=== PATIENT | male | born 1980 | race Caucasian/White ===

== ENCOUNTER 2024-07-31 11:25 | Inpatient (IN) ==
--- OUTSIDE RECORDS SUMMARY | 2024-07-31 11:36 | External Medical Summary | Summary of Care ---
Author Name Unknown Organization [facility] Address [address] [place] [address] Phone [phone] Care Team Providers Care Machinist Helper Marine Name Role Phone Wolfgang Sellers MD Primary Care Provider + Reason for Visit * Reason Comments eRx-Medication Refill Encounter Details Date Type Department Care Team (Late st Contact Info) Description 06/03/2024 Refill General Internal Medicine [facility] [address] [facility] [place] [address] Wolfgang Sellers MD [address] [place] [address] Neck pain Allergies No known active allergiesdocumented as of this encounter (statuses as of 06/03/2024) Medications Medication Sig Dispensed Refills Start Date End Date Status sildenafil (REVATIO) 20 MG Tablet Take 2 Tabs by mouth daily as needed for Erectile Dysfunction. 90 Tab 3 07/02/2019 Active Acetaminophen 500 MG Oral Tablet (Tylenol) Take 2 Tablets by mouth every 6 hours as needed (took2 tablets this am). Active Doxycycline Hyclate 100 MG Oral CapsuleIndications:Ly me disease Take 1 Capsule by mouth in the morning and 1 Capsule before bedtime. For 28 days. 56 Capsule 03/03/2024 Active tiZANidine HCl 4 MG Oral Tablet (Zanaflex)Indications :Neck pain Take 1 Tablet by mouth at bedtime. 30 Tablet 1 05/07/2024 Active amLODIPine Besylate 10 MG Oral Tablet (Norvasc)Indications: Essential hypertension with goal blood pressure less than 130/80 TAKE 1 TABLET BY MOUTH EVERY MORNING 90 Tablet 3 05/20/2024 Active traMADol HCl 50 MG Oral TabletIndications:Chr onic neck pain,Chronic midline thoracic back pain Take 1 Tablet by mouth every 6 hours as needed for Pain, Severe. 56 Tablet 06/03/2024 Active documented as of this encounter (statuses as of 06/03/2024) Active Problems Problem Noted Date Diagnosed Date Chronic neck pain 07/17/2023 Essential hypertension with goal blood pressure less than 130/80 11/10/2021 Other male erectile dysfunction 07/28/2019 Irritable bowel syndrome with constipation 07/28 ADVANCE DIRECTIVE INFORMATION 05/24/2005 Overview: No, Advance Directive brochure offered , patient declined. 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 documented as of this encounter (statuses as of 06/03/2024) Immunizations Name Administration Dates Next Due COVID-19, LNP-s, No Preserve , Ion-sucrose, Ages 12+ (Pfizer) 01/26/2022 Covid-19 Ad26, Single Dose (Alta/J&J) 021 Hepatitis B, 20+ yrs 2024,01/16/2024 TDAP (age 10 and older)(Boostrix) 12/23/2020 documented as of this encounter Social History Tobacco Use Types Packs/Day Years Used Date Smoking Tobacco: Never Smokeless Tobacco: Never Alcohol Use Standard Drinks/Week Comments Never 0 (1 standard drink = 0.6 oz pur e alcohol) AUDIT-C Answer Date Recorded Frequency of Alcohol Consumption Never 05/08/2019 Average Number of Drinks Not on file 019 Frequency of Binge Drinking Not on file 01/2019 PHQ-2 Answer Date Recorded PHQ Adult Total Score 0 07/17/2023 Hunger Vital Sign Answer Date Recorded Within the past 12 months, y ou worried that your food would run out before you got the money to buy more. Never true 01/10/20 23 Within the past 12 months, t he food you bought just didn't last and you didn't have money to get more. Never true 01/09/2023 Utilities Answer Date Recorded Do you have trouble paying y our heating, water, or electric bill? (Adult - for ages 18 years and over) Not on file 02/18/2024 Is your family able to pay t he heat, water, or electric bill? (Household - for ages 0-17 years) Not on file 02/18/2024 Does your family have access to good internet? (Household - for ages 0-17 years) Not on file 02/18/2024 Social Connections Answer Date Recorded How often do you feel lonely or isolated from those around you? (Adult - for ages 18 years and over) Not on file 02/18/2024 Sex and Gender Information Value Date Recorded Sex Assigned at Male 05/08/2019 9:55 AM EDT Gender Identity Male 05/08/2019 9:55 AM EDT Sexual Orientation Straight 05/08/2019 9: 55 AM EDT Job Start Date Occupation Industry Not on file Not on file Not on file documented as of this encounter Miscellaneous Notes * Telephone Encounter - Shivam Delgado [facility] - 06/03/2024 11:32 AM EDTRefused Prescriptions: Disp Refills tiZANidine HCl 4 MG Oral Tablet (Zanaflex) 30 Tab*1 Sig: Take 1Tablet by mouth at bedtime.Refused By: SHIVAM DICKSON [facility] for Refusal: Too soon documented in this encounter Plan of Treatment Upcoming Encounters Date Type Department Care Team (Late st Contact Info) Description 06/29/2024 10:30 AM EDT Office Visit Pharmacy, [place] [facility] [address] [place] [address] Pharmacist2, [facility] [address] [place] [address] 07/20/2024 8:00 AM EST Nurse Only Ancillary [facility] [place] [address] [facility] [place] [address] Nurse, Int Med [address] [facility] [place] [address] 07/29/2024 3:20 PM EST Office Visit General Internal Medicine [facility] [place] [address] [facility] [place] [address] Wolfgang Sellers MD [address] [facility] [place] [address] Health Maintenance Due Date Last Done Comments Influenza Vaccine (FLU shot) (#1) 2024 Depression Screening 07/17/2024 07/17/2023 Hepatitis B Vaccine (3 of 3 - 19+ 3-dose series) 07/18/2024 2024, 01/16/2024 Albumin/Creatinine Ratio 11/24/2024 11/24/2021 GFR 03/02/2025 03/02/2024, 12/31, 01/09/2023, Additional history exists Diabetes Screening 03/02/2027 03/02/2024, 0 01/16/2024, 01/09/2023, Additional history exists Lipid Panel 01/15/2029 01/16/2024, 12/31, 11/24/2021, Additional history exists Colonoscopy 02/25/2029 02/26/2024, 02/26/2024 DTap/Tdap Vaccines (2 - Td or Tdap) 12/23/2030 12/23/2020 COVID-19 Vaccine Discontinued 01/26/2022, 07/07/2021 HIV Screening Discontinued HPV (Gardasil) Vaccine Aged Out No lo nger eligible based on patient's age to complete this topic Hepatitis C Screening Discontinued MENINGOCOCCAL (MENACTRA/MENVEO) Aged Out No longer eligible based on patient's age to complete this topic Pneumococcal Vaccine: Pediatrics (0 to 5 Years) and At-Risk Patients (6 to 64 Years) Aged Out No longer eligible based on patient's age to complete this topic documented as of this encounter Medical Devices Not on filedocumented as of this encounter Visit Diagnoses Diagnosis Neck pain Cervicalgia documented in this encounter Care Teams Machinist Helper Marine Relationship Specialty Start Date End Date Wolfgang Sellers MD 200 [place] [address] PCP - General Internal Medicine 11/10/21 documented as of this encounter
--- OUTSIDE RECORDS SUMMARY | 2024-07-31 11:36 | External Medical Summary | Summary of Care ---
Author Name Unknown Organization [facility] Address [address] [place] [address] Phone [phone] Care Team Providers Care Electric Needle Specialist Name Role Phone Wolfgang Messer MD Primary Care Provider + Reason for Visit * Reason Onset Date Comments Medication Refill 06/25/2024 Encounter Details Date Type Department Care Team (Late st Contact Info) Description 06/25/2024 Refill Pharmacy, [facility] 200 [place] [address] Wolfgang Messer MD 200 [place] [address] Chronic neck pain; Chronic midline thoracic back pain Allergies No known active allergiesdocumented as of this encounter (statuses as of 06/26/2024) Medications Medication Sig Dispensed Refills Start Date End Date Status sildenafil (REVATIO) 20 MG Tablet Take 2 Tabs by mouth daily as needed for Erectile Dysfunction. 90 Tab 3 07/02/2019 Active Acetaminophen 500 MG Oral Tablet (Tylenol) Take 2 Tablets by mouth every 6 hours as needed (took2 tablets this am). Active Doxycycline Hyclate 100 MG Oral CapsuleIndications :Lyme disease Take 1 Capsule by mouth in the morning and 1 Capsule before bedtime. For 28 days. 56 Capsule 03/03/2024 Active tiZANidine HCl 4 MG Oral Tablet (Zanaflex)Indicati ons:Neck pain Take 1 Tablet by mouth at bedtime. 30 Tablet 1 05/07/2024 Active amLODIPine Besylate 10 MG Oral Tablet (Norvasc)Indicatio ns:Essential hypertension with goal blood pressure less than 130/80 TAKE 1 TABLET BY MOUTH EVERY MORNING 90 Tablet 3 05/20/2024 Active traMADol HCl 50 MG Oral TabletIndications: Chronic neck pain,Chronic midline thoracic back pain Take 1 Tablet by mouth every 6 hours as needed for Pain, Severe. Do not start before June 27, 2024. 56 Tablet 06/27/2024 Active traMADol HCl 50 MG Oral TabletIndications: Chronic neck pain,Chronic midline thoracic back pain Take 1 Tablet by mouth every 6 hours as needed for Pain, Severe. Do not start before June 17, 2024. 56 Tablet 06/17/2024 06/25/2024 Discontinue d(Refill) documented as of this encounter (statuses as of 06/26/2024) Active Problems Problem Noted Date Diagnosed Date [...] as of this encounter (statuses as of 06/26/2024) Immunizations Name Administration Dates Next Due COVID-19, [...] encounter Miscellaneous Notes * Telephone Encounter - Wolfgang Messer MD - 06/26/2024 8:26 AM EDTSigned Prescriptions: Disp Refills traMADol HCl 50 MG Oral Tablet 56 Tab*0 Sig: Take 1 Tablet by mouth every 6 hours as needed for Pain, Severe. Do not start before June 27, 2024. Authorizing Provider: WOLFGANG MESSER * Telephone Encounter - Eliseo Martin [facility] - 06/25/2024 11:32 AM EDT Pending Prescriptions: Disp Refills traMADol HCl 50 MG Oral Tablet 56 Tab*0 Sig: Take 1 Tablet by mouth every 6 hours as needed for Pain, Severe. Do not start before June 27, 2024. documented in this encounter Plan of Treatment Upcoming Encounters Date Type Department Care Team (Late st Contact Info) Description 06/29/2024 10:30 AM EDT Office Visit Pharmacy, [place] [employer] [address] [place] [address] Pharmacist2, [facility] [address] [place] [address] 07/20/2024 8:00 AM EST Nurse Only [facility] [place] [address] [place] [address] [address] [address] Nurse, Int Med [address] [place] [address] 07/29/2024 3:20 PM EST Office Visit General Internal Medicine [facility] [place] [address] [place] [address] Wolfgang Messer MD [address] [place] [address] Scheduled Procedures Name Priority Associated Diagnoses Date/Ti me COLONOSCOPY FLEXIBLE PROXIMA L DIAGNOSTIC Recall History of colonic polyps Health Maintenance Due Date Last Done Comments [...] as of this encounter Visit Diagnoses Diagnosis Chronic neck pain Cervicalgia Chronic midline thoracic back pain documented in this encounter Care Teams Electric Needle Specialist Relationship Specialty Start Date End Date Wolfgang Messer MD [address] [place] [address] PCP - General Internal Medicine 11/10/21 documented as of this encounter
--- OUTSIDE RECORDS SUMMARY | 2024-07-31 11:36 | External Medical Summary | Summary of Care ---
Author Name Unknown Organization [facility] Address [address] [place] [address] Phone [phone] Care Team Providers Care Neurology Hospitalist Name Role Phone Wolfgang Messer MD Primary Care Provider + Reason for Visit * Reason Onset Date Comments Medication Refill 06/15/2024 Encounter Details Date Type Department Care Team (Late st Contact Info) Description 06/15/2024 Refill Pharmacy, [facility] 200 [facility] [place] [address] Wolfgang Messer MD 200 [place] [address] Chronic neck pain; Chronic midline thoracic back pain Allergies No known active allergiesdocumented as of this encounter (statuses as of 06/15/2024) Medications Medication Sig Dispensed Refills Start Date [...] before June 17, 2024. 56 Tablet 06/17/2024 Active traMADol HCl 50 MG Oral TabletIndications: Chronic neck pain,Chronic midline thoracic back pain Take 1 Tablet by mouth every 6 hours as needed for Pain, Severe. 56 Tablet 06/03/2024 06/15/2024 Discontinue d(Refill) documented as of this encounter (statuses as of 06/15/2024) Active Problems Problem Noted Date Diagnosed Date [...] as of this encounter (statuses as of 06/15/2024) Immunizations Name Administration Dates Next Due COVID-19, [...] Telephone Encounter - Wolfgang Messer MD - 06/15/2024 8:39 AM EDTSigned Prescriptions: Disp Refills traMADol HCl 50 MG Oral Tablet 56 Tab*0 Sig: Take 1 Tablet by mouth every 6 hours as needed for Pain, Severe. Do not start before June 17, 2024. Authorizing Provider: WOLFGANG MESSER * Telephone Encounter - Eliseo Martin [facility] - 06/15/2024 7:50 AM EDT Pending Prescriptions: Disp Refills traMADol HCl 50 MG Oral Tablet 56 Tab*0 Sig: Take 1 Tablet by mouth every 6 hours as needed for Pain, Severe. Do not start before June 17, 2024. documented in this encounter Plan of Treatment Upcoming Encounters Date Type Department Care Team (Late st Contact Info) Description 06/29/2024 10:30 AM EDT [facility] [place] [address] [facility] [place] [place] [address] Pharmacist2, [facility] [address] [place] [address] [address] 07/20/2024 8:00 AM EST Nurse Only Ancillary [facility] [place] [address] [facility] [place] [address] Nurse, Int Med 200 [facility] [place] [address] 07/29/2024 3:20 PM EST Office Visit General Internal Medicine [facility] [place] [address] [facility] [place] [address] Wolfgang Messer MD 200 [facility] [place] [address] Scheduled Procedures Name Priority Associated Diagnoses Date/Ti [...] pain documented in this encounter Care Teams Neurology Hospitalist Relationship Specialty Start Date End Date Wolfgang Messer MD [address] [place] [address] PCP - General Internal Medicine 11/10/21 documented as of this encounter
--- OUTSIDE RECORDS SUMMARY | 2024-07-31 11:36 | External Medical Summary | Summary of Care ---
Author Name Unknown Organization [facility] Address [address] [facility] [place] [address] Phone [phone] Care Team Providers Care Ham Sawyer Name Role Phone Wolfgang Sellers MD Primary Care Provider + Reason for Visit * Reason Onset Date Comments Pre Cert/Prior Auth 03/06/2024 MRI C Spine denied Encounter Details Date Type Department Care Team (Late st Contact Info) Description 03/06/2024 Telephone Neurology [facility] [address] [place], [place] [id number] Outpatient, Precert DO NOT CHANGE - JS Pre Cert/Prior Auth (MRI C Spine denied) Allergies No known active allergiesdocumented as of this encounter (statuses as of 06/05/2024) Medications Medication Sig Dispensed Refills Start Date End Date Status sildenafil (REVATIO) 20 MG Tablet Take 2 Tabs by mouth daily as needed for Erectile Dysfunction. 90 Tab 3 07/02/2019 Active Acetaminophen 500 MG Oral Tablet (Tylenol) Take 2 Tablets by mouth every 6 hours as needed (took2 tablets this am). Active Doxycycline Hyclate 100 MG Oral CapsuleIndication s:Lyme disease Take 1 Capsule by mouth in the morning and 1 Capsule before bedtime. For 28 days. 56 Capsule 03/03/2024 Active amLODIPine Besylate 10 MG Oral Tablet (Norvasc)Indicati ons:Essential hypertension with goal blood pressure less than 130/80 Take 1 Tablet by mouth in the morning. 90 Tablet 3 07/17/2023 05/20/20 24 Discontinued Gabapentin 600 MG Oral Tablet (Neurontin)Indica tions:Chronic midline thoracic back pain Take 1 Tablet by mouth in the morning and 1 Tablet at noon and 1 Tablet before bedtime. 270 Tablet 1 12/13/2023 05/29/20 24 Discontinued tiZANidine HCl 4 MG Oral Tablet (Zanaflex)Indicat ions:Neck pain Take 1 Tablet by mouth every 8 hours as needed for Muscle spasms. 30 Tablet 3 02/10/2024 04/17/20 24 Discontinued Topiramate 50 MG Oral Tablet (Topamax)Indicati ons:Neck pain,Chronic midline thoracic back pain Take 1 Tablet by mouth in the morning and 1 Tablet before bedtime. 180 Tablet 3 02/07/2024 05/29/20 24 Discontinued traMADol HCl 50 MG Oral TabletIndications :Chronic neck pain Take 1 Tablet by mouth every 6 hours as needed for Pain, Severe. 56 Tablet 03/06/2024 03/18/20 24 Discontinued(Ref ill) documented as of this encounter (statuses as of 06/05/2024) Active Problems Problem Noted Date Diagnosed Date [...] as of this encounter (statuses as of 06/05/2024) Immunizations Name Administration Dates Next Due COVID-19, [...] encounter Miscellaneous Notes * Telephone Encounter - Stephanie Zapien OSA - 03/06/2024 8:53 AM EDT The MRI C Spine 62026 requested for Héctor Carrera is currently in Peer to Peer Review with Lorin. Please have a Nurse, HANS, MANAGER LEADERSHIP DEVELOPMENT or Physician call , Option 2, reference tracking # [id number] and speak with a Physician Reviewer to procure the required authorization. For 10398 MRI C SPINE W/ & W/O CONTRAST Your doctor told us that you had a repair (surgery) to join two or more bones of your spine into one single structure. We cannot approve this request because: An MRI (magnetic resonance imaging) scan has already been approved for you. A separate approval letter has been sent to you. We need results of the prior approved scan that show the need for repeat imaging or your doctor must confirm that the prior approved MRI scan was not performed and will not be performed. The notes sent from your doctor did not provide these details. Imaging requires six weeks of provider directed treatment to be completed. This must have been completed in the past three months without improved symptoms. Contact (via office visit, phone, email, or messaging) must occur after the treatment is completed. This has not been met because: You have not completed six weeks of provider directed treatment. Symptoms must be the same or worse after treatment to support imaging. There was no contact with your provider after completing treatment. This finding was based on review of [employer] Sp[employer] Imaging Guidelines Section(s): Greater than Six Months Post-Operative (SP 15.1) and 1.0 General Guidelines and Preface to the Imaging Guidelines, section Preface-3.1 Clinical Information. After reviewing your clinical notes, a Peer to Peer Review is required prior to approval of the requested study. Please call to obtain authorization. Alternatively, if the Peer to Peer will not be completed, please have a Clinician contact this patient to provide an alternative treatment plan. GIANFRANCO Lora 03/06/2024, 8:53 AM documented in this encounter Plan of Treatment Upcoming Encounters Date Type Department Care Team (Late st Contact Info) Description 06/29/2024 10:30 AM EDT Office Visit Pharmacy, [place] [facility] [address] [place] [address] Pharmacist2, [facility] [address] [place] [address] 07/20/2024 8:00 AM EST Nurse Only Ancillary [place] [facility] [address] [address] Nurse, Int Med [address] [place] [address] 07/29/2024 3:20 PM EST Office Visit General Internal Medicine [place] [facility] [address] [place] [address] Wolfgang Sellers MD 200 [facility] [place] [address] Health Maintenance Due Date Last Done Comments [...] Not on filedocumented as of this encounter Care Teams Ham Sawyer Relationship Specialty Start Date End Date Wolfgang Sellers MD [address] [place] [address] PCP - General Internal Medicine 11/10/21 documented as of this encounter
--- OUTSIDE RECORDS SUMMARY | 2024-07-31 11:36 | External Medical Summary | Summary of Care ---
Author Name Unknown Organization [facility] Address [address] [facility] [address] Phone [phone] Care Team Providers Care Maintenance Painter Apprentice Name Role Phone Wolfgang Sellers MD Primary Care Provider + Reason for Visit * Reason Onset Date Comments Pre Cert/Prior Auth 03/11/2024 MRI C Spine Encounter Details Date Type Department Care Team (Late st Contact Info) Description 03/11/2024 Telephone Neurology [facility] [address] [place] [address] Outpatient, Precert DO NOT CHANGE - JS Pre Cert/Prior Auth (MRI C Spine) Allergies No known active allergiesdocumented as of this encounter (statuses as of 06/10/2024) Medications Medication Sig Dispensed Refills Start Date [...] as of this encounter (statuses as of 06/10/2024) Active Problems Problem Noted Date Diagnosed Date [...] as of this encounter (statuses as of 06/10/2024) Immunizations Name Administration Dates Next Due COVID-19, [...] Telephone Encounter - Stephanie Zapien OSA - 03/11/2024 9:44 AM EDT Please follow up on P2P that was sent on 03/06/2024. The MRI C Spine [id number] requested for Héctor Carrera is currently in Peer to Peer Review with Lorin. Please have a Nurse, HANS, IRON WORKER or Physician call , Option 2, reference tracking # [id number] and speak with a Physician Reviewer to procure the required authorization. For 13773 MRI C SPINE W/ & W/O CONTRAST [...] provide an alternative treatment plan. GIANFRANCO Lora 03/11/2024, 9:46 AM documented in this encounter Plan of Treatment Upcoming Encounters Date Type Department Care Team (Late st Contact Info) Description 06/29/2024 10:30 AM EDT Office Visit Pharmacy, [facility] [place] [address] [place] [address] [address] Pharmacist2, [facility] [address] [place] [address] 07/20/2024 8:00 AM EST Nurse Only Ancillary [facility] [place] [address] [place] [address] Nurse, Int Med [address] [facility] [place] [address] 07/29/2024 3:20 PM EST Office Visit General Internal Medicine [place] [facility] 200 [facility] [place] [address] Wolfgang Sellers MD 200 [facility] [place] [address] Scheduled Procedures Name Priority Associated Diagnoses Date/Ti [...] filedocumented as of this encounter Care Teams Maintenance Painter Apprentice Relationship Specialty Start Date End Date Wolfgang Sellers MD [address] [place] [address] PCP - General Internal Medicine 11/10/21 documented as of this encounter
--- OUTSIDE RECORDS SUMMARY | 2024-07-31 11:36 | External Medical Summary | Summary of Care ---
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 Difficulty walking due to that- using cane. Has some numbness in his R arm developing now. Encounter Details Date Type Department Care Team (Late st Contact Info) Description 07/29/2024 3:20 PM EST Office Visit General Internal Medicine [facility] [address] [facility] [place] [address] Wolfgang Sellers MD [address] [place] [address] Chronic bilateral low back pain with bilateral sciatica*; Numbness and tingling; History of Lyme disease; Essential hypertension with goal blood pressure less than 130/80; Chronic neck pain; Vaccine for viral hepatitis Allergies No known active allergiesdocumented as of this encounter (statuses as of 07/29/2024) Medications sildenafil (REVATIO) 20 MG Tablet Take 2 Tabs by mouth daily as needed for Erectile Dysfunction. 90 Tab 3 9 Active Acetaminophen 500 MG Oral Tablet (Tylenol) Take 2 Tablets by mouth every 6 hours as needed (took2 tablets this am). Active amLODIPine Besylate 10 MG Oral Tablet (Norvasc)Indicat ions:Essential hypertension with goal blood pressure less than 130/80 TAKE 1 TABLET BY MOUTH EVERY MORNING 90 Tablet 3 4 Active tiZANidine HCl 4 MG Oral Tablet (Zanaflex)Indica tions:Neck pain Take 1 Tablet by mouth at bedtime. 30 Tablet 1 4 Active Gabapentin 800 MG Oral Tablet (Neurontin) Take 1 Tablet by mouth in the morning and 1 Tablet at noon and 1 Tablet before bedtime. 90 Tablet 1 4 Active Amoxicillin 500 MG Oral Capsule (Amoxil)Indicati ons:Chronic bilateral low back pain with bilateral sciatica,History of Lyme disease Take 1 Capsule by mouth in the morning and 1 Capsule at noon and 1 Capsule before bedtime. Do all this for 21 days. 63 Capsule 4 08/19/20 24 Active traMADol HCl 50 MG Oral TabletIndication s:Chronic bilateral low back pain with bilateral sciatica,Chronic neck pain Take 1 Tablet by mouth every 4 hours as needed for Pain, Severe. 56 Tablet 4 Active Doxycycline Hyclate 100 MG Oral CapsuleIndicatio ns:Lyme disease Take 1 Capsule by mouth in the morning and 1 Capsule before bedtime. For 28 days. 56 Capsule 4 07/29/20 24 Discontinu ed(Medicat ion List Clean Up) predniSONE 20 MG Oral Tablet (Deltasone) Take 3 tabs for 3 days, 2 tabs for 3 days, 1 tab for 3 days, 1/2 tab for 3 days 20 Tablet 4 07/29/20 24 Discontinu ed(Medicat ion List Clean Up) traMADol HCl 50 MG Oral TabletIndication s:Chronic neck pain,Chronic midline thoracic back pain Take 1 Tablet by mouth every 4 hours as needed for Pain, Severe. 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 documented as of this encounter (statuses as of 07/29/2024) Immunizations Name Administration Dates Next Due COVID-19, LNP-s, No Preserve , Ion-sucrose, Ages 12+ (Pfizer) 01/26/2022 Covid-19 Ad26, Single Dose ([employer]) 021 Hepatitis B, 20+ yrs 07/29/2024,2024,01/15 TDAP (age 10 and older)(Boostrix) 12/23/2020 documented [...] money to get more. Never true 01/09/2023 Sex and Gender Information Value Date Recorded Sex Assigned at Male 05/08/2019 9:55 AM EDT Legal Sex Male 5:56 AM EST Gender Identity Male 05/08/2019 9:55 AM EDT Sexual Orientation Straight 05/08/2019 9: 55 AM EDT documented as of this encounter Last Filed Vital Signs Vital Sign Reading Time Taken Comments Blood Pressure 116/82 07/29/2024 3:04 PM EST Pulse 123 07/29/2024 3:04 PM EST Temperature 36.1 C (96.9 F) 07/29/2024 3:04 PM ES T Respiratory Rate - - Oxygen Saturation 99% 07/29/2024 3:04 PM EST Inhaled Oxygen Concentration - - Weight 81.4 kg (179 lb 8 oz) 07/29/2024 3:04 PM EST Height - - Body Mass Index 25.76 03/11/2024 10:04 AM EDT documented in this encounter Patient Instructions * Patient Instructions* Jimbo Castro CMA - 07/29/2024 4:05 PM EST Vaccination is the best way to protect against hepatitis B. Depending on age and vaccine used most patients get 2 or 3 doses of hepatitis B vaccine. If you miss a dose or get behind schedule, get the next dose as soon as you can. There is no need to start over. Age for Hepatitis B Vaccine: INFANTS: *Infants whose mother HAS hepatitis B virus: #1 dose- at 2 month visit #2 dose- 1 month after dose #1 #3 dose- 7 months of age (at least 5 months after dose #1) *Infants whose mother does NOT have hepatitis B virus: #1 dose- - 2 months of age #2 dose- 1-4 months of age (at least 1 month after dose #1) #3 dose- 6-18 months of age ( at least 2 months after dose #2) *Adults at recommended age to receive Hepatitis B vaccine may receive 2 or 3 doses depending on thetype of vaccine administered: #1 dose- Now #2 dose- 1-2 months after dose #1 #3 dose- (if needed)- 4-6 months after dose #1 WHAT ARE THE RISKS FROM HEPATITIS B VACCINE? Hepatitis B vaccine is one of the safest vaccines. Getting the disease is much more likely to causeserious illness than getting the vaccine. MILD PROBLEMS: - soreness where the shot was given. - mild to moderate fever Acetaminophen or Ibuprofen (not aspirin) may be used to reduce fever and pain. SEVERE PROBLEMS: - serious allergic reaction is very rare. WHAT TO DO IF THERE IS A SERIOUS REACTION: - Call a doctor or get the person to a doctor right away. - Ask your doctor, nurse, or health department to file a Vaccine Adverse Event Report form. To filea report yourself you can call: (toll-free) LET YOUR DOCTOR KNOW IMMEDIATELY IF YOU HAVE DIFFICULTY BREATHING OR SWALLOWING, EXPERIENCE ITCHING OF FEET OR HANDS, HAVE SWELLING OF EYES, FACE OR INSIDE OF NOSE. documented in this encounter Progress Notes * Jimbo Castro CMA - 07/29/2024 4:05 PM EST The patient has been properly identified by confirmation of name and date of . Hepatitis B VIS given to patient. Hepatitis B ordered and Provider aware. Jimbo Castro CMA Time Out Procedure Performed: Yes Patient Identified (Ask Name/Date of ): Yes Immunization(s) verified: Yes, VIS Sheet(s) given: Yes Verified Side and Site: Yes Verified Shot(s) with Patient: Yes Jimbo Castro CMA * Wolfgang Sellers MD - 07/29/2024 3:40 PM EST Chief Complaint Patient presents with Return Visit Pt reported that he has numbness that starts at his buttock and down both legs. Difficulty walking due to that- using cane. Has some numbness in his R arm developing now. SUBJECTIVE: Héctor Carrera is a 44 year old male with PMH as below who presents for acute. Earlier in the year had back pain, numbness down legs, and trouble walking. Had mri and saw neurology. Dx with lyme based on labs. Started on doxycyline but couldn't tolerate due to suicidal ideationand hallucinations which stopped when he stopped med. Went to ER, given amoxicillin and symptoms dramatically improved, stopped needed cane and numbness was markedly improved! He notes neck pain improved as well after amoxicillin to baseline. He then took a trip to [place] in June and then pain worsened again. He is having increasing lower back pain from lower back to legs. Legs have sensation,but diminished no falls, no trauma. Patient denies fecal or urine incontinence or other bowel/bladder issues. He notes also with neck pain as well. He was seen by mtm recently for this, given increase in neurontin. Recent prednisone didn't help at all, just finished. 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 Patient Active Problem List Diagnosis 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 PATHOLOGICAL FRACTURE OF TIBIA OR FIBULA Other male erectile dysfunction Irritable bowel syndrome with constipation Essential hypertension with goal blood pressure less than 130/80 Chronic neck pain Current Outpatient Medications Medication Sig Dispense Refill sildenafil (REVATIO) 20 MG Tablet Take 2 Tabs by mouth daily as needed for Erectile Dysfunction. 90Tab 3 Acetaminophen 500 MG Oral Tablet (Tylenol) Take 2 Tablets by mouth every 6 hours as needed (took2 tablets this am). amLODIPine Besylate 10 MG Oral Tablet (Norvasc) TAKE 1 TABLET BY MOUTH EVERY MORNING 90 Tablet 3 tiZANidine HCl 4 MG Oral Tablet (Zanaflex) Take 1 Tablet by mouth at bedtime. 30 Tablet 1 traMADol HCl 50 MG Oral Tablet Take 1 Tablet by mouth every 4 hours as needed for Pain, Severe. 56 Tablet 0 Gabapentin 800 MG Oral Tablet (Neurontin) Take 1 Tablet by mouth in the morning and 1 Tablet at noon and 1 Tablet before bedtime. 90 Tablet 1 Amoxicillin 500 MG Oral Capsule (Amoxil) Take 1 Capsule by mouth in the morning and 1 Capsule at noon and 1 Capsule before bedtime. Do all this for 21 days. 63 Capsule 0 No current facility-administered medications for this visit. Review of patient's allergies indicates: No Known Allergies Health Maintenance Due Topic Date Due Influenza Vaccine (FLU shot) (1) Never done Depression Screening 07/17/2024 Hepatitis B Vaccine (3 of 3 - 19+ 3-dose series) 07/18/2024 ROS: PULMONARY: No cough, sputum, or hemoptysis, No wheezing, No rales, No shortness of breath, and No recent change in breathing CARDIOVASCULAR: No chest pain, No shortness of breath, No dyspnea on exertion, No orthopnea, No paroxysmal nocturnal dyspnea, No edema, No palpitations, and No syncope GASTROINTESTINAL: No abdominal pain, No change in bowel habits, No significant heartburn, No significant change in appetite, No nausea, vomiting, diarrhea, or constipation, No hematemesis, No blood in stools or black tarry stools, No abdominal bloating or early satiety, and No dysphagia ALL OTHER SYSTEMS NEGATIVE I reviewed social, PMH, PSH, and family history and updated where needed. Social History Socioeconomic History Marital status: Spouse name: Not on file Number of children: Not on file Years of education: Not on file Highest education level: Not on file Occupational History Not on file Tobacco Use Smoking status: Never Smokeless tobacco: Never Vaping Use Vaping status: Never Used Substance and Sexual Activity Alcohol use: Never Drug use: Never Sexual activity: Not on file Other Topics Concern Not on file Social History Narrative Not on file Social Needs Financial Resource Strain: Not on file Food Insecurity: No Food Insecurity (01/09/2023) Hunger Vital Sign Worried About Running Out of Food in the Last Year: Never true Ran Out of Food in the Last Year: Never true Transportation Needs: Not on file Social Connections: Not on file Housing Stability: Not on file Past Medical History: Diagnosis Date INFORMATION Osteoid Osteoma Irritable bowel syndrome with constipation 07/28/2019 Osteoid osteoma right tibia Other male erectile dysfunction 07/28/2019 Seasonal allergies Past Surgical History: Procedure Laterality Date C-/T-SPINE PARAVERTEBRAL FACET INJ, 1 LEVEL 05/17/2022 C-/T-SPINE PARAVERTEBRAL FACET INJ, 1 LEVEL performed by Ramiro Woodward DO at [facility] C-/T-SPINE PARAVERTEBRAL FACET INJ, 1 LEVEL 06/14/2022 C-/T-SPINE PARAVERTEBRAL FACET INJ, 1 LEVEL performed by Ramiro Woodward DO at OR [facility] COLONOSCOPY COLONOSCOPY, DIAGNOSTIC (RECTUM) N/A 02/26/2024 diverticulosis/hemorrhoids/recall 5 years/COLONOSCOPY FLEXIBLE PROXIMAL DIAGNOSTIC performed by Sadiq Anglin MD at ENDOSCOPY [facility] DESTROY CERV/THORACIC NERVE IMAGING, SINGLE 07/19/2022 DESTROY CERV/THORACIC NERVE IMAGING, SINGLE performed by Ramiro Woodward DO at OR [facility] EGD, FLEXIBLE, DIAGNOSTIC 01/31/2024 biopsies normal/ESOPHAGOGASTRODUODENOSCOPY (EGD), FLEXIBLE, TRANSORAL, DIAGNOSTIC performed by Ev Perry MD at ENDOSCOPY [facility] INFORMATION 12/31,01/01 removal osteoid osteoma INJECT DX/THER SUBSTANCE INTERLAMINAR CERVICAL/THORACIC W IMAGE GUIDE 03/08/2022 INJECTION SPINE LUMBAR CERVICAL OR THORACIC performed by Ramiro Woodward DO at OR [facility] INJECT DX/THER SUBSTANCE INTERLAMINAR CERVICAL/THORACIC W IMAGE GUIDE 03/11/2023 INJECTION SPINE LUMBAR CERVICAL OR THORACIC performed by Ramiro Woodward DO at OR [facility] MISCELLANEOUS ORDER ([facility] ONLY) knee - left OTHER 2017 spinal fussion of c4 and c5 Family History Problem Relation Name Age of Onset Breast Cancer Mother No Known Problems Father No Known Problems Sister No Known Problems Brother No Known Problems Grandmother (Maternal) No Known Problems Grandfather (Maternal) No Known Problems Grandmother (Paternal) Other (pancreatic cancer) Grandfather (Paternal) OBJECTIVE: PHYSICAL EXAM: BP 116/82 | Pulse 123 | Temp 96.9 F (36.1 C) (Tympanic) | Wt 179 lb 8 oz (81.4 kg) | SpO2 99% |BMI 25.76 kg/m | BSA 2.01 m General: alert, healthy, and no distress Head: Normocephalic, No masses, lesions, or abnormalities Heart: tachycardia, no murmur, no gallops, PMI non-displaced, S-1 normal, and S- 2 normal Lungs: normal respiratory rate and rhythm, lungs clear to auscultation Extremities: no edema, no clubbing, no cyanosis Neuro Exam: alert with fluent speech, walks with cane, stands on own, pain to palpation lower back,has sensation in groin and can feel me touching, 5/5 strength legs, on/off table w/o aid Psych: normal affect, no flight of ideas or tangential thought, good eye contact, no pressured speech 03/18/24 brain: IMPRESSION IMPRESSION Normal study 03/04/24 mri c spine: 1. Stable postoperative changes status post ACDF at C5-C6. 2. New small central disc protrusion at C4-C5 causing mild spinal canal stenosis. 3. No spinal cord impingement or abnormal spinal cord signal. 02/07/24 mri l spine: Multilevel facet arthropathy and mild congenital canal narrowing. Mild effacement of each lateral recess at L4-5 07/27/24 mtm: Noted to have Lyme disease diagnosis this summer Noted to have left sided body symptoms numbness and was treated with antibiotics Was seeing Interventional Pain and next step was MBB test injections, but were delayed due to new onset Lyme Disease Unclear what part Lyme Disease may be playing today, but noted to have left sided lack pain that limits daily activity. 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 Noted to be ambulating with a cane today due to lumbar radiation and numbness. Had seen Dr Arroyo this summer, but lumbar issues could not fully be attributed to symptoms. Patient will be following with PCP this week to assess what part Lyme Disease may be playing chronically If pain not assisted with maximized dose of Gabapentin, will rotate to [facility] a next visit Education Provided - Patient educated on mechanism, time to efficacy and potential adverse effects of medication regimen Recommendations Increase Gabapentin 800 mg three times daily Tramadol 50mg Q4H Tizanidine 4mg Q8H: uses at bedtime due to fatigue Héctor verbalized understanding of the plan. Contact clinic with any issues. 05/29/24 mtm: Lower back pain has resolves since lymes disease has been treated. Neck pain is back to status quo from before the lymes disease flair up of pain. Pt self weaned off Gabapentin and topamax Pt would like to look to wean off tramadol after upcoming Darrell. Last visit: Pt discovered he had an active lymes infection, had temporary paralysis of his left side. Has recovered since then. Unclear how much of his pain previously was contributed by the Lymes Pt reports he feels a lot better now than he did in mid January. Given complicating factors over the past 2 months patient requests to not make any changes and see if remaining pain continues to improve as he continues to recover. 03/02/24 neurology: Héctor Carrera is a 44 y/o male with past medical history of hypertension, IBS, s/p anterior cervical fusion of C5-6, RLE osteoid osteoma surgery, and L meniscal surgery who presents with left sidedarm and leg numbness and lumbar back pain. 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 Patient's imaging results also do not show signs of disc herniation in the lumbar spine His prior C-spine imaging in 2022 was normal, but we will order imaging due to patient's upper extremity symptoms and history of C-spine surgery to rule out a spinal cord lesion or disc herniation. His symptoms do not appear to be due to a peripheral neuropathy as they are unilateral. However, if imaging and bloodwork is negative, we will order EMG testing. Labs today including chemistry sed rate Lyme titer cervical spine flexion and extension images to rule out instability Any sudden increase weakness should seek immediate medical attention return in 8 weeks Héctor was seen today for new patient. Diagnoses and all orders for this visit: Myeloradiculopathy - MRI C SPINE W WO CONTRAST - CBC WITH WBC DIFFERENTIAL - COMPREHENSIVE METABOLIC PANEL - ERYTHROCYTE SEDIMENTATION RATE (ESR) - LYME DISEASE ANTIBODY SCREEN WITH REFLEX TO CONFIRMATION - XR C SPINE 6 OR MORE VIEWS 03/13/24 er mdm: - Vitals signs stable - History obtained via patient. History as above. - Chronic conditions affecting care: HTN; IBS; chronic neck pain - Differential diagnoses include, but are not limited to: electrolyte abnormality; Lyme meningitis;medical side effect - Order placed for continuous cardiac monitoring. At this time, monitor showed rate of 80 bpm with normal sinus rhythm, per my interpretation. - External medical records reviewed. See your primary care visit note from today was reviewed. Patient was seen for follow-up for his recent Lyme disease diagnosis. He expressed numbness and tinglingand weakness in his left arm, leg and back that is progressing. Was seen by neurology on 03/02/2024 and was positive for Lyme and started on doxycycline on 03/03/2024. It is noted that his symptoms improved after initiation of doxycycline, despite his new side effects that he was having. - EKG interpreted by myself showed normal sinus rhythm. Rate 69 bpm. QT 396. No acute ischemic changes. No evidence of heart block. - Laboratory workup interpreted by myself showed normal WBC; normal PT/INR; normal platelet; stableelectrolytes; normal CRP; normal troponin; elevated total bilirubin (1.1) - Negative anaplasma smear and banesia smear - Lyme positive - CT head wo contrast negative for acute pathology - CTA head/neck negative for acute pathology. - I did discuss the results with the patient had a thorough discussion about treatment options. Hissymptoms seem atypical for doxycycline side effects. Did discuss that there are other oral options for treatment of Lyme's disease, including amoxicillin or cefuroxime. Did discuss that Lyme meningitis cannot be diagnosed without a lumbar puncture being performed. Patient symptoms do seem atypical for Lyme meningitis. However, I did discuss the risks of delayed lumbar puncture for diagnosis of Lyme meningitis, including but not limited to the progression of symptoms, permanent neurological symptoms, and encephalopathy. Patient declined doing a lumbar puncture at this time. He would like to trial course of another outpatient antibiotic, as he only had 4 days of doxycycline so he did not complete an outpatient treatment course for his Lyme infection. Instructed that if his neurological symptoms progressed over the next 3 to 4 days despite changing his antibiotic, he should present back tothe emergency department and can be reevaluated for a lumbar puncture to potentially be obtained. An MRI brain was ordered by the patient's PCP for further workup. - Patient given 2g IV rocephin for antibiotics in ER. Will discharge with prescription for amoxicillin 500 mg 3 times daily for 14 days. - Discussed results with patient. He was in agreement with the plan above. A prescription for amoxicillin 500 mg 3 times daily was sent to his pharmacy. - Patient remained stable throughout the visit. Results were discussed with the patient and patient's family. They were given the opportunity to ask questions. Had lengthy discussion with patient about supportive care return precautions. No changes to medications. Patient to follow up with primary care physician for further evaluation and management. All questions answered. Patient agreeable plan. ASSESSMENT: (M54.42, M54.41, G89.29) Chronic bilateral low back pain with bilateral sciatica (primary encounterdiagnosis) (R20.0, R20.2) Numbness and tingling (Z86.19) History of Lyme disease (I10) Essential hypertension with goal blood pressure less than 130/80 (M54.2, G89.29) Chronic neck pain PLAN: Chronic bilateral low back pain with bilateral sciatica (Primary) - Amoxicillin 500 MG Oral Capsule (Amoxil); Take 1 Capsule by mouth in the morning and 1 Capsule atnoon and 1 Capsule before bedtime. Do all this for 21 days. - traMADol HCl 50 MG Oral Tablet; Take 1 Tablet by mouth every 4 hours as needed for Pain, Severe. Seems to be progressing again. 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 He is aware, but would like to try oral abx first to see if helps. 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 Cont tramadol, neurontin, zanaflex I have reviewed the patients controlled substance dispensing history in the Prescription Drug Monitoring Program in compliance with the [facility] regulations before prescribing a controlled substance. Numbness and tingling As above History of Lyme disease - Amoxicillin 500 MG Oral Capsule (Amoxil); Take 1 Capsule by mouth in the morning and 1 Capsule atnoon and 1 Capsule before bedtime. Do all this for 21 days. As above Essential hypertension with goal blood pressure less than 130/80 Cont amlodipine Chronic neck pain - traMADol HCl 50 MG Oral Tablet; Take 1 Tablet by mouth every 4 hours as needed for Pain, Severe. Follow Up: Return if symptoms worsen or fail to improve. And as scheduled. Wolfgang Sellers MD documented in this encounter Nursing Notes * Jimbo Castro CMA - 07/29/2024 3:04 PM EST The patient has been properly identified by confirmation of name and date of . Chief Complaint Patient presents with Return Visit Pt reported that he has numbness that starts at his buttock and down both legs. Difficulty walking due to that- using cane. Has some numbness in his R arm developing now. documented in this encounter Plan of Treatment Upcoming Encounters Date Type Department Care Team (Late st Contact Info) Description 08/10/2024 10:10 AM EST Office Visit Pharmacy, [place] [facility] [place] [id number] [facility] [place] [address] Scheduled Procedures Name Priority Associated Diagnoses Date/Ti me L-/S-SPINE PARAVERTEBRAL FAC ET INJ, 1 LEVEL Spondylosis of lumbar region without myelopathy or radiculopathy L-/S-SPINE PARAVERTEBRAL FAC ET INJ, 2 LEVELS Spondylosis of lumbar region without myelopathy or radiculopathy L-/S-SPINE PARAVERTEBRAL FAC ET INJ, 1 LEVEL Spondylosis of lumbar region without myelopathy or radiculopathy L-/S-SPINE PARAVERTEBRAL FAC ET INJ, 2 LEVELS Spondylosis of lumbar region without myelopathy or radiculopathy DESTROY LUMBAR SACRAL NERVE IMAGING 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 DESTROY LUMBAR SACRAL NERVE IMAGING ADD'L Spondylosis of lumbar region without myelopathy or radiculopathy COLONOSCOPY FLEXIBLE PROXIMA L DIAGNOSTIC Recall History of colonic polyps Health Maintenance Due Date Last Done Comments Influenza Vaccine (FLU shot) (#1) 2024 Depression Screening 07/17/2024 07/17/2023 Albumin/Creatinine Ratio 11/24/2024 11/24/2021 GFR 03/02/2025 03/02/2024, 12/31, 01/09/2023, Additional history exists Diabetes Screening 03/02/2027 03/02/2024, 0 01/16/2024, 01/09/2023, Additional history exists Lipid Panel 01/15/2029 01/16/2024, 12/31, 11/24/2021, Additional history exists Colonoscopy 02/25/2029 02/26/2024, 02/26/2024 DTap/Tdap Vaccines (2 - Td or Tdap) 12/23/2030 12/23/2020 COVID-19 Vaccine Discontinued 01/26/2022, 07/07/2021 Hepatitis B Vaccine Completed 07/29/2024, 2024, 01/16/2024 HIV Screening Discontinued HPV (Gardasil) Vaccine Aged [...] of this encounter Visit Diagnoses Diagnosis Chronic bilateral low back pain with bilateral sciatica- Primary Numbness and tingling Disturbance of skin sensation History of Lyme disease Personal history of other infectious and parasitic disease Essential hypertension with goal blood pressure less than 130/80 Chronic neck pain Cervicalgia Vaccine for viral hepatitis Need for prophylactic vaccination and inoculation against viral hepatitis documented in this encounter Care Teams Electric Motor Repairman Relationship Specialty Start Date End Date Wolfgang Sellers MD [address] [place] [address] PCP - General Internal Medicine 11/10/21 documented as of this encounter"
--- OUTSIDE RECORDS SUMMARY | 2024-07-31 11:36 | External Medical Summary | Summary of Care ---
Author Name Unknown Organization [facility] Address [address] [place] [address] Phone [phone] Care Team Providers Care Surface Grinding Machine Hand Name Role Phone Wolfgang Messer MD Primary Care Provider + Reason for Visit * Reason Onset Date Comments Medication Refill 07/07/2024 Encounter Details Date Type Department Care Team (Late st Contact Info) Description 07/07/2024 Refill General Internal Medicine [facility] [address] [place] [address] Wolfgang Messer MD [address] [place] [address] Neck pain Allergies No known active allergiesdocumented as of this encounter (statuses as of 07/08/2024) Medications Medication Sig Dispensed Refills Start Date [...] June 27, 2024. 56 Tablet 06/27/2024 Active Gabapentin 600 MG Oral Tablet (Neurontin)Indicat ions:Chronic neck pain Take 1 Tablet by mouth in the morning and 1 Tablet at noon and 1 Tablet before bedtime. 90 Tablet 5 06/29/2024 Active tiZANidine HCl 4 MG Oral Tablet (Zanaflex)Indicati ons:Neck pain Take 1 Tablet by mouth at bedtime. 30 Tablet 1 07/08/2024 Active tiZANidine HCl 4 MG Oral Tablet (Zanaflex)Indicati ons:Neck pain Take 1 Tablet by mouth at bedtime. 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 documented as of this encounter (statuses as of 07/08/2024) Immunizations Name Administration Dates Next Due COVID-19, [...] Telephone Encounter - Wolfgang Messer MD - 07/08/2024 2:45 PM ESTSigned Prescriptions: Disp Refills tiZANidine HCl 4 MG Oral Tablet (Zanaflex) 30 Tab*1 Sig: Take 1 Tablet by mouth at bedtime. Authorizing Provider: WOLFGANG MESSER * Telephone Encounter - Jimbo Castro [facility] - 07/08/2024 2:41 PM ESTPending Prescriptions: Disp Refills tiZANidine HCl 4 MG Oral Tablet (Zanaflex) 30 Tab*1 Sig: Take 1 Tablet by mouth at bedtime. * Telephone Encounter - Jimbo Castro [facility] - 07/08/2024 2:41 PM EST Did you pend patient's preferred pharmacy and medication before forwarding?yes Pharmacy: [facility] Pending Prescriptions: Disp Refills tiZANidine HCl 4 MG Oral Tablet (Zanaflex)30 Tab*1 Sig: Take 1 Tablet by mouth at bedtime. Last Visit: 03/11/2024 (in office), Visit date not found (telemedicine) Next Visit: 07/29/2024 If no future appointments scheduled, and last appointment is greater than a year ago, please schedule patient for a follow-up appointment Last date the medication was ordered: 05.07.2024 Is this request for a controlled substance?No Urine Drug Screen: Results for orders placed or performed in visit on 02/07/24 PAIN MANAGEMENT DRUG PANEL, URINE W/ INTERPRETATION Result Value Compliance Interpretation Based on the medication information provided: The presence of tramadol and o-desmethyltramadol is CONSISTENT with tramadol use. Amphetamines Screen, U Negative Benzodiazepines Screen, U Negative Cannabinoids Screen, U Negative Cocaine Metabolite Screen, U Negative Fentanyl Screen, U Negative Hydrocodone Screen, U Negative Methadone Metabolite Screen, U Negative Morphine/Codeine Screen, U Negative Oxycodone Screen, U Negative Valid Interpretation Normal Creatinine, U 39 Narrative Cutoff Concentrations: Drug Level Amphetamines 500 ng/mL Benzodiazepines 100 ng/mL Cannabinoids 50 ng/mL Cocaine Metabolite 150 ng/mL Fentanyl 1 ng/mL Hydrocodone / Hydromorphone 300 ng/mL Methadone Metabolite 100 ng/mL Morphine / Codeine 300 ng/mL Oxycodone / Oxymorphone 100 ng/mL Screening results are presumptive and can only be used for medical purposes. Confirmatory testing is available upon request. Patient Phone Numbers Labs: Lab Results Component Value Date/Time CREAT 1.3 (H) 03/02/2024 03:25 PM CREAT 1.0 08/21/2000 11:04 AM POTASSIUM 4.1 03/02/2024 03:25 PM TSH 1.14 01/16/2024 09:14 AM LDL 169 (H) 01/16/2024 09:14 AM LDLCALC 137 11/14/2018 07:18 AM ALT 34 03/02/2024 03:25 PM * Telephone Encounter - Barb Holland - 07/07/2024 6:03 PM ESTPending Prescriptions: Disp Refills tiZANidine HCl 4 MG Oral Tablet (Zanaflex) 30 Tab*1 Sig: Take 1Tablet by mouth at bedtime. documented in this encounter Plan of Treatment Upcoming Encounters Date Type Department Care Team (Late st Contact Info) Description 07/20/2024 8:00 AM EST Nurse Only Ancillary [facility] [address] [place] [address] Nurse, Int Med [address] [place] [address] 07/29/2024 3:20 PM EST Office Visit General Internal Medicine [facility] [address] [place] [address] [address] Wolfgang Messer MD [address] [place] [address] 08/14/2024 8:30 AM EST Office Visit Pharmacy, [facility] [address] [place] [address] Pharmacist2, [facility] [address] [place] [address] Scheduled Procedures Name Priority Associated Diagnoses Date/Ti [...] Cervicalgia documented in this encounter Care Teams Surface Grinding Machine Hand Relationship Specialty Start Date End Date Wolfgang Messer MD [address] [facility] [address] PCP - General Internal Medicine 11/10/21 documented as of this encounter
--- OUTSIDE RECORDS SUMMARY | 2024-07-31 11:36 | External Medical Summary | Summary of Care ---
Author Name Unknown Organization [facility] Address [address] [place] [address] Phone [phone] Care Team Providers Care Wood Engraver Name Role Phone Wolfgang Messer MD Primary Care Provider + Reason for Visit * Reason Onset Date Comments Medication Refill 06/03/2024 Encounter Details Date Type Department Care Team (Late st Contact Info) Description 06/03/2024 Refill Pharmacy, [facility] [address] [place] [address] Wolfgang Messer MD [address] [place] [address] Chronic neck pain; Chronic midline thoracic back [...] for Pain, Severe. 56 Tablet 06/03/2024 Active traMADol HCl 50 MG Oral TabletIndications: Chronic neck pain,Chronic midline thoracic back pain Take 1 Tablet by mouth every 6 hours as needed for Pain, Severe. Do not start before May 22, 2024. 56 Tablet 05/22/2024 4 Discontinue d(Refill) documented as of this encounter [...] Telephone Encounter - Wolfgang Messer MD - 06/03/2024 9:03 AM EDTSigned Prescriptions: Disp Refills traMADol HCl 50 MG Oral Tablet 56 Tab*0 Sig: Take 1 Tablet by mouth every 6 hours as needed for Pain, Severe. Authorizing Provider: WOLFGANG MESSER * Telephone Encounter - Eliseo Martin [facility] - 06/03/2024 9:01 AM EDT Pending Prescriptions: Disp Refills traMADol HCl 50 MG Oral Tablet 56 Tab*0 Sig: Take 1 Tablet by mouth every 6 hours as needed for Pain, Severe. documented in this encounter Plan of Treatment Upcoming Encounters Date Type Department Care Team (Late st Contact Info) Description 06/29/2024 10:30 AM EDT Office Visit Pharmacy, [facility] [place] [address] [place] [address] Pharmacist2, [facility] [address] [place] [address] 07/20/2024 8:00 AM EST Nurse Only Ancillary [facility] [address] [place] [address] Nurse, Int Med [address] [facility] [place] [address] 07/29/2024 3:20 PM EST Office Visit General Internal Medicine [facility] [place] [address] [place] [address] Wolfgang Messer MD [address] [place] [address] Health Maintenance Due Date Last Done Comments [...] pain documented in this encounter Care Teams Wood Engraver Relationship Specialty Start Date End Date Wolfgang Messer MD [address] [place] [address] PCP - General Internal Medicine 11/10/21 documented as of this encounter
--- OUTSIDE RECORDS SUMMARY | 2024-07-31 11:36 | External Medical Summary | Summary of Care ---
Author Name Unknown Organization [facility] Address [address] [place] [address] Phone [phone] Care Team Providers Care Teletypist Name Role Phone Wolfgang Sellers MD Primary [...] PM EST Office Visit General Internal Medicine [facility] [address] [facility] [place] [address] Wolfgang Sellers MD [address] [place] [address] Chronic bilateral low back pain with bilateral [...] 12+ (Pfizer) 01/26/2022 Covid-19 Ad26, Single Dose ([employer]) 021 Hepatitis B, 20+ yrs 07/29/2024,2024,01/15 TDAP [...] baseline. He then took a trip to [place] in June and then pain worsened [...] LEVEL performed by Ramiro Woodward DO at [facility] C-/T-SPINE PARAVERTEBRAL FACET INJ, 1 LEVEL 06/14/2022 C-/T-SPINE PARAVERTEBRAL FACET INJ, 1 LEVEL performed by Ramiro Woodward DO at [facility] COLONOSCOPY COLONOSCOPY, DIAGNOSTIC (RECTUM) N/A 02/26/2024 diverticulosis/hemorrhoids/recall 5 years/COLONOSCOPY FLEXIBLE PROXIMAL DIAGNOSTIC performed by Sadiq Anglin MD at ENDOSCOPY [facility] DESTROY CERV/THORACIC NERVE IMAGING, SINGLE 07/19/2022 DESTROY CERV/THORACIC NERVE IMAGING, SINGLE performed by Ramiro Woodward DO at OR [facility] EGD, FLEXIBLE, DIAGNOSTIC 01/31/2024 biopsies normal/ESOPHAGOGASTRODUODENOSCOPY (EGD), FLEXIBLE, TRANSORAL, DIAGNOSTIC performed by Ev Perry MD at ENDOSCOPY [facility] INFORMATION 12/31,01/01 removal osteoid osteoma INJECT DX/THER SUBSTANCE INTERLAMINAR CERVICAL/THORACIC W IMAGE GUIDE 03/08/2022 INJECTION SPINE LUMBAR CERVICAL OR THORACIC performed by Ramiro Woodward DO at OR [facility] INJECT DX/THER SUBSTANCE INTERLAMINAR CERVICAL/THORACIC W IMAGE GUIDE 03/11/2023 INJECTION SPINE LUMBAR CERVICAL OR THORACIC performed by Ramiro Woodward DO at OR [facility] MISCELLANEOUS ORDER ([facility] ONLY) knee - left [...] maximized dose of Gabapentin, will rotate to [facility] a next visit Education Provided - [...] lyme, but can't say for sure if prototype carpenter lyme w/o lp and further work up/er/admission. He is aware, but would like to try oral abx first to see if helps. If no better 24-48 hour or worsen, would suggest er a m ay need stat mri l spine, possible lp to exclude prototype carpenter lyme needing iv abx, and excluding other neurology condition, and he is agreeable Could also be structure/mskt, but given past issues, concern lyme and will do as above. Cont tramadol, neurontin, zanaflex I have reviewed the patients controlled substance dispensing history in the Prescription Drug Monitoring Program in compliance with the [facility] regulations before prescribing a controlled substance. Did not tolerate doxy Numbness and tingling As above History of [...] 08/10/2024 10:10 AM EST [facility] [address] [facility] [place] [address] Scheduled Procedures Name Priority Associated Diagnoses Date/Ti [...] hepatitis documented in this encounter Care Teams Teletypist Relationship Specialty Start Date End Date Wolfgang Sellers MD [address] [place] [address] PCP - General Internal Medicine 11/10/21 documented as of this encounter"
--- OUTSIDE RECORDS SUMMARY | 2024-07-31 11:36 | External Medical Summary | Summary of Care ---
Author Name Unknown Organization [facility] Address [address] [place] [address] Phone [phone] Care Team Providers Care Gate Clerk Name Role Phone Wolfgang Sellers MD Primary Care Provider + Reason for Visit * Reason Comments Dosage Adjustment In Person (Anticoag Cl inic) Pain Encounter Details Date Type Department Care Team (Late st Contact Info) Description 06/29/2024 10:30 AM EDT Office Visit Pharmacy, [facility] [address] [place] [place] [address] Pharmacist2, [facility] [address] [place] [place] [address] Chronic neck pain* Allergies No known active allergiesdocumented as of this encounter (statuses as of 06/29/2024) Medications Medication Sig Dispensed Refills Start Date [...] 06/27/2024 Active Gabapentin 600 MG Oral Tablet (Neurontin)Indication s:Chronic neck pain Take 1 Tablet by mouth in the morning and 1 Tablet at noon and 1 Tablet before bedtime. 90 Tablet 5 06/29/2024 Active documented as of this encounter (statuses as of 06/29/2024) Active Problems Problem Noted Date Diagnosed Date [...] as of this encounter (statuses as of 06/29/2024) Immunizations Name Administration Dates Next Due COVID-19, [...] on file documented as of this encounter Progress Notes * Eliseo Martin, [facility] - 06/29/2024 10:29 AM EDT Images from the original note were not included. Medication Therapy Disease Management - Chronic Pain History of Presenting Illness Héctor Carrera, identified by name and date of , is a 44 year old male presents [facility] for return [facility]. 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 Pt reports that the pain in his back and neck. Pt reports that he does not feel he can cut back on tramadol right now, and pt would like to restart Gabapentin at this time. Last visit Lower back pain has resolves since lymes disease has been treated. Neck pain is back to status quo from before the lymes disease flair up of pain. Pt self weaned off Gabapentin and topamax Pt would like to look to wean off tramadol after upcoming [place]. History of Presenting Illness & Review of Systems Diagnosis: Neck pain (previous back surgery C5-6) Chronicity: Chronic Onset: More than a 1 year ago Frequency: Constantly Pain location: Arm, shoulder, lower back, leg and central neck Pain quality: Achy and shooting Pain is worse: In the morning Aggravated by: Activity (Running) Treatment(s) tried: Chiropractic manipulation, injections, physical therapy, surgery and TENS Medical History [x] Reviewed and updated in the EHR during the visit if checked Substance Use History [x] Reviewed and updated in the EHR during the visit if checked Objective Relevant Imaging XR L Spine (02/03/24) IMPRESSION 1. No acute findings. Degenerative changes as above. 2. Possible small right lower pole renal calculus. XR C SPINE FLEXION AND EXTENSION VIEWS ONLY - 01/02/2022 10:47 am FINDINGS ACDF with anterior plating C5-C6. Hardware is intact. Alignment is anatomic. Disc space heights arepreserved. No acute fracture. No dynamic instability. IMPRESSION IMPRESSION No dynamic instability MRI CERVICAL SPINE WITHOUT AND WITH CONTRAST 12-29-21 FINDINGS: No cord signal abnormality. ACDF at C5-6. No abnormal enhancement. Visualized brain parenchyma is normal. Thyroid gland is normal. No lymphadenopathy. Findings by level: C2-C3: No canal or foraminal narrowing. C3-C4: No canal or foraminal narrowing. C4-C5: Minimal disc herniation mild canal narrowing without foraminal narrowing. Mild bilateral facet arthropathy. C5-C6: No canal or foraminal narrowing. C6-C7: No canal or foraminal narrowing. C7-T1: No canal or foraminal narrowing. IMPRESSION: ACDF at C5-6. 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 Most recent answers to PEG-3 scale: PEG-3 Synopsis What number best describes your pain on average in the past week?: 4 (05/29/2024 9:00 AM) What number best describes how, during the past week, pain has interfered with your enjoyment of life?: 4 (05/29/2024 9:00 AM) What number best describes how, during the past week, pain has interfered with your general activity?: 4 (05/29/2024 9:00 AM) PEG Pain Total Score: 4 (05/29/2024 9:00 AM) Last Urine Toxicology Screening Results for orders placed or performed in [...] purposes. Confirmatory testing is available upon request. Last Serum Toxicology Screening No results found for: "DRUG ABUSE SCREEN 7", "SERUM", "DRUG ABUSE SCREEN 7, SERUM" Creatinine Clearance: Serum creatinine: 1.3 mg/dL (H) 03/02/24 1525 Estimated creatinine clearance: 76.4 mL/min (A) Creatinine Results: Recent Labs Units 03/02/24 1525 01/16/24 0914 01/09/23 1303 CREATININE - [facility] mg/dL 1.3* 1.1 1.2 Hepatic Function (ALT): Recent Labs Units 03/02/24 1525 01/16/24 0914 01/09/23 1303 ALT - [facility] U/L 34 21 16 Comprehensive Metabolic Panel Results: Results for orders placed or performed in visit on 03/02/24 COMPREHENSIVE METABOLIC PANEL Result Value Ref Range BUN 15 6 - 20 mg/dL CREATININE 1.3 (H) 0.6 - 1.2 mg/dL EGFR 74 >=60 mL/min SODIUM 141 135 - 146 mmol/L POTASSIUM 4.1 3.5 - 5.1 mmol/L CHLORIDE 104 98 - 107 mmol/L CO2 21 (L) 22 - 32 mmol/L ANION GAP 16 (H) 7 - 15 mmol/L GLUCOSE 88 70 - 120 mg/dL Albumin 5.3 (H) 3.8 - 5.0 g/dL AST 23 10 - 50 U/L Alkaline Phosphatase 81 35 - 130 U/L Bilirubin, Total 0.9 <=1.2 mg/dL CALCIUM 10.2 8.4 - 10.2 mg/dL Protein 8.1 6.0 - 8.3 g/dL ALT 34 10 - 50 U/L Assessment & Plan Patient aware MTM is a clinical pharmacist visit, with focus on medication options for current diagnoses referred by Primary Care Provider for review and optimization. The focus of this visit is: Medication optimization. Current regimen reviewed, patient is: Adherent to regimen. Treatment Options Will hold off on wean of tramadol, Restart Gabapentin Education Provided N/A Recommendations START: Gabapentin Week 1: Take 600mg once daily Week 2: Take 600mg BID Week 3+: Take 600mg TID Patient verbalized understanding of the plan. Contact clinic with any issues. 08/14/2024 I spent a total of 30-39 minutes (exact time 30 mins) on the date of service in preparation, delivery, and documentation of the care provided to Héctor Nury Carrera excluding any time spent in the performance of separately billed services or time spent by another provider/QHP. Eliseo Martin [facility] Clinical Pharmacist - Pet Care Assistant Medication Therapy Management Clinic 05/29/2024 - 9:19 AM documented in this encounter Plan of Treatment Upcoming Encounters Date Type Department Care Team (Late st Contact Info) Description 07/20/2024 8:00 AM EST Nurse Only Ancillary [facility] [address] [place] [address] Nurse, Int Med [address] [facility] [place] [address] 07/29/2024 3:20 PM EST Office Visit General Internal Medicine [facility] [address] [place] [address] Wolfgang Sellers MD [address] [facility] [place] [address] 08/14/2024 8:30 AM EST Office Visit Pharmacy, [facility] [place] [address] [place] [address] Pharmacist2, [facility] [address] [place] [address] Scheduled Procedures Name Priority Associated Diagnoses Date/Ti [...] this encounter Visit Diagnoses Diagnosis Chronic neck pain- Primary Cervicalgia documented in this encounter Care Teams Gate Clerk Relationship Specialty Start Date End Date Wolfgang Sellers MD [address] [place] [address] PCP - General Internal Medicine 11/10/21 documented as of this encounter
--- OUTSIDE RECORDS SUMMARY | 2024-07-31 11:36 | External Medical Summary | Summary of Care ---
Author Name Unknown Organization [facility] Address [address] [place] [address] Phone [phone] Care Team Providers Care Shale Planer Operator Helper Name Role Phone Wolfgang Sellers MD Primary Care Provider + Reason for Visit * Reason Comments Dosage Adjustment In Person (Anticoag Cl inic) Pain Encounter Details Date Type Department Care Team (Late st Contact Info) Description 07/27/2024 10:30 AM EST Office Visit Pharmacy, Leigh [address] [place] [address] Leigh, [facility] [address] [place] [address] Chronic neck pain*; Chronic midline thoracic back pain; Neck pain Allergies No known active allergiesdocumented as of this encounter (statuses as of 07/27/2024) Medications sildenafil (REVATIO) 20 MG Tablet Take 2 Tabs by mouth daily as needed for Erectile Dysfunction. 90 Tab 3 9 Active Acetaminophen 500 MG Oral Tablet (Tylenol) Take 2 Tablets by mouth every 6 hours as needed (took2 tablets this am). Active Doxycycline Hyclate 100 MG Oral CapsuleIndicatio ns:Lyme disease Take 1 Capsule by mouth in the morning and 1 Capsule before bedtime. For 28 days. 56 Capsule 4 Active amLODIPine Besylate 10 MG Oral Tablet (Norvasc)Indicat ions:Essential hypertension with goal blood pressure less than 130/80 TAKE 1 TABLET BY MOUTH EVERY MORNING 90 Tablet 3 4 Active tiZANidine HCl 4 MG Oral Tablet (Zanaflex)Indica tions:Neck pain Take 1 Tablet by mouth at bedtime. 30 Tablet 1 4 Active predniSONE 20 MG Oral Tablet (Deltasone) Take 3 tabs for 3 days, 2 tabs for 3 days, 1 tab for 3 days, 1/2 tab for 3 days 20 Tablet 4 Active traMADol HCl 50 MG Oral TabletIndication s:Chronic neck pain,Chronic midline thoracic back pain Take 1 Tablet by mouth every 4 hours as needed for Pain, Severe. 56 Tablet 4 Active Gabapentin 800 MG Oral Tablet (Neurontin) Take 1 Tablet by mouth in the morning and 1 Tablet at noon and 1 Tablet before bedtime. 90 Tablet 1 4 Active Gabapentin 600 MG Oral Tablet (Neurontin)Indic ations:Chronic neck pain Take 1 Tablet by mouth in the morning and 1 Tablet at noon and 1 Tablet before bedtime. 90 Tablet 5 4 07/27/20 24 Discontinu ed(Medicat ion/Dose Changed) documented as of this encounter (statuses as of 07/27/2024) Active Problems Problem Noted Date Diagnosed Date [...] as of this encounter (statuses as of 07/27/2024) Resolved Problems Problem Noted Date Diagnosed Date Resolved Date ADVANCE DIRECTIVE INFORMATION 05/24/2005 07/06/2024 Overview (05/24/2005): No, Advance Directive brochure offered , patient declined. documented as of this encounter (statuses as of 07/27/2024) Immunizations Name Administration Dates Next Due COVID-19, LNP-s, No Preserve , Ion-sucrose, Ages 12+ (Stylefie) 01/26/2022 Covid-19 Ad26, Single Dose (Alta/J&J) 021 [...] AM EDT documented as of this encounter Progress Notes * Christina Concepcion, [facility] - 07/27/2024 9:57 AM EST Images from the original note were not included. Medication Therapy Disease Management - Chronic Pain History of Presenting Illness Héctor Carrera, identified by name and date of , is a 44 year old male presents [facility]. Chief Complaint Patient presents with Dosage Adjustment In Person (Antico Clinic) Pain History Past Medications SA Opioids: Tramadol NSAIDs: Ibuprofen Anti-Depressants: Cymbalta, Effexor Anti-Convulsants: Gabapentin, Topamax Current Pain Medications Tramadol 50mg Q4H Tizanidine 4mg Q8H Interval History Noted to have Lyme disease diagnosis this summer Noted to have full left sided body numbness and was treated with antibiotics Was seeing Interventional Pain and next step was MBB test injections, but were delayed due to new onset Lyme Disease Unclear what part Lyme Disease may be playing today, but noted to have left sided lack pain that limits daily activity. 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 Last Urine Toxicology Screening Results for orders [...] 50 U/L Assessment & Plan Patient aware [facility] is a clinical pharmacist visit, with focus on medication options for current diagnoses referred by Primary Care Provider for review and optimization. The focus of this visit is: Medication optimization. Current regimen reviewed, patient is: Adherent to regimen. Treatment Options Patient presents to [facility] today as a transfer from [facility] which is no longer seeing pain patients. Noted to have chronic cervical issues that at this time appear to be stable. Presents today for chronic pain from lumbar radiculopathy Noted to have Lyme disease diagnosis this [...] maximized dose of Gabapentin, will rotate to [facility] jennifer next visit Education Provided - Patient educated on mechanism, time to efficacy and potential adverse effects of medication regimen Recommendations Increase Gabapentin 800 mg three times daily Tramadol 50mg Q4H Tizanidine 4mg Q8H: uses at bedtime due to fatigue Héctor verbalized understanding of the plan. Contact clinic with any issues. 08/10/2024 I spent a total of 20-29 minutes (exact time 29 mins) on the date of service in preparation, delivery, and documentation of the care provided to Héctor Carrera excluding any time spent in the performance of separately billed services or time spent by another provider/QHP. Christina Concepcion [facility] Clinical Pharmacist - Hotel Maintenance Worker Medication Therapy Management Clinic 07/27/2024 - 9:57 AM documented in this encounter Plan of Treatment Upcoming Encounters Date Type Department Care Team (Late st Contact Info) Description 07/29/2024 3:20 PM EST Office Visit General Internal Medicine [facility] [address] [facility] [place] [address] Wolfgang Sellers MD [address] [place] [address] 08/10/2024 10:10 AM EST Office Visit Pharmacy, [facility] [address] [place] [address] [facility] [place] [address] Scheduled Procedures Name Priority Associated Diagnoses Date/Ti [...] Diagnoses Diagnosis Chronic neck pain- Primary Cervicalgia Chronic midline thoracic back pain Neck pain Cervicalgia documented in this encounter Care Teams Shale Planer Operator Helper Relationship Specialty Start Date End Date Wolfgang Sellers MD [address] [place] [address] PCP - General Internal Medicine 11/10/21 documented as of this encounter
--- OUTSIDE RECORDS SUMMARY | 2024-07-31 11:37 | External Medical Summary | Summary of Care ---
Author Name Unknown Organization [facility] Address [address] [place] [address] Phone [phone] Care Team Providers Care Cooling Tower Operator Name Role Phone Wolfgang Messer MD Primary Care Provider + Reason for Visit * Reason Onset Date Comments Medication Refill 05/07/2024 Encounter Details Date Type Department Care Team (Late st Contact Info) Description 05/07/2024 Refill Pharmacy, [facility] [address] [facility] [place] [address] Wolfgang Messer MD [address] [place] [address] Chronic neck pain; Chronic midline thoracic back pain Allergies No known active allergiesdocumented as of this encounter (statuses as of 05/08/2024) Medications Medication Sig Dispensed Refills Start Date End Date Status sildenafil (REVATIO) 20 MG Tablet Take 2 Tabs by mouth daily as needed for Erectile Dysfunction. 90 Tab 3 07/02/2019 Active amLODIPine Besylate 10 MG Oral Tablet (Norvasc)Indicatio ns:Essential hypertension with goal blood pressure less than 130/80 Take 1 Tablet by mouth in the morning. 90 Tablet 3 07/17/2023 Active Gabapentin 600 MG Oral Tablet (Neurontin)Indicat ions:Chronic midline thoracic back pain Take 1 Tablet by mouth in the morning and 1 Tablet at noon and 1 Tablet before bedtime. 270 Tablet 1 12/13/2023 Active Acetaminophen 500 MG Oral Tablet (Tylenol) Take 2 Tablets by mouth every 6 hours as needed (took2 tablets this am). Active Topiramate 50 MG Oral Tablet (Topamax)Indicatio ns:Neck pain,Chronic midline thoracic back pain Take 1 Tablet by mouth in the morning and 1 Tablet before bedtime. 180 Tablet 3 02/07/2024 Active Doxycycline Hyclate 100 MG Oral CapsuleIndications :Lyme disease Take 1 Capsule by mouth in the morning and 1 Capsule before bedtime. For 28 days. 56 Capsule 03/03/2024 Active tiZANidine HCl 4 MG Oral Tablet (Zanaflex)Indicati ons:Neck pain Take 1 Tablet by mouth at bedtime. 30 Tablet 1 05/07/2024 Active traMADol HCl 50 MG Oral TabletIndications: Chronic neck pain,Chronic midline thoracic back pain Take 1 Tablet by mouth every 6 hours as needed for Pain, Severe. 56 Tablet 05/08/2024 Active traMADol HCl 50 MG Oral TabletIndications: Chronic neck pain,Chronic midline thoracic back pain Take 1 Tablet by mouth every 6 hours as needed for Pain, Severe. 56 Tablet 04/28/2024 05/07/2024 Discontinue d(Refill) documented as of this encounter (statuses as of 05/08/2024) Active Problems Problem Noted Date Diagnosed Date [...] as of this encounter (statuses as of 05/08/2024) Immunizations Name Administration Dates Next Due COVID-19, [...] Telephone Encounter - Wolfgang Messer MD - 05/08/2024 10:10 AM EDT Signed Prescriptions: Disp Refills traMADol HCl 50 MG Oral Tablet 56 Tab*0 Sig: Take 1 Tablet by mouth every 6 hours as needed for Pain, Severe.Authorizing Provider: WOLFGANG MESSER * Telephone Encounter - Wolfgang Messer MD - 05/08/2024 10:10 AM EDT Signed Prescriptions: Disp Refills traMADol HCl 50 MG Oral Tablet 56 Tab*0 Sig: Take 1 Tablet by mouth every 6 hours as needed for Pain, Severe. Authorizing Provider: WOLFGANG MESSER * Telephone Encounter - Roberto Bean [facility] - 05/08/2024 10:02 AM EDT Patient comment from portal: "Requesting a day early as I leave for a work trip on Saturday, so hoping to have this filled on Saturday. Thank you!" Will leave up to your discretion but this is fine from [facility]'s perspective, especially if patient hasnot made a habit of early requests in past (I don't know patient, I'm covering for Angel) Roberto Bean, PharmD, [facility] Hockey Instructor Clinical Pharmacist 05/08/2024, 10:03 AM * Telephone Encounter - Wolfgang Messer MD - 05/08/2024 9:42 AM EDT Is this early? * Telephone Encounter - Roberto Bean [facility] - 05/08/2024 7:28 AM EDT Pending Prescriptions: Disp Refills traMADol HCl 50 MG Oral Tablet 56 Tab*0 Sig: Take 1 Tablet by mouth every 6 hours as needed for Pain, Severe. * Telephone Encounter - Roberto Bean [facility] - 05/08/2024 7:25 AM EDT Okay to refill from [facility] Pain standpoint. Order pended to PCP for consideration. Roberto Bean, PharmD, [facility] Hockey Instructor Clinical Pharmacist 05/08/2024, 7:27 AM documented in this encounter Plan of Treatment Upcoming Encounters Date Type Department Care Team (Latest Contact Info) Description 05/29/2024 9:30 AM EDT Office Visit Pharmacy, [facility] [address] [facility] [place] [address] Pharmacist2, [facility] [address] [facility] [place], [place] [address] 06/15/2024 8:50 AM EDT Hospital Encounter OR OSS, Operating Room [facility] [address] [place] [phone] Ramiro Woodward, [address] [place] [phone] 06/15/2024 8:50 AM EDT - 06/15/2024 9:15 AM EDT Surgery OR OSS, Operating Room [facility] [address] [place] [phone] Ramiro Woodward, [address] [place] [phone] L-/S-SPINE PARAVERTEBRAL FACET INJ, 1 LEVEL 06/29/2024 8:50 AM EDT Hospital Encounter OR [facility], Operating Room [facility] [address] [place] [phone] Ramiro Woodward, DO [address] [place] [phone] 06/29/2024 8:50 AM EDT - 06/29/2024 9:15 AM EDT Surgery OR OSS, Operating Room [facility] [address] [place] [phone] Ramiro Woodward, DO [address] [place] [phone] L-/S-SPINE PARAVERTEBRAL FACET INJ, 1 LEVEL 07/20/2024 8:00 AM EST Nurse Only Ancillary [facility] [place] [address] [facility] [place] [address] Nurse, Int Med [address] [facility] [place] [address] 07/29/2024 3:20 PM EST Office Visit General Internal Medicine [facility] [place] [address] [facility] [place] [address] Wolfgang Messer MD [address] [facility] [place] [address] Scheduled Procedures Name Priority Associated Diagnoses Date/Ti me L-/S-SPINE PARAVERTEBRAL FACET INJ, 1 LEVEL Spondylosis of lumbar region without myelopathy or radiculopathy 06/15/2024 8:50 AM EDT L-/S-SPINE PARAVERTEBRAL FACET INJ, 2 LEVELS Spondylosis of lumbar region without myelopathy or radiculopathy 06/15/2024 8:50 AM EDT L-/S-SPINE PARAVERTEBRAL FACET INJ, 1 LEVEL Spondylosis of lumbar region without myelopathy or radiculopathy 06/29/2024 8:50 AM EDT L-/S-SPINE PARAVERTEBRAL FACET INJ, 2 LEVELS Spondylosis of lumbar region without myelopathy or radiculopathy 06/29/2024 8:50 AM EDT Health Maintenance Due Date Last Done Comments [...] pain Cervicalgia Chronic midline thoracic back pain Spondylosis of lumbar region without myelopathy or radiculopathy Lumbosacral spondylosis without myelopathy Spondylosis of lumbar region without myelopathy or radiculopathy Lumbosacral spondylosis without myelopathy documented in this encounter Care Teams Cooling Tower Operator Relationship Specialty Start Date End Date Wolfgang Messer MD [address] [facility] [place] [address] PCP - General Internal Medicine 11/10/21 documented as of this encounter
--- OUTSIDE RECORDS SUMMARY | 2024-07-31 11:37 | External Medical Summary | Summary of Care ---
Author Name Unknown Organization [facility] Address [address] [place] [address] Phone [phone] Care Team Providers Care [employer]s Worker Name Role Phone Wolfgang Messer MD Primary Care Provider + Reason for Visit * Reason Onset Date Comments Medication Refill 05/05/2024 Encounter Details Date Type Department Care Team (Late st Contact Info) Description 05/05/2024 Refill General Internal Medicine [facility] 200 [facility] [place] [address] Wolfgang Messer MD [address] [place] [address] Neck pain Allergies No known active allergiesdocumented as of this encounter (statuses as of 05/07/2024) Medications Medication Sig Dispensed Refills Start Date [...] For 28 days. 56 Capsule 03/03/2024 Active traMADol HCl 50 MG Oral TabletIndications: Chronic neck pain,Chronic midline thoracic back pain Take 1 Tablet by mouth every 6 hours as needed for Pain, Severe. 56 Tablet 04/28/2024 Active tiZANidine HCl 4 MG Oral Tablet (Zanaflex)Indicati ons:Neck pain Take 1 Tablet by mouth at bedtime. 30 Tablet 1 05/07/2024 Active tiZANidine HCl 4 MG Oral Tablet (Zanaflex)Indicati ons:Neck pain Take 1 Tablet by mouth at bedtime. 30 Tablet 1 04/17/2024 05/05/2024 Discontinue d(Refill) documented as of this encounter (statuses as of 05/07/2024) Active Problems Problem Noted Date Diagnosed Date [...] as of this encounter (statuses as of 05/07/2024) Immunizations Name Administration Dates Next Due COVID-19, [...] Telephone Encounter - Wolfgang Messer MD - 05/07/2024 12:02 PM EDT Signed Prescriptions: Disp Refills tiZANidine HCl 4 MG Oral Tablet (Zanaflex) 30 Tab*1 Sig: Take 1 Tablet by mouth at bedtime. Authorizing Provider: WOLFGANG MESSER * Telephone Encounter - Shyla Sherwood [facility] - 05/07/2024 11:40 AM EDT Pending Prescriptions: Disp Refills tiZANidine HCl 4 MG Oral Tablet (Zanaflex) 30 Tab*1 Sig: Take 1 Tablet by mouth at bedtime. * Telephone Encounter - Shyla Sherwood [facility] - 05/07/2024 11:40 AM EDT [facility] is currently not authorized to approve refills for the pended medication(s) per refill protocol. Please approve if appropriate. Thank you, Shyla Sherwood PharmD, [facility] Clinical Pharmacist Centralized Clinical Pharmacy Services ([facility]) 05/07/24 11:40 AM [phone] documented in this encounter Plan of Treatment Upcoming Encounters Date Type Department Care Team (Latest Contact Info) Description 05/29/2024 9:30 AM EDT Office Visit Pharmacy, [facility] [place] [address] [place] [address] Pharmacist2, [facility] [address] [place] [address] 06/15/2024 8:50 AM EDT Hospital Encounter OR [facility], Operating Room [facility] [address] [place] [phone] Trace, Max Wilner, DO [address] [place] [address] 06/15/2024 8:50 AM EDT - 06/15/2024 9:15 AM EDT Surgery OR [facility], Operating Room [facility] [address] [place] [address] Ramiro Woodward, DO [address] [place] [address] L-/S-SPINE PARAVERTEBRAL FACET INJ, 1 LEVEL 06/29/2024 8:50 AM EDT Hospital Encounter OR [facility], Operating Room [facility] [address] [place] [address] Ramiro Woodward, DO [address] [place] [address] 06/29/2024 8:50 AM EDT - 06/29/2024 9:15 AM EDT Surgery OR [facility], Operating Room [facility] [address] [place] [phone] Ramiro Woodward, DO [address] [place], [place] [phone] L-/S-SPINE PARAVERTEBRAL FACET INJ, 1 LEVEL 07/20/2024 8:00 AM EST Nurse Only Ancillary [employer] [address] [facility] [place] [address] Nurse, Int Med [address] [facility] [place] [address] 07/29/2024 3:20 PM EST Office Visit General Internal Medicine [facility] Leger [address] [facility] [place] [address] Wolfgang Messer MD [address] [place] [address] Scheduled Procedures Name Priority Associated Diagnoses Date/Ti [...] encounter Visit Diagnoses Diagnosis Neck pain Cervicalgia Spondylosis of lumbar region without myelopathy or radiculopathy Lumbosacral spondylosis without myelopathy Spondylosis of lumbar region without myelopathy or radiculopathy Lumbosacral spondylosis without myelopathy documented in this encounter Care Teams [employer] Worker Relationship Specialty Start Date End Date Wolfgang Messer MD [address] [place] [address] PCP - General Internal Medicine 11/10/21 documented as of this encounter
--- OUTSIDE RECORDS SUMMARY | 2024-07-31 11:37 | External Medical Summary | Summary of Care ---
Author Name Unknown Organization [facility] Address [address] [place] [address] Phone [phone] Care Team Providers Care Compound Coating Machine Offbearer Name Role Phone Wolfgang Sellers MD Primary Care Provider + Reason for Visit * Reason Comments Dosage Adjustment In Person (Anticoag Cl inic) Pain Encounter Details Date Type Department Care Team (Late st Contact Info) Description 05/29/2024 9:30 AM EDT Office Visit Pharmacy, [facility] [address] [place] [address] Pharmacist2, [facility] [address] [place] [address] Chronic neck pain* Allergies No known active allergiesdocumented as of this encounter (statuses as of 05/29/2024) Medications Medication Sig Dispensed Refills Start Date [...] before May 22, 2024. 56 Tablet 05/22/2024 Active amLODIPine Besylate 10 MG Oral Tablet (Norvasc)Indicatio ns:Essential hypertension with goal blood pressure less than 130/80 TAKE 1 TABLET BY MOUTH EVERY MORNING 90 Tablet 3 05/20/2024 Active Gabapentin 600 MG Oral Tablet (Neurontin)Indicat ions:Chronic midline thoracic back pain Take 1 Tablet by mouth in the morning and 1 Tablet at noon and 1 Tablet before bedtime. 270 Tablet 1 12/13/2023 4 Discontinued Topiramate 50 MG Oral Tablet (Topamax)Indicatio ns:Neck pain,Chronic midline thoracic back pain Take 1 Tablet by mouth in the morning and 1 Tablet before bedtime. 180 Tablet 3 02/07/2024 4 Discontinued documented as of this encounter (statuses as of 05/29/2024) Active Problems Problem Noted Date Diagnosed Date [...] as of this encounter (statuses as of 05/29/2024) Immunizations Name Administration Dates Next Due COVID-19, [...] Progress Notes * Eliseo Martin, [facility] - 05/29/2024 9:19 AM EDT Images from the original note were not included. Medication Therapy Disease Management - Chronic Pain History of Presenting Illness Héctor Carrera, identified by name and date of , is a 44 year old male [facility]. 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 History of Presenting Illness & Review of [...] (depending on MME conversion used) PDMP Reviewed (05/29/2024): I have reviewed the patient's controlled substance dispensing history in the Prescription Drug Monitoring Program in compliance with the [facility] regulations. Most recent answers to PEG-3 scale: [...] patient is: Adherent to regimen. Treatment Options Plan to continue current tramadol regimen and discuss weaning off at the end of June. Treatment Concerns Pt's pain has remained stable since lymes disease was treated Education Provided N/A Recommendations Plan to continue current tramadol regimen and discuss weaning off at the end of June. Patient verbalized understanding of the plan. Contact clinic with any issues. 06/29/2024 I spent a total of 30-39 minutes (exact time 30 mins) on the date of service in preparation, delivery, and documentation of the care provided to Héctor Carrera excluding any time spent in the performance of separately billed services or time spent by another provider/QHP. Eliseo Martin [facility] Clinical Pharmacist - Differential Repairer Medication Therapy Management Clinic 05/29/2024 - 9:19 AM documented in this encounter Plan of Treatment Upcoming Encounters Date Type Department Care Team (Late st Contact Info) Description 06/29/2024 10:30 AM EDT Office Visit Pharmacy, [facility] [place] [address] [place] [address] Pharmacist2, [facility] [address] [facility] [place] [address] 07/20/2024 8:00 AM EST Nurse Only Ancillary [facility] [place] [address] [place] [address] Nurse, Int Med [address] [facility] [place] [address] 07/29/2024 3:20 PM EST Office Visit General Internal Medicine [facility] [place] [address] [place] [address] Wolfgang Sellers MD [address] [place] [address] Health Maintenance Due Date Last Done Comments Influenza Vaccine (FLU shot) (#1) 2024 Depression Screening 07/17/2024 07/17/2023 Hepatitis B Vaccine (3 of 3 - 19+ 3-dose series) 07/18/2024 2024, 01/16/2024 Albumin/Creatinine Ratio 11/24/2024 11/24/2021 GFR 03/02/2025 03/02/2024, 0502/2024, 01/09/2023, Additional history exists Diabetes Screening 03/02/2027 [...] Cervicalgia documented in this encounter Care Teams Compound Coating Machine Offbearer Relationship Specialty Start Date End Date Wolfgang Sellers MD [address] [place] [address] PCP - General Internal Medicine 11/10/21 documented as of this encounter
--- OUTSIDE RECORDS SUMMARY | 2024-07-31 11:37 | External Medical Summary | Summary of Care ---
Author Name Unknown Organization [facility] Address [address] [place] [address] Phone [phone] Care Team Providers Care Offal Baler Name Role Phone Wolfgang Messer MD Primary Care Provider + Reason for Visit * Reason Comments eRx-Medication Refill Encounter Details Date Type Department Care Team (Late st Contact Info) Description 05/20/2024 Refill General Internal Medicine [facility] [address] [facility] [place] [address] Wolfgang Messer MD [address] [place] [address] Essential hypertension with goal blood pressure less than 130/80 Allergies No known active allergiesdocumented as of this encounter (statuses as of 05/20/2024) Medications Medication Sig Dispensed Refills Start Date End Date Status sildenafil (REVATIO) 20 MG Tablet Take 2 Tabs by mouth daily as needed for Erectile Dysfunction. 90 Tab 3 07/02/2019 Active Gabapentin 600 MG Oral Tablet (Neurontin)Indicat [...] EVERY MORNING 90 Tablet 3 05/20/2024 Active amLODIPine Besylate 10 MG Oral Tablet (Norvasc)Indicatio ns:Essential hypertension with goal blood pressure less than 130/80 Take 1 Tablet by mouth in the morning. 90 Tablet 3 07/17/2023 4 Discontinued documented as of this encounter (statuses as of 05/20/2024) Active Problems Problem Noted Date Diagnosed Date [...] as of this encounter (statuses as of 05/20/2024) Immunizations Name Administration Dates Next Due COVID-19, [...] encounter Miscellaneous Notes * Telephone Encounter - Eliseo Martin [facility] - 05/20/2024 4:09 PM EDT Signed Prescriptions: Disp Refills amLODIPine Besylate 10 MG Oral Tablet (Nor*90 Tab*3 Sig: TAKE 1 TABLET BY MOUTH EVERY MORNINGAuthorizing Provider: WOLFGANG MESSER User: ELISEO MARTIN documented in this encounter Plan of Treatment Upcoming Encounters Date Type Department Care Team (Late st Contact Info) Description 05/29/2024 9:30 AM EDT Office Visit Pharmacy, [facility] [place] [address], [place] [address] Pharmacist2, [facility] [address], [place] [address] 07/20/2024 8:00 AM EST Nurse Only Ancillary [facility] [place] [address] [place] [address] Nurse, Int Med [address] [facility] [address] [place], [place] [address] 07/29/2024 3:20 PM EST Office Visit General Internal Medicine [facility] [place] [facility] [place] [place] [address] Wolfgang Messer MD [address] [facility] [place] [address] Health Maintenance Due Date Last Done Comments [...] as of this encounter Visit Diagnoses Diagnosis Essential hypertension with goal blood pressure less than 130/80 documented in this encounter Care Teams Offal Baler Relationship Specialty Start Date End Date Wolfgang Messer MD [address] [place] [address] PCP - General Internal Medicine 11/10/21 documented as of this encounter
--- NOTE | 2024-07-31 12:04 | Emergency Department Note ---
Impression & Plan Bilateral leg weakness, Bilateral leg paresthesia, Paresthesia of buttock ED Provider Note NAME: LOWELL TRIVEDI AGE: 44 SEX: M : 1980 ARRIVES VIA: Walk-In INFORMANT: Patient, ED PROVIDER(S): Dileep Eagle MD CHIEF COMPLAINT: Numbness and weakness of the lower extremities MEDICAL DECISION MAKING: Patient presents for decreased sensation to the saddle area. IV was established and blood work was obtained. Patient did have a IV Toradol IV methylprednisolone and lidocaine patches given. Patient did have an MRI of the lumbar spine performed. Patient also did have labs ordered. Patient's blood work shows a normal white count H&H and platelet count. The patient's kidney function is unremarkable. Patient is positive for Lyme's but this is chronic. Patient's MRI of the lumbar spine does show mild narrowing central canal and bilateral neural foramen. Patient was seen and evaluated by the medicine service. They did request an LP to be performed.'s was attempted but unsuccessful by myself. Dr. Mei did perform an LP and CSF fluid was sent. Please refer to her procedure note. Patient was admitted to the medicine service. CSF studies pending for the inpatient service. CT of the head was also ordered. This was negative. Procedures: Lumbar Puncture performed Dr. Eagle Indication: Leg weakness Verbal consent was obtained after the risks and benefits were explained, including but not limited to headache, bleeding/clotting, scarring, infection, pain, and bone/joint/nerve damage. At this time, the risks of the procedure are less than the risks of NOT performing the procedure. A time out was taken and the correct patient and site identified. The patient was placed in the left lateral decubitus position and the back was prepped with betadine and draped in the standard fashion. The L4 intervertebral space was identified, anesthetized locally with 1% lidocaine without epinephrine, and the spinal needle was inserted through the skin with the bevel parallel to the dural fibers. The needle was carefully advanced. This did not yield any CSF. Needle was removed and the L3 intervertebral space was identified anesthetized locally with 1% lidocaine without epinephrine and the spinal needle was inserted through the skin with the bevel parallel to the dural fibers. The needle was carefully advanced but did not yield any CSF. The stylet was replaced and the needle was removed. A bandaid was placed and the patient was placed in the supine position. The patient tolerated the procedure well and there were no complications. Discussion w/ other healthcare providers: Lori Betts and Dr. Carito Nathan inpatient service Dr. Story spine surgery Prior /Outside records reviewed: None Differential diagnosis: Musculoskeletal, disc herniation, fracture, sprain, strain, cord compression, discitis, sciatica, cauda equina, infection, renal colic, as well as other pathologies were considered. Diagnostics, as interpreted by me: ECG: None Cardiac monitoring: An order was placed for continuous cardiac monitoring. The monitor shows a rate of 77 with sinus rhythm. Patient was placed on pulse oximetry Medical decision rules: None Imaging studies: [I informally interpreted the patient's with formal report to follow.] HPI: Patient presents due to concern for worsening numbness and weakness of the lower extremities. The patient states that he has some associated lower midline back pain emanation of numbness/decree sensation to the buttock area that runs over the inner portion of his legs down to his knees. Patient states this been ongoing several months but seems to worsen. 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 Patient states that he did call his PCP and thought that this may have been a Lyme's flare and started on amoxicillin which he took 2 doses of but has not had any improvement. The patient reportedly had issues with doxycycline including hallucinations. PAST MEDICAL HISTORY: See Below PAST SURGICAL HISTORY: See Below SOCIAL HISTORY: See Below HOME MEDICATIONS: See Below ALLERGIES: See Below VITALS: See Below PHYSICAL EXAMINATION: GENERAL: NAD, non-toxic. EYE EXAM: Normal conjunctiva. PERRL, no anisocoria and EOM's grossly intact w/o pain. OROPHARYNX: Moist mucus membranes, grossly normal dentition. NECK: Trachea midline, no stridor. Supple, no nuchal rigidity, no adenopathy, non-tender. No signs of meningismus. FROM of the neck with good chin to chest and neck extension. LUNGS: Clear to auscultation. Normal chest wall mechanics. HEART: NSR, no MRG. ABDOMEN: Abdomen soft, non-tender, no masses, no rebound or guarding. BACK: No CVA TTP. SKIN: No rashes and no bruising. UPPER EXTREMITIES: Upper extremities are grossly normal. LOWER EXTREMITIES: Grossly normal, no edema. NEURO EXAM: A&O x3, cranial nerves II-XII grossly intact, normal speech, moves all 4 extremities. Bilateral weakness but more prominent in the right compared to the left lower extremity. Sensate throughout but complains of decreased sensation over the medial aspect of the bilateral lower extremities. Past Med/Surg History Problem List (Updated 08/01/24 @ 17:55 by Dileep Eagle MD) Paresthesia of buttock (Acute) Bilateral leg paresthesia (Acute) Bilateral leg weakness (Acute) Medical History IBS (irritable bowel syndrome) HTN (hypertension) Cervical disc disease Surgical History History of esophagogastroduodenoscopy (EGD) History of colonoscopy 02/26/24: diverticulosis in sigmoid colon. internal hemorrhoids H/O cervical spine surgery Family History Other Cancer Social History Smoking Status: Never smoker Hx Alcohol Use: No Hx Substance Use: No Preferred Language: Liberian Communication Ability: Effective Rand Cementer Required: No Beliefs That Will Affect Care: None Current Living Situation: Family Feels Safe at Home: Yes Assistive Devices: Cane and Contacts Allergies Allergies Allergy/AdvReac Type Severity Reaction Status Date / Time doxycycline AdvReac Severe HALLUCINATIONS/BLURRED Verified 07/31/24 14:38 & DOUBLE VISION Home Meds Home Medications Medication Instructions Recorded Confirmed amlodipine 10 mg tablet 10 mg PO QAM 03/13/24 07/31/24 tizanidine 4 mg tablet 4 mg PO HS MUSCLE SPASMS 03/13/24 07/31/24 tramadol 50 mg tablet 50 mg PO Q6H PRN Pain, Severe 03/13/24 07/31/24 acetaminophen 500 mg tablet 500 mg PO Q6H PRN Pain/Fever 07/31/24 07/31/24 amoxicillin 500 mg capsule 500 mg PO TID 07/31/24 07/31/24 gabapentin 800 mg tablet 800 mg PO TID 07/31/24 07/31/24 ibuprofen 200 mg tablet 400 mg PO Q6H PRN Pain 07/31/24 07/31/24 Results & Data (ED) Vital Signs Vital Signs - 24 hr 07/31/24 11:28 Temperature 36.3 C L Temperature Source Temporal Artery Scan Pulse Rate 98 H Respiratory Rate 20 Respiratory Effort / Characteristics Non-Labored Respiratory Depth Normal Blood Pressure 141/93 H Blood Pressure Mean 109 Pulse Oximetry 97 Oxygen Delivery Method Room Air Sepsis Recent Fever Within 48 Hours No Sepsis New/Unexplained Change in Mental Status No Sepsis Action Taken by Nursing No Action Required Home Medications Current Medication List: was personally reviewed by me Laboratory Data Attestation: I reviewed the patient's lab results. 08/01/24 05:29 08/01/24 05:29 Lab Results 07/31/24 Range/Units 12:20 WBC 6.66 (4.8-10.8) K/ul RBC 5.21 (4.70-6.10) M/uL Hgb 15.2 (14.0-18.0) g/dl Hct 44.7 (42.0-52.0) % MCV 85.8 (80.0-100.0) fL MCH 29.2 (25.0-34.0) pg MCHC 34.0 (32.0-36.0) g/dL RDW Std Deviation 39.3 (36.4-46.3) fL RDW Coeff of Mercedez 12.6 (11.5-14.5) % Plt Count 280 (130-400) K/uL MPV 10.3 (9.4-12.4) fL Immature Gran % (Auto) 0.3 % Neut % (Auto) 62.5 % Lymph % (Auto) 27.5 % Pettis % (Auto) 7.1 % Eos % (Auto) 1.7 % Baso % (Auto) 0.9 % Neut # (Auto) 4.17 (1.40-6.50) K/uL Lymph # (Auto) 1.83 (1.20-3.40) K/uL Pettis # (Auto) 0.47 (0.11-0.59) K/uL Eos # (Auto) 0.11 (0.00-0.50) K/uL Baso # (Auto) 0.06 (0.00-0.20) K/uL Immature Gran # (Auto) 0.02 (0.01-0.20) K/uL ESR 8 (0-15) mm/hr Sodium 140 (136-145) mmol/L Potassium 4.6 (3.5-5.1) mmol/L Chloride 107 (98-107) mmol/L Carbon Dioxide 25 (21-32) mmol/L Anion Gap 8 (3-11) BUN 16 (6-23) mg/dl Creatinine 0.95 (0.6-1.4) mg/dl Est Cr Clr Drug Dosing 104.6 ml/min eGFR 102.49 BUN/Creatinine Ratio 16.8 (10-20) Glucose 116 H (70-99(Fasting)) mg/dl Calcium 9.6 (8.6-10.3) mg/dl C-Reactive Protein < 0.50 (0-0.5) mg/dl Vitamin B12 357 (180-914) pg/ml TSH 1.199 (0.300-4.500) uIu/ml Lyme Disease Screen Positive H (Negative) Lyme Tier 2 IgG Confirm Positive H (Negative) Lyme Tier 2 IgM Confirm Negative (Negative) Administered Medications Acetaminophen (Acetaminophen 325 Mg Tab) 650 mg PO Q4H PRN PRN Reason: Pain or Fever Stop: 08/30/24 20:07 Last Admin: 08/01/24 11:50 Dose: 650 mg Documented By: JADE Amlodipine Besylate (Amlodipine Besylate 5 Mg Tab) 10 mg PO QAM [facility] Stop: 08/31/24 08:59 Last Admin: 08/01/24 08:20 Dose: 10 mg Documented By: JADE Gabapentin (Gabapentin 800 Mg Tab) 800 mg PO TID [facility] Stop: 08/30/24 20:59 Last Admin: 08/01/24 13:24 Dose: 800 mg Documented By: Admin: 08/01/24 08:20 Dose: 800 mg Documented By: Admin: 07/31/24 20:41 Dose: 800 mg Documented By: EFK Ceftriaxone Sodium (Rocephin) 2,000 mg in 50 mls @ 100 mls/hr IV Q24H [facility] Stop: 08/11/24 12:59 Last Infusion: 08/01/24 13:54 Dose: Infused Documented By: Admin: 08/01/24 13:24 Dose: 100 mls/hr Documented By: JADE Miscellaneous (Remove Lidoderm Patch) 1 each N/A DAILY@2100 [facility] Stop: 08/30/24 20:59 Last Admin: 07/31/24 20:42 Dose: 1 each Documented By: LIMA Oxycodone HCl (Oxycodone Hcl Ir 5 Mg Tab (Immediate Release)) 5 mg PO Q4H PRN PRN Reason: moderate to severe pain Stop: 08/15/24 10:20 Last Admin: 08/01/24 16:55 Dose: 5 mg Documented By: JADE Tizanidine HCl (Tizanidine Hcl 4 Mg Tablet) 4 mg PO HS [facility] Stop: 08/30/24 20:59 Last Admin: 07/31/24 20:41 Dose: 4 mg Documented By: LIMA Tramadol HCl (Tramadol Hcl 50 Mg Tablet) 50 mg PO Q6H PRN PRN Reason: Pain, Severe Stop: 08/30/24 20:07 Last Admin: 08/01/24 11:50 Dose: 50 mg Documented By: Admin: 08/01/24 08:20 Dose: 50 mg Documented By: Admin: 07/31/24 20:48 Dose: 50 mg Documented By: LIMA Discontinued Medications Gadobutrol (Gadobutrol 10ml Vial) 8 ml IV ONCE ONE Stop: 08/01/24 11:16 Last Admin: 08/01/24 11:15 Dose: 8 ml Documented By: AMAURI Ketorolac Tromethamine (Ketorolac Tromethamine 15 Mg/Ml Vial) 10 mg IV ONE STA Stop: 07/31/24 11:59 Last Admin: 07/31/24 12:27 Dose: 10 mg Documented By: SRL Lidocaine (Lidocaine 5% 1 Patch) 1 patch TD NOW STA Stop: 07/31/24 11:59 Last Admin: 07/31/24 12:28 Dose: 1 patch Documented By: SRL Methylprednisolone (Methylprednisolone 125 Mg/2 Ml Vial) 125 mg IV NOW STA Stop: 07/31/24 11:59 Last Admin: 07/31/24 12:27 Dose: 125 mg Documented By: SRNury Morphine Sulfate (Morphine Sulfate 10 Mg/Ml Carp/Vial) 6 mg IV NOW STA Stop: 07/31/24 13:32 Last Admin: 07/31/24 13:40 Dose: 6 mg Documented By: RYAN Morphine Sulfate (Morphine Sulfate 10 Mg/Ml Carp/Vial) 6 mg IV NOW STA Stop: 07/31/24 16:08 Last Admin: 07/31/24 16:14 Dose: 6 mg Documented By: SRL Morphine Sulfate (Morphine Sulfate 4 Mg/Ml 1 Ml Carp\Vial) 3 mg IV NOW STA Stop: 08/01/24 11:57 Last Admin: 08/01/24 12:23 Dose: 3 mg Documented By: JADE Oxycodone HCl (Oxycodone Hcl Ir 5 Mg Tab (Immediate Release)) 5 mg PO NOW STA Stop: 08/01/24 10:22 Last Admin: 08/01/24 10:33 Dose: 5 mg Documented By: JADE Imaging Data Radiologist's Impression: Lumbar Spine MRI 07/31/24 11:58 MRI OF THE LUMBAR SPINE WITHOUT CONTRAST CLINICAL HISTORY: decreased sensation, saddle area COMPARISON STUDY: CT of the abdomen and pelvis February 10, 2021 TECHNIQUE: Utilizing a 1.5 Trish magnet and dedicated coil, multiplanar, multiecho imaging of the lumbar spine was performed without IV contrast. FINDINGS: For purposes of numbering on this exam, the L5-S1 disc space is assigned to axial image 27 of 29. Vertebral body heights are maintained. There are no lumbar spine fracture. There is no intracanalicular mass or fluid collection. The canal is congenitally narrow. The conus terminates at the T12-L1 level. Paravertebral soft tissues are unremarkable. L1-2: The central canal and neural foramen are patent. L2-3: The central canal and neural foramen are patent. There is mild facet arthrosis. L3-4: The central canal and neural foramen are patent. There is mild to moderate facet arthrosis. L4-5: Minimal disc bulge. There is mild to moderate facet arthrosis. There is mild narrowing of the central canal is patent AP diameter of the canal is 7 mm. There is mild bilateral neural foraminal narrowing. L5-S1: The central canal and neural foramen are patent. IMPRESSION: 1. No acute process within the lumbar spine by MRI. 2. Minimal degenerative disc disease and mild to moderate facet arthrosis within the lower lumbar spine. 3. Mild narrowing of the central canal and bilateral neural foramen at L4-L5. ACT 112: Negative or not required by law. Electronically signed by: Garrett Melendez M.D. 07/31/2024 1:11 PM Lumbar Spine MRI 07/31/24 11:58 MRI OF THE LUMBAR SPINE WITHOUT CONTRAST CLINICAL HISTORY: decreased sensation, saddle area COMPARISON STUDY: CT of the abdomen and pelvis February 10, 2021 TECHNIQUE: Utilizing a 1.5 Trsih magnet and dedicated coil, multiplanar, multiecho imaging of the lumbar spine was performed without IV contrast. FINDINGS: For purposes of numbering on this exam, the L5-S1 disc space is assigned to axial image 27 of 29. Vertebral body heights are maintained. There are no lumbar spine fracture. There is no intracanalicular mass or fluid collection. The canal is congenitally narrow. The conus terminates at the T12-L1 level. Paravertebral soft tissues are unremarkable. L1-2: The central canal and neural foramen are patent. L2-3: The central canal and neural foramen are patent. There is mild facet arthrosis. L3-4: The central canal and neural foramen are patent. There is mild to moderate facet arthrosis. L4-5: Minimal disc bulge. There is mild to moderate facet arthrosis. There is mild narrowing of the central canal is patent AP diameter of the canal is 7 mm. There is mild bilateral neural foraminal narrowing. L5-S1: The central canal and neural foramen are patent. IMPRESSION: 1. No acute process within the lumbar spine by MRI. 2. Minimal degenerative disc disease and mild to moderate facet arthrosis within the lower lumbar spine. 3. Mild narrowing of the central canal and bilateral neural foramen at L4-L5. ACT 112: Negative or not required by law. Electronically signed by: Garrett Melendez M.D. 07/31/2024 1:11 PM Patient: LOWELL TRIVEDI Admit Date: 07/31/24 MR#: [id number] Address1: [address] [place] [address] Acct ID:[id number] Address2: Date: 1980 [facility] Zip: [place] [address] Age: 44 Location: ED Sex: M Room/Bed: Att Phy: Diagnosis: NUMB FROM THE WAIST DOWN, LBP Kate Phy: Wolfgang Sellers MD Service Date: 07/31/24 [facility] Phy: Interpreting Phy: Fransisca Gonzalez MDAdmit Phy: Ordering Phy: Dileep Eagle MD cc: ~ EXAM: CT Head Without Intravenous Contrast INDICATION: Leg numbness and back pain. TECHNIQUE: Axial computed tomography images of the head/brain without intravenous contrast. Sagittal and/or coronal reformats are provided. Sagittal and coronal reformatted images were created and reviewed. This CT exam was performed using one or more of the following dose reduction techniques: automated exposure control, adjustment of the mA and/or kV according to patient size, and/or use of iterative reconstruction technique. COMPARISON: 03/13/2024 FINDINGS: Limitations: None. Brain and extra-axial spaces: No abnormality noted. No hemorrhage. No significant white matter disease. No edema. No ventriculomegaly. Bones/joints: No acute changes. Soft tissues: No significant abnormality noted. Vasculature: No acute abnormality noted. Sinuses: No layering fluid in the visualized portions of the paranasal sinuses. Mastoid air cells: No mastoid effusion. Orbits: No significant abnormality noted. IMPRESSION: No abnormality noted. ACT 112: Negative or not required by law. Electronically signed by Fransisca Gonzalez 07-31-2024 5:49 PM Dictated: 07/31/24 1722 Transcribed: Discharge Plan Visit Data Chief Complaint: Back Injury/Pain Stated Complaint: NUMB FROM THE WAIST DOWN, LBP ED Provider: Dileep Eagle Discharge Problem: Bilateral leg weakness, Bilateral leg paresthesia, Paresthesia of buttock Patient Disposition: Admitted As Inpatient Discharge Instructions Interventions: ED Discharge Assessment Last Done: 07/31/24 18:46
[2024-07-31] MEDS: methylPREDNISolone 125 MG/2 ML VIAL IV STA (12:27)
[2024-07-31] MEDS: KETOROLAC TROMETHAMINE 15 MG/ML VIAL IV STA (12:27)
[2024-07-31] MEDS: LIDOCAINE 5% 1 PATCH TD STA (12:28)
[2024-07-31 12:45] LABS: Basophils # (auto) 0.06 K/uL (0.00-0.20); Basophils % (auto) 0.9 %; Eosinophils # (auto) 0.11 K/uL (0.00-0.50); Eosinophils % (auto) 1.7 %; Hematocrit (blood only) 44.7 % (42.0-52.0); Hemoglobin 15.2 g/dl (14.0-18.0); Immature Granulocytes # (auto) 0.02 K/uL (0.01-0.20); Immature Granulocytes % (auto) 0.3 %; Lymphocytes # (auto) 1.83 K/uL (1.20-3.40); Lymphocytes % (auto) 27.5 %; Mean Corpuscular Hemoglobin 29.2 pg (25.0-34.0); Mean Corpuscular Volume 85.8 fL (80.0-100.0); Mean Platelet Volume 10.3 fL (9.4-12.4); Monocytes # (auto) 0.47 K/uL (0.11-0.59); Monocytes % (auto) 7.1 %; Neutrophils # (auto) 4.17 K/uL (1.40-6.50); Neutrophils % (auto) 62.5 %; Platelet Count 280 K/uL (130-400); RDW Coefficient of Variation 12.6 % (11.5-14.5); RDW Standard Deviation 39.3 fL (36.4-46.3); Red Blood Count 5.21 M/uL (4.70-6.10); White Blood Count 6.66 K/ul (4.8-10.8)
[2024-07-31 12:49] LABS: Anion Gap 8 (3-11); BUN Creatinine Ratio 16.8 (10-20); Blood Urea Nitrogen 16 mg/dl (6-23); Calcium 9.6 mg/dl (8.6-10.3); Carbon Dioxide 25 mmol/L (21-32); Chloride 107 mmol/L (98-107); Creatinine Clr Calc Pharmacy 104.6 ml/min; Glucose 116 mg/dl (70-99(Fasting)); Potassium 4.6 mmol/L (3.5-5.1); Sodium 140 mmol/L (136-145)
--- NOTE | 2024-07-31 13:13 | Magnetic Resonance Report ---
MRI OF THE LUMBAR SPINE WITHOUT CONTRAST CLINICAL HISTORY: decreased sensation, saddle area COMPARISON STUDY: CT of the abdomen and pelvis February 10, 2021 TECHNIQUE: Utilizing a 1.5 Trish magnet and dedicated coil, multiplanar, multiecho imaging of the [facility] spine was performed without IV contrast. FINDINGS: For purposes of numbering on this exam, the L5-S1 disc space is assigned to axial image 27 of 29. Emily tebral body heights are maintained. There are no lumbar spine fracture. There is no intracanalicular mass or fluid collection. The canal is congenitally narrow. The conus terminates at the T12-L1 level. Paravertebral soft tissues are unremarkable. L1-2: The central canal and neural foramen are patent. L2-3: The central canal and neural foramen are patent. There is mild facet arthrosis. L3-4: The central canal and neural foramen are patent. There is mild to moderate facet arthrosis. L4-5: Minimal disc bulge. There is mild to moderate facet arthrosis. There is mild narrowing of the c entral canal is patent AP diameter of the canal is 7 mm. There is mild bilateral neural foraminal irene rowing. L5-S1: The central canal and neural foramen are patent. IMPRESSION: 1. No acute process within the lumbar spine by MRI. 2. Minimal degenerative disc disease and mild to moderate facet arthrosis within the lower lumbar spi ne. 3. Mild narrowing of the central canal and bilateral neural foramen at L4-L5. ACT 112: Negative or not required by law. Electronically signed by: Garrett Melendez M.D. 07/31/2024 1:11 PM
[2024-07-31] MEDS: MoRPHine SULFATE 10 MG/ML CARP/VIAL IV STA ×2 (13:40→16:14)
[2024-07-31 13:41] LABS: Lyme Screen Rflx Confirmation Positive (Negative)
[2024-07-31 14:16] LABS: Lyme Ab IgG 2nd Tier Confirm Positive (Negative); Lyme Ab IgM 2nd Tier Confirm Negative (Negative)
[2024-07-31 15:43] LABS: C Reactive Protein < 0.50 mg/dl (0-0.5)
[2024-07-31 15:58] LABS: Thyroid Stimulating Hormone 1.199 uIu/ml (0.300-4.500)
--- NOTE | 2024-07-31 16:12 | History & Physical Report ---
<Statement entered by Greg Brice, DO - 07/31/24 16:57> I have seen and examined the patient and have discussed the case with the provider above. I have reviewed the advanced practitioner's documentation, and I agree with, and take responsibility for that plan of care. Patient seen and examined while still in the ED. is at bedside as well. In conversation with him seems patient may have been having some back pains going all the way back to October 2023. Patient does report that he had almost complete resolution of his Lyme symptoms after he completed the course of amoxicillin. He was having both upper and lower extremity weakness at that time. He is now complaining of significant weakness of his lower extremities bilaterally. Denies real paresthesias. Does have some pain in his low back, however no real pain in his legs. Physical exam: Bilateral lower extremities significantly weak in flexion and extension of lower extremity and upper legs. Deep tendon reflexes patellar and Achilles bilaterally are brisk. While conversation with the patient, ED physician came in and obtained consent for lumbar puncture. Patient going to accept all risks. Explained reasoning for lumbar puncture. Explained that additional laboratory testing that was ordered Explained we will have neurology consultation. Both patient and understand that we are in the investigative process of to determine the etiology of his symptoms. Part of his evaluation may be included here in the hospital but may need additional evaluation after discharge. Understand that we may rule out certain diagnosis without a definitive diagnosis to his symptoms. Additional plan of care as discussed with MARYCARMEN documented below. Date of Service July 31, 2024 Assessment & Plan (1) Bilateral leg weakness: (2) Bilateral leg paresthesia: (3) Paresthesia of buttock: Plan: Patient is 44 year old male with PMH HTN, IBS, s/p anterior cervical fusion of C5-6, RLE osteoid osteoma surgery, and L meniscal surgery who presents with complaint of leg numbness and weakness x 2.5 months. History of LUE and LLE paresthesias and weakness and +Lyme in March treated with amoxicillin with improvement. 2.5 months ago started with buttock numbness that radiates to bilateral posterior legs with progressive bilateral leg weakness. In ER afebrile, vitals stable. No leukocytosis. No significant electrolyte abnormality. +Lyme IgG, negative IgM which would be consistent with his history of prior Lyme disease L spine MRI: No acute process within the lumbar spine by MRI. Minimal degenerative disc disease and mild to moderate facet arthrosis within the lower lumbar spine. Mild narrowing of the central canal and bilateral neural foramen at L4-L5. In ER given Toradol, solumedrol 125mg IV, lidocaine patch Lumbosacral radiculopathy considered , however MRI L spine without severity that would be expected to cause current symptoms ER Physician spoke to ortho spine, Dr Story who recommended Thoracic spine MRI and would consult on pt B12, TSH, CRP, ESR, treponema pallidum labs pending ER physician will attempt LP for further workup Fall precautions Continue home gabapentin, Tylenol, tramadol prn pain Ortho spine consult Neurology consult Patient may require further testing like EMG, will await neurology recommendations PT/OT eval CBC, BMP in am Outpatient imagin02/07/2024 MRI L-spine: Multilevel facet arthropathy and mild congenital canal narrowing. Mild effacement of each lateral recess at L4-5 03/04/2024 MRI C-spine with and without contrast: Stable postoperative changes s/p ACDF at C5-C6. New small central disc protrusion at C4-C5 causing mild spinal canal stenosis. No spinal cord impingement or abnormal spinal cord signal. 03/18/2024 MRI brain with and without contrast: Normal study (4) HTN (hypertension): Plan: Continue home amlodipine (5) Cervical disc disease: Plan: S/P ACDF Continue home gabapentin, tizanidine DVT Prophylaxis SCDs Admit med tele Follows with Dr Sellers for routine care Pt was seen and care coordinated with Dr Brice. See addendum I spent a total of 77 minutes reviewing notes, outpatient records, labs, medication, coordinating, documenting and providing care for this patient excluding time spent in the performance of separately billed services. History of Present Illness Chief Complaint: Leg numbness Primary Care Provider: Wolfgang Sellers MD Patient is 44 year old male with PMH HTN, IBS, s/p anterior cervical fusion of C5-6, RLE osteoid osteoma surgery, and L meniscal surgery who presents with complaint of leg numbness and weakness x 2.5 months. Patient reports in January started with paresthesias to radial aspect of right middle finger which was then followed by numbness and weakness of left arm and left leg. Reports had followed up with neurology in March 2024 and had positive Lyme test and was started on doxycycline. Patient reports took doxycycline for 2 days and he had hallucinations in which he came to [facility] ER on 03/13/2024 and per chart review was given a dose of Rocephin and sent home on amoxicillin. Patient reports after couple days of amoxicillin his left upper and lower extremity numbness and weakness was resolving. States he was doing well until beginning of May 2024 when he started with numbness sensation to gluteal cleft that radiated down posterior legs to his knee. Reports numbness has continued and has progressed to leg weakness and is having difficulty ambulating and needing to use a cane. He denies any loss of control of bowel or bladder. Reports has been straining to have bowel movements and today after having bowel movement noted red blood in toilet. He saw PCP on 07/29/24 and amoxicillin was started for concern for Lyme. He reports has taken without any improvement of symptoms. Per chart review saw 07/27/24 saw [facility] and gabapentin increased from 600mg to 800mg TID. He reports tick bite to abdomen 2 weeks ago. Denies fever/chills, diaphoresis, N/V/D, COBURN, dizziness, syncope, vision changes, worsening neck pain, CP, SOB, orthopnea, palpitations, cough, sore throat, choking, otalgia, rhinorrhea, abdominal pain, upper extremity paresthesias, upper extremity weakness, extremity weakness extremity edema, rashes, dysuria, hematuria, urinary retention, urinary frequency, urinary incontinence. Denies any history STD's. Is in monogamous relationship with one female partner (his ). Patient per outpatient chart review: 02/07/2024 MRI L-spine: Multilevel facet arthropathy and mild congenital canal narrowing. Mild effacement of each lateral recess at L4-5 03/04/2024 MRI C-spine with and without contrast: Stable postoperative changes s/p ACDF at C5-C6. New small central disc protrusion at C4-C5 causing mild spinal canal stenosis. No spinal cord impingement or abnormal spinal cord signal. 03/18/2024 MRI brain with and without contrast: Normal study History EMG 09/25/23 to upper extremities. Allergies Allergy/AdvReac Type Severity Reaction Status Date / Time doxycycline AdvReac Severe HALLUCINATIONS/BLURRED Verified 07/31/24 14:38 & DOUBLE VISION Home Medications Medication Instructions Recorded Confirmed Type amlodipine 10 mg tablet 10 mg PO QAM 03/13/24 07/31/24 History tizanidine 4 mg tablet 4 mg PO HS MUSCLE SPASMS 03/13/24 07/31/24 History tramadol 50 mg tablet 50 mg PO Q6H PRN Pain, Severe 03/13/24 07/31/24 History acetaminophen 500 mg tablet 500 mg PO Q6H PRN Pain/Fever 07/31/24 07/31/24 History amoxicillin 500 mg capsule 500 mg PO TID 07/31/24 07/31/24 History gabapentin 800 mg tablet 800 mg PO TID 07/31/24 07/31/24 History ibuprofen 200 mg tablet 400 mg PO Q6H PRN Pain 07/31/24 07/31/24 History Past Med/Surg History Problem List (Updated 07/31/24 @ 16:38 by Lori Camacho PA-C) Paresthesia of buttock Bilateral leg paresthesia Bilateral leg weakness Medical History (Updated 07/31/24 @ 16:38 by Lori Camacho PA-C) IBS (irritable bowel syndrome) HTN (hypertension) Cervical disc disease Surgical History (Updated 07/31/24 @ 16:27 by Lori Camacho PA-C) History of esophagogastroduodenoscopy (EGD) History of colonoscopy 02/26/24: diverticulosis in sigmoid colon. internal hemorrhoids H/O cervical spine surgery Family History (Updated 07/31/24 @ 16:27 by Lori Camacho PA-C) Other Cancer Social History (Updated 07/31/24 @ 16:32 by Lori Camacho PA-C) Smoking Status: Never smoker Hx Alcohol Use: No Hx Substance Use: No Preferred Language: Divehi Feels Safe at Home: Yes Review of Systems Review of Systems: All systems reviewed & are unremarkable except as noted in HPI & below Physical Exam Physical Exam: General: no distress, WDWN Head: normocephalic, atraumatic Eyes: conjunctiva non-injected, anicteric ENT: normal inspection external ears, nose, mucous membranes moist Neck: supple, trachea midline Lungs: clear, no respiratory distress, no wheezing/rhonchi/rales CV: RRR, no murmur, no pretibial edema Abd: normal BS, soft, non-tender Back: no skin discoloration, +mild tenderness to palpation low lumbar spinous process, +reported decreased sensation to gluteal cleft and bilateral buttocks, +decreased sensation to light touch of posterior upper legs bilaterally to knee level. +decreased strength to bilateral legs straight leg raise, leg extension and flexion and dorsiflex and plantar flexion Ext: no cyanosis, no calf tenderness, able to actively move bilateral upper extremities. LE as above Neuro: A&O x 3, normal affect Skin: warm, dry Results & Data Results & Data Vital Signs (Past 12 Hours) Vital Signs Temp Pulse Resp BP Pulse Ox O2 Del Method 07/31/24 14:39 70 20 132/97 98 Room Air 07/31/24 13:44 88 07/31/24 11:58 97 Room Air 07/31/24 11:28 36.3 C L 98 H 20 141/93 H 97 Room Air Laboratory Results Short CBC 07/31/24 Range/Units 12:20 WBC 6.66 (4.8-10.8) K/ul Hgb 15.2 (14.0-18.0) g/dl Hct 44.7 (42.0-52.0) % Plt Count 280 (130-400) K/uL BMP 07/31/24 12:20 Sodium 140 Potassium 4.6 Chloride 107 Carbon Dioxide 25 BUN 16 Creatinine 0.95 Glucose 116 H Calcium 9.6 Diagnostic Findings Lumbar Spine MRI 07/31/24 11:58 MRI OF THE LUMBAR SPINE WITHOUT CONTRAST CLINICAL HISTORY: decreased sensation, saddle area COMPARISON STUDY: CT of the abdomen and pelvis February 10, 2021 TECHNIQUE: Utilizing a 1.5 Trish magnet and dedicated coil, multiplanar, multiecho imaging of the lumbar spine was performed without IV contrast. FINDINGS: For purposes of numbering on this exam, the L5-S1 disc space is assigned to axial image 27 of 29. Vertebral body heights are maintained. There are no lumbar spine fracture. There is no intracanalicular mass or fluid collection. The canal is congenitally narrow. The conus terminates at the T12-L1 level. Paravertebral soft tissues are unremarkable. L1-2: The central canal and neural foramen are patent. L2-3: The central canal and neural foramen are patent. There is mild facet arthrosis. L3-4: The central canal and neural foramen are patent. There is mild to moderate facet arthrosis. L4-5: Minimal disc bulge. There is mild to moderate facet arthrosis. There is mild narrowing of the central canal is patent AP diameter of the canal is 7 mm. There is mild bilateral neural foraminal narrowing. L5-S1: The central canal and neural foramen are patent. IMPRESSION: 1. No acute process within the lumbar spine by MRI. 2. Minimal degenerative disc disease and mild to moderate facet arthrosis within the lower lumbar spine. 3. Mild narrowing of the central canal and bilateral neural foramen at L4-L5. ACT 112: Negative or not required by law. Electronically signed by: Garrett Melendez M.D. 07/31/2024 1:11 PM Code Status & VTE Plan VTE Prophylaxis Plan VTE Prophylaxis will be ordered: Yes
--- NOTE | 2024-07-31 17:07 | Emergency Department Note ---
ED Visit Note I was asked to attempt lumbar puncture by Dr. Eagle, patient's primary emergency physician. Please refer to his notes for further documentation on the history, physical and visit. Patient verbally consented and signed procedure consent previously. Lumbar Puncture Indication: meningitis, back pain Verbal consent was obtained after the risks and benefits were explained, including but not limited to headache, bleeding/clotting, scarring, infection, pain, and bone/joint/nerve damage. At this time, the risks of the procedure are less than the risks of NOT performing the procedure. A time out was taken and the correct patient and site identified. The patient was placed in the left lumbar decubitus position and the back was prepped with Betadine and draped in the standard fashion. The L3 intervertebral space was identified, anesthetized locally with 1% lidocaine without epinephrine, and the spinal needle was inserted through the skin with the bevel parallel to the dural fibers. The needle was carefully advanced into the lumbar cistern and 4 tubes of cloudy pink CSF was obtained. The stylet was replaced and the needle was removed. A bandaid was placed and the patient was placed in the supine position. The patient tolerated the procedure well and there were no complications. .
[2024-07-31 17:49] LABS: Total Protein CSF 61.6 mg/dl (15-45)
--- NOTE | 2024-07-31 17:50 | CT Scan Report ---
EXAM: CT Head Without Intravenous Contrast INDICATION: Leg numbness and back pain. TECHNIQUE: Axial computed tomography images of the head/brain without intravenous contrast. Sagittal and/or coronal reformats are provided. Sagittal and coronal reformatted images were created and reviewed. This CT exam was performed using one or more of the following dose reduction techniques: automated exposure control, adjustment of the mA and/or kV according to patient size, and/or use of iterative reconstruction technique. COMPARISON: 03/13/2024 FINDINGS: Limitations: None. Brain and extra-axial spaces: No abnormality noted. No hemorrhage. No significant white matter disease. No edema. No ventriculomegaly. Bones/joints: No acute changes. Soft tissues: No significant abnormality noted. Vasculature: No acute abnormality noted. Sinuses: No layering fluid in the visualized portions of the paranasal sinuses. Mastoid air cells: No mastoid effusion. Orbits: No significant abnormality noted. IMPRESSION: No abnormality noted. ACT 112: Negative or not required by law. Electronically signed by Fransisca Gonzalez 07-31-2024 5:49 PM
--- NOTE | 2024-07-31 17:52 | CT Scan Report ---
EXAM: CT Thoracic Spine Without Intravenous Contrast INDICATION: Chronic lower extremity numbness TECHNIQUE: Axial computed tomography images of the thoracic spine without intravenous contrast. Sagittal and coronal reformatted images were created and reviewed. This CT exam was performed using one or more of the following dose reduction techniques: automated exposure control, adjustment of the mA and/or kV according to patient size, and/or use of iterative reconstruction technique. COMPARISON: No relevant prior studies available. FINDINGS: Limitations: None. Vertebrae: 12 rib-bearing normally developed thoracic vertebra are identified without fracture or subluxation. There is mild diffuse spondylosis. Discs/spinal canal/neural foramina: Minimal diffuse to space narrowing. No stenosis. Other bones/joints: No abnormality noted. Soft tissues: No significant abnormality noted. Heart: No abnormality noted. Mediastinum: No significant abnormality noted. Liver: No significant abnormality noted. IMPRESSION: Minimal diffuse degenerative changes. Otherwise negative. ACT 112: Negative or not required by law. Electronically signed by Fransisca Gonzalez 07-31-2024 5:52 PM
[2024-07-31 17:54] LABS: Appearance CSF Hazy; CSF Count Tube # 3; CSF Xanthrochromic No xanthochromia; Color CSF Pink; Mononuclear WBC CSF Auto 21.4 %; Polynuclear WBC CSF Auto 78.6 %; Red Blood Cell CSF Auto 6000 /uL (0-)
[2024-07-31 18:02] LABS: White Blood Cell CSF Auto 14 /uL (0-5)
[2024-07-31 18:26] LABS: Mononuclear WBC CSF Manual 11 %; Polynuclear WBC CSF Manual 89 %
[2024-07-31 19:02] LABS: Cryptococcus neoformans/ga PCR Not Detected (NotDetected); Cytomegalovirus PCR Not Detected (NotDetected); Enterovirus PCR Not Detected (NotDetected); Escherichia coli K1 PCR Not Detected (NotDetected); Haemophilius influenzae PCR Not Detected (NotDetected); Herpes Simplex Virus 1 PCR Not Detected (NotDetected); Herpes Simplex Virus 2 PCR Not Detected (NotDetected); Human Herpes Virus 6 PCR Not Detected (NotDetected); Human Parechovirus PCR Not Detected (NotDetected); Listeria monocytogenes PCR Not Detected (NotDetected); Neisseria meningitidis PCR Not Detected (NotDetected); Streptococcus agalactiae PCR Not Detected (NotDetected); Streptococcus pneumoniae PCR Not Detected (NotDetected); Varicella Zoster Virus PCR Not Detected (NotDetected)
[2024-07-31] MEDS ORDERED: ONDANSETRON INJ 2 MG/ML 2 ML VIAL IV PRN (20:08)
[2024-07-31] MEDS ORDERED: POLYETHYLENE (MIRALAX) 17 GM PACK PO PRN (20:08)
[2024-07-31] MEDS: tiZANidine HCL 4 MG TABLET PO SCH (20:41)
[2024-07-31] MEDS: GABAPENTIN 800 MG TAB PO SCH (20:41)
[2024-07-31] MEDS: traMADol HCL 50 MG TABLET PO PRN (20:48)
[2024-08-01 06:14] LABS: Hematocrit (blood only) 40.6 % (42.0-52.0); Hemoglobin 13.8 g/dl (14.0-18.0); Mean Corpuscular Hemoglobin 29.4 pg (25.0-34.0); Mean Corpuscular Volume 86.4 fL (80.0-100.0); Mean Platelet Volume 10.4 fL (9.4-12.4); Platelet Count 258 K/uL (130-400); RDW Coefficient of Variation 12.5 % (11.5-14.5); RDW Standard Deviation 39.8 fL (36.4-46.3); White Blood Count 14.26 K/ul (4.8-10.8)
[2024-08-01 06:37] LABS: BUN Creatinine Ratio 21.2 (10-20); Calcium 9.3 mg/dl (8.6-10.3); Creatinine Clr Calc Pharmacy 116.9 ml/min; Potassium 4.3 mmol/L (3.5-5.1)
[2024-08-01] MEDS: amLODIPine BESYLATE 5 MG TAB PO SCH (08:20)
--- NOTE | 2024-08-01 09:04 | Neurology Consultation ---
Date of Consultation August 01, 2024 Assessment & Plan (1) Bilateral leg weakness: Bilateral leg weakness and saddle anesthesia in a 44M with a PMH of cervical spine disease sp c5-c6 fusion and chronic back pain. On exam he has saddle anesthesia, and bilateral leg weakness. MRI of the c-spine was stable. CSF was obtained which showed 14 nucleated cells and initial infectious studies were negative. He does have a history of similar symptoms which resolved with amoxicillin in the past and were due to lyme disease. Lyme disease remains a possibility this time, but any process in the thoracic spine could cause a myelopathy that looks like this. Plan -- MRI T spine with and without contrast pending -- defer antibiotics to primary team -- pain control per primary team Telehealth Consultation Telehealth Information Telehealth Information: I performed this visit using a real-time telehealth connection between my location and the patients location ([facility]). After connecting through interactive tele-video, patient was identified by name and date of and/or wristband check.Patient (or authorized healthcare software sales representative) was informed that this was a telemedicine visit and it was being conducted confidentially over secure lines. My office door was closed and no one else was present in the room with me.Patient (or authorized healthcare software sales representative) provided consent to proceed with the visit, expressed an understanding of privacy and security of the telemedicine visit, and gave permission to have a hospital software sales representative in the room in order to assist with the visit and to conduct portions of the visit, as needed. I informed the patient (or authorized healthcare software sales representative) that I reviewed their record and presented the opportunity for them to ask any questions regarding the visit today. The patient agreed to participate. History of Present Illness Reason for Consultation: LE paresthesias Attending Physician: Karan Corrales MD History of Present Illness Héctor Carrera is a 44M with a PMH of HTN, IBS, s/p anterior cervical fusion of C5-6, RLE osteoid osteoma surgery, and L meniscal surgery who presents with LE numbness/tingling. Last December he ways his right middle finger went numb. Then over the next cold of weeks his left arm went numb and it spread up to his shoulder and then spread to left leg. This was followed by left leg weakness. He was evaluated by neurology and was found to have lyme disease. Symptoms improved with amoxicillin. Then in May he has noticed severe fatigue in his bilateral legs. He feels it mostly in the upper legs and his feet to a lower degree. No symptoms in his arms. No problems with bowel or bladder, but he is having trouble completing a BM because he feels week in that area. No sensation during sex. He does report continual exposure to ticks. He did take 2 days of amoxicillin but has had no improvement in his symptoms. He did have an episode of blood in his stool prior to coming into the hospital. He endorses worsening back pain on top of his chronic back pain. He denies headache, slurred speech, vision changes and vertigo. He also denies chest pain but does endorse SOB. Allergies Allergy/AdvReac Type Severity Reaction Status Date / Time doxycycline AdvReac Severe HALLUCINATIONS/BLURRED Verified 07/31/24 14:38 & DOUBLE VISION Home Medications Medication Instructions Recorded Confirmed Type amlodipine 10 mg tablet 10 mg PO QAM 03/13/24 07/31/24 History tizanidine 4 mg tablet 4 mg PO HS MUSCLE SPASMS 03/13/24 07/31/24 History tramadol 50 mg tablet 50 mg PO Q6H PRN Pain, Severe 03/13/24 07/31/24 History acetaminophen 500 mg tablet 500 mg PO Q6H PRN Pain/Fever 07/31/24 07/31/24 History amoxicillin 500 mg capsule 500 mg PO TID 07/31/24 07/31/24 History gabapentin 800 mg tablet 800 mg PO TID 07/31/24 07/31/24 History ibuprofen 200 mg tablet 400 mg PO Q6H PRN Pain 07/31/24 07/31/24 History Patient History Medical History (Updated 07/31/24 @ 16:38 by Lori Camacho PA-C) IBS (irritable bowel syndrome) HTN (hypertension) Cervical disc disease Surgical History (Updated 07/31/24 @ 16:27 by Lori Camacho PA-C) History of esophagogastroduodenoscopy (EGD) History of colonoscopy 02/26/24: diverticulosis in sigmoid colon. 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: No Beliefs That Will Affect Care: None Current Living Situation: Family Feels Safe at Home: Yes Assistive Devices: Cane and Contacts Physical Exam NEUROLOGIC EXAMINATION: Mental Status:alert, oriented to time, place, person, normal recent memory, normal remote memory, normal attention span, normal concentration, normal language, and normal fund of knowledge Cranial Nerves: CN 2 - no visual defect on confrontation and pupils round, equal, reactive to light CN 3, 4, 6 - extra-ocular movements intact and no nystagmus CN 5 - facial sensation intact CN 7 - no facial asymmetry CN 8 - intact hearing CN 9, 10 - palate symmetric, normal gag CN 11 - good shoulder shrug CN 12 - tongue midline MOTOR: Strength antigravity in the upper extremities, but lower extremities drift to bed with increased weakness in the hips compared to ankles SENSATION: intact GAIT: deferred COORDINATION: no ataxia with finger to nose testing and heel to dobson testing REFLEXES: reportely brisk in the bilateral legs Results & Data Vital Signs (Past 12 Hours) Vital Signs Temp Pulse Pulse Resp BP BP Pulse Ox 08/01/24 08:14 08/01/24 07:49 36.6 C 88 12 117/75 97 08/01/24 07:20 79 08/01/24 04:03 36.5 C 93 H 16 94/57 L 96 07/31/24 23:59 72 07/31/24 23:16 36.5 C 86 16 109/69 96 Pulse Ox O2 Del Method O2 Del Method 08/01/24 08:14 97 Room Air 08/01/24 07:49 Room Air 08/01/24 07:20 08/01/24 04:03 Room Air 07/31/24 23:59 07/31/24 23:16 Room Air Laboratory Results Abnormal Lab Results 07/31/24 07/31/24 07/31/24 12:20 17:00 17:56 WBC 6.66 RBC 5.21 Hgb 15.2 Hct 44.7 MCV 85.8 MCH 29.2 MCHC 34.0 RDW Std Deviation 39.3 RDW Coeff of [place] 12.6 Plt Count 280 MPV 10.3 Immature Gran % (Auto) 0.3 Neut % (Auto) 62.5 Lymph % (Auto) 27.5 Lawrence % (Auto) 7.1 Eos % (Auto) 1.7 Baso % (Auto) 0.9 Neut # (Auto) 4.17 Lymph # (Auto) 1.83 Lawrence # (Auto) 0.47 Eos # (Auto) 0.11 Baso # (Auto) 0.06 Immature Gran # (Auto) 0.02 ESR 8 Sodium 140 Potassium 4.6 Chloride 107 Carbon Dioxide 25 Anion Gap 8 BUN 16 Creatinine 0.95 Est Cr Clr Drug Dosing 104.6 eGFR 102.49 BUN/Creatinine Ratio 16.8 Glucose 116 H 143 H Calcium 9.6 C-Reactive Protein < 0.50 Vitamin B12 357 TSH 1.199 Fld Lyme DNA (PCR) Cancelled Fluid Comment CSF Appearance Hazy CSF Color [place] Xanthrochromic No xanthochromia CSF WBC (Auto) 14 H* CSF RBC (Auto) 6000 CSF Cell Count Tube # 3 CSF Mononuclear % Auto 21.4 CSF Mononuclear WBCs % 11 CSF Polynuclear WBCs 78.6 CSF Polynuclear WBCs % 89 CSF Chemistry Tube # 1 CSF Glucose 65 CSF LDH Cancelled CSF Lactate Cancelled CSF Total Protein 61.6 H CSF VDRL Cancelled CSF C.neoform/gat PCR Not Detected CSF CMV DNA (PCR) Not Detected CSF Enterovirus (PCR) Not Detected CSF E. coli K1 (PCR) Not Detected CSF H. influenzae (PCR) Not Detected CSF HSV I (PCR) Not Detected CSF HSV II (PCR) Not Detected CSF HHV 6 (PCR) Not Detected CSF L.monocytogenes PCR Not Detected CSF N. meningitidis PCR Not Detected CSF Parechovirus (PCR) Not Detected CSF S. agalactiae (PCR) Not Detected CSF S. pneumoniae (PCR) Not Detected CSF VZV DNA (PCR) Not Detected CSF West Nile RNA Cancelled Lyme Specimen Source Cancelled Lyme Disease Screen Positive H Lyme Tier 2 IgG Confirm Positive H Lyme Tier 2 IgM Confirm Negative Lyme DNA Comment Cancelled Cryptococcus Source Cancelled Cryptococcal Ag (Latex) Cancelled West Nile Virus Source Cancelled EBV Source Cancelled EBV DNA, Quant Cancelled EBV DNA (PCR) Cancelled 08/01/24 05:29 WBC 14.26 H RBC 4.70 Hgb 13.8 L Hct 40.6 L MCV 86.4 MCH 29.4 MCHC 34.0 RDW Std Deviation 39.8 RDW Coeff of [place] 12.5 Plt Count 258 MPV 10.4 Immature Gran % (Auto) Neut % (Auto) Lymph % (Auto) Lawrence % (Auto) Eos % (Auto) Baso % (Auto) Neut # (Auto) Lymph # (Auto) Lawrence # (Auto) Eos # (Auto) Baso # (Auto) Immature Gran # (Auto) ESR Sodium 136 Potassium 4.3 Chloride 104 Carbon Dioxide 24 Anion Gap 8 BUN 18 Creatinine 0.85 Est Cr Clr Drug Dosing 116.9 eGFR 111.26 BUN/Creatinine Ratio 21.2 H Glucose 135 H Calcium 9.3 C-Reactive Protein Vitamin B12 TSH Fld Lyme DNA (PCR) Fluid Comment CSF Appearance CSF Color Xanthrochromic CSF WBC (Auto) CSF RBC (Auto) CSF Cell Count Tube # CSF Mononuclear % Auto CSF Mononuclear WBCs % CSF Polynuclear WBCs CSF Polynuclear WBCs % CSF Chemistry Tube # CSF Glucose CSF LDH CSF Lactate CSF Total Protein CSF VDRL CSF C.neoform/gat PCR CSF CMV DNA (PCR) CSF Enterovirus (PCR) CSF E. coli K1 (PCR) CSF H. influenzae (PCR) CSF HSV I (PCR) CSF HSV II (PCR) CSF HHV 6 (PCR) CSF L.monocytogenes PCR CSF N. meningitidis PCR CSF Parechovirus (PCR) CSF S. agalactiae (PCR) CSF S. pneumoniae (PCR) CSF VZV DNA (PCR) CSF West Nile RNA Lyme Specimen Source Lyme Disease Screen Lyme Tier 2 IgG Confirm Lyme Tier 2 IgM Confirm Lyme DNA Comment Cryptococcus Source Cryptococcal Ag (Latex) West Nile Virus Source EBV Source EBV DNA, Quant EBV DNA (PCR) Diagnostic Findings Lumbar Spine MRI 07/31/24 11:58 MRI OF THE LUMBAR SPINE WITHOUT CONTRAST CLINICAL HISTORY: decreased sensation, saddle area COMPARISON STUDY: CT of the abdomen and pelvis February 10, 2021 TECHNIQUE: Utilizing a 1.5 Trish magnet and dedicated coil, multiplanar, multiecho imaging of the lumbar spine was performed without IV contrast. FINDINGS: For purposes of numbering on this exam, the L5-S1 disc space is assigned to axial image 27 of 29. Vertebral body heights are maintained. There are no lumbar spine fracture. There is no intracanalicular mass or fluid collection. The canal is congenitally narrow. The conus terminates at the T12-L1 level. Paravertebral soft tissues are unremarkable. L1-2: The central canal and neural foramen are patent. L2-3: The central canal and neural foramen are patent. There is mild facet arthrosis. L3-4: The central canal and neural foramen are patent. There is mild to moderate facet arthrosis. L4-5: Minimal disc bulge. There is mild to moderate facet arthrosis. There is mild narrowing of the central canal is patent AP diameter of the canal is 7 mm. There is mild bilateral neural foraminal narrowing. L5-S1: The central canal and neural foramen are patent. IMPRESSION: 1. No acute process within the lumbar spine by MRI. 2. Minimal degenerative disc disease and mild to moderate facet arthrosis within the lower lumbar spine. 3. Mild narrowing of the central canal and bilateral neural foramen at L4-L5. ACT 112: Negative or not required by law. Electronically signed by: Garrett Melendez M.D. 07/31/2024 1:[address] 07/31/24 16:17 EXAM: CT Thoracic Spine Without Intravenous Contrast INDICATION: Chronic lower extremity numbness TECHNIQUE: Axial computed tomography images of the thoracic spine without intravenous contrast. Sagittal and coronal reformatted images were created and reviewed. This CT exam was performed using one or more of the following dose reduction techniques: automated exposure control, adjustment of the mA and/or kV according to patient size, and/or use of iterative reconstruction technique. COMPARISON: No relevant prior studies available. FINDINGS: Limitations: None. Vertebrae: 12 rib-bearing normally developed thoracic vertebra are identified without fracture or subluxation. There is mild diffuse spondylosis. Discs/spinal canal/neural foramina: Minimal diffuse to space narrowing. No stenosis. Other bones/joints: No abnormality noted. Soft tissues: No significant abnormality noted. Heart: No abnormality noted. Mediastinum: No significant abnormality noted. Liver: No significant abnormality noted. IMPRESSION: Minimal diffuse degenerative changes. Otherwise negative. ACT 112: Negative or not required by law. Electronically signed by Fransisca Gonzalez 07-31-2024 5:[address] 07/31/24 17:07 EXAM: CT Head Without Intravenous Contrast INDICATION: Leg numbness and back pain. TECHNIQUE: Axial computed tomography images of the head/brain without intravenous contrast. Sagittal and/or coronal reformats are provided. Sagittal and coronal reformatted images were created and reviewed. This CT exam was performed using one or more of the following dose reduction techniques: automated exposure control, adjustment of the mA and/or kV according to patient size, and/or use of iterative reconstruction technique. COMPARISON: 03/13/2024 FINDINGS: Limitations: None. Brain and extra-axial spaces: No abnormality noted. No hemorrhage. No significant white matter disease. No edema. No ventriculomegaly. Bones/joints: No acute changes. Soft tissues: No significant abnormality noted. Vasculature: No acute abnormality noted. Sinuses: No layering fluid in the visualized portions of the paranasal sinuses. Mastoid air cells: No mastoid effusion. Orbits: No significant abnormality noted. IMPRESSION: No abnormality noted. ACT 112: Negative or not required by law. Electronically signed by Fransisca Gonzalez 07-31-2024 5:49 PM
[2024-08-01] MEDS: oxyCODONE HCL IR 5 MG TAB (IMMEDIATE RELEASE) PO STA (10:33)
--- NOTE | 2024-08-01 11:02 | Orthopedic Consultation ---
Date of Consultation August 01, 2024 Assessment & Plan (1) Bilateral leg paresthesia: I had the opportunity review MRI of the lumbar spine. There is some modest degenerative change at L4-5 but nothing on his lumbar MRI accounts for his symptom complex. We are awaiting a thoracic MRI. He has no upper extremity symptoms. Do not feel there is a need for an MRI of the cervical spine at this point. I am concerned that his Lyme disease is a contributing factor and may not have been treated appropriately. I would recommend consultation with infectious disease. Will await final results from his lab studies and further imaging. At this point I see no indication for emergent surgical intervention. History of Present Illness Reason for Consultation: Bilateral leg weakness Attending Physician: Karan Corrales MD History of Present Illness This is a very pleasant 44-year-old male who presents the emergency room yeste rday with progressive lower extremity weakness. This morning he is comfortable. His is at the bedside. He describes the diagnosis of Lyme disease in March of this year. He was treated with 2 weeks of amoxicillin. He is unable to tolerate doxycycline. He completed his 2-week course of antibiotics and has not had any testing since. He has noted a decline in lower extremity function. He describes loss of proprioception. He is not aware his feet are and must watch the ground for foot placement. He does not have any severe pain. He does use a cane to ambulate. He has noted a marked decline over the past month and his ability to stand and ambulate any distance. Allergies Allergy/AdvReac Type Severity Reaction Status Date / Time doxycycline AdvReac Severe HALLUCINATIONS/BLURRED Verified 07/31/24 14:38 & DOUBLE VISION Home Medications Medication Instructions Recorded Confirmed Type amlodipine 10 mg tablet 10 mg PO QAM 03/13/24 07/31/24 History tizanidine 4 mg tablet 4 mg PO HS MUSCLE SPASMS 03/13/24 07/31/24 History tramadol 50 mg tablet 50 mg PO Q6H PRN Pain, Severe 03/13/24 07/31/24 History acetaminophen 500 mg tablet 500 mg PO Q6H PRN Pain/Fever 07/31/24 07/31/24 History amoxicillin 500 mg capsule 500 mg PO TID 07/31/24 07/31/24 History gabapentin 800 mg tablet 800 mg PO TID 07/31/24 07/31/24 History ibuprofen 200 mg tablet 400 mg PO Q6H PRN Pain 07/31/24 07/31/24 History Patient History Medical History (Updated 07/31/24 @ 16:38 by Lori Camacho PA-C) IBS (irritable bowel syndrome) HTN (hypertension) Cervical disc disease Surgical History (Updated 07/31/24 @ 16:27 by Lori Camacho PA-C) History of esophagogastroduodenoscopy (EGD) History of colonoscopy 02/26/24: diverticulosis in sigmoid colon. 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 It is intact left lower extremity. He has a 3 beat nonsustained clonus bilaterally. Brisk patellar reflexes. Negative logroll. I did have him stand up for me. He was able to get out of bed on his own however ambulates with a widened unsteady gait. He must stooped forward to maintain balance. He has a positive Romberg sign. Results & Data Vital Signs (Past 12 Hours) Vital Signs Temp Pulse Pulse Resp BP BP Pulse Ox 08/01/24 08:14 08/01/24 07:49 36.6 C 88 12 117/75 97 08/01/24 07:20 79 08/01/24 04:03 36.5 C 93 H 16 94/57 L 96 07/31/24 23:59 72 07/31/24 23:16 36.5 C 86 16 109/69 96 Pulse Ox O2 Del Method O2 Del Method 08/01/24 08:14 97 Room Air 08/01/24 07:49 Room Air 08/01/24 07:20 08/01/24 04:03 Room Air 07/31/24 23:59 07/31/24 23:16 Room Air
[2024-08-01] MEDS: GADOBUTROL 10ML VIAL IV ONE (11:15)
[2024-08-01] MEDS: ACETAMINOPHEN 325 MG TAB PO PRN (11:50)
[2024-08-01] MEDS: MoRPHine SULFATE 4 MG/ML 1 ML CARP\\VIAL IV STA (12:23)
--- NOTE | 2024-08-01 12:25 | Magnetic Resonance Report ---
EXAM: MR thoracic spine wo/w con CLINICAL HISTORY: PT STATES R/O INFECTION. LYMES DISEASE. TICK BITE. ONGOING ISSUES. PARALYSIS. BILATERAL LEG NUMBNESS AND WEAKNESS. HAD SPINAL TAP. R/O INFECTION. SURGERY TO CERVICAL SPINE. NO HX OF CANCER. 8CC GADAVIST ADMINISTERED @ 1112. TECHNIQUE: MRI of the thoracic spine was performed with and without 8CC GADAVIST intravenous contrast administration. Sequences obtained include pre-contrast and post-contrast T1-weighted, T2-weighted, STIR (Short Tau Inversion Recovery), and axial T2-weighted sequences. COMPARISON: Prior CT scan dated 07/31/2024 FINDINGS: Intervertebral Discs: Normal height and signal intensity of the intervertebral discs. No evidence of disc herniation, bulging, or significant degeneration. No disc desiccation. Spinal Canal and Neural Foramina: Spinal canal is of normal caliber with no evidence of spinal stenosis. Neural foramina are patent bilaterally at all levels. No evidence of nerve root compression. Facet Joints: Normal appearance of the facet joints. No evidence of facet arthropathy or significant degenerative changes. Vertebrae: Normal alignment of the thoracic vertebrae. No fractures, lytic or sclerotic lesions. Normal bone marrow signal intensity. Level by level analysis: C7-T1: No significant disc pathology. Normal ligamentum flava morphology, no arthropathy of the facet joints, and no significant spinal canal stenosis. T1-T2: No significant disc pathology. Normal ligamentum flava morphology, no arthropathy of the facet joints, and no significant spinal canal stenosis. T2-T3: No significant disc pathology. Normal ligamentum flava morphology, no arthropathy of the facet joints, and no significant spinal canal stenosis. T3-T4: No significant disc pathology. Normal ligamentum flava morphology, no arthropathy of the facet joints, and no significant spinal canal stenosis. T4-T5: No significant disc pathology. Normal ligamentum flava morphology, no arthropathy of the facet joints, and no significant spinal canal stenosis. T5-T6: No significant disc pathology. Normal ligamentum flava morphology, no arthropathy of the facet joints, and no significant spinal canal stenosis. T6-T7: No significant disc pathology. Normal ligamentum flava morphology, no arthropathy of the facet joints, and no significant spinal canal stenosis. T7-T8: No significant disc pathology. Normal ligamentum flava morphology, no arthropathy of the facet joints, and no significant spinal canal stenosis. T8-T9: No significant disc pathology. Normal ligamentum flava morphology, no arthropathy of the facet joints, and no significant spinal canal stenosis. T9-T10: No significant disc pathology. Normal ligamentum flava morphology, no arthropathy of the facet joints, and no significant spinal canal stenosis. T10-T11: No significant disc pathology. Normal ligamentum flava morphology, no arthropathy of the facet joints, and no significant spinal canal stenosis. T11-T12: No significant disc pathology. Normal ligamentum flava morphology, no arthropathy of the facet joints, and no significant spinal canal stenosis. Soft Tissues: Normal appearance of the paraspinal soft tissues. No abnormal masses, fluid collections, or signs of inflammation. Thoracic Kyphosis: Normal thoracic kyphosis without abnormal curvature. Post-Contrast Findings: Focal abnormal signal intensity are noted at the C7 superior endplate and displaying postcontrast enhancement, likely represent degenerative changes. Spinal Cord and Nerve Roots: Spinal cord demonstrates normal signal intensity and caliber throughout the thoracic spine. No evidence of intrinsic cord lesions, syrinx, or abnormal signal changes. No evidence of cord compression or intradural pathology. Nerve roots appear unremarkable bilaterally. IMPRESSION: 1. Normal alignment and signal intensity of the thoracic vertebral bodies, intervertebral discs, spinal cord, nerve roots, and paraspinal soft tissues. 2. Focal abnormal signal intensity are noted at the C7 superior endplate and displaying postcontrast enhancement , likely represent degenerative changes. 3. Findings are compatible with CT findings . Electronically signed by Krystle Finn 08-01-2024 12:24 PM
[2024-08-01] MEDS: cefTRIAXone SODIUM 2,000 MG/50 ML BAG IV SCH (13:24)
--- NOTE | 2024-08-01 16:13 | Hospitalist Progress Note ---
Date of Service August 01, 2024 Assessment & Plan (1) Bilateral leg weakness: (2) Bilateral leg paresthesia: (3) Paresthesia of buttock: Plan: Per admitting service notes with addendum: Patient is 44 year old male with PMH HTN, IBS, s/p anterior cervical fusion of C5-6, RLE osteoid osteoma surgery, and L meniscal surgery who presents with complaint of leg numbness and weakness x 2.5 months. History of LUE and LLE paresthesias and weakness and +Lyme in March treated with amoxicillin with improvement. 2.5 months ago started with buttock numbness that radiates to bilateral posterior legs with progressive bilateral leg weakness. In ER afebrile, vitals stable. No leukocytosis. No significant electrolyte abnormality. +Lyme IgG, negative IgM which would be consistent with his history of prior Lyme disease L spine MRI: No acute process within the lumbar spine by MRI. Minimal degenerative disc disease and mild to moderate facet arthrosis within the lower lumbar spine. Mild narrowing of the central canal and bilateral neural foramen at L4-L5. In ER given Toradol, solumedrol 125mg IV, lidocaine patch Lumbosacral radiculopathy considered , however MRI L spine without severity that would be expected to cause current symptoms ER Physician spoke to ortho spine, Dr Story who recommended Thoracic spine MRI and would consult on pt B12, TSH, CRP, ESR, treponema pallidum labs pending ER physician will attempt LP for further workup Fall precautions Continue home gabapentin, Tylenol, tramadol prn pain Ortho spine consult Neurology consult Patient may require further testing like EMG, will await neurology recommendations PT/OT eval CBC, BMP in am [facility]2024 MRI L-spine: Multilevel facet arthropathy and mild congenital canal narrowing. Mild effacement of each lateral recess at L4-5 03/04/2024 MRI C-spine with and without contrast: Stable postoperative changes s/p ACDF at C5-C6. New small central disc protrusion at C4-C5 causing mild spinal canal stenosis. No spinal cord impingement or abnormal spinal cord signal. 03/18/2024 MRI brain with and without contrast: Normal study 08/01 Evaluated by neuro service MRI with contrast of thoracic spine ordered: Unrevealing CSF studies reviewed Positive leukocytosis and elevated proteins Negative for bacterial/viral meningitis Awaiting CSF Lyme and MS studies Discussed with neuro service-Dr. 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 Ceftriaxone IV 2 g daily ordered PT and OT evaluation (4) HTN (hypertension): Plan: Continue home amlodipine (5) Cervical disc disease: Plan: S/P ACDF Continue home gabapentin, tizanidine DVT Prophylaxis SCDs Disposition pending Most likely will need IV ceftriaxone daily x 14 days plan of care discussed with patientAnd his Deon at bedside in detail and at length all questions answered they are understanding, agreeable, comfortable with the plan of care Admission and Anticipated Discharge Date Admission Date: July 31, 2024 Subjective Follow-up for bilateral lower extremity weakness and numbness, etc. Seen standing then resting in bed, comfortable, not in distress Very pleasant gentleman States he still has bilateral extremity weakness and numbness, about the same as yesterday Feels he has incomplete bowel movement but no incontinence No shortness of breath, chest pain, palpitations, dizziness No headaches, fevers or chills No other new symptoms Review of Systems Review of Systems: all noted and negative except for above Physical Exam Physical Exam: General- oriented x 3, not in distress, speaks in sentences with no effort or accessory muscle use Eyes- anicteric Neck- no JVD Lungs- clear breath sounds bilaterally, no rales/wheezes Heart- normal rate, regular rhythm; no murmurs Abdomen- normal bowel sounds, nondistended, soft, nontender Extremities- no pretibial edema, no calf tenderness Bilateral lower extremities: Motor strength 2-3 out of 5, proximal muscles Sensation 75% no other gross focal neurologic deficits Skin- warm & dry Results & Data Results & Data Vital Signs (Past 12 Hours) Vital Signs Temp Pulse Pulse Resp BP Pulse Ox Pulse Ox 08/01/24 16:00 36.6 C 90 18 120/73 91 08/01/24 14:51 95 H 08/01/24 11:59 36.8 C 84 18 123/72 98 08/01/24 08:14 97 08/01/24 07:49 36.6 C 88 12 117/75 97 08/01/24 07:20 79 O2 Del Method O2 Del Method 08/01/24 16:00 Room Air 08/01/24 14:51 08/01/24 11:59 Room Air 08/01/24 08:14 Room Air 08/01/24 07:49 Room Air 08/01/24 07:20 all noted and reviewed including below
[2024-08-01] MEDS: oxyCODONE HCL IR 5 MG TAB (IMMEDIATE RELEASE) PO PRN (16:55)
[2024-08-01] MEDS: MoRPHine SULFATE 4 MG/ML 1 ML CARP\\VIAL IV PRN (18:04)
--- NOTE | 2024-08-02 16:53 | Hospitalist Progress Note ---
Date of Service August 02, 2024 Assessment & Plan (1) Bilateral leg weakness: (2) Bilateral leg paresthesia: (3) Paresthesia of buttock: Plan: Per admitting service notes with addendum: Patient is 44 year old male with PMH HTN, IBS, s/p anterior cervical fusion of C5-6, RLE osteoid osteoma surgery, and L meniscal surgery who presents with complaint of leg numbness and weakness x 2.5 months. History of LUE and LLE paresthesias and weakness and +Lyme in March treated with amoxicillin with improvement. 2.5 months ago started with buttock numbness that radiates to bilateral posterior legs with progressive bilateral leg weakness. In ER afebrile, vitals stable. No leukocytosis. No significant electrolyte abnormality. +Lyme IgG, negative IgM which would be consistent with his history of prior Lyme disease L spine MRI: No acute process within the lumbar spine by MRI. Minimal degenerative disc disease and mild to moderate facet arthrosis within the lower lumbar spine. Mild narrowing of the central canal and bilateral neural foramen at L4-L5. In ER given Toradol, solumedrol 125mg IV, lidocaine patch Lumbosacral radiculopathy considered , however MRI L spine without severity that would be expected to cause current symptoms ER Physician spoke to ortho spine, Dr Story who recommended Thoracic spine MRI and would consult on pt B12, TSH, CRP, ESR, treponema pallidum labs pending ER physician will attempt LP for further workup Fall precautions Continue home gabapentin, Tylenol, tramadol prn pain Ortho spine consult Neurology consult Patient may require further testing like EMG, will await neurology recommendations PT/OT eval CBC, BMP in am [facility] MRI L-spine: Multilevel facet arthropathy and mild congenital canal narrowing. Mild effacement of each lateral recess at L4-5 03/04/2024 MRI C-spine with and without contrast: Stable postoperative changes s/p ACDF at C5-C6. New small central disc protrusion at C4-C5 causing mild spinal canal stenosis. No spinal cord impingement or abnormal spinal cord signal. 03/18/2024 MRI brain with and without contrast: Normal study 08/01 Evaluated by neuro service MRI with contrast of thoracic spine ordered: Unrevealing CSF studies reviewed Positive leukocytosis and elevated proteins Negative for bacterial/viral meningitis Awaiting CSF Lyme and MS studies Discussed with neuro service-Dr. 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 08/02 CSF Lyme and MS studies pending Continue ceftriaxone IV 2 g daily PT and OT evaluation (4) HTN (hypertension): Plan: Continue home amlodipine (5) Cervical disc disease: Plan: S/P ACDF Continue home gabapentin, tizanidine DVT Prophylaxis SCDs Disposition pending Most likely will need IV ceftriaxone daily x 14 days plan of care discussed with patient at bedside all questions answered he is understanding, agreeable, comfortable with the plan of care Admission and Anticipated Discharge Date Admission Date: July 31, 2024 Subjective Follow-up for possible Lyme disease with spine involvement, etc. Seen resting in bed, having breakfast Comfortable, not in distress States he feels that is having improvement with his feet range of motion Sensation over his feet also seems to be improving Still having proximal lower extremity weakness No other new symptoms Review of Systems Review of Systems: all noted and negative except for above Physical Exam Physical Exam: General- oriented x 3, not in distress, speaks in sentences with no effort or accessory muscle use Eyes- anicteric Neck- no JVD Lungs- clear breath sounds bilaterally, no rales/wheezes Heart- normal rate, regular rhythm; no murmurs Abdomen- normal bowel sounds, nondistended, soft, nontender Extremities- no pretibial edema, no calf tenderness Neuro- alert, oriented x 3; Motor strength and sensation essentially similar to yesterday except for mildly increased strength of bilateral feet as well as sensation Skin- warm & dry Results & Data Results & Data Vital Signs (Past 12 Hours) Vital Signs Temp Pulse Pulse Resp BP Pulse Ox Pulse Ox 08/02/24 16:04 84 08/02/24 15:24 36.7 C 86 20 107/64 97 08/02/24 11:43 36.7 C 92 H 16 116/78 98 08/02/24 08:50 93 08/02/24 08:38 69 08/02/24 08:03 36.5 C 81 18 117/75 93 O2 Del Method O2 Del Method 08/02/24 16:04 08/02/24 15:24 Room Air 08/02/24 11:43 Room Air 08/02/24 08:50 Room Air 08/02/24 08:38 08/02/24 08:03 Room Air all noted and reviewed including below
[2024-08-03 07:53] VITALS: TEMP 97.9
[2024-08-03 11:27] VITALS: BP 138/100; PULSE 107; RESP 16; O2SAT 99
--- NOTE | 2024-08-03 11:44 | Hospitalist Progress Note ---
Date of Service August 03, 2024 Assessment & Plan (1) Bilateral leg weakness: (2) Bilateral leg paresthesia: (3) Paresthesia of buttock: Plan: Per admitting service notes with addendum: Patient is 44 year old male with PMH HTN, IBS, s/p anterior cervical fusion of C5-6, RLE osteoid osteoma surgery, and L meniscal surgery who presents with complaint of leg numbness and weakness x 2.5 months. History of LUE and LLE paresthesias and weakness and +Lyme in March treated with amoxicillin with improvement. 2.5 months ago started with buttock numbness that radiates to bilateral posterior legs with progressive bilateral leg weakness. In ER afebrile, vitals stable. No leukocytosis. No significant electrolyte abnormality. +Lyme IgG, negative IgM which would be consistent with his history of prior Lyme disease L spine MRI: No acute process within the lumbar spine by MRI. Minimal degenerative disc disease and mild to moderate facet arthrosis within the lower lumbar spine. Mild narrowing of the central canal and bilateral neural foramen at L4-L5. In ER given Toradol, solumedrol 125mg IV, lidocaine patch Lumbosacral radiculopathy considered , however MRI L spine without severity that would be expected to cause current symptoms ER Physician spoke to ortho spine, Dr Story who recommended Thoracic spine MRI and would consult on pt B12, TSH, CRP, ESR, treponema pallidum labs pending ER physician will attempt LP for further workup Fall precautions Continue home gabapentin, Tylenol, tramadol prn pain Ortho spine consult Neurology consult Patient may require further testing like EMG, will await neurology recommendations PT/OT eval CBC, BMP in am [facility] MRI L-spine: Multilevel facet arthropathy and mild congenital canal narrowing. Mild effacement of each lateral recess at L4-5 03/04/2024 MRI C-spine with and without contrast: Stable postoperative changes s/p ACDF at C5-C6. New small central disc protrusion at C4-C5 causing mild spinal canal stenosis. No spinal cord impingement or abnormal spinal cord signal. 03/18/2024 MRI brain with and without contrast: Normal study 08/01 Evaluated by neuro service MRI with contrast of thoracic spine ordered: Unrevealing CSF studies reviewed Positive leukocytosis and elevated proteins Negative for bacterial/viral meningitis Awaiting CSF Lyme and MS studies Discussed with neuro service-Dr. 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 08/02 CSF Lyme and MS studies pending Continue ceftriaxone IV 2 g daily PT and OT evaluation 08/03 CSF Lyme and MS studies pending continue Ceftriaxone 2g IV daily x 11 more days to complete 2 week course please refer patient to [facility] to see if patient needs more than 2 week course of IV Ceftriaxone (4) HTN (hypertension): Plan: Continue home amlodipine (5) Cervical disc disease: Plan: S/P ACDF Continue home gabapentin, tizanidine DVT Prophylaxis SCDs Disposition d/c home ff up with PCP in 1 week plan of care discussed with patient at bedside all questions answered he is understanding, agreeable, comfortable with the plan of care Admission and Anticipated Discharge Date Admission Date: July 31, 2024 Subjective ff up for lyme wiith spinal involvement, etc seen resting in bed, comfortable states he feels better overall BL feet strength and ROM, numbness continues to improve also reports numbness of the BL lower legs are improving still having some weakness on proximal legs no other new focal neuro symptoms ambulating better as per patient no other symptoms states he is ready for discharge today Review of Systems Review of Systems: all noted and negative except for above Physical Exam Physical Exam: General- oriented x 3, not in distress, speaks in sentences with no effort or accessory muscle use Eyes- anicteric Neck- no JVD Lungs- clear breath sounds bilaterally, no rales/wheezes Heart- normal rate, regular rhythm; no murmurs Abdomen- normal bowel sounds, nondistended, soft, nontender Extremities- no pretibial edema, nocalf tenderness Neuro- alert, oriented x 3; no new gross focal neurologic deficits Skin- warm & dry Results & Data Results & Data Vital Signs (Past 12 Hours) Vital Signs Temp Pulse Pulse Resp BP Pulse Ox Pulse Ox 08/03/24 11:26 36.6 C 107 H 16 138/100 99 08/03/24 08:13 98 08/03/24 07:53 36.6 C 119 H 20 141/100 H 99 08/03/24 07:10 77 08/03/24 04:00 36.7 C 65 18 144/96 H 100 08/03/24 04:00 36.7 C 65 18 144/96 H 100 08/02/24 23:59 81 O2 Del Method O2 Del Method 08/03/24 11:26 Room Air 08/03/24 08:13 Room Air 08/03/24 07:53 Room Air 08/03/24 07:10 08/03/24 04:00 Room Air 08/03/24 04:00 Room Air 08/02/24 23:59 all noted and reviewed including below
--- NOTE | 2024-08-03 12:24 | Discharge Summary ---
Discharge Summary Date of Service August 03, 2024 Principal Dx & Hospital Course #1 = Principal Diagnosis (1) Bilateral leg weakness: (2) Bilateral leg paresthesia: (3) Paresthesia of buttock: Per admitting service notes with addendum: Patient is 44 year old male with PMH HTN, IBS, s/p anterior cervical fusion of C5-6, RLE osteoid osteoma surgery, and L meniscal surgery who presents with complaint of leg numbness and weakness x 2.5 months. History of LUE and LLE paresthesias and weakness and +Lyme in March treated with amoxicillin with improvement. 2.5 months ago started with buttock numbness that radiates to bilateral posterior legs with progressive bilateral leg weakness. In ER afebrile, vitals stable. No leukocytosis. No significant electrolyte abnormality. +Lyme IgG, negative IgM which would be consistent with his history of prior Lyme disease L spine MRI: No acute process within the lumbar spine by MRI. Minimal degenerative disc disease and mild to moderate facet arthrosis within the lower lumbar spine. Mild narrowing of the central canal and bilateral neural foramen at L4-L5. In ER given Toradol, solumedrol 125mg IV, lidocaine patch Lumbosacral radiculopathy considered , however MRI L spine without severity that would be expected to cause current symptoms ER Physician spoke to ortho spine, Dr Story who recommended Thoracic spine MRI and would consult on pt B12, TSH, CRP, ESR, treponema pallidum labs pending Outpatient imagin02/07/2024 MRI L-spine: Multilevel facet arthropathy and mild congenital canal narrowing. Mild effacement of each lateral recess at L4-5 03/04/2024 MRI C-spine with and without contrast: Stable postoperative changes s/p ACDF at C5-C6. New small central disc protrusion at C4-C5 causing mild spinal canal stenosis. No spinal cord impingement or abnormal spinal cord signal. 03/18/2024 MRI brain with and without contrast: Normal study s/p Lumbar puncture at the ER (+) WBC 14 (+) total protein 61.6 (-) bacterial, viral panel CSF Lyme screen: pending CSF MS screen: pending 08/01 Evaluated by [facility] neuro service by Telemedicine- Dr. Marin Onken MRI with contrast of thoracic spine ordered: Unrevealing CSF studies reviewed Positive leukocytosis and elevated proteins Negative for bacterial/viral meningitis Awaiting CSF Lyme and MS studies Discussed with neuro service-Dr. 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- recommend treatment for this started on Ceftriaxone IV 2 g daily 08/02 symptoms improving- has more strength and ROM, sensation of BL feet Continue ceftriaxone IV 2 g daily 08/03 CSF Lyme and MS studies pending-- please follow up continue Ceftriaxone 2g IV daily x 11 more days to complete 2 week course please refer patient to Neurology and ID Clinic to evaluate if patient needs more than 2 week course of IV Ceftriaxone (4) HTN (hypertension): Continue home amlodipine (5) Cervical disc disease: S/P ACDF Continue home gabapentin, tizanidine DVT Prophylaxis SCDs Disposition d/c home ff up with PCP in 1 week plan of care discussed with patient at bedside all questions answered he is understanding, agreeable, comfortable with the plan of care Notes For Next Care Provider Medication Changes From Visit Ceftriaxone 2g IV daily x 11 days to complete 14 day course Admission HPI Per Admitting Provider Patient is 44 year old male with PMH HTN, IBS, s/p anterior cervical fusion of C5-6, RLE osteoid osteoma surgery, and L meniscal surgery who presents with complaint of leg numbness and weakness x 2.5 months. Patient reports in January started with paresthesias to radial aspect of right middle finger which was then followed by numbness and weakness of left arm and left leg. Reports had followed up with neurology in March 2024 and had positive Lyme test and was started on doxycycline. Patient reports took doxycycline for 2 days and he had hallucinations in which he came to [facility] on 03/13/2024 and per chart review was given a dose of Rocephin and sent home on amoxicillin. Patient reports after couple days of amoxicillin his left upper and lower extremity numbness and weak ness was resolving. States he was doing well until beginning of May 2024 when he started with numbness sensation to gluteal cleft that radiated down posterior legs to his knee. Reports numbness has continued and has progressed to leg weakness and is having difficulty ambulating and needing to use a cane. He denies any loss of control of bowel or bladder. Reports has been straining to have bowel movements and today after having bowel movement noted red blood in toilet. He saw PCP on 07/29/24 and amoxicillin was started for concern for Lyme. He reports has taken without any improvement of symptoms. Per chart review saw 07/27/24 saw [facility] and gabapentin increased from 600mg to 800mg TID. He reports tick bite to abdomen 2 weeks ago. Denies fever/chills, diaphoresis, N/V/D, COBURN, dizziness, syncope, vision changes, worsening neck pain, CP, SOB, orthopnea, palpitations, cough, sore throat, choking, otalgia, rhinorrhea, abdominal pain, upper extremity paresthesias, upper extremity weakness, extremity weakness extremity edema, rashes, dysuria, hematuria, urinary retention, urinary frequency, urinary incontinence. Denies any history STD's. Is in monogamous relationship with one female partner (his ). Patient per outpatient chart review: 02/07/2024 MRI L-spine: Multilevel facet arthropathy and mild congenital canal narrowing. Mild effacement of each lateral recess at L4-5 03/04/2024 MRI C-spine with and without contrast: Stable postoperative changes s/p ACDF at C5-C6. New small central disc protrusion at C4-C5 causing mild spinal canal stenosis. No spinal cord impingement or abnormal spinal cord signal. 03/18/2024 MRI brain with and without contrast: Normal study History EMG 09/25/23 to upper extremities. Admission Exam Per Admitting Provider General: no distress, WDWN Head: normocephalic, atraumatic Eyes: conjunctiva non-injected, anicteric ENT: normal inspection external ears, nose, mucous membranes moist Neck: supple, trachea midline Lungs: clear, no respiratory distress, no wheezing/rhonchi/rales CV: RRR, no murmur, no pretibial edema Abd: normal BS, soft, non-tender Back: no skin discoloration, +mild tenderness to palpation low lumbar spinous process, +reported decreased sensation to gluteal cleft and bilateral buttocks, +decreased sensation to light touch of posterior upper legs bilaterally to knee level. +decreased strength to bilateral legs straight leg raise, leg extension and flexion and dorsiflex and plantar flexion Ext: no cyanosis, no calf tenderness, able to actively move bilateral upper extremities. LE as above Neuro: A&O x 3, normal affect Skin: warm, dry Discharge Exam General- oriented x 3, not in distress, speaks in sentences with no effort or accessory muscle use Eyes- anicteric Neck- no JVD Lungs- clear breath sounds bilaterally, no rales/wheezes Heart- normal rate, regular rhythm; no murmurs Abdomen- normal bowel sounds, nondistended, soft, nontender Extremities- no pretibial edema, nocalf tenderness Neuro- alert, oriented x 3; no new gross focal neurologic deficits motor strength proximal lower legs: 2/5 BL feet: 5/5 Skin- warm & dry Updated Medication List Medication Instructions Recorded Confirmed Type amlodipine 10 mg tablet 10 mg PO QAM 03/13/24 07/31/24 History tizanidine 4 mg tablet 4 mg PO HS MUSCLE SPASMS 03/13/24 07/31/24 History tramadol 50 mg tablet 50 mg PO Q6H PRN Pain, Severe 03/13/24 07/31/24 History acetaminophen 500 mg tablet 500 mg PO Q6H PRN Pain/Fever 07/31/24 07/31/24 History gabapentin 800 mg tablet 800 mg PO TID 07/31/24 07/31/24 History ibuprofen 200 mg tablet 400 mg PO Q6H PRN Pain 07/31/24 07/31/24 History ceftriaxone 2 gram intravenous 2 g IV DAILY 11 days 08/03/24 Rx solution Hospital Stay Data Consultations 07/31/24 14:41 ED Decision to Admit Stat 07/31/24 20:08 Consult Neurology Routine Consult Orthopedic Spine Surgery Routine Diagnostic Imagining Performed 07/31/24 11:58 MR lumbar spine wo con Stat MRI OF THE LUMBAR SPINE WITHOUT CONTRAST CLINICAL HISTORY: decreased sensation, saddle area COMPARISON STUDY: CT of the abdomen and pelvis February 10, 2021 TECHNIQUE: Utilizing a 1.5 Trish magnet and dedicated coil, multiplanar, multiecho imaging of the lumbar spine was performed without IV contrast. FINDINGS: For purposes of numbering on this exam, the L5-S1 disc space is assigned to axial image 27 of 29. Vertebral body heights are maintained. There are no lumbar spine fracture. There is no intracanalicular mass or fluid collection. The canal is congenitally narrow. The conus terminates at the T12-L1 level. Paravertebral soft tissues are unremarkable. L1-2: The central canal and neural foramen are patent. L2-3: The central canal and neural foramen are patent. There is mild facet arthrosis. L3-4: The central canal and neural foramen are patent. There is mild to moderate facet arthrosis. L4-5: Minimal disc bulge. There is mild to moderate facet arthrosis. There is mild narrowing of the central canal is patent AP diameter of the canal is 7 mm. There is mild bilateral neural foraminal narrowing. L5-S1: The central canal and neural foramen are patent. IMPRESSION: 1. No acute process within the lumbar spine by MRI. 2. Minimal degenerative disc disease and mild to moderate facet arthrosis within the lower lumbar spine. 3. Mild narrowing of the central canal and bilateral neural foramen at L4-L5. ACT 112: Negative or not required by law. 07/31/24 16:17 CT thoracic spine wo con Routine EXAM: CT Thoracic Spine Without Intravenous Contrast INDICATION: Chronic lower extremity numbness TECHNIQUE: Axial computed tomography images of the thoracic spine without intravenous contrast. Sagittal and coronal reformatted images were created and reviewed. This CT exam was performed using one or more of the following dose reduction techniques: automated exposure control, adjustment of the mA and/or kV according to patient size, and/or use of iterative reconstruction technique. COMPARISON: No relevant prior studies available. FINDINGS: Limitations: None. Vertebrae: 12 rib-bearing normally developed thoracic vertebra are identified without fracture or subluxation. There is mild diffuse spondylosis. Discs/spinal canal/neural foramina: Minimal diffuse to space narrowing. No stenosis. Other bones/joints: No abnormality noted. Soft tissues: No significant abnormality noted. Heart: No abnormality noted. Mediastinum: No significant abnormality noted. Liver: No significant abnormality noted. IMPRESSION: Minimal diffuse degenerative changes. Otherwise negative. ACT 112: Negative or not required by law. 07/31/24 17:07 CT head/brain wo con Stat EXAM: CT Head Without Intravenous Contrast INDICATION: Leg numbness and back pain. TECHNIQUE: Axial computed tomography images of the head/brain without intravenous contrast. Sagittal and/or coronal reformats are provided. Sagittal and coronal reformatted images were created and reviewed. This CT exam was performed using one or more of the following dose reduction techniques: automated exposure control, adjustment of the mA and/or kV according to patient size, and/or use of iterative reconstruction technique. COMPARISON: 03/13/2024 FINDINGS: Limitations: None. Brain and extra-axial spaces: No abnormality noted. No hemorrhage. No significant white matter disease. No edema. No ventriculomegaly. Bones/joints: No acute changes. Soft tissues: No significant abnormality noted. Vasculature: No acute abnormality noted. Sinuses: No layering fluid in the visualized portions of the paranasal sinuses. Mastoid air cells: No mastoid effusion. Orbits: No significant abnormality noted. IMPRESSION: No abnormality noted. ACT 112: Negative or not required by law. Electronically signed by Fransisca Gonzalez 07-31-2024 5:49 PM 08/01/24 09:33 MRI Thoracic [MR thoracic spine wo/w con] Urgent EXAM: MR thoracic spine wo/w con CLINICAL HISTORY: PT STATES R/O INFECTION. LYMES DISEASE. TICK BITE. ONGOING ISSUES. PARALYSIS. BILATERAL LEG NUMBNESS AND WEAKNESS. HAD SPINAL TAP. R/O INFECTION. SURGERY TO CERVICAL SPINE. NO HX OF CANCER. 8CC GADAVIST ADMINISTERED @ 1112. TECHNIQUE: MRI of the thoracic spine was performed with and without 8CC GADAVIST intravenous contrast administration. Sequences obtained include pre-contrast and post-contrast T1-weighted, T2-weighted, STIR (Short Tau Inversion Recovery), and axial T2-weighted sequences. COMPARISON: Prior CT scan dated 07/31/2024 FINDINGS: Intervertebral Discs: Normal height and signal intensity of the intervertebral discs. No evidence of disc herniation, bulging, or significant degeneration. No disc desiccation. Spinal Canal and Neural Foramina: Spinal canal is of normal caliber with no evidence of spinal stenosis. Neural foramina are patent bilaterally at all levels. No evidence of nerve root compression. Facet Joints: Normal appearance of the facet joints. No evidence of facet arthropathy or significant degenerative changes. Vertebrae: Normal alignment of the thoracic vertebrae. No fractures, lytic or sclerotic lesions. Normal bone marrow signal intensity. Level by level analysis: C7-T1: No significant disc pathology. Normal ligamentum flava morphology, no arthropathy of the facet joints, and no significant spinal canal stenosis. T1-T2: No significant disc pathology. Normal ligamentum flava morphology, no arthropathy of the facet joints, and no significant spinal canal stenosis. T2-T3: No significant disc pathology. Normal ligamentum flava morphology, no arthropathy of the facet joints, and no significant spinal canal stenosis. T3-T4: No significant disc pathology. Normal ligamentum flava morphology, no arthropathy of the facet joints, and no significant spinal canal stenosis. T4-T5: No significant disc pathology. Normal ligamentum flava morphology, no arthropathy of the facet joints, and no significant spinal canal stenosis. T5-T6: No significant disc pathology. Normal ligamentum flava morphology, no arthropathy of the facet joints, and no significant spinal canal stenosis. T6-T7: No significant disc pathology. Normal ligamentum flava morphology, no arthropathy of the facet joints, and no significant spinal canal stenosis. T7-T8: No significant disc pathology. Normal ligamentum flava morphology, no arthropathy of the facet joints, and no significant spinal canal stenosis. T8-T9: No significant disc pathology. Normal ligamentum flava morphology, no arthropathy of the facet joints, and no significant spinal canal stenosis. T9-T10: No significant disc pathology. Normal ligamentum flava morphology, no arthropathy of the facet joints, and no significant spinal canal stenosis. T10-T11: No significant disc pathology. Normal ligamentum flava morphology, no arthropathy of the facet joints, and no significant spinal canal stenosis. T11-T12: No significant disc pathology. Normal ligamentum flava morphology, no arthropathy of the facet joints, and no significant spinal canal stenosis. Soft Tissues: Normal appearance of the paraspinal soft tissues. No abnormal masses, fluid collections, or signs of inflammation. Thoracic Kyphosis: Normal thoracic kyphosis without abnormal curvature. Post-Contrast Findings: Focal abnormal signal intensity are noted at the C7 superior endplate and displaying postcontrast enhancement, likely represent degenerative changes. Spinal Cord and Nerve Roots: Spinal cord demonstrates normal signal intensity and caliber throughout the thoracic spine. No evidence of intrinsic cord lesions, syrinx, or abnormal signal changes. No evidence of cord compression or intradural pathology. Nerve roots appear unremarkable bilaterally. IMPRESSION: 1. Normal alignment and signal intensity of the thoracic vertebral bodies, intervertebral discs, spinal cord, nerve roots, and paraspinal soft tissues. 2. Focal abnormal signal intensity are noted at the C7 superior endplate and displaying postcontrast enhancement , likely represent degenerative changes. 3. Findings are compatible with CT findings . Electronically signed by Krystle Finn 08-01-2024 12:24 PM Dictated: 08/01/24 1043 Transcribed: Pending Results Patient Have Any Pending Studies at Discharge: Yes Discharge Instructions Given to Patient (Per Discharging Provider) PLEASE REFER TO YOUR NEW MEDICATION LIST AND FOLLOW INSTRUCTIONS CAREFULLY. YOUR NEW MEDICATION INCLUDE: CEFTRIAXONE- antibiotic for Lyme disease Please take a probiotic daily while on antibiotics and at least 1 month after. PLEASE CALL YOUR PRIMARY CARE PHYSICIAN OR RETURN TO THE ER IF WITH WORSENING OF SYMPTOMS, INCLUDING fever/chills, persistent or worsening of weakness, numbness,diarrhea, etc FOLLOW UP WITH PRIMARY CARE PHYSICIAN OUTLINE ABOVE. FOLLOW UP WITH NEUROLOGIST AND INFECTIOUS DISEASE SPECIALIST. THE PRIMARY CARE PHYSICIAN CAN ARRANGE THIS FOR YOU. TAKE CARE. Total Time Total Time Spent Total Time Spent (In Minutes): 45 minutes
[2024-08-03] MEDS ORDERED: AMMONIUM LACTATE 12% LOTION 225 GM BTL EXT SCH (14:45)
== END 2024-08-03 15:48 | disposition home or self-care (01) | DRG 869 ==
LOC: ED 11:25 → SUATTDRO 15:59 → 2N 15:59

== ENCOUNTER 2024-11-11 08:59 | Inpatient (IN) ==
--- OUTSIDE RECORDS SUMMARY | 2024-11-11 09:30 | External Medical Summary | Summary of Care ---
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 Role Phone Wolfgang Sellers MD Primary Care Provider + Reason for Visit * Reason Onset Date Comments medication change 11/09/2024 Encounter Details Date Type Department Care Team (Late st Contact Info) Description 11/09/2024 Telephone Pharmacy, [place] [address], [place] [id number] [facility] [address] [place] [address] medication change Allergies No known active allergiesdocumented as of this encounter (statuses as of 11/10/2024) Medications sildenafil (REVATIO) 20 MG Tablet Take [...] EVERY MORNING 90 Tablet 3 4 Active Pregabalin 150 MG Oral Capsule (Lyrica)Indicati ons:Chronic midline thoracic back pain,Chronic neck pain Take 1 Capsule by mouth in the morning and 1 Capsule at noon and 1 Capsule before bedtime. Rotate from Gabapentin per [facility] instructions. 90 Capsule 1 5 Active Cefuroxime Axetil 500 MG Oral Tablet (Ceftin)Indicati ons:Lyme disease Take 1 Tablet by mouth in the morning and 1 Tablet before bedtime. 60 Tablet 5 Active Memantine HCl 5 MG Oral Tablet Take 1 tablet once daily for 7 days, then increase to 1 tablet twice daily. For Pain 60 Tablet 1 5 Active tiZANidine HCl 4 MG Oral Tablet (Zanaflex)Indica tions:Neck pain Take 1 Tablet by mouth at bedtime. 30 Tablet 1 5 Active oxyCODONE-Acetam inophen 5-325 MG Oral Tablet (Percocet) Take 1 Tablet by mouth every 4 hours as needed for Pain, Severe. Stop Tramadol. Do not drive. Space from Tizanidine 42 Tablet 5 Active traMADol HCl 50 MG Oral TabletIndication s:Chronic bilateral low back pain with bilateral sciatica,Chronic neck pain Take 1 Tablet by mouth every 4 hours as needed for Pain, Severe. 56 Tablet 5 025 Discontin ued(Medic ation/Dos e Changed) documented as of this encounter (statuses as of 11/10/2024) Active Problems Problem Noted Date Diagnosed Date [...] as of this encounter (statuses as of 11/10/2024) Resolved Problems Problem Noted Date Diagnosed Date Resolved Date ADVANCE DIRECTIVE INFORMATION 05/24/2005 07/06/2024 Overview (05/24/2005): No, Advance Directive brochure offered , patient declined. documented as of this encounter (statuses as of 11/10/2024) Immunizations Name Administration Dates Next Due COVID-19, LNP-s, No Preserve , Ion-sucrose, Ages 12+ (Pfizer) 01/26/2022 Covid-19 Ad26, Single Dose ([employer]/J&J) 021 Hepatitis B, 20+ yrs 07/29/2024,2024,01/15 TDAP [...] Date Recorded PHQ Adult Total Score 0 08/06/2024 Hunger Vital Sign Answer Date Recorded Within [...] AM EDT documented as of this encounter Miscellaneous Notes * Telephone Encounter - Rosie Catherine CCMA - 11/09/2024 3:50 PM EDT Pt is aware of medication * Telephone Encounter - Wolfgang Sellers MD - 11/09/2024 3:35 PM EDT Ok, did send new med, will he be made aware? Thanks Manny * Telephone Encounter - Christina Concepcion [facility] - 11/09/2024 10:[address] Sellers, Patient requesting opioid rotation today. Patient seen today for recheck of chronic pain. 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 Patient aware if pain due to progressing Lyme disease, then opioids are unlikely to be of value. He would like to try a 7 day trial rotation at this time due to high pain scale. He is considering ED visit if pain remains uncontrolled If PCP would like to try to treat acute pain with rotation to Oxycodone, would recommend a 25% decrease due to cross tolerance = 45 MME or 30 mg of Oxycodone per day Recommend: Percocet 5/325 mg: take 1 tablet every 4 hours as needed for severe pain, maximum of 6 tablets per day Stop Tramadol Change pended, but again defer to your team as pain source unclear to be chronic Christina Concepcion [facility] Clinical Pharmacist [facility] documented in this encounter Plan of Treatment Upcoming Encounters Date Type Department Care Team (Late st Contact Info) Description 12/04/2024 9:20 AM EDT Office Visit Neurology [facility] [address] [facility] [place] [id number] Radha Tang MD [address] [place] [address] 12/07/2024 8:30 AM EDT Office Visit Pharmacy, [place] [address] [id number] [place], [facility] [address] [id number] 12/10/2024 8:15 AM EDT Imaging Radiology [facility] [address] [facility] [place] [address] [place] [phone] 01/01/2025 11:30 AM EDT Office Visit Pharmacy, [place] [address] [place] [address] Wolfgang [facility] [address] [place] [address] Scheduled Procedures Name Priority Associated Diagnoses Date/Ti me COLONOSCOPY FLEXIBLE PROXIMA L DIAGNOSTIC Recall History of colonic polyps Health Maintenance Due Date Last Done Comments Influenza Vaccine (FLU shot) (#1) 2024 Albumin/Creatinine Ratio 11/24/2024 11/24/2021 Depression Screening 08/06/2025 08/06/2024 GFR 10/13/2025 10/13/2024, 07/0 09/2023, 01/16/2024, Additional history exists Diabetes Screening 10/13/2027 10/13/2024, 0 03/02/2024, 01/16/2024, Additional history exists Lipid Panel 01/15/2029 01/16/2024, 05, 11/24/2021, Additional history exists Colonoscopy 02/25/2029 02/26/2024, [...] on patient's age to complete this topic Meningitis B Vaccine (Bexsero/Trumemba) Aged Out No longer eligible based on patient's age to complete this topic Pneumococcal Vaccine: Pediatrics (0 to 5 Years) and At-Risk Patients (6 to 18 Years and 19+ Years) Aged Out No longer eligib le based on patient's age to complete this topic documented as of this encounter Medical Devices Not on filedocumented as of this encounter Care Teams Tower Foreman Relationship Specialty Start Date End Date Wolfgang Sellers MD [address] [place] [address] PCP - General Internal Medicine 11/10/21 documented as of this encounter
--- OUTSIDE RECORDS SUMMARY | 2024-11-11 09:30 | External Medical Summary | Summary of Care ---
Author Name Unknown Organization [facility] Address [address] [place] [address] Phone [phone] Care Team Providers Care Personal Financial Representative Name Role Phone Wolfgang Sellers MD Primary Care Provider + Reason for Visit * Precert (Within 10 days (routine)) - Authorized Specialty Diagnoses / Procedures Referred By Contac t Referred To Contact Radiology Diagnoses Paresthesias Weakness generalized Myelitis (HCC) Procedures MRI BRAIN W WO CONTRAST Radha Tang MD [address] [place] [address] Phone: tel: fax: Referral ID Status Reason Start Date Expiration Date V isits Requested Visits Authorized [id number] Authorized 10/21/2024 04/19/2025 [id number] Encounter Details Date Type Department Care Team (Latest Contact Info) Description 11/04/2024 8:51 AM EST Hospital Encounter Radiology, [address] [id number] Arrived Discharge Disposition: Home - Self Care Allergies No known active allergiesdocumented as of this encounter (statuses as of 11/05/2024) Medications sildenafil (REVATIO) 20 MG Tablet Take [...] Active tiZANidine HCl 4 MG Oral Tablet (Zanaflex)Indicat ions:Neck pain Take 1 Tablet by mouth at bedtime. 30 Tablet 1 5 Active Pregabalin 150 MG Oral Capsule (Lyrica)Indicatio ns:Chronic midline thoracic back pain,Chronic neck pain Take 1 Capsule by mouth in the morning and 1 Capsule at noon and 1 Capsule before bedtime. Rotate from Gabapentin per [facility] instructions. 90 Capsule 1 5 Active Cefuroxime Axetil 500 MG Oral Tablet (Ceftin)Indicatio ns:Lyme disease Take 1 Tablet by mouth in the morning and 1 Tablet before bedtime. 60 Tablet 5 Active Memantine HCl 5 MG Oral Tablet Take 1 tablet once daily for 7 days, then increase to 1 tablet twice daily. For Pain 60 Tablet 1 5 Active traMADol HCl 50 MG Oral TabletIndications :Chronic bilateral low back pain with bilateral sciatica,Chronic neck pain Take 1 Tablet by mouth every 4 hours as needed for Pain, Severe. 56 Tablet 5 Active documented as of this encounter (statuses as of 11/05/2024) Active Problems Problem Noted Date Diagnosed Date [...] as of this encounter (statuses as of 11/05/2024) Resolved Problems Problem Noted Date Diagnosed Date Resolved Date ADVANCE DIRECTIVE INFORMATION 05/24/2005 07/06/2024 Overview (05/24/2005): No, Advance Directive brochure offered , patient declined. documented as of this encounter (statuses as of 11/05/2024) Immunizations Name Administration Dates Next Due COVID-19, [...] AM EDT documented as of this encounter Plan of Treatment Upcoming Encounters Date Type Department Care Team (Late st Contact Info) Description 11/09/2024 8:30 AM EDT Office Visit Pharmacy, [place] [address] [place] [address] [facility] [place] [address] 12/04/2024 9:20 AM EDT Office Visit Neurology [place] [address] [place] [address] Radha Tang MD [address] [place] [address] 12/10/2024 8:15 AM EDT Imaging Radiology [facility] [address] [facility], [place] [address] [place] [address] Scheduled Procedures Name Priority Associated Diagnoses Date/Ti me COLONOSCOPY FLEXIBLE PROXIMA L DIAGNOSTIC Recall History of colonic polyps Health Maintenance Due Date Last Done Comments Influenza Vaccine (FLU shot) (#1) 2024 Albumin/Creatinine Ratio 11/24/2024 11/24/2021 Depression Screening 08/06/2025 08/06/2024 GFR 10/13/2025 10/13/2024, 07/0 09/2023, 01/16/2024, Additional history exists Diabetes Screening 10/13/2027 10/13/2024, 0 03/02/2024, 01/16/2024, Additional history exists Lipid Panel 01/15/2029 01/16/2024, 05/1 , 11/24/2021, Additional history exists Colonoscopy 02/25/2029 02/26/2024, [...] Not on filedocumented as of this encounter Procedures Procedure Name Priority Date/Time Associated Diagnosis Comments MRI BRAIN W WO CONTRAST Routine 11/04/2024 10:39 AM EST Paresthesias Weakness generalized Myelitis (HCC) documented in this encounter Administered Medications Inactive Administered Medications - up to 3 most recent administrations Medication Order MAR Action Action Date Dose Rate Site gadobutrol (Gadavist) inj 2 mL 2 mL, Intravenous, ONCE, On Sat11/04/24 at 0916, For 1 dose Given 11/04/2024 10:14 AM EST 9 mL Antecubital Right documented in this encounter Care Teams Personal Financial Representative Relationship Specialty Start Date End Date Wolfgang Sellers MD [address] [facility] [place] [address] PCP - General Internal Medicine 11/10/21 documented as of this encounter
--- OUTSIDE RECORDS SUMMARY | 2024-11-11 09:30 | External Medical Summary | Summary of Care ---
Author Name Unknown Organization [facility] Address [address] [place] [address] Phone [phone] Care Team Providers Care Social Media Director Name Role Phone Wolfgang Sellers MD Primary Care Provider + Reason for Visit * Precert (Within 10 days (routine)) - Authorized Specialty Diagnoses / Procedures Referred By Contac t Referred To Contact Radiology Diagnoses Paresthesias Weakness generalized Myelitis (HCC) Procedures MRI T SPINE W WO Radha Hernandez MD [address] [place] [address] Phone: tel: fax: Referral ID Status Reason Start Date Expiration Date V isits Requested Visits Authorized [id number] Authorized 10/21/2024 04/19/2025 [id number] Encounter Details Date Type Department Care Team (Latest Contact Info) Description 11/04/2024 8:52 AM EST - 11/04/2024 11:59 PM EST Hospital Encounter Radiology, [address] [address] Arrived Discharge Disposition: Home - Self Care [...] Capsule before bedtime. Rotate from Gabapentin per [facility] instructions. 90 Capsule 1 5 Active Cefuroxime [...] 9:55 AM EDT Sexual Orientation Straight 05/08/2019 9 :55 AM EDT documented as of this encounter Plan of Treatment Upcoming Encounters Date Type Department Care Team (Late st Contact Info) Description 11/09/2024 8:30 AM EDT Office Visit Pharmacy, [place] [address] [place] [address] [facility] [address] [place] [address] 12/04/2024 9:20 AM EDT Office Visit Neurology [facility] [facility] [place] [address] Radha Tang MD 200 [facility] [place] [address] 12/10/2024 8:15 AM EDT Imaging Radiology [facility] 1st [facility], [place] [address] [place] [phone] Scheduled [...] Name Priority Date/Time Associated Diagnosis Comments MRI T SPINE W WO CONTRAST Routine 11/04/2024 10:40 AM EST Paresthesias Weakness generalized Myelitis (HCC) documented in this encounter Care Teams Social Media Director Relationship Specialty Start Date End Date Wolfgang Sellers MD 200 [facility] [place] [address] PCP - General Internal Medicine 11/10/21 documented as of this encounter
--- OUTSIDE RECORDS SUMMARY | 2024-11-11 09:30 | External Medical Summary | Summary of Care ---
Author Name Unknown Organization [facility] Address [address] [place] [address] Phone [phone] Care Team Providers Care Bass String Winder Name Role Phone Wolfgang Sellers MD Primary Care Provider + Reason for Visit * Precert (Within 10 days (routine)) - Authorized Specialty Diagnoses / Procedures Referred By Contac t Referred To Contact Radiology Diagnoses Paresthesias Weakness generalized Myelitis (HCC) Procedures MRI C SPINE W WO Radha Hernandez MD [address] [place] [address] Phone: tel: fax: Referral ID Status Reason Start Date Expiration Date V isits Requested Visits Authorized [id number] Authorized 10/21/2024 04/19/2025 [id number] Encounter Details Date Type Department Care Team (Latest Contact Info) Description 11/04/2024 8:52 AM EST - 11/04/2024 11:59 PM [facility] Hospital Encounter Radiology, [address] [address] Arrived Discharge Disposition: Home - Self Care [...] Capsule before bedtime. Rotate from Gabapentin per [facility] instructions. 90 Capsule 1 5 [...] Office Visit Pharmacy, [place] [address] [address] [address] [facility] [address] [place] [address] 12/04/2024 9:20 AM EDT Office Visit Neurology [place] 200 [facility] [place] [address] Radha Tang MD 200 [facility] [place] [address] 12/10/2024 8:15 AM EDT Imaging Radiology [facility] 1st [facility], [place] [address] [place] [address] Scheduled [...] Name Priority Date/Time Associated Diagnosis Comments MRI C SPINE W WO CONTRAST Routine 11/04/2024 10:39 AM EST Paresthesias Weakness generalized Myelitis (HCC) documented in this encounter Care Teams Bass String Winder Relationship Specialty Start Date End Date Wolfgang Sellers MD 200 [place] [address] PCP - General Internal Medicine 11/10/21 documented as of this encounter
--- OUTSIDE RECORDS SUMMARY | 2024-11-11 09:30 | External Medical Summary | Summary of Care ---
Author Name Unknown Organization [facility] Address [address] [place] [address] Phone [phone] Care Team Providers Care Lining Stitcher Name Role Phone Wolfgang Sellers MD Primary Care Provider + Reason for Referral * Precert (Routine) - Pending Review Specialty Diagnoses / Procedures Referred By Contac t Referred To Contact Radiology Diagnoses Mixed dyslipidemia Other chest pain HTN, goal below 130/[address] CARDIAC COMPLETE Suyapa Henao DNP [address] [place] [address] Phone: tel: fax: Referral ID Status Reason Start Date Expiration Date Visits Requested Visits Authorized [id number] Pending Review Precert 10/30/2024 1 1 * Precert (Routine) - Pending Review Specialty Diagnoses / Procedures Referred By Contac t Referred To Contact Radiology Diagnoses Mixed dyslipidemia Other chest pain HTN, goal below 130/[address] FFR CORONARY ARTERIES Suyapa Henao DNP [address] [place] [address] Phone: tel: fax: Referral ID Status Reason Start Date Expiration Date Visits Requested Visits Authorized [id number] Pending Review Precert 10/30/2024 1 1 Reason for Visit * Reason Comments Follow Up NEW PATIENT Chest pain * Evaluate & Treat - Unlimited Visits (Within 3 days (urgent)) - Authorized Specialty Diagnoses / Procedures Referred By Contac t Referred To Contact Cardiovascular Medicine / Cardiology Diagnoses Chest pain, unspecified type Hypokinesia History of Lyme disease Wolfgang Sellers MD [address] [place] [address], [place] [address] Phone: tel: fax: Referral ID Status Reason Start Date Expiration Date Visits Requested Visits Authorized [id number] Authorized Specialty Services Required 10/16/2024 [id number] Encounter Details Date Type Department Care Team (Late st Contact Info) Description 10/30/2024 11:00 AM EST Telemedicine Cardiology [facility] [address] [place] [address] [place], [facility] [address] [place], [place] [id number] Mixed dyslipidemia*; Other chest pain; HTN, goal below 130/80; Lyme disease Allergies No known active allergiesdocumented as of this encounter (statuses as of 10/31/2024) Medications sildenafil (REVATIO) 20 MG Tablet Take [...] Capsule before bedtime. Rotate from Gabapentin per [facility] instructions. 90 Capsule 1 5 Active Cefuroxime [...] as of this encounter (statuses as of 10/31/2024) Active Problems Problem Noted Date Diagnosed Date [...] as of this encounter (statuses as of 10/31/2024) Resolved Problems Problem Noted Date Diagnosed Date Resolved Date ADVANCE DIRECTIVE INFORMATION 05/24/2005 07/06/2024 Overview (05/24/2005): No, Advance Directive brochure offered , patient declined. documented as of this encounter (statuses as of 10/31/2024) Immunizations Name Administration Dates Next Due COVID-19, [...] as of this encounter Progress Notes * Suyapa Henao, DNP - 10/30/2024 11:02 AM EST TELEMEDICINE VIDEO [facility] Patient location: HOME. I was in a hospital or clinic location. After connecting through televideo,patient was verified with two unique identifiers. Patient (or authorized legal marketing development representative) was then informed that this was a Telemedicine visit and being conducted confidentially over secure lines. Methods to assure confidentiality were taken. Patient acknowledged consent and understanding of pr ivacy and security of the Telemedicine visit. The patient agreed to participate. -------- [facility] [place] New Patient Referral REASON FOR REFERRAL: CHEST PAIN ; Patient with recent Lyme dx, received 2 weeks abx, symptoms abated, now returned. Also with cp, sob. Echo with "borderline" hypokinesis, ID felt not Lyme, ?further recs REFERRED BY: Self Patient with no known CAD. Other significant history includes: Recent diagnosis of Lyme disease in the past year. Prior to this diagnosis, he was a healthy very active 42 year old man who ran over 50 miles a week. In the past year, he has had a significant decline in his physical health, walks with a cane, and continues to follow with Neurolog. As of part of his work-up, had echo done. Echo done 10/14/2024 The left ventricular cavity size is normal. The LV wall thickness is normal. There is borderline diffuse left ventricular hypokinesis. The qualitative LV ejection fraction is 50-54% (normal). The left ventricular diastolic function is mildly abnormal (grade I). There is no significant valvular disease He explains to me, he continues to have episodes of numbness and tingling. Now taking multiple medications. At times, dragging his leg. Was previously taking amlodipine prior to his Lyme diagnosis. More recently, admits to CP comes and goes; not consistent 5/6-10. 3-4 times a week will get CP association with SOB. Has to take a deep breath. Not stopping his functional status Admits to not doing much physical activity due to his limitations with ambulation. The CP can happen just sitting on the couch. Described a dull ache. Lasts for about 3-5 minutes. No syncope or dizziness. No swelling. 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 + travel. with child; boy 13 years old. RISK FACTORS FOR CAD: (no) Diabetes mellitus (no) Hypertension (+) Dyslipidemia (no) Smoking (no) Other vascular disease (no) Renal disease (no) Family hx of premature CAD (+) Life style- more active prior to Lyme No drugs No marijuana. Previous cardiac testing includes: - Heart catheterizations: no - Last echo done : 10/14/2024 The left ventricular cavity size is normal. The LV wall thickness is normal. There is borderline diffuse left ventricular hypokinesis. The qualitative LV ejection fraction is 50-54% (normal). The left ventricular diastolic function is mildly abnormal (grade I). There is no significant valvular disease - Cardiac CT scan: no - Evidence of ASCVD noted on imagining: no Past Medical History: Diagnosis Date INFORMATION Osteoid Osteoma Irritable bowel syndrome with constipation 07/28/2019 Osteoid osteoma right tibia Other male erectile dysfunction 07/28/2019 Seasonal allergies Social History Socioeconomic History Marital status: Tobacco Use Smoking status: Never Smokeless tobacco: Never Vaping Use Vaping status: Never Used Substance and Sexual Activity Alcohol use: Never Drug use: Never Social Needs Food Insecurity: No Food Insecurity (01/09/2023) Hunger Vital Sign Worried About Running Out of Food in the Last Year: Never true Ran Out of Food in the Last Year: Never true Family History Problem Relation Name Age of Onset Breast Cancer Mother No Known Problems Father No Known Problems Sister No Known Problems Brother No Known Problems Grandmother (Maternal) No Known Problems Grandfather (Maternal) No Known Problems Grandmother (Paternal) Other (pancreatic cancer) Grandfather (Paternal) Current Outpatient Medications Medication Sig Dispense Refill [...] by mouth at bedtime. 30 Tablet 1 Pregabalin 150 MG Oral Capsule (Lyrica) Take 1 Capsule by mouth in the morning and 1 Capsule at noon and 1 Capsule before bedtime. Rotate from Gabapentin per [facility] instructions. 90 Capsule 1 Cefuroxime Axetil 500 MG Oral Tablet (Ceftin) Take 1 Tablet by mouth in the morning and 1 Tablet before bedtime. 60 Tablet 0 Memantine HCl 5 MG Oral Tablet Take 1 tablet once daily for 7 days, then increase to 1 tablet twicedaily. For Pain 60 Tablet 1 traMADol HCl 50 MG Oral Tablet Take 1 Tablet by mouth every 4 hours as needed for Pain, Severe. 56 Tablet 0 No current facility-administered medications for this visit. REVIEW OF SYSTEMS: Constitutional: Weight trending up, no fatigue, no fever, sweats or chills ENT: No amaurosis fugax, no loss of hearing, no epitaxsis, gingival bleeding, no nasal polyps Mouth/Throat: no sleep apnea Pulmonary: no dyspnea, no cough, no hemoptysis Cardiac: detailed as above. Gastrointestinal: no GI bleeding, no significant GERD, no abdominal bloating Vascular: denies claudication. Hematology: Denies bleeding problem Musculoskeletal: no chronic pain, no arthritis Neuro: no history of previous CVA, no TIA symptoms, no seizure disorders, no recent head trauma : No dysuria, no frequency and no nocturia Extremities: denies impairment of motor strength Psych: No depression and no anxiety. Denies any suicidal or homicidal thoughts. Wt Readings from Last 10 Encounters: 10/19/24 87.5 kg (193 lb) 10/13/24 86.5 kg (190 lb 11.2 oz) 08/18/24 81.2 kg (179 lb) 08/06/24 80.8 kg (178 lb 3.2 oz) 07/29/24 81.4 kg (179 lb 8 oz) 03/11/24 80.6 kg (177 lb 9.6 oz) 03/02/24 82.6 kg (182 lb 3.2 oz) 02/21/24 83.8 kg (184 lb 11.2 oz) 02/03/24 83.8 kg (184 lb 11.2 oz) 01/31/24 83.9 kg (185 lb) PHYSICAL EXAM (by video) Constitutional: no acute distress Neck: supple Lungs: normal respiratory effort Neuro: alert, oriented to person, place, and time Psych: pleasant and cooperative Latest Reference Range & Units 11/14/18 07:18 11/24/21 08:17 01/09/23 13:03 01/16/24 09:14 Triglycerides <=174 mg/dL 90 84 78 TRIGLYCERIDES-OUTSIDE LAB 0 - 150 mg/dL 111 (E) Cholesterol <200 mg/dL 179 208 (H) 243 (H) Non-HDL Cholesterol <=159 mg/dL 125 151 185 (H) HDL Cholesterol >39 mg/dL 54 57 58 LDL Cholesterol <=129 mg/dL 107 134 (H) 169 (H) LDL (CALCULATED)-OUTSIDE LAB mg/dL 137 (E) (H): Data is abnormally high (E): External lab result IMPRESSION AND PLAN: 1. CHEST PAIN Patient with no known CAD referred to cardiology to further evaluate chest pain. Recently has had a significant decline in his overall health. Well-being and functional status due to his significant diagnosis of Lyme disease, which has caused him neurological deficits with ambulation, now walking with a cane most days. As part of work-up, echo done showing normal LV with mild LV diastolic dysfunction and mild overallborderline hypokinesis in the setting of known HTN managed with anti-hypertensives. No prior imaging to compare. Patient with 2+ risk factors for CAD (HTN, borderline dyslipidemia) The characteristics of the patient's chest pain suggest atypical symptoms for angina. No acute changes to EKG. Further evaluation into symptoms is warranted. Plan: - ischemic work-up: cardiac CT scan - labs including lipids, lipo(a) and apolipoprotein B I spent a total of 45 minutes on the date if service in preparation, delivery, and documentation ofthe care provided to patient, excluding any time spent in the performance of separately billed services. Answered all questions for patient. Héctor Carrera verbalized understanding of the plan of care. Will reach out to patient with results of testing. [facility] [place] active: yes documented in this encounter Plan of Treatment Upcoming Encounters Date Type Department Care Team (Late st Contact Info) Description 11/04/2024 9:30 AM EST Hospital Encounter Radiology, [address] [address] 11/04/2024 10:15 AM EST Hospital Encounter Radiology[address] [place] [address] 11/04/2024 11:00 AM EST Hospital Encounter Radiology[address] [place] [address] 11/09/2024 8:30 AM EDT [facility] [place] [facility] [address] [place], [facility] [place] [address] 12/04/2024 9:20 AM EDT Office Visit Neurology [place] [address] [place] [place] [address] Radha Tang MD 200 [facility] [place] [address] Scheduled Orders Name Type Priority Associated Diagnoses Order Schedule LIPID PANEL WITH DIRECT LDL IF TG IS HIGH Lab Routine Mixed dyslipidemia Other chest pain HTN, goal below 130/80 Lyme disease Expected: 10/30/2024, Expires: 10/30/2025 LIPOPROTEIN (A) Lab Routine Mixed dyslipidemia Other chest pain HTN, goal below 130/80 Lyme disease Expected: 10/30/2024, Expires: 10/30/2025 APOLIPOPROTEIN B Lab Routine Mixed dyslipidemia Other chest pain HTN, goal below 130/80 Lyme disease Expected: 10/30/2024, Expires: 10/30/2025 CT FFR CORONARY ARTERIES Medical Imaging Routine Mixed dyslipidemia Other chest pain HTN, goal below 130/80 Lyme disease Expected: 10/30/2024, Expires: 11/27/2025 CT CARDIAC COMPLETE Medical Imaging Routine Mixed dyslipidemia Other chest pain HTN, goal below 130/80 Lyme disease Expected: 10/30/2024, Expires: 11/27/2025 Scheduled Procedures Name Priority Associated Diagnoses Date/Ti [...] as of this encounter Visit Diagnoses Diagnosis Mixed dyslipidemia- Primary Mixed hyperlipidemia Other chest pain HTN, goal below 130/80 Unspecified essential hypertension Lyme disease documented in this encounter Care Teams Lining Stitcher Relationship Specialty Start Date End Date Wolfgang Sellers MD 200 [facility] [place] [address] PCP - General Internal Medicine 11/10/21 documented as of this encounter
--- OUTSIDE RECORDS SUMMARY | 2024-11-11 09:30 | External Medical Summary | Summary of Care ---
Author Name Unknown Organization [facility] Address [address] [place] [address] Phone [phone] Care Team Providers Care Bisque Kiln Placer Name Role Phone Wolfgang Sellers MD Primary Care Provider + Reason for Visit * Reason Onset Date Comments FYI 11/03/2024 Encounter Details Date Type Department Care Team (Late st Contact Info) Description 11/03/2024 Telephone Access Center, [address] *DO NOT REMOVE THIS DEPARTMENT* [place] [address] Services, Scheduling [address] [place] [address] Allergies No known active allergiesdocumented as of this encounter (statuses as of 11/09/2024) Medications sildenafil (REVATIO) 20 MG Tablet Take [...] mouth at bedtime. 30 Tablet 1 5 025 Discontin ued(Refil l) traMADol HCl 50 MG Oral TabletIndication s:Chronic bilateral low back pain with bilateral sciatica,Chronic neck pain Take 1 Tablet by mouth every 4 hours as needed for Pain, Severe. 56 Tablet 5 025 Discontin ued(Refil l) documented as of this encounter (statuses as of 11/09/2024) Active Problems Problem Noted Date Diagnosed Date [...] as of this encounter (statuses as of 11/09/2024) Resolved Problems Problem Noted Date Diagnosed Date Resolved Date ADVANCE DIRECTIVE INFORMATION 05/24/2005 07/06/2024 Overview (05/24/2005): No, Advance Directive brochure offered , patient declined. documented as of this encounter (statuses as of 11/09/2024) Immunizations Name Administration Dates Next Due COVID-19, [...] encounter Miscellaneous Notes * Telephone Encounter - Tegan Correa OSA - 11/03/2024 3:12 PM EST Hello! Patient is scheduled for his CT Cardiac at [facility] on 12/10/24. Thank you very much! GIANFRANCO Britton documented in this encounter Plan of Treatment Upcoming Encounters Date Type Department Care Team (Late st Contact Info) Description 12/04/2024 9:20 AM EDT Office Visit Neurology [place] [address] [place] [address] Radha Tang MD [address] [place] [address] 12/07/2024 8:30 AM EDT Office Visit Pharmacy, [place] [address] [place] [address] [place] [address] [facility] [address] [place] [address] 12/10/2024 8:15 AM EDT Imaging Radiology [facility] 1st [facility] [address] [place] [phone] 01/01/2025 11:30 AM EDT Office Visit Pharmacy, [facility] [address] [place] [address] [facility] [address] [facility] [place] [address] Scheduled Procedures Name Priority Associated Diagnoses Date/Ti [...] filedocumented as of this encounter Care Teams Bisque Kiln Placer Relationship Specialty Start Date End Date Wolfgang Sellers MD [address] [place], [place] [id number] PCP - General Internal Medicine 11/10/21 documented as of this encounter
--- OUTSIDE RECORDS SUMMARY | 2024-11-11 09:30 | External Medical Summary | Summary of Care ---
Author Name Unknown Organization [facility] Address [address] [place] [address] Phone [phone] Care Team Providers Care Steel Checker Name Role Phone Wolfgang Sellers MD Primary Care Provider + Reason for Referral * Precert (Routine) - Pending Review Specialty Diagnoses / Procedures Referred By Contac t Referred To Contact Radiology Diagnoses Mixed dyslipidemia Other chest pain HTN, goal below 130/[address] CARDIAC COMPLETE Suyapa Henao DNP [address] [place] [address] Phone: tel: fax: Referral ID Status Reason Start Date Expiration Date Visits Requested Visits Authorized [id number] Pending Review Precert 10/30/2024 1 1 * Precert (Routine) - Pending Review Specialty Diagnoses / Procedures Referred By Contac t Referred To Contact Radiology Diagnoses Mixed dyslipidemia Other chest pain HTN, goal below 130/[address] FFR CORONARY ARTERIES Suyapa Henao DNP [address] [place] [address] Phone: tel: fax: Referral ID Status Reason Start Date Expiration Date Visits Requested Visits Authorized [id number] Pending Review Precert 10/30/2024 1 1 Reason for Visit * Reason Comments Follow Up NEW PATIENT Chest pain * Evaluate & Treat - Unlimited Visits (Within 3 days (urgent)) - Authorized Specialty Diagnoses / Procedures Referred By Contac t Referred To Contact Cardiovascular Medicine / Cardiology Diagnoses Chest pain, unspecified type Hypokinesia History of Lyme disease Wolfgang Sellers MD [address] [place] [address], [place] [address] Phone: tel: fax: Referral ID Status Reason Start Date Expiration Date Visits Requested Visits Authorized [id number] Authorized Specialty Services Required 10/16/[phone] Encounter Details Date Type Department Care Team (Late st Contact Info) Description 10/30/2024 11:00 AM EST Telemedicine Cardiology [facility] [address] [place] [address] [place], [facility] [address] [place], [place] [id number] Mixed dyslipidemia*; Other chest pain; HTN, goal [...] two unique identifiers. Patient (or authorized legal technology sales representative) was then informed that this was a Telemedicine visit and being conducted confidentially over secure lines. Methods to assure confidentiality were taken. Patient acknowledged consent and understanding of pr ivacy and security of the Telemedicine visit. The patient agreed to participate. -------- [facility] [place] New Patient Referral REASON FOR REFERRAL: CHEST [...] minutes. No syncope or dizziness. No swelling. 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 + travel. with child; boy 15 [...] Capsule before bedtime. Rotate from Gabapentin per [facility] instructions. 90 Capsule 1 Cefuroxime Axetil [...] out to patient with results of testing. [facility] active: yes documented in this encounter Plan of Treatment Upcoming Encounters Date Type Department Care Team (Late st Contact Info) Description 11/04/2024 9:30 AM EST Hospital Encounter Radiology, [address] [address] 11/04/2024 10:15 AM EST Hospital Encounter Radiology[address] [place] [address] 11/04/2024 11:00 AM EST Hospital Encounter Radiology[address] [place] [address] 11/09/2024 8:30 AM EDT Office Visit Pharmacy, [place] [address] [facility] [address] [place] [address] [facility] [place] [address] 12/04/2024 9:20 AM EDT Office Visit Neurology [place] [address] [place] [address] Radha Tang MD 200 [facility] [place] [address] Scheduled Orders Name Type Priority Associated Diagnoses [...] disease documented in this encounter Care Teams Steel Checker Relationship Specialty Start Date End Date Wolfgang Sellers MD 200 [place] [address] PCP - General Internal Medicine 11/10/21 documented as of this encounter
--- OUTSIDE RECORDS SUMMARY | 2024-11-11 09:30 | External Medical Summary | Summary of Care ---
Author Name Unknown Organization [facility] Address [address] [place] [address] Phone [phone] Care Team Providers Care Silk Soaker Name Role Phone Wolfgang Sellers MD Primary Care Provider + Reason for Visit * Reason Comments Dosage Adjustment In Person (Anticoag Cl inic) Pain Encounter Details Date Type Department Care Team (Late st Contact Info) Description 11/09/2024 8:30 AM EDT Office Visit Pharmacy, [place] [address] [place] [address] [place] [facility] [address] [place] [address] Chronic neck pain*; Chronic midline thoracic back [...] 4 Active Pregabalin 150 MG Oral Capsule (Lyrica)Indicatio ns:Chronic midline thoracic back pain,Chronic neck pain Take 1 Capsule by mouth in the morning and 1 Capsule at noon and 1 Capsule before bedtime. Rotate from Gabapentin per [facility] instructions. 90 Capsule 1 5 Active Cefuroxime [...] at bedtime. 30 Tablet 1 5 Active documented as of this encounter [...] this encounter Progress Notes * Christina Concepcion, [facility] - 11/09/2024 8:23 AM EDT Images from the original note were not included. Medication Therapy Disease Management - Chronic Pain History of Presenting Illness This visit occurred in person. Héctor Carrera, identified by name and date of , is a 44 year old male presents [facility] for [facility]. Chief Complaint Patient presents with Dosage Adjustment In Person ([facility]) Pain History Past Medications SA Opioids: Tramadol NSAIDs: Ibuprofen Anti-Depressants: Cymbalta, Effexor Anti-Convulsants: Gabapentin, Topamax Current Pain Medications Tramadol 50mg Q4H Tizanidine 4mg Q8H Lyrica 150 mg three times daily Namenda 5 mg twice daily Interval History Patient tolerating rotation to Lyrica, but symptoms continue to progress. Tolerating initial dose of Namenda, but again, symptoms continue to progress Noted to have recent CT scans, Neurology recommends repeat of spinal tap to rule out continuation of BALLAST CLEANING OPERATOR Lyme infection Patient would like to pursue spinal tap, awaiting approval Pain levels are not controlled at this time. Notes to have little effect with Tramadol Previous visit Since last visit had hospital stay and IV treatment for BALLAST CLEANING OPERATOR Lyme disease He has progressed to walking without a cane since antibiotic treatment Noted to have some time with little pain post initial treatment, but pain levels have increased. 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 History of Presenting Illness & Review of Systems Diagnosis: Neck pain (previous back surgery C5-6) Chronicity: Chronic Onset: More than a 1 year ago Frequency: Constantly Pain location: Arm, shoulder, lower back, leg and central neck Pain quality: Achy and shooting Pain is worse: In the morning Aggravated by: Activity (Running) Treatment(s) tried: Chiropractic manipulation, injections, physical therapy, surgery and TENS Problem List Reviewed and updated in the EHR during the visit Substance Use Reviewed and updated in the EHR during the visit Objective Relevant Imaging XR L Spine (02/03/24) [...] narrowing, likely representing early adjacent segment disease Last Urine Toxicology Screening Results for orders placed or performed in visit on 02/07/24 PAIN MANAGEMENT DRUG PANEL, URINE W/ INTERPRETATION Result Value Pain Management Interpretation Based on the medication information provided: The presence of tramadol and o-desmethyltramadol is CONSISTENT with tramadol use. Amphetamines Screen, U Negative Benzodiazepines Screen, U Negative Cannabinoids Screen, U Negative Cocaine Metabolite Screen, U Negative Fentanyl Screen, U Negative Hydrocodone Screen, U Negative Methadone Metabolite Screen, U Negative Morphine/Codeine Screen, U Negative Oxycodone Screen, U Negative Specimen Validity Interpretation Normal Creatinine, U 39 Narrative Cutoff Concentrations: Drug Level Amphetamines 500 ng/mL Benzodiazepines 100 ng/mL Cannabinoids 50 ng/mL Cocaine Metabolite 150 ng/mL Fentanyl 1 ng/mL Hydrocodone / Hydromorphone 300 ng/mL Methadone Metabolite 100 ng/mL Morphine / Codeine 300 ng/mL Oxycodone / Oxymorphone 100 ng/mL Screening results are presumptive and can only be used for medical purposes. Confirmatory testing is available upon request. Creatinine Clearance: Serum creatinine: 1 mg/dL 10/13/24 135 Estimated creatinine clearance: 99.4 mL/min Creatinine Results: Recent Labs Units 10/13/24 1351 03/02/24 1525 01/16/24 0914 CREATININE - [facility] mg/dL 1.0 1.3* 1.1 Hepatic Function (ALT): Recent Labs Units 10/13/24 1351 03/02/24 1525 01/16/24 0914 ALT - [facility] U/L 47 34 21 Comprehensive Metabolic Panel Results: Results for orders placed or performed in visit on 10/13/24 COMPREHENSIVE METABOLIC PANEL Result Value Ref Range BUN 9 6 - 20 mg/dL CREATININE 1.0 0.6 - 1.2 mg/dL EGFR >90 >=60 mL/min SODIUM 140 135 - 146 mmol/L POTASSIUM 4.5 3.5 - 5.1 mmol/L CHLORIDE 101 98 - 107 mmol/L CO2 28 22 - 32 mmol/L ANION GAP 11 7 - 15 mmol/L GLUCOSE 69 (L) 70 - 120 mg/dL Albumin 5.1 (H) 3.8 - 5.0 g/dL AST 30 10 - 50 U/L Alkaline Phosphatase 73 35 - 130 U/L Bilirubin, Total 0.9 <=1.2 mg/dL CALCIUM 10.2 8.4 - 10.2 mg/dL Protein 7.7 6.0 - 8.3 g/dL ALT 47 10 - 50 U/L Assessment & Plan Patient aware [facility] is a clinical pharmacist visit, with focus on medication options for current diagnoses referred by Primary Care Provider for review and optimization. The focus of this visit is: Medication optimization. Current regimen reviewed, patient is: Adherent to regimen. Treatment Options Patient presents to [facility] today for a recheck, noted to be a transfer from [facility] which is no longer seeing pain patients. Noted to have chronic cervical issues and chronic pain from lumbar radiculopathy Patient has also had progressive symptoms since Lyme disease diagnosis last year. Patient had symptom relief in the past with IV treatment for BALLAST CLEANING OPERATOR Lyme disease. He had progressed towalking without a cane since antibiotic treatment, but now pain levels have increased with numbnessradiating to hand and leg. This is similar to prior to antibiotic treatment, although has progressed to right leg at this time and progressed in right hand. Noted to have some time with little pain post initial Lyme treatment, but pain levels have increased. Unclear if related to continue BALLAST CLEANING OPERATOR Lyme (monitoring with PCP/ ID) or if due to spinal nerve irritation post infection Unclear what part Lyme Disease may be playing today, but noting radicular spike in pain Patient tolerating rotation to Lyrica, but symptoms continue to progress. Tolerating initial dose of Namenda, but again, symptoms continue to progress Noted to have recent CT scans, Neurology recommends repeat of spinal tap to rule out continuation of BALLAST CLEANING OPERATOR Lyme infection Patient would like to pursue spinal tap, awaiting approval Pain levels are not controlled at this time. Notes to have little effect with Tramadol, noting to use 300 mg TDD. Patient aware if pain due to progressing Lyme disease, then opioids are unlikely to be of value. He would like to try a 7 day trial rotation at this time due to high pain scale. He is considering ED visit if pain remains uncontrolled Will defer treatment options to PCP as appears to be acute on chronic pain today Treatment Concerns Patient had newer onset of SOB/ chest pain, followed with cardiology for diagnostics No edema noted. Incidence of Chest pain (2%) reported with Lyrica, Respiratory apnea is < 1% Education Provided Patient educated on mechanism, time to efficacy and potential adverse effects of medication regimen Education and MOA provided on treatment options for neuropathic pain provided. Discussion included but not limited to review of past history, MOA, indications, ADRs, Drug interactions, tapering, monitoring parameters, relation of renal/hepatic function and efficacy Recommendations Discussed medication options. Patient would like to try opioid rotation at this time, as having little value from Tramadol dosing Patient notes to have very high levels of pain at this time, but I will defer to PCP team, as appears to be more acute ( possible Lyme) and not chronic disease that is the cdl b driver of the pain If needed by PCP can recommend Rotation of opioid, Tramadol is providing little effect and is usingat least 6 per day = 50 mg x 6 = 300 mg Tramadol = 60 MME. Could consider rotation to Percocet, with wean in MME due to cross tolerance If PCP would like to try to treat acute pain with rotation to Oxycodone, would recommend a 25% decrease due to cross tolerance = 45 MME or 30 mg of Oxycodone per day Recommend: Percocet 5/325 mg: take 1 tablet every 4 hours as needed for severe pain, maximum of 6 tablets per day Stop Tramadol Lyrica 150 mg three times daily Tizanidine 4mg Q8H: uses at bedtime due to fatigue Namenda 5 mg twice daily Héctor verbalized understanding of the plan. Contact clinic with any issues. 12/07/2024 I spent a total of 20-29 minutes (exact time 29 mins) on the date of service in preparation, delivery, and documentation of the care provided to Héctor Carrera excluding any time spent in the performance of separately billed services or time spent by another provider/QHP. Christina Concepcion [facility] Clinical Pharmacist - Pulp Making Plant Operator Medication Therapy Management [facility] 11/09/2024 - 8:26 AM documented in this encounter Plan of Treatment Upcoming Encounters Date Type Department Care Team (Late st Contact Info) Description 12/04/2024 9:20 AM EDT Office Visit Neurology [place] [address] [place] [address] Radha Tang MD 200 [facility] [place] [address] 12/07/2024 8:30 AM EDT Office Visit Pharmacy, [place] 21 [facility] [place] [address] [place] [facility] [address] [place] [address] 12/10/2024 8:15 AM EDT Imaging Radiology [facility] 1st [facility] [address] [place] [phone] 01/01/2025 11:30 AM EDT Office Visit Pharmacy, [facility] [address] [place] [address] [facility] [address] [place] [address] Scheduled Procedures Name Priority Associated Diagnoses Date/Ti me COLONOSCOPY FLEXIBLE PROXIMA L DIAGNOSTIC Recall History of colonic polyps Health Maintenance Due Date Last Done Comments Influenza Vaccine (FLU shot) (#1) 2024 Albumin/Creatinine Ratio 11/24/2024 11/24/2021 Depression Screening 08/06/2025 08/06/2024 GFR 10/13/2025 10/13/2024, 07/0 09/2023, 01/16/2024, Additional history exists Diabetes Screening 10/13/2027 10/13/2024, 0 03/02/2024, 01/16/2024, Additional history exists Lipid Panel 01/15/2029 01/16/2024, 05/, 11/24/2021, Additional history exists Colonoscopy 02/25/2029 02/26/2024, [...] Cervicalgia documented in this encounter Care Teams Silk Soaker Relationship Specialty Start Date End Date Wolfgang Sellers MD 200 [place] [address] PCP - General Internal Medicine 11/10/21 documented as of this encounter
--- OUTSIDE RECORDS SUMMARY | 2024-11-11 09:30 | External Medical Summary | Summary of Care ---
Author Name Unknown Organization [facility] Address [address] [place] [address] Phone [phone] Care Team Providers Care Sack Department Supervisor Name Role Phone Wolfgang Messer MD Primary Care Provider + Reason for Referral * Medication Prior Authorization - Closed Specialty Diagnoses / Procedures Referred By Contac t Referred To Contact Diagnoses Chronic bilateral low back pain with bilateral sciatica Chronic neck pain Wolfgang Messer MD [address] [facility] [address] Phone: tel: fax: Referral ID Status Reason Start Date Expiration Date Visits Re quested Visits Authorized [id number] Closed [phone] Reason for Visit * Reason Onset Date Comments Medication Refill 11/05/2024 Encounter Details Date Type Department Care Team (Late st Contact Info) Description 11/05/2024 Refill General Internal Medicine [place] [address] [place] [address] Wolfgang Messer MD [address] [place] [address] Neck pain; Chronic bilateral low back pain with bilateral sciatica; Chronic neck pain Allergies No known active allergiesdocumented as of this encounter (statuses as of 11/06/2024) Medications sildenafil (REVATIO) 20 MG Tablet Take [...] Capsule before bedtime. Rotate from Gabapentin per [facility] instructions. 90 Capsule 1 5 Active Cefuroxime [...] at bedtime. 30 Tablet 1 5 Active traMADol HCl 50 MG Oral TabletIndication s:Chronic bilateral low back pain with bilateral sciatica,Chronic neck pain Take 1 Tablet by mouth every 4 hours as needed for Pain, Severe. 56 Tablet 5 Active tiZANidine HCl 4 MG Oral [...] as of this encounter (statuses as of 11/06/2024) Active Problems Problem Noted Date Diagnosed Date [...] as of this encounter (statuses as of 11/06/2024) Resolved Problems Problem Noted Date Diagnosed Date Resolved Date ADVANCE DIRECTIVE INFORMATION 05/24/2005 07/06/2024 Overview (05/24/2005): No, Advance Directive brochure offered , patient declined. documented as of this encounter (statuses as of 11/06/2024) Immunizations Name Administration Dates Next Due COVID-19, [...] Telephone Encounter - Wolfgang Messer MD - 11/06/2024 9:03 AM ESTSigned Prescriptions: Disp Refills tiZANidine HCl 4 MG Oral Tablet (Zanaflex) 30 Tab*1 Sig: Take 1 Tablet by mouth at bedtime. Authorizing Provider: WOLFGANG MESSER traMADol HCl 50 MG Oral Tablet 56 Tab*0 Sig: Take 1 Tablet by mouth every 4 hours as needed for Pain, Severe. Authorizing Provider: WOLFGANG MESSER * Telephone Encounter - Arabella Saunders [facility] - 11/06/2024 9:01 AM EST Pending Prescriptions: Disp Refills tiZANidine HCl 4 MG Oral Tablet (Zanaflex) 30 Tab*1 Sig: Take 1 Tablet by mouth at bedtime. traMADol HCl 50 MG Oral Tablet 56 Tab*0 Sig: Take 1 Tablet by mouth every 4 hours as needed for Pain, Severe. Electronically signed by Arabella Saunders [facility] at 11/06/2024 9:01 AM EST * Telephone Encounter - Arabella Saunders [facility] - 11/06/2024 9:00 AM EST I have reviewed the patients controlled substance dispensing history in the Prescription Drug Monitoring Program in compliance with the [facility] regulations before prescribing a controlled substance. PDMP checked on 11/06/2024. Pending Prescriptions: Disp Refills tiZANidine HCl 4 MG Oral Tablet (Zanaflex)30 Tab*1 Sig: Take 1 Tablet by mouth at bedtime. traMADol HCl 50 MG Oral Tablet 56 Tab*0 Sig: Take 1 Tablet by mouth every 4 hours as needed for Pain, Severe. Last Visit: 10/13/2024 (in office), Visit date not found (telemedicine) Next Visit: Visit date not found Date medication was last filled: 10/31/24 Date medication is due for refill: 11/08/24 Pharmacy: [facility] Is this request for a controlled substance? Yes and Urine Drug Screen was completed Toxicology results: Results for orders placed or performed in [...] purposes. Confirmatory testing is available upon request. Please approve if appropriate. Arabella Reyes [facility] Clinical Pharmacist [facility] ([facility]) [phone] documented in this encounter Plan of Treatment Upcoming Encounters Date Type Department Care Team (Late st Contact Info) Description 11/09/2024 8:30 AM EDT Office Visit Pharmacy, [place] [facility] [place] [address] [place] [facility] [place] [address] 12/04/2024 9:20 AM EDT Office Visit Neurology [facility] [address] [place] [address] Radha Tang MD [address] [place] [address] 12/10/2024 8:15 AM EDT Imaging Radiology [facility] 1st [facility] [address] [place] [phone] Scheduled Procedures Name Priority Associated Diagnoses Date/Ti [...] encounter Visit Diagnoses Diagnosis Neck pain Cervicalgia Chronic bilateral low back pain with bilateral sciatica Chronic neck pain Cervicalgia documented in this encounter Care Teams Sack Department Supervisor Relationship Specialty Start Date End Date Wolfgang Messer MD [address] [place] [address] PCP - General Internal Medicine 11/10/21 documented as of this encounter
--- OUTSIDE RECORDS SUMMARY | 2024-11-11 09:31 | External Medical Summary | Summary of Care ---
Author Name Unknown Organization [facility] Address [address] [place] [address] Phone [phone] Care Team Providers Care Fur Tinter Name Role Phone Wolfgang Sellers MD Primary Care Provider + Reason for Visit * Reason Comments eRx-Medication Refill Encounter Details Date Type Department Care Team (Late st Contact Info) Description 10/17/2024 Refill Pharmacy, [address] [phone] Wolfgang Sellers MD [address] [place] [address] Chronic midline thoracic back pain; Chronic neck pain Allergies No known active allergiesdocumented as of this encounter (statuses as of 10/19/2024) Medications sildenafil (REVATIO) 20 MG Tablet Take [...] Capsule before bedtime. Rotate from Gabapentin per [facility] instructions. 90 Capsule 1 5 Active Cefuroxime Axetil 500 MG Oral Tablet (Ceftin)Indicatio ns:Lyme disease Take 1 Tablet by mouth in the morning and 1 Tablet before bedtime. 60 Tablet 5 Active traMADol HCl 50 MG Oral TabletIndications :Chronic bilateral low back pain with bilateral sciatica,Chronic neck pain Take 1 Tablet by mouth every 4 hours as needed for Pain, Severe. 56 Tablet 5 Active documented as of this encounter (statuses as of 10/19/2024) Active Problems Problem Noted Date Diagnosed Date [...] as of this encounter (statuses as of 10/19/2024) Resolved Problems Problem Noted Date Diagnosed Date Resolved Date ADVANCE DIRECTIVE INFORMATION 05/24/2005 07/06/2024 Overview (05/24/2005): No, Advance Directive brochure offered , patient declined. documented as of this encounter (statuses as of 10/19/2024) Immunizations Name Administration Dates Next Due COVID-19, [...] encounter Miscellaneous Notes * Telephone Encounter - Jelly Ayon RPh - 10/19/2024 7:24 AM ESTRefused Prescriptions: Disp Refills Pregabalin 150 MG Oral Capsule (Lyrica) 90 Cap*1 Sig: Take 1 Capsule by mouth in the morning and 1 Capsule at noon and 1 Capsule before bedtime. Rotate from Gabapentin per [facility]TM instructions.Refused By: JELLY AYONeason for Refusal: Too soonReason for Refusal Comment: resend on 11/09 * Telephone Encounter - Jelly Ayon RPh - 10/19/2024 7:23 AM EST Med last filled on 10/17/2024 and is not due until 11/12/2024 . Thank you, Jelly Ayon [facility] Clinical Pharmacist [facility] ([facility]) 10/19/24 7:23 AM [phone] documented in this encounter Plan of Treatment Upcoming Encounters Date Type Department Care Team (Late st Contact Info) Description 11/09/2024 8:30 AM EDT Office Visit Pharmacy, [address] [place] [address] [facility] [address] [place] [address] Scheduled Procedures Name Priority Associated Diagnoses Date/Ti [...] of this encounter Visit Diagnoses Diagnosis Chronic midline thoracic back pain Chronic neck pain Cervicalgia documented in this encounter Care Teams Fur Tinter Relationship Specialty Start Date End Date Wolfgang Sellers MD [address] [place] [address] PCP - General Internal Medicine 11/10/21 documented as of this encounter
--- OUTSIDE RECORDS SUMMARY | 2024-11-11 09:31 | External Medical Summary | Summary of Care ---
Author Name Unknown Organization [facility] Address [address] [place] [address] Phone [phone] Care Team Providers Care Tunnel Drier Operator Name Role Phone Wolfgang Sellers MD Primary Care Provider + Reason for Visit * Reason Comments Outpatient Testing Encounter Details Date Type Department Care Team (Late st Contact Info) Description 10/13/2024 2:10 PM EST Laboratory Laboratory [facility] [address] [place] [id number] [facility] [place], [place] [address] FLOREZ (dyspnea on exertion); Chest pain, unspecified type Allergies No known active allergiesdocumented as of this encounter (statuses as of 10/13/2024) Medications sildenafil (REVATIO) 20 MG Tablet Take [...] Capsule before bedtime. Rotate from Gabapentin per [facility] instructions. 90 Capsule 1 5 Active traMADol HCl 50 MG Oral TabletIndications :Chronic bilateral low back pain with bilateral sciatica,Chronic neck pain Take 1 Tablet by mouth every 4 hours as needed for Pain, Severe. 56 Tablet 5 Active Cefuroxime Axetil 500 MG Oral Tablet (Ceftin)Indicatio ns:Lyme disease Take 1 Tablet by mouth in the morning and 1 Tablet before bedtime. 60 Tablet 5 Active documented as of this encounter (statuses as of 10/13/2024) Active Problems Problem Noted Date Diagnosed Date [...] as of this encounter (statuses as of 10/13/2024) Resolved Problems Problem Noted Date Diagnosed Date Resolved Date ADVANCE DIRECTIVE INFORMATION 05/24/2005 07/06/2024 Overview (05/24/2005): No, Advance Directive brochure offered , patient declined. documented as of this encounter (statuses as of 10/13/2024) Immunizations Name Administration Dates Next Due COVID-19, [...] Care Team (Late st Contact Info) Description 10/14/2024 8:15 AM EST Cardiac Studies Cardiac Studies, [address] [place] [address] 10/14/2024 9:00 AM EST Telemedicine Pharmacy, [place] [address] [facility] [place] [address] 11/09/2024 8:30 AM EDT Office Visit [place] [address] [facility] [place] [address] Pending Results Name Type Priority Associated Diagnoses Date /Time D-DIMER Lab Routine FLOREZ (dyspnea on exertion) 10/13/2024 1:51 PM EST ANTINUCLEAR ANTIBODY (TERESA) EIA SCREEN WITH REFLEX AB QUANT Lab Routine FLOREZ (dyspnea on exertion) Chest pain, unspecified type 10/13/2024 1:51 PM EST ERYTHROCYTE SEDIMENTATION RATE (ESR) Lab Routine FLOREZ (dyspnea on exertion) Chest pain, unspecified type 10/13/2024 1:51 PM EST CRP (INFLAMMATORY MARKER) Lab Routine FLOREZ (dyspnea on exertion) Chest pain, unspecified type 10/13/2024 1:51 PM EST ANTINUCLEAR ANTIBODY (TERESA) SCREEN, FLORENTIN Lab Routine FLOREZ (dyspnea on exertion) Chest pain, unspecified type 10/13/2024 1:51 PM EST Scheduled Procedures Name Priority Associated Diagnoses Date/Ti [...] Procedure Name Priority Date/Time Associated Diagnosis Comments COMPREHENSIVE METABOLIC PANEL Routine 10/13/2024 1:51 PM EST FLOREZ (dyspnea on exertion) Chest pain, unspecified type documented in this encounter Results * (ABNORMAL) COMPREHENSIVE METABOLIC PANEL (10/13/2024 1:51 PM EST) BUN 9 6 - 20 mg/dL 10/13/2024 3:27 PM EST [facility] [place] 56- CREATININE 1.0 0.6 - 1.2 mg/dL 10/13/2024 3:27 PM EST [facility] [place] 56- EGFR >90 >=60 mL/min 10/13/2024 3:27 PM [facility] 56- Comment:eGFR is calculated b ased on the CKD-EPI 2020 equation. SODIUM 140 135 - 146 mmol/L 10/13/2024 3:27 PM EST [facility] [place] 56- POTASSIUM 4.5 3.5 - 5.1 mmol/L 10/13/2024 3:27 PM EST [facility] [place] 56- CHLORIDE 101 98 - 107 mmol/L 10/13/2024 3:27 PM EST [facility] [place] 56- CO2 28 22 - 32 mmol/L 10/13/2024 3:27 PM [facility] [place] 56- ANION GAP 11 7 - 15 mmol/L 10/13/2024 3:27 PM [facility] 56- GLUCOSE 69(L) 70 - 120 mg/dL 10/13/2024 3:27 PM [facility] 56- Albumin 5.1(H) 3.8 - 5.0 g/dL 10/13/2024 3:27 PM [facility] [place] 56- AST 30 10 - 50 U/L 10/13/2024 3:27 PM [facility] [place] 56- Alkaline Phosphatase 73 35 - 130 U/L 10/13/2024 3:27 PM [facility] 56- Bilirubin, Total 0.9 <=1.2 mg/dL 10/13/2024 3:27 PM EST [facility] 56- CALCIUM 10.2 8.4 - 10.2 mg/dL 10/13/2024 3:27 PM [facility] 56- Protein 7.7 6.0 - 8.3 g/dL 10/13/2024 3:27 PM EST [facility] 56- ALT 47 10 - 50 U/L 10/13/2024 3:27 PM EST [facility] 56 Blood Venous blood specimen / Unknown Venipuncture / Unknown 10/13/2024 1:51 PM EST 10/13/2024 1:51 PM EST Wolfgang Sellers MD LAB BLOOD ORDERABLES Fin al Result [facility] [address] documented in this encounter Visit Diagnoses Diagnosis FLOREZ (dyspnea on exertion) Other dyspnea and respiratory abnormality Chest pain, unspecified type documented in this encounter Care Teams Tunnel Drier Operator Relationship Specialty Start Date End Date Wolf[facility] MD [address] [facility] [address] PCP - General Internal Medicine 11/10/21 documented as of this encounter
--- OUTSIDE RECORDS SUMMARY | 2024-11-11 09:31 | External Medical Summary | Summary of Care ---
Author Name Unknown Organization [facility] Address [address] [place] [address] Phone [phone] Care Team Providers Care Embalmer Apprentice Name Role Phone Wolfgang Messer MD Primary Care Provider + Reason for Visit * Reason Onset Date Comments Medication Refill 10/13/2024 Encounter Details Date Type Department Care Team (Late st Contact Info) Description 10/13/2024 Refill General Internal Medicine [facility] [address] [place] [address] Wolfgang Messer MD 200 [facility] [place] [address] Chronic bilateral low back pain with bilateral sciatica; Chronic neck pain Allergies No known active allergiesdocumented as of this encounter (statuses as of 10/14/2024) Medications sildenafil (REVATIO) 20 MG Tablet Take [...] 5 Active Pregabalin 150 MG Oral Capsule (Lyrica)Indicati ons:Chronic midline thoracic back pain,Chronic neck pain Take 1 Capsule by mouth in the morning and 1 Capsule at noon and 1 Capsule before bedtime. Rotate from Gabapentin per [facility] instructions. 90 Capsule 1 5 Active Cefuroxime [...] for Pain, Severe. 56 Tablet 5 Active traMADol HCl 50 MG Oral TabletIndication s:Chronic bilateral low back pain with bilateral sciatica,Chronic neck pain Take 1 Tablet by mouth every 4 hours as needed for Pain, Severe. 56 Tablet 5 025 Discontin ued(Refil l) documented as of this encounter (statuses as of 10/14/2024) Active Problems Problem Noted Date Diagnosed Date [...] as of this encounter (statuses as of 10/14/2024) Resolved Problems Problem Noted Date Diagnosed Date Resolved Date ADVANCE DIRECTIVE INFORMATION 05/24/2005 07/06/2024 Overview (05/24/2005): No, Advance Directive brochure offered , patient declined. documented as of this encounter (statuses as of 10/14/2024) Immunizations Name Administration Dates Next Due COVID-19, [...] Telephone Encounter - Wolfgang Messer MD - 10/14/2024 11:47 AM EST Signed Prescriptions: Disp Refills traMADol HCl 50 MG Oral Tablet 56 Tab*0 Sig: Take 1 Tablet by mouth every 4 hours as needed for Pain, Severe. Authorizing Provider: WOLFGANG MESSER * Telephone Encounter - Srikanth Garcia [facility] - 10/14/2024 11:46 AM ESTPending Prescriptions: Disp Refills traMADol HCl 50 MG Oral Tablet 56 Tab*0 Sig: Take 1 Tablet by mouth every 4 hours as needed for Pain, Severe. * Telephone Encounter - Srikanth Garcia [facility] - 10/14/2024 11:45 AM EST I have reviewed the patients controlled substance dispensing history in the Prescription Drug Monitoring Program in compliance with the [facility] regulations before prescribing a controlled substance. PDMP checked on 10/14/2024. Pending Prescriptions: Disp Refills traMADol HCl 50 MG Oral Tablet 56 Tab*0 Sig: Take 1 Tablet by mouth every 4 hours as needed for Pain, Severe. Last Visit: 10/13/2024 (in office), Visit date not found (telemedicine) Next Visit: Visit date not found Date medication was last filled: 10-06-24 Date medication is due for refill: 10-15-24 Pharmacy: [facility] [address] Is this request for a controlled [...] available upon request. Please approve if appropriate. Peng Tucker.Ph. Clinical Pharmacist [facility] ([facility]) [address] [place] [address], [address] [place] [address] : [phone] 10/14/2024,11:45 AM documented in this encounter Plan of Treatment Upcoming Encounters Date Type Department Care Team (Late st Contact Info) Description 11/09/2024 8:30 AM EDT Office Visit Pharmacy, [address] [address] [place], [facility] [address] [place] [address] Scheduled Procedures Name Priority Associated Diagnoses Date/Ti [...] Cervicalgia documented in this encounter Care Teams Embalmer Apprentice Relationship Specialty Start Date End Date Wolfgang Messer MD [address] [place] [address] PCP - General Internal Medicine 11/10/21 documented as of this encounter
--- OUTSIDE RECORDS SUMMARY | 2024-11-11 09:31 | External Medical Summary | Summary of Care ---
Author Name Unknown Organization [facility] Address [address] [place] [address] Phone [phone] Care Team Providers Care Loan Closer Name Role Phone Wolfgang Messer MD Primary Care Provider + Reason for Visit * Reason Onset Date Comments Medication Refill 10/28/2024 Encounter Details Date Type Department Care Team (Late st Contact Info) Description 10/28/2024 Refill General Internal Medicine [facility] 200 [facility] [place] [address] Wolfgang Messer MD 200 [place] [address] Chronic bilateral low back pain with bilateral sciatica; Chronic neck pain Allergies No known active allergiesdocumented as of this encounter (statuses as of 10/30/2024) Medications sildenafil (REVATIO) 20 MG Tablet Take [...] Capsule before bedtime. Rotate from Gabapentin per [facility] instructions. 90 Capsule 1 5 Active Cefuroxime [...] as of this encounter (statuses as of 10/30/2024) Active Problems Problem Noted Date Diagnosed Date [...] as of this encounter (statuses as of 10/30/2024) Resolved Problems Problem Noted Date Diagnosed Date Resolved Date ADVANCE DIRECTIVE INFORMATION 05/24/2005 07/06/2024 Overview (05/24/2005): No, Advance Directive brochure offered , patient declined. documented as of this encounter (statuses as of 10/30/2024) Immunizations Name Administration Dates Next Due COVID-19, [...] Telephone Encounter - Wolfgang Messer MD - 10/30/2024 8:47 AM ESTSigned Prescriptions: Disp Refills traMADol HCl 50 MG Oral Tablet 56 Tab*0 Sig: Take 1 Tablet by mouth every 4 hours as needed for Pain, Severe. Authorizing Provider: WOLFGANG MESSER * Telephone Encounter - Chelo Ayon [facility] - 10/29/2024 3:13 PM ESTPending Prescriptions: Disp Refills traMADol HCl 50 MG Oral Tablet 56 Tab*0 Sig: Take 1 Tablet by mouth every 4 hours as needed for Pain, Severe. * Telephone Encounter - Chelo Ayon [facility] - 10/29/2024 3:11 PM EST I have reviewed the patients controlled substance dispensing history in the Prescription Drug Monitoring Program in compliance with the [facility] regulations before prescribing a controlled substance. PDMP checked on 10/29/2024. Pending Prescriptions: Disp Refills traMADol HCl 50 MG Oral Tablet 56 Tab*0 Sig: Take 1 Tablet by mouth every 4 hours as needed for Pain, Severe. Last Visit: 10/13/2024 (in office), Visit date not found (telemedicine) Next Visit: Visit date not found Date medication was last filled: 10/23/2024 Date medication is due for refill: 11/01/2024Saturday Pharmacy: [address] Is this request for a controlled [...] available upon request. Please approve if appropriate. Thank you, Chelo Ayon [facility] Clinical Pharmacist [facility] ([facility]) 10/29/24 3:11 PM [phone] documented in this encounter Plan of Treatment Upcoming Encounters Date Type Department Care Team (Late st Contact Info) Description 10/30/2024 11:00 AM EST Telemedicine Cardiology [facility] [place] [address] [place] [address] [address], [facility] [address] [place] [address] 11/04/2024 9:30 AM EST Hospital Encounter Radiology, [address] [address] 11/04/2024 10:15 AM EST Hospital Encounter Radiology, [address] [address] 11/04/2024 11:00 AM EST Hospital Encounter Radiology, [address] [place] [address] 11/09/2024 8:30 AM EDT Office Visit Pharmacy, [place] [address] [place] [address] [facility] [address] [place] [address] 12/04/2024 9:20 AM EDT Office Visit Neurology [place] [address] [address] Radha Tang MD [address] [place] [address] Scheduled Procedures Name Priority Associated Diagnoses Date/Ti [...] Cervicalgia documented in this encounter Care Teams Loan Closer Relationship Specialty Start Date End Date Wolfgang Messer MD [address] [place] [address] PCP - General Internal Medicine 11/10/21 documented as of this encounter
--- OUTSIDE RECORDS SUMMARY | 2024-11-11 09:31 | External Medical Summary | Summary of Care ---
Author Name Unknown Organization [facility] Address [address] [place] [address] Phone [phone] Care Team Providers Care Director Alumni Relations Name Role Phone Wolfgang Sellers MD Primary Care Provider + Reason for Visit * Reason Comments Pain Dosage Adjustment Via Phone (anticoag Cl inic) Encounter Details Date Type Department Care Team (Late st Contact Info) Description 10/14/2024 9:00 AM [facility], [place] [address] [place] [address] [facility] [address] [place] [address] Chronic neck pain* Allergies No known active allergiesdocumented as of this encounter (statuses as of 10/15/2024) Medications sildenafil (REVATIO) 20 MG Tablet Take [...] Capsule before bedtime. Rotate from Gabapentin per [facility] instructions. 90 Capsule 1 [...] as of this encounter (statuses as of 10/15/2024) Active Problems Problem Noted Date Diagnosed Date [...] as of this encounter (statuses as of 10/15/2024) Resolved Problems Problem Noted Date Diagnosed Date Resolved Date ADVANCE DIRECTIVE INFORMATION 05/24/2005 07/06/2024 Overview (05/24/2005): No, Advance Directive brochure offered , patient declined. documented as of this encounter (statuses as of 10/15/2024) Immunizations Name Administration Dates Next Due COVID-19, [...] of this encounter Progress Notes * Christina Concepcion [facility] - 10/14/2024 8:23 AM EST As per patient preference, connection with the patient via audio only occurred. The patient was informed this was a phone call only visit and was identified by name and date of . The patient agreed to participate. Total call duration was 5 minutes. Update sent by Caroline Soliman Awaiting PCP review of Echo and follow up Christina Concepcion [facility] Clinical Pharmacist [facility] documented in this encounter Plan of Treatment Upcoming Encounters Date Type Department Care Team (Late st Contact Info) Description 11/09/2024 8:30 AM EDT Office Visit Pharmacy, [place] [address] [place] [address] [facility] [address] [place] [address] Scheduled Procedures Name Priority Associated Diagnoses Date/Ti [...] Cervicalgia documented in this encounter Care Teams Director Alumni Relations Relationship Specialty Start Date End Date Wolfgang Sellers MD 200 [facility] [place] [address] PCP - General Internal Medicine 11/10/21 documented as of this encounter
--- OUTSIDE RECORDS SUMMARY | 2024-11-11 09:31 | External Medical Summary | Summary of Care ---
Author Name Unknown Organization [facility] Address [address] [place] [address] Phone [phone] Care Team Providers Care Scenic Designer Name Role Phone Wolfgang Messer MD Primary Care Provider + Reason for Referral * Medication Prior Authorization - Closed Specialty Diagnoses / Procedures Referred By Contac t Referred To Contact Diagnoses Chronic bilateral low back pain with bilateral sciatica Chronic neck pain Wolfgang Messer MD [address] [facility] [address] Phone: tel: fax: Referral ID Status Reason Start Date Expiration Date Visits Re quested Visits Authorized [id number] Closed [phone] Reason for Visit * Reason Onset Date Comments Medication Refill 10/21/2024 Encounter Details Date Type Department Care Team (Late st Contact Info) Description 10/21/2024 Refill General Internal Medicine [place] [facility] [address] [place] [address] Wolfgang Messer MD [address] [place] [address] [address] Chronic bilateral low back pain with bilateral sciatica; Chronic neck pain Allergies No known active allergiesdocumented as of this encounter (statuses as of 10/23/2024) Medications sildenafil (REVATIO) 20 MG Tablet Take [...] as of this encounter (statuses as of 10/23/2024) Active Problems Problem Noted Date Diagnosed Date [...] as of this encounter (statuses as of 10/23/2024) Resolved Problems Problem Noted Date Diagnosed Date Resolved Date ADVANCE DIRECTIVE INFORMATION 05/24/2005 07/06/2024 Overview (05/24/2005): No, Advance Directive brochure offered , patient declined. documented as of this encounter (statuses as of 10/23/2024) Immunizations Name Administration Dates Next Due COVID-19, [...] Telephone Encounter - Wolfgang Messer MD - 10/23/2024 9:40 AM ESTSigned Prescriptions: Disp Refills traMADol HCl 50 MG Oral Tablet 56 Tab*0 Sig: Take 1 Tablet by mouth every 4 hours as needed for Pain, Severe. Authorizing Provider: WOLFGANG MESSER * Telephone Encounter - Shyla Sherwood [facility] - 10/22/2024 9:50 AM EST Pending Prescriptions: Disp Refills traMADol HCl 50 MG Oral Tablet 56 Tab*0 Sig: Take 1 Tablet by mouth every 4 hours as needed for Pain, Severe. * Telephone Encounter - Shyla Sherwood [facility] - 10/22/2024 9:47 AM EST I have reviewed the patients controlled substance dispensing history in the Prescription Drug Monitoring Program in compliance with the [facility] regulations before prescribing a controlled substance. PDMP checked on 10/22/2024. Pending Prescriptions: Disp Refills traMADol HCl 50 MG Oral Tablet 56 Tab*0 Sig: Take 1 Tablet by mouth every 4 hours as needed for Pain, Severe. Last Visit: 10/13/2024 (in office), Visit date not found (telemedicine) Next Visit: Visit date not found Date medication was last filled: 10/14/24 Date medication is due for refill: 10/24/24 Pharmacy: [facility] [address] Is this request for a controlled [...] request. Please approve if appropriate. Thank you, Shyla Sherwood, PharmD, [facility] Clinical Pharmacist [facility] ([facility]) 10/22/24 9:50 AM [phone] documented in this encounter Plan of Treatment Upcoming Encounters Date Type Department Care Team (Late st Contact Info) Description 11/04/2024 9:30 AM EST Appointment Radiology, [address] [place] [address] 11/04/2024 10:15 AM EST Appointment Radiology, [address] [place] [address] 11/04/2024 11:00 AM EST Appointment Radiology, [address] [place] [address] 11/09/2024 8:30 AM EDT Office Visit Pharmacy, [place] [address] [place] [address] [facility] [address] [place] [address] 12/04/2024 9:20 AM EDT Office Visit Neurology [facility] [place] [facility] [place] [address] Radha Tang MD [address] [place] [address] Scheduled Procedures Name Priority Associated Diagnoses Date/Ti [...] Cervicalgia documented in this encounter Care Teams Scenic Designer Relationship Specialty Start Date End Date Wolfgang Messer MD [address] [place] [address] PCP - General Internal Medicine 11/10/21 documented as of this encounter
--- OUTSIDE RECORDS SUMMARY | 2024-11-11 09:31 | External Medical Summary | Summary of Care ---
Author Name Unknown Organization [facility] Address [address] [place] [address] Phone [phone] Care Team Providers Care Drywall Worker Name Role Phone Wolfgang Sellers MD Primary Care Provider + Reason for Visit * Reason Comments eRx-Medication Refill Encounter Details Date Type Department Care Team (Late st Contact Info) Description 10/13/2024 Refill General Internal Medicine [facility] [address] [facility] [place] [address] Wolfgang Sellers MD [address] [place] [address] Neck pain Allergies No known active allergiesdocumented [...] Capsule before bedtime. Rotate from Gabapentin per [facility] instructions. 90 Capsule 1 5 Active [...] encounter Miscellaneous Notes * Telephone Encounter - Lyric Villafuerte CMA - 10/14/2024 1:29 PM ESTRefused Prescriptions: Disp Refills tiZANidine HCl 4 MG Oral Tablet (Zanaflex) 30 Tab*1 Sig: Take 1Tablet by mouth at bedtime.Refused By: Maria Del Carmen VILLAFUERTE for Refusal: Too soon * Telephone Encounter - Barb [place] - 10/13/2024 1:09 PM ESTPending Prescriptions: Disp Refills tiZANidine HCl 4 MG Oral Tablet [Pharmacy *30 Tab*1 Sig: Take 1Tablet by mouth at bedtime. documented in this encounter Plan of Treatment Upcoming Encounters Date Type Department Care Team (Late st Contact Info) Description 11/09/2024 8:30 AM EDT Office [facility] [place] [facility] [address] [facility] [place] [address] Scheduled Procedures Name Priority Associated Diagnoses Date/Ti [...] Cervicalgia documented in this encounter Care Teams Drywall Worker Relationship Specialty Start Date End Date Wolfgang Sellers MD 200 [facility] [place] [address] PCP - General Internal Medicine 11/10/21 documented as of this encounter
--- OUTSIDE RECORDS SUMMARY | 2024-11-11 09:31 | External Medical Summary | Summary of Care ---
Author Name Unknown Organization [facility] Address [address] [place] [address] Phone [phone] Care Team Providers Care Cash Processor Name Role Phone Wolfgang Sellers MD Primary Care Provider + Reason for Visit * Reason Comments Pain Dosage Adjustment Via Phone (anticoag Cl inic) Encounter Details Date Type Department Care Team (Late st Contact Info) Description 10/13/2024 3:30 PM [facility], [place] [address] [place] [address] [facility] [place] [address] Chronic midline thoracic back pain*; Neck pain; Chronic neck pain Allergies No known [...] Capsule before bedtime. Rotate from Gabapentin per [facility] instructions. 90 Capsule 1 5 Active traMADol [...] this encounter Progress Notes * Christina Concepcion RPh - 10/13/2024 3:09 PM EST As per patient preference, connection with the patient via audio only occurred. The patient was informed this was a phone call only visit and was identified by name and date of . The patient agreed to participate. Total call duration was 15 minutes. Reviewed case with PCP team Echo scheduled for tomorrow. If cardiac stable, he would like to titrated to Lyrica maximum dose of200 mg three times daily. If symptoms of chest pain/ SOB worsen with this increase, will wean back to Lyrica 150 mg three times daily Will not pend until tomorrows appointment Christina Concepcion [facility] Clinical Pharmacist [facility] documented in this encounter Plan of Treatment Upcoming Encounters Date Type Department Care Team (Late st Contact Info) Description 10/14/2024 8:15 AM EST Cardiac Studies Cardiac Studies, [address] [place] [address] 10/14/2024 9:00 AM EST Telemedicine Pharmacy, [place] [address] [facility] [place] [address] [facility] [place] [address] 11/09/2024 8:30 AM EDT Office Visit Pharmacy, [place] [address] [place] [address] [place] [facility] [place] [address] [facility] [place] [address] Scheduled Procedures Name Priority Associated Diagnoses Date/Ti [...] Visit Diagnoses Diagnosis Chronic midline thoracic back pain- Primary Neck pain Cervicalgia Chronic neck pain Cervicalgia documented in this encounter Care Teams Cash Processor Relationship Specialty Start Date End Date Wolfgang Sellers MD [address] [place] [address] PCP - General Internal Medicine 11/10/21 documented as of this encounter
--- OUTSIDE RECORDS SUMMARY | 2024-11-11 09:31 | External Medical Summary | Summary of Care ---
Author Name Unknown Organization [facility] Address [address] [place] [address] Phone [phone] Care Team Providers Care Mental Hygiene Consultant Name Role Phone Wolfgang Sellers MD Primary Care Provider + Reason for Visit * Reason Onset Date Comments Medication Question 10/14/2024 Encounter Details Date Type Department Care Team (Late st Contact Info) Description 10/14/2024 Telephone Pharmacy, [place] [address] [place], [place] [phone] [facility] [address] [place] [address] Medication Question Allergies No known active allergiesdocumented as of [...] Capsule before bedtime. Rotate from Gabapentin per [facility] instructions. 90 Capsule 1 5 [...] Miscellaneous Notes * Telephone Encounter - Wolfgang Sellers MD - 10/15/2024 1:33 PM EST Noted, thank you, see other encounter from 10/15/24 * Telephone Encounter - Christina Concepcion [facility] - 10/14/2024 2:[address] Sellers, I see the results of the Echo have populated, but will await your review. Generally I would hold on any Lyrica changes if patient will be sent for further Cardiology review. If we wanted a medication change, I would likely pursue the addition of Namenda as an adjunct for neuropathic pain. Generally would start at Namenda 5 mg in the evening for 7 days then increase to 5 mg twice daily until seen again I will await response from your team. I am, however, out of office starting tomorrow until next Saturday. My [facility] teammates will be available in my absence to assist and I have updated my coverage on this case Take care, Christina Concepcion [facility] Clinical Pharmacist [facility] documented in this encounter Plan of Treatment Upcoming Encounters Date Type Department Care Team (Late st Contact Info) Description 11/09/2024 8:30 AM EDT Office Visit Pharmacy, [place] [address] [place] [address] [place], [facility] [place] [address] Scheduled Procedures Name Priority Associated Diagnoses Date/Ti [...] filedocumented as of this encounter Care Teams Mental Hygiene Consultant Relationship Specialty Start Date End Date Wolfgang Sellers MD 200 [facility] [address] PCP - General Internal Medicine 11/10/21 documented as of this encounter
--- OUTSIDE RECORDS SUMMARY | 2024-11-11 09:31 | External Medical Summary | Summary of Care ---
Author Name Unknown Organization [facility] Address [address] [place] [address] Phone [phone] Care Team Providers Care Cloth Folder Machine Name Role Phone Wolfgang Sellers MD Primary Care Provider + Reason for Referral * Precert (Within 10 days (routine)) - Pending Review Specialty Diagnoses / Procedures Referred By Contac t Referred To Contact Radiology Diagnoses Paresthesias Weakness generalized Myelitis (HCC) Procedures MRI T SPINE W WO CONTRAST Radha Tang MD [address] [place] [address] Phone: tel: fax: Referral ID Status Reason Start Date Expiration Date V isits Requested Visits Authorized [id number] Pending Review 10/19/2024 999 999 * Precert (Within 10 days (routine)) - Pending Review Specialty Diagnoses / Procedures Referred By Contac t Referred To Contact Radiology Diagnoses Paresthesias Weakness generalized Myelitis (HCC) Procedures MRI C SPINE W WO CONTRAST Radha Tang MD [address] [place] [address] Phone: tel: fax: Referral ID Status Reason Start Date Expiration Date V isits Requested Visits Authorized [id number] Pending Review 10/19/2024 999 999 * Precert (Within 10 days (routine)) - Pending Review Specialty Diagnoses / Procedures Referred By Wood pace Referred To Contact Radiology Diagnoses Paresthesias Weakness generalized Myelitis (HCC) Procedures MRI BRAIN W WO CONTRAST Radha Tang MD [address] [place] [address] Phone: tel: fax: Referral ID Status Reason Start Date Expiration Date V isits Requested Visits Authorized [id number] Pending Review 10/19/2024 999 999 Reason for Visit * Reason Comments Return Neuro * Evaluate & Treat - Unlimited Visits (Within 3 days (urgent)) - Authorized Specialty Diagnoses / Procedures Referred By Wood pace Referred To Contact Neurology Diagnoses History of Lyme disease Numbness and tingling Generalized weakness Wolfgang Sellers MD [address] [place] [address] Phone: tel: fax: Referral ID Status Reason Start Date Expiration Date Visits Requested Visits Authorized [id number] Authorized Specialty Services Required 10/16/2024 999 [id number] Encounter Details Date Type Department Care Team (Late st Contact Info) Description 10/19/2024 4:20 PM EST Office Visit Neurology [facility] [address] [place] [address] Radha Tang MD [address] [place] [address] Paresthesias*; Weakness generalized; Myelitis (HCC) Allergies No known active allergiesdocumented as of this encounter (statuses as of 10/20/2024) Medications sildenafil (REVATIO) 20 MG Tablet Take [...] as of this encounter (statuses as of 10/20/2024) Active Problems Problem Noted Date Diagnosed Date [...] as of this encounter (statuses as of 10/20/2024) Resolved Problems Problem Noted Date Diagnosed Date Resolved Date ADVANCE DIRECTIVE INFORMATION 05/24/2005 07/06/2024 Overview (05/24/2005): No, Advance Directive brochure offered , patient declined. documented as of this encounter (statuses as of 10/20/2024) Immunizations Name Administration Dates Next Due COVID-19, [...] Sign Reading Time Taken Comments Blood Pressure 126/80 10/19/2024 4:21 PM EST Pulse 84 10/19/2024 4:21 PM EST Temperature 36.2 C (97.1 F) 10/19/2024 4:21 PM ES T Respiratory Rate - - Oxygen Saturation 98% 10/19/2024 4:21 PM EST Inhaled Oxygen Concentration - - Weight 87.5 kg (193 lb) 10/19/2024 4:21 PM EST Height - - Body Mass Index 27.69 03/11/2024 10:04 AM EDT documented in this encounter Progress Notes * Radha Tang MD - 10/19/2024 5:13 PM EST CLINIC NOTES Neurology [facility] [place] [address] [place] [address] Héctor Carrera : 1980 NEUROLOGY OUTPATIENT NOTE 10/19/2024 HISTORY: The patient is referred for consultation by , who will be receiving a copy ofthis note. Patient comes today in follow-up. I had seen him last summer with a left hemiparesis not explained by MRI cervical spine but he tested positive for Lyme and initially was treated with doxycycline which she had adverse effect and then switch to 1 month of amoxicillin. He reported gradual improvementof his symptoms from March to May but beginning in May gradual onset of weakness again similar to his initial presentation he was seen at [facility] the day after Thanks and I do not really have those records although the patient was able to show me some of the records.Apparently he had a dumont neuraxis imaging which was noncontributory and underwent a lumbar puncture which showed 14 white cells. It did have 6000 red cells IE was a traumatic tap and that would correct then to a white blood cell count of about 8 which is mildly elevated there is a mild elevation of total protein which would not correct entirely for the amount of red blood cells and CSF tested positive however I do not know how to interpret that IE could that have been blood contamination or did that represent intrathecal synthesis. I see that the IgG antibody titer showed positive bands of 18 KD. The myelin basic protein and oligoclonal bands were negative and I believe he was treated with 2weeks of ceftriaxone while in the process of being treated and he did improve he felt he had another tick bite and felt that he has gradually had more numbness tingling weakness. He reports left neckpain radiating to the left elbow with some tingling although that symptom has been present since hehad cervical radiculopathy in 2018 and tingling numbness in his right buttock bilateral lower extremities and right foot and some weakness denies any symptoms above the neck Past Medical History: Diagnosis Date INFORMATION Osteoid Osteoma Irritable bowel syndrome with constipation 07/28/2019 Osteoid osteoma right tibia Other male erectile dysfunction 07/28/2019 Seasonal allergies Patient Active Problem List Diagnosis 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 PATHOLOGICAL FRACTURE OF TIBIA OR FIBULA Other male erectile dysfunction Irritable bowel syndrome with constipation Essential hypertension with goal blood pressure less than 130/80 Chronic neck pain Past Surgical History: Procedure Laterality Date C-/T-SPINE PARAVERTEBRAL FACET INJ, 1 LEVEL 05/17/2022 C-/T-SPINE PARAVERTEBRAL FACET INJ, 1 LEVEL performed by Ramiro Woodwadr DO at OR [facility] C-/T-SPINE PARAVERTEBRAL FACET INJ, 1 LEVEL 06/14/2022 C-/T-SPINE PARAVERTEBRAL FACET INJ, 1 LEVEL performed by Ramiro Woodward DO at OR [facility] COLONOSCOPY COLONOSCOPY, DIAGNOSTIC (RECTUM) N/A 02/26/2024 diverticulosis/hemorrhoids/recall 5 years/COLONOSCOPY FLEXIBLE PROXIMAL DIAGNOSTIC performed by Sadiq Anglin MD at ENDOSCOPY [facility] DESTROY CERV/THORACIC NERVE IMAGING, SINGLE 07/19/2022 DESTROY CERV/THORACIC NERVE IMAGING, SINGLE performed by Ramiro Woodward DO at OR [facility] EGD, FLEXIBLE, DIAGNOSTIC 01/31/2024 biopsies normal/ESOPHAGOGASTRODUODENOSCOPY (EGD), FLEXIBLE, TRANSORAL, DIAGNOSTIC performed by Ev Perry MD at ENDOSCOPY [facility] INFORMATION 12/31,01/01 removal osteoid osteoma INJECT DX/THER SUBSTANCE INTERLAMINAR CERVICAL/THORACIC W IMAGE GUIDE 03/08/2022 INJECTION SPINE LUMBAR CERVICAL OR THORACIC performed by Ramiro Woodward DO at OR [facility] INJECT DX/THER SUBSTANCE INTERLAMINAR CERVICAL/THORACIC W IMAGE GUIDE 03/11/2023 INJECTION SPINE LUMBAR CERVICAL OR THORACIC performed by Ramiro Woodward DO at OR [facility] MISCELLANEOUS ORDER ([facility] ONLY) knee - left OTHER 2018 spinal fussion of c4 and c5 Social History Socioeconomic History Marital status: Spouse [...] on file Housing Stability: Not on file Family History Problem Relation Name Age of [...] Capsule before bedtime. Rotate from Gabapentin per [facility] instructions. 90 Capsule 1 Cefuroxime Axetil 500 MG Oral Tablet (Ceftin) Take 1 Tablet by mouth in the morning and 1 Tablet before bedtime. 60 Tablet 0 traMADol HCl 50 MG Oral Tablet Take 1 Tablet by mouth every 4 hours as needed for Pain, Severe. 56 Tablet 0 No current facility-administered medications for this visit. Review of patient's allergies indicates: No Known Allergies Results for orders placed or performed in visit on 03/02/24 CBC Result Value Ref Range WBC 7.14 4.00 - 10.80 K/uL RBC 5.17 4.50 - 5.25 M/uL HGB 14.7 14.0 - 16.8 g/dL HCT 44.8 40.0 - 48.4 % MCV 86.7 82.0 - 99.5 fL MCH 28.4 27.0 - 34.0 pg MCHC 32.8 32.0 - 36.0 g/dL RDW 15.3 11.5 - 15.5 % PLT 364 140 - 400 K/uL MPV 9.7 6.6 - 11.1 fL Results for orders placed or performed in visit on 01/16/24 LIPID PANEL WITH DIRECT LDL IF TG IS HIGH Result Value Ref Range Triglycerides 78 <=174 mg/dL Cholesterol 243 (H) <200 mg/dL HDL Cholesterol 58 >39 mg/dL Non-HDL Cholesterol 185 (H) <=159 mg/dL LDL Cholesterol 169 (H) <=129 mg/dL No results found for: "HEMOGLOBIN A1C" Lab Results Component Value Date/Time TSH Roro ADAMS 1.14 01/16/2024 09:14 AM TERESA Screen Date Value Ref Range Status 10/13/2024 Negative Negative Final No results found for: "UHRH08BNZ8" No results found for: "OSOB16WMU9" No results found for: "GNVYDUXP17RM" No results found for: "25OHVITAMIND" Vitamin D Level Interpretation deficient: <20 ng/ml insufficient: 20-30 ng/ml normal: 31-100 ng/ml REVIEW OF SYSTEMS: No incontinence of bowel or bladder PHYSICAL EXAM: BP 126/80 | Pulse 84 | Temp 36.2 C (97.1 F) | Wt 87.5 kg (193 lb) | SpO2 98% | BMI 27.69 kg/m | BSA 2.08 m The patient is awake and alert speech and language are normal and affect is appropriate pupils are equal round reactive to light optic nerves unremarkable normal logan motility facial sensation and symmetry is normal bulk and tone full strength in the uppers give-way in the lowers reflexes are mildly brisk in the lowers no clonus toes are downgoing [id number] and wglm-gu-noha are normal gaitis antalgic mildly slow vibration is present in the toes he has had extensive Orthopedic Surgery below the right knee and there is decreased light touch in that region vibration temperature light touch are otherwise intact in the upper and lowers IMPRESSION: Patient has had some ongoing left neck pain and radicular symptoms to the left upper extremity which are new. He has had some waxing and waning of lower extremity symptoms which by his report are not explained by imaging. CSF showed an elevated white blood cell count of 6 and an elevated total protein in the hypothesis at that time was that he had central nervous system Lyme that was incompletely treated by his initial course of antibiotics. I would think that if he got a subsequenttick bite that while he was being treated for Lyme that it would cover the Lyme infection and I would need to defer to Infectious Disease who has seen him as to whether not there would be any need for further evaluation or treatment. I see my role here as trying to determine if there is another central nervous system process ongoing we will dumont reimage him with MRI I agree he should have a repeatlumbar puncture unless there something on MRI the country indicates lumbar puncture nerve conduction may be appropriate but I do not think as needed at this point return in 1 month Radha Tang MD 10/19/2024 5:13 PM documented in this encounter Nursing Notes * Kasandra Ndiaye LPN - 10/19/2024 4:21 PM EST Chief Complaint Patient presents with Return Neuro documented in this encounter Plan of Treatment Upcoming Encounters Date Type Department Care Team (Late st Contact Info) Description 11/04/2024 9:30 AM EST Appointment Radiology, [address] [facility] [address] 11/04/2024 10:15 AM EST Appointment [address], [address] [place] [address] 11/04/2024 11:00 AM EST Appointment [address]iology, [address] [place] [address] 11/09/2024 8:30 AM EDT Office Visit Pharmacy, [place] [address] [place] [address] [facility] [place] [address] 12/04/2024 9:20 AM EDT Office Visit Neurology [facility] [place] [address] [facility] [place] [address] Radha Tang MD 200 [place] [address] Scheduled Orders Name Type Priority Associated Diagnoses Orde r Schedule MRI BRAIN W WO CONTRAST Medical Imaging Routine Paresthesias Weakness generalized Myelitis (HCC) Ordered: 10/19/2024 MRI C SPINE W WO CONTRAST Medical Imaging Routine Paresthesias Weakness generalized Myelitis (HCC) Ordered: 10/19/2024 MRI T SPINE W WO CONTRAST Medical Imaging Routine Paresthesias Weakness generalized Myelitis (HCC) Ordered: 10/19/2024 Scheduled Procedures Name Priority Associated Diagnoses Date/Ti [...] 19+ Years) Aged Out No longer eligib brendan based on patient's age to complete this topic documented as of this encounter Medical Devices Not on filedocumented as of this encounter Visit Diagnoses Diagnosis Paresthesias- Primary Disturbance of skin sensation Weakness generalized Other malaise and fatigue Myelitis (HCC) Unspecified cause of encephalitis, myelitis, and encephalomyelitis documented in this encounter Care Teams Cloth Folder Machine Relationship Specialty Start Date End Date Wolfgang Sellers MD [address] [place] [id number] PCP - General Internal Medicine 11/10/21 documented as of this encounter
--- OUTSIDE RECORDS SUMMARY | 2024-11-11 09:31 | External Medical Summary | Summary of Care ---
Author Name Unknown Organization [facility] Address [address] [place] [address] Phone [phone] Care Team Providers Care Stemming Machine Operator Name Role Phone Wolfgang Sellers MD Primary Care Provider + Reason for Visit * Reason Onset Date Comments Medication Question 10/14/2024 Encounter Details Date Type Department Care Team (Late st Contact Info) Description 10/14/2024 Telephone Pharmacy, [place] [address] [place], [place] [phone] [facility] [place] [address] Medication Question Allergies No known active allergiesdocumented [...] Capsule before bedtime. Rotate from Gabapentin per [facility] instructions. 90 Capsule 1 5 [...] encounter Miscellaneous Notes * Telephone Encounter - Christina Concepcion [facility] - 10/14/2024 2:[address] Sellers, [...] office starting tomorrow until next Saturday. My [facility] teammates will be available in my absence to assist and I have updated my coverage on this case Christina Ray [facility] Clinical Pharmacist [facility] documented in this encounter Plan of Treatment Upcoming Encounters Date Type Department Care Team (Late st Contact Info) Description 11/09/2024 8:30 AM EDT Office Visit Pharmacy, [place] [address] [facility] [place] [address] [place] [facility] [place] [address] Scheduled Procedures Name Priority Associated Diagnoses Date/Ti [...] filedocumented as of this encounter Care Teams Stemming Machine Operator Relationship Specialty Start Date End Date Wolfgang Sellers MD [address] [place], [place] [address] PCP - General Internal Medicine 11/10/21 documented as of this encounter
--- OUTSIDE RECORDS SUMMARY | 2024-11-11 09:31 | External Medical Summary | Summary of Care ---
Author Name Unknown Organization [facility] Address [address] [place] [address] Phone [phone] Care Team Providers Care Ditch Repairer Name Role Phone Wolfgang Sellers MD Primary Care Provider + Reason for Visit * Reason Onset Date Comments medication change 10/23/2024 Encounter Details Date Type Department Care Team (Late st Contact Info) Description 10/23/2024 Telephone Pharmacy, [place] [address] [place], [place] [id number] [facility] [address] [place] [address] medication change Allergies No known active allergiesdocumented [...] Capsule before bedtime. Rotate from Gabapentin per [facility] instructions. 90 Capsule 1 5 [...] for Pain, Severe. 56 Tablet 5 Active Memantine HCl 5 MG Oral Tablet Take 1 tablet once daily for 7 days, then increase to 1 tablet twice daily. For Pain 60 Tablet 1 5 Active documented as of [...] Dose (Alta/J&J) 021 Hepatitis B, 20+ yrs 07/29/2024,2024,05/16 /2024 TDAP (age 10 and older)(Boostrix) 12/23/2020 documented [...] Notes * Telephone Encounter - Christina Concepcion RPh - 10/23/2024 10:37 AM EST Per My G conversation: ADD for pain. Namenda (Memantine ) 5 mg once daily for 7 days, then increase to 5 mg twice daily. Christina Concepcion [facility] Clinical Pharmacist [facility] documented in this encounter Plan of Treatment Upcoming Encounters Date Type Department Care Team (Late st Contact Info) Description 11/04/2024 9:30 AM EST Appointment Radiology, [address] [place] [address] 11/04/2024 10:15 AM EST Appointment Radiology, [address] [address] 11/04/2024 11:00 AM EST Appointment Radiology, [facility] [address] [place] [address] 11/09/2024 8:30 AM EDT Office Visit Pharmacy, [place] [address] [place] [address] [place] [facility] 21 [facility] [place] [address] 12/04/2024 9:20 AM EDT Office Visit Neurology [facility] [place] [address] [place] [address] Radha Tang MD [address] [facility] [place] [address] Scheduled Procedures Name Priority Associated Diagnoses Date/Ti [...] Diagnosis Chronic midline thoracic back pain- Primary Chronic neck pain Cervicalgia Neck pain Cervicalgia documented in this encounter Care Teams Ditch Repairer Relationship Specialty Start Date End Date Wolfgang Sellers MD [address] [place] [address] PCP - General Internal Medicine 11/10/21 documented as of this encounter
--- OUTSIDE RECORDS SUMMARY | 2024-11-11 09:31 | External Medical Summary | Summary of Care ---
Author Name Unknown Organization [facility] Address [address] [place] [address] Phone [phone] Care Team Providers Care Food Science Professor Name Role Phone Wolfgang Sellers MD Primary Care Provider + Reason for Referral * Precert (Diagnostic Medical) (Within 24 hrs (call dept; emergent)) - Authorized Specialty Diagnoses / Procedures Referred By Contac t Referred To Contact Cardiac Studies Diagnoses FREEDMAN (dyspnea on exertion) Chest pain, unspecified type Procedures ECHO, COMPLETE (2D), TRANS-THORACIC Wolfgang Sellers MD [address] [place] [address] [place] [address] Phone: tel: fax: Referral ID Status Reason Start Date Expiration Date V isits Requested Visits Authorized [id number] Authorized Precert 10/13/2024 999 999 Reason for Visit * Reason Comments Follow Up Lyme disease - patie nt states symptoms are returning Encounter Details Date Type Department Care Team (Late st Contact Info) Description 10/13/2024 1:40 PM EST Office Visit General Internal Medicine [place] [address] [place] [address] Wolfgang Sellers MD [address] [place] [address] Lyme disease*; Leg numbness; Numbness and tingling; FREEDMAN (dyspnea on exertion); Chest pain, unspecified type; Essential hypertension with goal blood pressure less [...] MT instructions. 90 Capsule 1 5 Active traMADol [...] Tablet before bedtime. 60 Tablet 5 Active cefTRIAXone IVPB SOLN Infusion daily for 2 weeks at the [facility] 4 025 Discontin ued(Medic ation List Clean Up) Gabapentin 800 MG Oral Tablet (Neurontin) Take 1 Tablet by mouth in the morning and 1 Tablet at noon and 1 Tablet before bedtime. 270 Tablet 1 5 025 Discontin ued(Medic ation List Clean Up) documented as of this encounter (statuses as [...] 12+ (Pfizer) 01/26/2022 Covid-19 Ad26, Single Dose (Best Teacher/J&J) 021 Hepatitis B, 20+ yrs 07/29/2024,2024,01/15 TDAP (age 10 and older)(Boostrix) 12/23/2020 documented as of this encounter Social History Tobacco Use Types Packs/Day Years Used Date Smoking Tobacco: Never Smokeless Tobacco: Never Tobacco Cessation:Counseling Given: Not Answered Alcohol Use Standard Drinks/Week Comments Never 0 [...] Sign Reading Time Taken Comments Blood Pressure 124/82 10/13/2024 1:16 PM EST Pulse 84 10/13/2024 1:16 PM EST Temperature 36.7 C (98.1 F) 10/13/2024 1:16 PM ES T Respiratory Rate 14 10/13/2024 1:16 PM EST Oxygen Saturation - - Inhaled Oxygen Concentration - - Weight 86.5 kg (190 lb 11.2 oz) 10/13/2024 1:16 PM EST Height - - Body Mass Index 27.36 03/11/2024 10:04 AM EDT documented in this encounter Progress Notes * Wolfgang Sellers MD - 10/13/2024 1:46 PM EST Chief Complaint Patient presents with Follow Up Lyme disease - patient states symptoms are returning SUBJECTIVE: Héctor Carrera is a 44 year old male with PMH as below who presents for acute. Was treated For central Lyme for numbness in legs, shoulder, hands and weakness end of July, into mid August, finished 2 weeks of IV ceftriaxone, felt great after IV abx, was running, walking, only numbness was finger right hand and toe. Back was great as was legs. He notes slowly has had numbness in back and legs return. Has had weakness in legs, feels numbness and burning pain right hand, and legs. Back has burning pain. Slowly worsening, but not every days, has good/bad days. No falls, trauma or swelling. 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 Not exertional, can be at rest. No fevers, chills or cough. Did see ID last week, felt no abx needed f urther, but he is wondering about 4 weeks IV abx. No n/v/d. Did have tick bite when treated with IVabx Patient Active Problem List Diagnosis History of [...] Capsule before bedtime. Rotate from Gabapentin per [facility] instructions. 90 Capsule 1 traMADol HCl 50 MG Oral Tablet Take 1 Tablet by mouth every 4 hours as needed for Pain, Severe. 56 Tablet 0 Cefuroxime Axetil 500 MG Oral Tablet (Ceftin) Take 1 Tablet by mouth in the morning and 1 Tablet before bedtime. 60 Tablet 0 No current facility-administered medications for this visit. Review of patient's allergies indicates: No Known Allergies Health Maintenance Due Topic Date Due Influenza Vaccine (FLU shot) (1) Never done Albumin/Creatinine Ratio 11/24/2024 ROS: CONSTITUTIONAL: No change in weight, No weakness, and No fevers, sweats, or chills PULMONARY: No rales CARDIOVASCULAR: No orthopnea, No paroxysmal nocturnal dyspnea, No edema, No palpitations, and No syncope ALL OTHER SYSTEMS NEGATIVE I reviewed social, [...] performed by Ramiro Woodward DO at OR [facility] C-/T-SPINE PARAVERTEBRAL FACET INJ, 1 LEVEL 06/14/2022 C-/T-SPINE PARAVERTEBRAL FACET INJ, 1 LEVEL performed by Ramiro Woodward DO at OR [facility] COLONOSCOPY COLONOSCOPY, DIAGNOSTIC (RECTUM) N/A 02/26/2024 diverticulosis/hemorrhoids/recall 5 years/COLONOSCOPY FLEXIBLE PROXIMAL DIAGNOSTIC performed by Sadiq Anglin MD at ENDOSCOPY [facility] DESTROY CERV/THORACIC NERVE IMAGING, SINGLE 07/19/2022 DESTROY CERV/THORACIC NERVE IMAGING, SINGLE performed by Ramiro Woodward DO at OR [facility] EGD, FLEXIBLE, DIAGNOSTIC 01/31/2024 biopsies normal/ESOPHAGOGASTRODUODENOSCOPY (EGD), FLEXIBLE, TRANSORAL, DIAGNOSTIC performed by Ev Perry MD at ENDOSCOPY [facility] INFORMATION 12/31,01/01 removal osteoid osteoma INJECT DX/THER SUBSTANCE INTERLAMINAR CERVICAL/THORACIC W IMAGE GUIDE 03/08/2022 INJECTION SPINE LUMBAR CERVICAL OR THORACIC performed by Ramiro Woodward DO at OR [facility] INJECT DX/THER SUBSTANCE INTERLAMINAR CERVICAL/THORACIC W IMAGE GUIDE 03/11/2023 INJECTION SPINE LUMBAR CERVICAL OR THORACIC performed by Ramiro Woodward DO at OR [facility] MISCELLANEOUS ORDER ([facility] ONLY) knee - left OTHER 2017 spinal fussion of c4 and c5 Family History Problem Relation Name Age of Onset Breast Cancer Mother No Known Problems Father No Known Problems Sister No Known Problems Brother No Known Problems Grandmother (Maternal) No Known Problems Grandfather (Maternal) No Known Problems Grandmother (Paternal) Other (pancreatic cancer) Grandfather (Paternal) OBJECTIVE: PHYSICAL EXAM: BP 124/82 (BP Site: Left Arm, BP Position: Sitting, BP Cuff Size: Large) | Pulse 84 | Temp 98.1 F(36.7 C) (Tympanic) | Resp 14 | Wt 190 lb 11.2 oz (86.5 kg) | BMI 27.36 kg/m | BSA 2.07 m General: alert, healthy, and no distress Head: Normocephalic, No masses, lesions, or abnormalities Eye Exam: conjunctiva are pink and non-injected, sclera clear Ears: External ears normal, Canals clear, TM's Normal Mouth: MMM slightly dry Heart: regular rate & rhythm, no murmur, no gallops, PMI non-displaced, S-1 normal, and S-2 normal Lungs: normal respiratory rate and rhythm, lungs clear to auscultation Back: Tender paralumbar muscles bilaterally Extremities: no edema, no clubbing, no cyanosis Neuro Exam: aler with fluent speech, gait normal, 5/5 strength legs 10/12/24 EKG: Normal sinus rhythm Normal ECG When compared with ECG of 27-Dec-2021 07:35, Early repolarization is less pronounced T wave amplitude has decreased in Lateral leads 10/08/24 ID: ASSESSMENT: Héctor Carrera is a 44 year old male with PMHx of HTN and IBS who is presenting to our clinic today for the first time after a recent diagnosis of lyme disease. PLAN: Lyme Disease - Recommend prophylaxis with Cefuroxime 1g PO once after after tick bite. No need for antibiotics at this time. - Recommend EKG to start, clinical presentation for Lyme Carditis is typically Heart Block, if no Heart Block would rule out for Cardiac symptoms. - Discussed pathogenesis, diagnosis, and treatment. - Pt understands that there is no chronic lyme, some symptoms remain from but the there concern fornew SOB that does not to get evaluated. Pt knows to go to the ED for evaluation if symptoms persistent. 08/18/24 ID: - I assured the patient that he was appropriately treated for his recent lyme disease and meningitis, and shouldn't have any further issues or complications from the recent illness. But I also informed him that he might still get reinfected with lyme in the future because previous infections don't result in life long immunity. 07/31/24 CSF Lyme IGG + - Band(s) present ASSESSMENT: (A69.20) Lyme disease (primary encounter diagnosis) (R20.0) Leg numbness (R20.0, R20.2) Numbness and tingling (R06.09) FREEDMAN (dyspnea on exertion) (R07.9) Chest pain, unspecified type (I10) Essential hypertension with goal blood pressure less than 130/80 PLAN: Lyme disease (Primary) S/p treatment, but feels symptoms that abated after IV abx are back. I will discuss with ID whetherIV abx again needed given tick bite, symptoms. He notes is on cefuroxime, will stop now given my tiger text with ID today Follow T/c neurology to make sure no other disease contributing and check labs as below Follow closely T/c [facility] tertiary Lyme clinic as well Aware to contact me if new or changing symptoms Leg numbness As above Using cane Seems to come/go, not constant Numbness and tingling As above FREEDMAN (dyspnea on exertion) - D-DIMER; Future; Expected date: 10/13/2024 - COMPREHENSIVE METABOLIC PANEL; Future; Expected date: 10/13/2024 - ANTINUCLEAR ANTIBODY (TERESA) EIA SCREEN WITH REFLEX AB QUANT; Future; Expected date: 10/13/2024 - ERYTHROCYTE SEDIMENTATION RATE (ESR); Future; Expected date: 10/13/2024 - CRP (INFLAMMATORY MARKER); Future; Expected date: 10/13/2024 - XR CHEST 2 VIEWS; Future; Expected date: 10/13/2024 - ECHO, COMPLETE (2D), TRANS-THORACIC; Future; Expected date: 10/13/2024 Check d-dimer, if positive, will need CT angio Check resting echo, t/c stress Chest pain, unspecified type - COMPREHENSIVE METABOLIC PANEL; Future; Expected date: 10/13/2024 - ANTINUCLEAR ANTIBODY (TERESA) EIA SCREEN WITH REFLEX AB QUANT; Future; Expected date: 10/13/2024 - ERYTHROCYTE SEDIMENTATION RATE (ESR); Future; Expected date: 10/13/2024 - CRP (INFLAMMATORY MARKER); Future; Expected date: 10/13/2024 - XR CHEST 2 VIEWS; Future; Expected date: 10/13/2024 - ECHO, COMPLETE (2D), TRANS-THORACIC; Future; Expected date: 10/13/2024 EKG reassuring Essential hypertension with goal blood pressure less than 130/80 Cont amlodipine Follow Up: Return in about 3 months (around 01/10/2025), or if symptoms worsen or fail to improve, for Labs Today. | For: Labs Today documented in this encounter Nursing Notes * Parth Jo RN - 10/13/2024 1:14 PM EST Chief Complaint Patient presents with Follow Up Lyme disease - patient states symptoms are returning documented in this encounter Plan of Treatment Upcoming Encounters Date Type Department Care Team (Late st Contact Info) Description 10/14/2024 8:15 AM EST Cardiac Studies Cardiac Studies, [facility] [address] [facility] [place] [address] 10/14/2024 9:00 AM EST Telemedicine Pharmacy, [address] [place] [address] [place], [facility] [place] [address] 11/09/2024 8:30 AM EDT Office Visit Pharmacy, [address] [place] [address] [facility] [address] [place] [address] [place] [address] Pending Results Name Type Priority Associated Diagnoses Date /Time D-DIMER Lab Routine FREEDMAN (dyspnea on exertion) 10/13/2024 1:51 PM EST ANTINUCLEAR ANTIBODY (TERESA) EIA SCREEN WITH REFLEX AB QUANT Lab Routine FREEDMAN (dyspnea on exertion) Chest pain, unspecified type 10/13/2024 1:51 PM EST ERYTHROCYTE SEDIMENTATION RATE (ESR) Lab Routine FREEDMAN (dyspnea on exertion) Chest pain, unspecified type 10/13/2024 1:51 PM EST CRP (INFLAMMATORY MARKER) Lab Routine FREEDMAN (dyspnea on exertion) Chest pain, unspecified type 10/13/2024 1:51 PM EST Scheduled Orders Name Type Priority Associated Diagnoses Orde r Schedule D-DIMER Lab Routine FREEDMAN (dyspnea on exertion) Expected: 10/13/2024 (Approximate), Expires: 10/13/2025 ANTINUCLEAR ANTIBODY (TERESA) EIA SCREEN WITH REFLEX AB QUANT Lab Routine FREEDMAN (dyspnea on exertion) Chest pain, unspecified type Expected: 10/13/2024 (Approximate), Expires: 10/13/2025 ERYTHROCYTE SEDIMENTATION RATE (ESR) Lab Routine FREEDMAN (dyspnea on exertion) Chest pain, unspecified type Expected: 10/13/2024 (Approximate), Expires: 10/13/2025 CRP (INFLAMMATORY MARKER) Lab Routine FREEDMAN (dyspnea on exertion) Chest pain, unspecified type Expected: 10/13/2024 (Approximate), Expires: 10/13/2025 ECHO, COMPLETE (2D), TRANS-THORACIC Echocardiology KAMERON FREEDMAN (dyspnea on exertion) Chest pain, unspecified type Expected: 10/13/2024 (Approximate), Expires: 10/13/2025 Scheduled Procedures Name Priority Associated Diagnoses Date/Ti [...] Not on filedocumented as of this encounter Results * XR CHEST 2 VIEWS (10/13/2024 2:03 PM EST) Anatomical Region Laterality Modality Chest Computed Radiogr aphy 10/13/2024 2:48 PM EST Impressions 10/13/2024 2:45 PM EST IMPRESSION No acute disease in chest Narrative 10/13/2024 2:45 PM EST EXAM XR CHEST 2 VIEWS-10/13/2024 2:03 pm HISTORY freedman COMPARISON XR T SPINE ANY THREE VIEWS, ACC: [id number], dated 2024-02-03 14:38:41 TECHNIQUE PA/lateral FINDINGS Lungs well-expanded. There is no pneumothorax or significant pleural effusion. There is no focal parenchymal consolidation. Pulmonary vascularity is within normal limits. Radiographic appearance cardiomediastinal silhouette within normal limits. Minimal osseous degenerative change noted. There is a slight dextroconvex thoracic curvature. Procedure Note Mannie Waterman MD - 10/13/2024 EXAM XR CHEST 2 VIEWS-10/13/2024 2:03 pm HISTORY freedman COMPARISON XR T SPINE ANY THREE VIEWS, ACC: [id number], dated 2024-02-03 14:38:41 TECHNIQUE PA/lateral FINDINGS Lungs well-expanded. There is no pneumothorax or significant pleuraleffusion. There is no focal parenchymal consolidation. Pulmonary vascularity iswithin normal limits. Radiographic appearance cardiomediastinal silhouette within normal limits.Minimal osseous degenerative change noted. There is a slightdextroconvex thoracic curvature. IMPRESSION IMPRESSION No acute disease in chest us Wolfgang Sellers MD RADIOLOGY (RAD GENERAL) Final Result * (ABNORMAL) COMPREHENSIVE METABOLIC PANEL (10/13/2024 1:51 PM EST) BUN 9 6 - 20 mg/dL 10/13/2024 3:27 PM EST [facility] CREATININE 1.0 0.6 - 1.2 mg/dL 10/13/2024 3:27 PM EST [facility] EGFR >90 >=60 mL/min 10/13/2024 3:27 PM [facility] 56- Comment:eGFR is calculated b ased on the CKD-EPI 2020 equation. SODIUM 140 135 - 146 mmol/L 10/13/2024 3:27 PM [facility] 56- POTASSIUM 4.5 3.5 - 5.1 mmol/L 10/13/2024 3:27 PM [facility] 56- CHLORIDE 101 98 - 107 mmol/L 10/13/2024 3:27 PM [facility] 56 CO2 28 22 - 32 mmol/L 10/13/2024 3:27 PM [facility] 56 ANION GAP 11 7 - 15 mmol/L 10/13/2024 3:27 PM [facility] 56 GLUCOSE 69(L) 70 - 120 mg/dL 10/13/2024 3:27 PM [facility] 56 Albumin 5.1(H) 3.8 - 5.0 g/dL 10/13/2024 3:27 PM [facility] 56 AST 30 10 - 50 U/L 10/13/2024 3:27 PM [facility] 56 Alkaline Phosphatase 73 35 - 130 U/L 10/13/2024 3:27 PM [facility] 56- Bilirubin, Total 0.9 <=1.2 mg/dL 10/13/2024 3:27 PM [facility] 56- CALCIUM 10.2 8.4 - 10.2 mg/dL 10/13/2024 3:27 PM [facility] 56- Protein 7.7 6.0 - 8.3 g/dL 10/13/2024 3:27 PM [facility] 56- ALT 47 10 - 50 U/L 10/13/2024 3:27 PM [facility] 56- Blood Venous blood specimen / Unknown Venipuncture / Unknown 10/13/2024 1:51 PM EST 10/13/2024 1:51 PM EST us Wolfgang Sellesr MD LAB BLOOD ORDERABLES Fin al Result [facility] [address] [place] [address] documented in this encounter Visit Diagnoses Diagnosis Lyme disease- Primary Leg numbness Disturbance of skin sensation Numbness and tingling Disturbance of skin sensation FREEDMAN (dyspnea on exertion) Other dyspnea and respiratory abnormality Chest pain, unspecified type Essential hypertension with goal blood pressure less than 130/80 FREEDMAN (dyspnea on exertion) Other dyspnea and respiratory abnormality Chest pain, unspecified type documented in this encounter Care Teams Food Science Professor Relationship Specialty Start Date End Date Wolfgang Sellers MD [address] [place] [id number] PCP - General Internal Medicine 11/10/21 documented as of this encounter"
--- OUTSIDE RECORDS SUMMARY | 2024-11-11 09:31 | External Medical Summary | Summary of Care ---
Author Name Unknown Organization [facility] Address [address] [place] [address] Phone [phone] Care Team Providers Care Dialysis Biomed Technician Name Role Phone Wolfgang Sellers MD Primary Care Provider + Reason for Visit * Reason Comments Pain Dosage Adjustment Via Phone (anticoag Cl inic) Encounter Details Date Type Department Care Team (Late st Contact Info) Description 10/14/2024 9:00 AM [facility], [place] [address] [place] [address] [facility] [address] [place] [address] Chronic neck pain* Allergies No known active [...] Capsule before bedtime. Rotate from Gabapentin per [facility] instructions. 90 Capsule 1 [...] this encounter Progress Notes * Christina Concepcion [facility] - 10/14/2024 8:23 AM EST As per patient preference, connection with the patient via audio only occurred. The patient was informed this was a phone call only visit and was identified by name and date of . The patient agreed to participate. Total call duration was 5 minutes. Update sent by Caroline Real. Awaiting PCP review of Echo and follow up Christina Concepcion [facility] Clinical Pharmacist [facility] documented in this encounter Plan of Treatment Upcoming Encounters Date Type Department Care Team (Late st Contact Info) Description 10/30/2024 11:00 AM EST Telemedicine Cardiology [facility] [address] [place] [address] [place], Suyapa Hernandez [facility] [address] [place] [address] 11/04/2024 9:30 AM EST Hospital Encounter Radiology, [facility] [address] [facility] [place] [address] 11/04/2024 10:15 AM [facility] Hospital Encounter Radiology, [address] [place] [address] 11/04/2024 11:00 AM [facility] Hospital Encounter Radiology, [address] [place] [address] 11/09/2024 8:30 AM EDT Office Visit Pharmacy, [place] [address] [facility] [place] [address] [facility] [address] [facility] [place] [address] 12/04/2024 9:20 AM EDT Office Visit Neurology [facility] 200 [facility] [place] [address] aRdha Tang MD 200 [place] [address] Scheduled Procedures Name Priority Associated Diagnoses Date/Ti [...] Cervicalgia documented in this encounter Care Teams Dialysis Biomed Technician Relationship Specialty Start Date End Date Wolfgang Sellers MD [address] [facility] [place] [address] PCP - General Internal Medicine 11/10/21 documented as of this encounter
--- OUTSIDE RECORDS SUMMARY | 2024-11-11 09:32 | External Medical Summary ---
Author Name Unknown Address Unknown Organization K09:[facility]-02 - [address] [place] [address] Laboratory Report Ordering Provider Test Date Status YASEMINYRN 10/13/2024 13:51:44 Final Observation Date Value Abnormality Reference (Units ) Status BUN 10/13/2024 13:51:44 9 6-20 (mg/dL) Final Creatinine 10/13/2024 13:51:44 1.0 0.6-1.2 (mg/dL) Final Glomerular filtration rate/1.73 sq M.predicted [Volume Rate/Area] in Serum, Plasma or Blood by Creatinine-based formula (CKD-EPI) 10/13/2024 13:51:44 >90 >=60 (mL/min) Final eGFR is calculated based on the CKD-EPI 2020 equation. Sodium 10/13/2024 13:51:44 140 135-146 (m mol/L) Final Potassium 10/13/2024 13:51:44 4.5 3.5-5.1 (m mol/L) Final Cl 10/13/2024 13:51:44 101 98-107 (mm ol/L) Final CO2 10/13/2024 13:51:44 28 22-32 (mmo l/L) Final Anion gap 10/13/2024 13:51:44 11 7-15 (mmol /L) Final Glucose 10/13/2024 13:51:44 69 Below low normal 70- 120 (mg/dL) Final Albumin 10/13/2024 13:51:44 5.1 Above high normal 3. 8-5.0 (g/dL) Final AST (Aspartate aminotransferase) 10/13/2024 13:51:44 30 10-50 (U/L) Fin al Alk Phos 10/13/2024 13:51:44 73 35-130 (U/ L) Final Bilirubin, Total 10/13/2024 13:51:44 0.9 <=1 .2 (mg/dL) Final Calcium 10/13/2024 13:51:44 10.2 8.4-10.2 ( mg/dL) Final Protein 10/13/2024 13:51:44 7.7 6.0-8.3 (g /dL) Final ALT (Alanine aminotransferase) 10/13/2024 13:51:44 47 10-50 (U/L) Devyn swann Performing Location [facility] [address] [place] [address]
--- OUTSIDE RECORDS SUMMARY | 2024-11-11 09:32 | External Medical Summary ---
Author Name Unknown Address Unknown Organization K01:[facility] - [address] [place] [address] Laboratory Report Ordering Provider Test Date Status GUI HAZEL 10/13/2024 13:51:44 Final Observation Date Value Abnormality Reference (Units ) Status CRP, low-sensitivity 10/13/2024 13:51:44 <3 <=5 (mg/L) Final Performing Location [facility] - [address] [place] [address]
--- OUTSIDE RECORDS SUMMARY | 2024-11-11 09:32 | External Medical Summary | Summary of Care ---
Author Name Unknown Organization [facility] Address [address] [place] [address] Phone [phone] Care Team Providers Care Med Asst Name Role Phone Wolfgang Messer MD Primary Care Provider + Reason for Visit * Reason Onset Date Comments Medication Refill 09/02/2024 Encounter Details Date Type Department Care Team (Late st Contact Info) Description 09/02/2024 Refill General Internal [facility] [address] [facility] [place] [address] Megan Dunn MD [address] [place] [address] Chronic bilateral low back pain with bilateral sciatica; Chronic neck pain Allergies No known active allergiesdocumented as of this encounter (statuses as of 09/04/2024) Medications sildenafil (REVATIO) 20 MG Tablet Take [...] at bedtime. 30 Tablet 1 4 Active cefTRIAXone IVPB SOLN Infusion daily for 2 weeks at the [facility] 4 Active Gabapentin 800 MG Oral Tablet (Neurontin) Take 1 Tablet by mouth in the morning and 1 Tablet at noon and 1 Tablet before bedtime. 270 Tablet 1 4 Active traMADol HCl 50 MG Oral [...] needed for Pain, Severe. 56 Tablet 4 09/02/19 25 Discontinu ed(Refill) documented as of this encounter (statuses as of 09/04/2024) Active Problems Problem Noted Date Diagnosed Date [...] as of this encounter (statuses as of 09/04/2024) Resolved Problems Problem Noted Date Diagnosed Date Resolved Date ADVANCE DIRECTIVE INFORMATION 05/24/2005 07/06/2024 Overview (05/24/2005): No, Advance Directive brochure offered , patient declined. documented as of this encounter (statuses as of 09/04/2024) Immunizations Name Administration Dates Next Due COVID-19, [...] Telephone Encounter - Wolfgang Messer MD - 09/04/2024 10:18 AM EST Signed Prescriptions: Disp Refills traMADol HCl 50 MG Oral Tablet 56 Tab*0 Sig: Take 1 Tablet by mouth every 4 hours as needed for Pain, Severe. Authorizing Provider: WOLFGANG MESSER * [facility] 9[facility]48 AM ESTPending Prescriptions: Disp Refills traMADol HCl 50 MG Oral Tablet 56 Tab*0 Sig: Take 1 Tablet by mouth every 4 hours as needed for Pain, Severe. * Telephone Encounter - Shivam Delgado [facility] - 09/04/2024 9:47 AM EST I have reviewed the patients controlled substance dispensing history in the Prescription Drug Monitoring Program in compliance with the [facility] regulations before prescribing a controlled substance. PDMP checked on 09/04/2024. Pending Prescriptions: Disp Refills traMADol HCl 50 MG Oral Tablet 56 Tab*0 Sig: Take 1 Tablet by mouth every 4 hours as needed for Pain, Severe. Last Visit: 08/06/2024 (in office), Visit date not found (telemedicine) Next Visit: Visit date not found Date medication was last filled: 08/27/24 Date medication is due for refill: 09/04/24 Pharmacy: [facility] [address] Is this request for a controlled [...] upon request. Please approve if appropriate. Thank You, Shivam Tjeeda [facility] Clinical Pharmacist Centralized Clinical Pharmacy Services ([facility]) 09/04/2024, 9:47 AM documented in this encounter Plan of Treatment Upcoming Encounters Date Type Department Care Team (Latest Contact Info) Description 11/06/2024 8:25 AM EST Hospital Encounter [facility] [address] [place] [address] Ramiro Woodward DO [address] [place] [address] 11/06/2024 8:25 AM EST - 11/06/2024 8:50 AM EST Surgery [facility] [address] [place] [address] Ramiro Woodward DO [address] [place] [address] L-/S-SPINE PARAVERTEBRAL FACET INJ, 1 LEVEL 11/20/2024 8:50 AM EDT Hospital Encounter [facility] [address] [place] [address] Ramiro Woodward DO [address] [place] [address] 11/20/2024 8:50 AM EDT - 11/20/2024 9:15 AM EDT Surgery [facility] [address] [place] [address] Ramiro Woodward DO [address] [place] [address] L-/S-SPINE PARAVERTEBRAL FACET INJ, 1 LEVEL 12/04/2024 7:35 AM EDT Hospital Encounter [facility] Operating Room [facility] [address] [place] [address] Ramiro Woodward, DO [address] [place] [address] 12/04/2024 7:35 AM EDT - 12/04/2024 8:25 AM EDT Surgery [facility] Operating Room [facility] [address] [place] [address] Ramiro Woodward, DO [address] [place] [address] DESTROY LUMBAR SACRAL NERVE IMAGING SINGLE Scheduled Procedures Name Priority Associated Diagnoses Date/Ti me L-/S-SPINE PARAVERTEBRAL FACET INJ, 1 LEVEL Spondylosis of lumbar region without myelopathy or radiculopathy 11/06/2024 8:25 AM EST L-/S-SPINE PARAVERTEBRAL FACET INJ, 2 LEVELS Spondylosis of lumbar region without myelopathy or radiculopathy 11/06/2024 8:25 AM EST L-/S-SPINE PARAVERTEBRAL FACET INJ, 1 LEVEL Spondylosis of lumbar region without myelopathy or radiculopathy 11/20/2024 8:50 AM EDT L-/S-SPINE PARAVERTEBRAL FACET INJ, 2 LEVELS Spondylosis of lumbar region without myelopathy or radiculopathy 11/20/2024 8:50 AM EDT DESTROY LUMBAR SACRAL NERVE IMAGING 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 12/04/2024 7:35 AM EDT DESTROY LUMBAR SACRAL NERVE IMAGING ADD'L Spondylosis of lumbar region without myelopathy or radiculopathy 12/04/2024 7:35 AM EDT COLONOSCOPY FLEXIBLE PROXIMAL DIAGNOSTIC Recall History of colonic polyps Health Maintenance Due Date Last Done Comments Influenza Vaccine (FLU shot) (#1) 2024 Albumin/Creatinine Ratio 11/24/2024 11/24/2021 GFR 03/02/2025 03/02/2024, 12/31, 01/09/2023, Additional history exists Depression Screening 08/06/2025 08/06/2024 Diabetes Screening 03/02/2027 03/02/2024, 0 01/16/2024, 01/09/2023, [...] with bilateral sciatica Chronic neck pain Cervicalgia Spondylosis of lumbar region without myelopathy or radiculopathy Lumbosacral spondylosis without myelopathy Spondylosis of lumbar region without myelopathy or radiculopathy Lumbosacral spondylosis without myelopathy Spondylosis of lumbar region without myelopathy or radiculopathy Lumbosacral spondylosis without myelopathy documented in this encounter Care Teams Med Asst Relationship Specialty Start Date End Date Wolfgang Messer MD [address] [place] [address] PCP - General Internal Medicine 11/10/21 documented as of this encounter
--- OUTSIDE RECORDS SUMMARY | 2024-11-11 09:32 | External Medical Summary | Summary of Care ---
Author Name Unknown Organization [facility] Address [address] [place] [address] Phone [phone] Care Team Providers Care Smokehouse Worker Name Role Phone Wolfgang Sellers MD Primary Care Provider + Reason for Visit * Reason Comments NEW PATIENT Lyme disease * Evaluate & Treat - Unlimited Visits (Within 3 days (urgent)) - Authorized Specialty Diagnoses / Procedures Referred By Contjacky t Referred To Contact Infectious Diseases / Infectious Disease Diagnoses Lyme disease Wolfgang Sellers MD [address] [place] [address] Phone: tel: fax: Referral ID Status Reason Start Date Expiration Date Visits Requested Visits Authorized [id number] Authorized Specialty Services Required 08/04/[phone] Encounter Details Date Type Department Care Team (Late st Contact Info) Description 08/18/2024 9:40 AM EST Office Visit Infectious Disease, [address] [address] Joyce Conway MD [address] [place] [address] Lyme meningitis* Allergies No known active allergiesdocumented as of this encounter (statuses as of 09/10/2024) Medications sildenafil (REVATIO) 20 MG Tablet Take 2 Tabs by mouth daily as needed for Erectile Dysfunction . 90 Tab 3 07/02/20 19 Active Acetaminophen 500 MG Oral Tablet (Tylenol) Take 2 Tablets by mouth every 6 hours as needed (took2 tablets this am). Active amLODIPine Besylate 10 MG Oral Tablet (Norvasc)Indicat ions:Essential hypertension with goal blood pressure less than 130/80 TAKE 1 TABLET BY MOUTH EVERY MORNING 90 Tablet 3 05/20/20 24 Active tiZANidine HCl 4 MG Oral Tablet (Zanaflex)Indica tions:Neck pain Take 1 Tablet by mouth at bedtime. 30 Tablet 1 07/08/20 24 Active cefTRIAXone IVPB SOLN Infusion daily for 2 weeks at the [facility] 08/03/20 24 Active Gabapentin 800 MG Oral Tablet (Neurontin) Take 1 Tablet by mouth in the morning and 1 Tablet at noon and 1 Tablet before bedtime. 90 Tablet 1 07/27/20 24 024 Discontinued oxyCODONE HCl 5 MG Oral Tablet (Oxy IR) 08/03/20 24 024 Discontinued traMADol HCl 50 MG Oral TabletIndication s:Chronic bilateral low back pain with bilateral sciatica,Chronic neck pain Take 1 Tablet by mouth every 4 hours as needed for Pain, Severe. 56 Tablet 08/17/20 24 024 Discontinued(Re fill) documented as of this encounter (statuses as of 09/10/2024) Active Problems Problem Noted Date Diagnosed Date [...] as of this encounter (statuses as of 09/10/2024) Resolved Problems Problem Noted Date Diagnosed Date Resolved Date ADVANCE DIRECTIVE INFORMATION 05/24/2005 07/06/2024 Overview (05/24/2005): No, Advance Directive brochure offered , patient declined. documented as of this encounter (statuses as of 09/10/2024) Immunizations Name Administration Dates Next Due COVID-19, [...] Sign Reading Time Taken Comments Blood Pressure 128/72 08/18/2024 10:12 AM EST Pulse 88 08/18/2024 10:12 AM EST Temperature 36.7 C (98.1 F) 08/18/2024 10:[address] Respiratory Rate - - Oxygen Saturation 98% 08/18/2024 10:12 AM EST Inhaled Oxygen Concentration - - Weight 81.2 kg (179 lb) 08/18/2024 10:12 AM EST Height - - Body Mass Index 25.68 03/11/2024 10:04 AM EDT documented in this encounter Progress Notes * Joyce Conway MD - 08/18/2024 10:28 AM EST INFECTIOUS DISEASE, [facility]: Héctor Carrera is a 44 year old male. Chief Complaint Patient presents with NEW PATIENT Lyme disease HPI: Mr. Carrera is a 44 yo man with medical Hx of HTN and IBS who is presenting to our clinic today for the first time after a recent diagnosis of lyme disease. 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 He currently has no symptoms at all but he had questions about whether hewill have any other issues from lyme in the future. Patient Active Problem List Diagnosis History of [...] by mouth at bedtime. 30 Tablet 1 Gabapentin 800 MG Oral Tablet (Neurontin) Take 1 Tablet by mouth in the morning and 1 Tablet at noon and 1 Tablet before bedtime. 90 Tablet 1 traMADol HCl 50 MG Oral Tablet Take 1 Tablet by mouth every 4 hours as needed for Pain, Severe. 56 Tablet 0 cefTRIAXone IVPB SOLN Infusion daily for 2 weeks at the [facility] No current facility-administered medications for this visit. Past Medical History: Diagnosis Date INFORMATION Osteoid Osteoma Irritable bowel syndrome with constipation 07/28/2019 Osteoid osteoma right tibia Other male erectile dysfunction 07/28/2019 Seasonal allergies Past Surgical History: Procedure Laterality Date C-/T-SPINE PARAVERTEBRAL FACET INJ, 1 LEVEL 05/17/2022 C-/T-SPINE PARAVERTEBRAL FACET INJ, 1 LEVEL performed by Ramiro Woodward DO at OR [facility] C-/T-SPINE PARAVERTEBRAL FACET INJ, 1 LEVEL 06/14/2022 C-/T-SPINE PARAVERTEBRAL FACET INJ, 1 LEVEL performed by Ramiro Woodward DO at OR [facility] COLONOSCOPY COLONOSCOPY, DIAGNOSTIC (RECTUM) N/A 02/26/2024 diverticulosis/hemorrhoids/recall 5 years/COLONOSCOPY FLEXIBLE PROXIMAL DIAGNOSTIC performed by Sadiq Anglin MD at ENDOSCOPY [facility] DESTROY CERV/THORACIC NERVE IMAGING, SINGLE 07/19/2022 DESTROY CERV/THORACIC NERVE IMAGING, SINGLE performed by Ramiro Woodward DO at OR [facility] EGD, FLEXIBLE, DIAGNOSTIC 01/31/2024 biopsies normal/ESOPHAGOGASTRODUODENOSCOPY (EGD), FLEXIBLE, TRANSORAL, DIAGNOSTIC performed by Ev Perry MD at ENDOSCOPY [facility] INFORMATION 12/31,01/01 removal osteoid osteoma INJECT DX/THER SUBSTANCE INTERLAMINAR CERVICAL/THORACIC W IMAGE GUIDE 03/08/2022 INJECTION SPINE LUMBAR CERVICAL OR THORACIC performed by Ramiro Woodward DO at OR [facility] INJECT DX/THER SUBSTANCE INTERLAMINAR CERVICAL/THORACIC W IMAGE GUIDE 03/11/2023 INJECTION SPINE LUMBAR CERVICAL OR THORACIC performed by Ramiro Woodward DO at OR [facility] MISCELLANEOUS ORDER ([facility] ONLY) knee - left OTHER 2017 spinal fussion of c4 and c5 Review of patient's allergies indicates: No Known Allergies Family History Problem Relation Name Age of Onset Breast Cancer Mother No Known Problems Father No Known Problems Sister No Known Problems Brother No Known Problems Grandmother (Maternal) No Known Problems Grandfather (Maternal) No Known Problems Grandmother (Paternal) Other (pancreatic cancer) Grandfather (Paternal) Family Status Relation Status Mo Alive Fa Alive Sis Alive Bro Alive MGMA Alive MGFA Alive PGMA Alive PGFA Social History Socioeconomic History Marital status: Spouse [...] on file Housing Stability: Not on file Review of Systems: Neg except for what was mentioned in H&P. PHYSICAL EXAM: BP 128/72 | Pulse 88 | Temp 36.7 C (98.1 F) | Wt 81.2 kg (179 lb) | SpO2 98% | BMI 25.68 kg/m| BSA 2 m General: sitting in chair comfortably and in no acute respiratory or pain distress. Cardiac: Regular heart rate with no murmurs, gallops, or rubs. Both, S1 and S2 are heard. Respiratory: The chest wall is symmetric and without deformity. Good bilateral air entry with no wheezes or crackles. Genital/Rectal: No Bower in place. Extremities/Skin: Upper and lower extremities with no deformities or abnormalities. Skin is intact without rashes or lesions. Neurological: The patient is awake, alert and oriented with normal speech. Psychiatric: Appropriate mood and affect. Good judgement and insight. ASSESSMENT: 1) Recent hx of lyme meningitis PLAN: - I assured the patient that he was appropriately treated for his recent lyme disease and meningitis, and shouldn't have any further issues or complications from the recent illness. But I also informed him that he might still get reinfected with lyme in the future because previous infections don't result in life long immunity. Follow up as needed. Joyce Conway MD Infectious Disease, [address] [place] [address] documented in this encounter Plan of Treatment Upcoming Encounters Date Type Department Care Team (Late st Contact Info) Description 09/14/2024 3:00 PM EST Office Visit Pharmacy, [place] [address] [address] [facility] [address] [address] 11/06/2024 8:25 AM EST Hospital Encounter [facility], Operating Room [facility] [address] [place] [address] [place] [address] Ramiro Woodward, DO [address] [place] [address] 11/06/2024 8:25 AM EST - 11/06/2024 8:50 AM EST Surgery [facility], Operating [facility] [address] [place] [address] Ramiro Woodward, DO [address] [place] [address] L-/S-SPINE PARAVERTEBRAL FACET INJ, 1 LEVEL 11/20/2024 8:50 AM EDT Hospital Encounter [facility], Operating Room [facility] [address] [place] [address] Ramiro Woodward, DO [address] [place] [address] 11/20/2024 8:50 AM EDT - 11/20/2024 9:15 AM EDT Surgery [facility], Operating Room [facility] [address] [place] [address] Ramiro Woodward, DO [address] [place] [address] L-/S-SPINE PARAVERTEBRAL FACET INJ, 1 LEVEL 12/04/2024 7:35 AM EDT Hospital Encounter [facility] Operating Room [facility] [address] [place] [address] Ramiro Woodward, DO [address] [place] [address] 12/04/2024 7:35 AM EDT - 12/04/2024 8:25 AM EDT Surgery [facility], Operating Room [facility] [address] [place] [address] Ramiro Woodward, DO [address] [place] [address] DESTROY LUMBAR SACRAL NERVE IMAGING SINGLE Scheduled [...] PROXIMAL DIAGNOSTIC Recall History of colonic polyps Scheduled Referrals Name Type Priority Associated Diagnoses Orde r Schedule INFECTIOUS DISEASE REFERRAL OP Referral Within 3 days (urgent) Lyme disease Ordered: 08/04/2024 Health Maintenance Due Date Last Done Comments [...] as of this encounter Visit Diagnoses Diagnosis Lyme meningitis- Primary Lyme disease Spondylosis of lumbar region without myelopathy or radiculopathy Lumbosacral spondylosis without myelopathy Spondylosis of lumbar region without myelopathy or radiculopathy Lumbosacral spondylosis without myelopathy Spondylosis of lumbar region without myelopathy or radiculopathy Lumbosacral spondylosis without myelopathy documented in this encounter Care Teams Smokehouse Worker Relationship Specialty Start Date End Date Wolfgang Sellers MD [address] [place] [address] PCP - General Internal Medicine 11/10/21 documented as of this encounter"
--- OUTSIDE RECORDS SUMMARY | 2024-11-11 09:32 | External Medical Summary | Summary of Care ---
Author Name Unknown Organization [facility] Address [address] [place] [address] Phone [phone] Care Team Providers Care Senior Regulatory Affairs Specialist Name Role Phone Wolfgang Messer MD Primary Care Provider + Reason for Visit * Reason Onset Date Comments Medication Refill 10/04/2024 Encounter Details Date Type Department Care Team (Late st Contact Info) Description 10/04/2024 Refill General Internal Medicine [facility] [address] [place] [address] Wolfgang Messer MD [address] [place] [address] Chronic bilateral low back pain with bilateral sciatica; Chronic neck pain Allergies No known active allergiesdocumented as of this encounter (statuses as of 10/06/2024) Medications sildenafil (REVATIO) 20 MG Tablet Take [...] EVERY MORNING 90 Tablet 3 4 Active cefTRIAXone IVPB SOLN Infusion daily for 2 weeks at the [facility] 4 Active tiZANidine HCl 4 MG Oral Tablet (Zanaflex)Indica tions:Neck pain Take 1 Tablet by mouth at bedtime. 30 Tablet 1 5 Active Pregabalin 150 MG Oral Capsule (Lyrica)Indicati ons:Chronic midline thoracic back pain,Chronic neck pain Take 1 Capsule by mouth in the morning and 1 Capsule at noon and 1 Capsule before bedtime. Rotate from Gabapentin per [facility] instructions. 90 Capsule 1 5 Active Gabapentin 800 MG Oral Tablet (Neurontin) Take 1 Tablet by mouth in the morning and 1 Tablet at noon and 1 Tablet before bedtime. 270 Tablet 1 5 Active traMADol HCl 50 [...] as of this encounter (statuses as of 10/06/2024) Active Problems Problem Noted Date Diagnosed Date [...] as of this encounter (statuses as of 10/06/2024) Resolved Problems Problem Noted Date Diagnosed Date Resolved Date ADVANCE DIRECTIVE INFORMATION 05/24/2005 07/06/2024 Overview (05/24/2005): No, Advance Directive brochure offered , patient declined. documented as of this encounter (statuses as of 10/06/2024) Immunizations Name Administration Dates Next Due COVID-19, [...] Telephone Encounter - Wolfgang Messer MD - 10/06/2024 9:02 AM ESTSigned Prescriptions: Disp Refills traMADol HCl 50 MG Oral Tablet 56 Tab*0 Sig: Take 1 Tablet by mouth every 4 hours as needed for Pain, Severe. Authorizing Provider: WOLFGANG MESSER * Telephone Encounter - Rhoda Harvey [facility] - 10/05/2024 4:56 PM EST Pending Prescriptions: Disp Refills traMADol HCl 50 MG Oral Tablet 56 Tab*0 Sig: Take 1 Tablet by mouth every 4 hours as needed for Pain, Severe. * Telephone Encounter - Rhoda Harvey [facility] - 10/05/2024 4:56 PM EST I have reviewed the patients controlled substance dispensing history in the Prescription Drug Monitoring Program in compliance with the [facility] regulations before prescribing a controlled substance. PDMP checked on 10/05/2024. Pending Prescriptions: Disp Refills traMADol HCl 50 MG Oral Tablet 56 Tab*0 Sig: Take 1 Tablet by mouth every 4 hours as needed for Pain, Severe. Last Visit: 08/06/2024 (in office), Visit date not found (telemedicine) Next Visit: Visit date not found Date medication was last filled: 09/28 Date medication is due for refill: 10/06 Pharmacy: [facility] [address] Is this request for a controlled [...] request. Please approve if appropriate. Thank you, Rhoda Harvey, PharmD Clinical Pharmacist Centralized Clinical Pharmacy Services ([facility]) 10/05/24 4:56 PM [phone] documented in this encounter Plan of Treatment Upcoming Encounters Date Type Department Care Team (Late st Contact Info) Description 10/08/2024 9:40 AM EST Office Visit Infectious Disease, [address] [address] Yoni Gonzalez II, DO [address] [place] [address] 10/12/2024 8:30 AM EST Office Visit Pharmacy, [address] [address] [facility] [address] [place] [address] Scheduled Procedures Name Priority Associated Diagnoses Date/Ti [...] Cervicalgia documented in this encounter Care Teams Senior Regulatory Affairs Specialist Relationship Specialty Start Date End Date Wolfgang Messer MD [address] [place] [address] PCP - General Internal Medicine 11/10/21 documented as of this encounter
--- OUTSIDE RECORDS SUMMARY | 2024-11-11 09:32 | External Medical Summary ---
Author Name Unknown Address Unknown Organization [id number]:[facility] [place] [address] [place] [address] Laboratory Report Ordering Provider Test Date Status GUI HAZEL 10/13/2024 13:51:44 Final Rheumatoid factor at a level above 50 IU/mL may lead to an overestimation of the D-dimer level. A normal D-dimer result (<0.50 ug/mL FEU) has a negative predictive value of approximately 95% for the exclusion of acute pulmonary embolism (PE) or deep vein thrombosis when there is low or moderate pretest PE probability. Increased D-dimer values are abnormal but do not indicate a specific disease state and the D-dimer increase does not definitively correlate with clinical severity of disease. Observation Date Value Abnormality Reference (Units ) Status Fibrin D-dimer FEU [Mass/volume] in Platelet poor plasma by Immunoassay 10/13/2024 13:51:44 <0.27 <0.50 (ug/mL FEU) Final Performing Location [facility] [place] [facility] [place] [address]
--- OUTSIDE RECORDS SUMMARY | 2024-11-11 09:32 | External Medical Summary ---
Author Name Unknown Address Unknown Organization [id number]:[facility] [address] [facility] [address] Laboratory Report Ordering Provider Test Date Status GUI HAZEL 10/13/2024 13:51:44 Final Observation Date Value Abnormality Reference (Units ) Status Nuclear IgG Ab [Ratio] in Serum by Immunoassay 10/13/2024 13:51:44 Negative Negative Final DNA double strand Ab [Presence] in Serum 10/13/2024 13:51:44 Negative Negative Final DOUBLE STRANDED DNA VALUE - [facility] 10/13/2024 13:51:44 0.9 <20 (IU/mL) Final Extractable nuclear Ab [Presence] in Serum 10/13/2024 13:51:44 Negative Negative Final Nuclear IgG Ab [Ratio] in Serum by Immunoassay 10/13/2024 13:51:44 0.2 <0.7 (Ratio) Final Screening is based on detect ion of the following antibodies: dsDNA, U1-BIZTALK SOFTWARE DEVELOPER (RNP70, A, C), SS-A/Ro, SS-B / La, [place]-1, Scl-70, Centromere B proteins and Sm proteins. In conjunction with clinical findings, this can aid in the diagnosis of systemic lupus erythematosous (SLE), mixed connective tissue disease (MCTD), Sjogren's syndrome, scleroderma and polymyositis/dermatomyositis.
However, a negative result does not rule out systemic rheumatic or other autoimmune disease. If clinically suspected, further evaluation and testing may be necessary. Please consult with Rheumatology Department.
Methodology: Fluorescent Enzyme Immunoassay. Performing Location LABORATORY [address] [facility] [address]
--- OUTSIDE RECORDS SUMMARY | 2024-11-11 09:32 | External Medical Summary | Summary of Care ---
Author Name Unknown Organization [facility] Address [address] [place] [address] Phone [phone] Care Team Providers Care Spool Sander Name Role Phone Wolfgang Sellers MD Primary Care Provider + Reason for Visit * Reason Onset Date Comments Appointment 10/08/2024 EKG Encounter Details Date Type Department Care Team (Late st Contact Info) Description 10/08/2024 Telephone Cardiac Studies, [address] [phone] Services, Scheduling [address] [place] [address] Appointment (EKG) Allergies No known active allergiesdocumented as of this encounter (statuses as of 10/08/2024) Medications sildenafil (REVATIO) 20 MG Tablet Take [...] for 2 weeks at the [facility] at [facility] 4 Active tiZANidine HCl 4 MG Oral Tablet (Zanaflex)Indicat ions:Neck pain Take 1 Tablet by mouth at bedtime. 30 Tablet 1 5 Active Pregabalin 150 MG Oral Capsule (Lyrica)Indicatio ns:Chronic midline thoracic back pain,Chronic neck pain Take 1 Capsule by mouth in the morning and 1 Capsule at noon and 1 Capsule before bedtime. Rotate from Gabapentin per [facility] instructions. 90 Capsule 1 5 Active Gabapentin [...] as of this encounter (statuses as of 10/08/2024) Active Problems Problem Noted Date Diagnosed Date [...] as of this encounter (statuses as of 10/08/2024) Resolved Problems Problem Noted Date Diagnosed Date Resolved Date ADVANCE DIRECTIVE INFORMATION 05/24/2005 07/06/2024 Overview (05/24/2005): No, Advance Directive brochure offered , patient declined. documented as of this encounter (statuses as of 10/08/2024) Immunizations Name Administration Dates Next Due COVID-19, [...] encounter Miscellaneous Notes * Telephone Encounter - Padma Bolanos OSA - 10/08/2024 10:27 AM EST LMOM for pt to return call to get scheduled for EKG that Dr. Gonzalez ordered documented in this encounter Plan of Treatment Upcoming Encounters Date Type Department Care Team (Late st Contact Info) Description 10/12/2024 8:30 AM EST Office Visit Pharmacy, [place] [address] [address] [facility] [address] [address] 10/12/2024 1:15 PM EST Cardiac Studies Cardiac Studies, [address] [place] [address] Scheduled Procedures Name Priority Associated Diagnoses Date/Ti [...] filedocumented as of this encounter Care Teams Spool Sander Relationship Specialty Start Date End Date Wolfgang Sellers MD [address] [place] [address] PCP - General Internal Medicine 11/10/21 documented as of this encounter
--- OUTSIDE RECORDS SUMMARY | 2024-11-11 09:32 | External Medical Summary | Summary of Care ---
Author Name Unknown Organization [facility] Address [address] [place] [address] Phone [phone] Care Team Providers Care Revenue Research Analyst Name Role Phone Wolfgang Sellers MD Primary Care Provider + Reason for Visit * Reason Comments Dosage Adjustment In Person (Anticoag Cl inic) Pain Encounter Details Date Type Department Care Team (Late st Contact Info) Description 09/14/2024 3:00 PM EST Office Visit Pharmacy, [place] [address] [place] [address] [facility] [address] [place] [address] Chronic neck pain*; Chronic midline thoracic back pain Allergies No known active allergiesdocumented as of this encounter (statuses as of 09/14/2024) Medications sildenafil (REVATIO) 20 MG Tablet Take [...] for 2 weeks at the [facility] at [facility] 4 Active Gabapentin 800 MG Oral Tablet (Neurontin) Take 1 Tablet by mouth in the morning and 1 Tablet at noon and 1 Tablet before bedtime. 270 Tablet 1 4 Active tiZANidine HCl 4 MG Oral [...] as of this encounter (statuses as of 09/14/2024) Active Problems Problem Noted Date Diagnosed Date [...] as of this encounter (statuses as of 09/14/2024) Resolved Problems Problem Noted Date Diagnosed Date Resolved Date ADVANCE DIRECTIVE INFORMATION 05/24/2005 07/06/2024 Overview (05/24/2005): No, Advance Directive brochure offered , patient declined. documented as of this encounter (statuses as of 09/14/2024) Immunizations Name Administration Dates Next Due COVID-19, [...] this encounter Progress Notes * Christina Concepcion, [facility] - 09/14/2024 2:52 PM EST Images from the original note were not included. Medication Therapy Disease Management - Chronic Pain History of Presenting Illness This visit occurred in person. Héctor Carrera, identified by name and date of , is a 44 year old male presents to the [facility] for return visit. 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 Unclear if related to continue SCHOOL PROGRAM DIRECTOR Lyme (monitoring) or if due to spinal nerve irritation post infection Last visit notes: Noted to have Lyme disease diagnosis this [place] Medication Use Agreement: Yes PDMP Reviewed (09/14/2024): I have reviewed the patient's controlled substance dispensing history in the Prescription Drug Monitoring Program in compliance with the [facility] regulations. History of Presenting Illness & Review [...] narrowing, likely representing early adjacent segment disease Most recent answers to PEG-3 scale: PEG-3 [...] testing is available upon request. Creatinine Clearance: Creatinine clearance cannot be calculated (Patient's most recent lab result is older than the maximum 180 days allowed.) Creatinine Results: Recent Labs Units 03/02/24 1525 [...] 50 U/L Assessment & Plan Patient aware [facility] is a clinical pharmacist visit, with focus on medication options for current diagnoses referred by Primary Care Provider for review and optimization. The focus of this visit is: Medication optimization. Current regimen reviewed, patient is: Adherent to regimen. Treatment Options Patient presents to [facility] today for a recheck, noted to be a transfer from [facility] which is no longer seeing pain patients. Noted to have chronic cervical issues and chronic pain from lumbar radiculopathy Since last visit had hospital stay and IV treatment for SCHOOL PROGRAM DIRECTOR Lyme disease He has progressed to walking without a cane since antibiotic treatment Noted to have some time with little pain post initial treatment, but pain levels have increased. Unclear if related to continue SCHOOL PROGRAM DIRECTOR Lyme (monitoring with PCP/ ID) or if due to spinal nerve irritationpost infection Unclear what part Lyme Disease may be playing today, but noting radicular spike in pain Treatment Concerns Patient tolerating Gabapentin at 800 mg three times daily, but pain persists.recommend rotate to Lyrica Education Provided - Patient educated on mechanism, time to efficacy and potential adverse effects of medication regimen Recommendations Recommend rotation to Lyrica with slight increase in coverage with Lyrica due to high levels of pain reported today. Noted to use Tramadol at rate of 6 per day and is only taking the edge off Rotation from Gabapentin to Lyrica due to uncontrolled neuropathic pain Week 1: Gabapentin 800 mg/ Gabapentin 800 mg / Lyrica 150 mg Week 2: Lyrica 150 mg/ Gabapentin 800 mg / Lyrica 150 mg Week 3 and until seen again: Lyrica 150 mg TID Patient educated to use and adverse effects. Reviewed to report fatigue, confusion, edema or increased pain or other side effect Rotation written out Rx sent Tramadol 50mg Q4H Tizanidine 4mg Q8H: uses at bedtime due to fatigue Héctor verbalized understanding of the plan. Contact clinic with any issues. 10/12/2024 I spent a total of 20-29 minutes (exact time 29 mins) on the date of service in preparation, delivery, and documentation of the care provided to Héctor Arrington Deandre excluding any time spent in the performance of separately billed services or time spent by another provider/QHP. Christina Concepcion [facility] Clinical Pharmacist - [facility] 09/14/2024 - 2:53 PM documented in this encounter Plan of Treatment Upcoming Encounters Date Type Department Care Team (Late st Contact Info) Description 10/12/2024 8:30 AM EST Office Visit Pharmacy, [address] [place] [address] [facility] [address] [facility] [place] [address] Scheduled Procedures Name Priority Associated Diagnoses Date/Ti [...] Primary Cervicalgia Chronic midline thoracic back pain documented in this encounter Care Teams Revenue Research Analyst Relationship Specialty Start Date End Date Wolfgang Sellers MD [address] [facility] [place] [address] PCP - General Internal Medicine 11/10/21 documented as of this encounter
--- OUTSIDE RECORDS SUMMARY | 2024-11-11 09:32 | External Medical Summary | Summary of Care ---
Author Name Unknown Organization [facility] Address [address] [facility] [place] [address] Phone [phone] Care Team Providers Care Phys Assistant Name Role Phone Wolfgang Sellers MD Primary Care Provider + Encounter Details Date Type Department Care Team (Late st Contact Info) Description 09/01/2024 Orders Only PATIENT PORTAL DO NOT DELETE THIS DEPT USED BY MARY SHIR[place] [id number] Allergies No known active allergiesdocumented as of this encounter (statuses as of 09/01/2024) Medications sildenafil (REVATIO) 20 MG Tablet Take [...] 2 weeks at the [facility] at [facility] 4 Active Gabapentin 800 MG Oral Tablet (Neurontin) Take 1 Tablet by mouth in the morning and 1 Tablet at noon and 1 Tablet before bedtime. 270 Tablet 1 4 Active traMADol HCl 50 MG Oral TabletIndications :Chronic bilateral low back pain with bilateral sciatica,Chronic neck pain Take 1 Tablet by mouth every 4 hours as needed for Pain, Severe. 56 Tablet 4 Active documented as of this encounter (statuses as of 09/01/2024) Active Problems Problem Noted Date Diagnosed Date [...] as of this encounter (statuses as of 09/01/2024) Resolved Problems Problem Noted Date Diagnosed Date Resolved Date ADVANCE DIRECTIVE INFORMATION 05/24/2005 07/06/2024 Overview (05/24/2005): No, Advance Directive brochure offered , patient declined. documented as of this encounter (statuses as of 09/01/2024) Immunizations Name Administration Dates Next Due COVID-19, [...] Room [facility] [address] [place] [id number] Ramiro Woodward, DO [address] [place] [address] 11/06/2024 8:25 AM EST - 11/06/2024 8:50 AM EST Surgery OR [facility], Operating Room [facility] [address] [place] [address] Ramiro Woodward DO [address] [place] [address] L-/S-SPINE PARAVERTEBRAL FACET INJ, 1 LEVEL 11/20/2024 8:50 AM EDT Hospital Encounter OR [facility], Operating Room [facility] [address] [place] [address] Ramiro Woodward DO [address] [place] [address] 11/20/2024 8:50 AM EDT - 11/20/2024 9:15 AM EDT Surgery OR [facility], Operating Room [facility] [address] [place] [phone] Ramiro Woodward, DO [address] [place] [address] L-/S-SPINE PARAVERTEBRAL FACET INJ, 1 LEVEL 12/04/2024 7:35 AM EDT Hospital Encounter OR [facility], Operating Room [facility] [address] [place] [address] Ramiro Woodward, DO [address] [place] [address] 12/04/2024 7:35 AM EDT - 12/04/2024 8:25 AM EDT Surgery OR [facility], Operating Room [facility] [address] [place] [address] Ramiro Woodward, DO [address] [place] [address] DESTROY LUMBAR SACRAL NERVE IMAGING SINGLE Scheduled [...] filedocumented as of this encounter Care Teams Phys Assistant Relationship Specialty Start Date End Date Wolfgang Sellers MD [address] [place] [address] PCP - General Internal Medicine 11/10/21 documented as of this encounter
--- OUTSIDE RECORDS SUMMARY | 2024-11-11 09:32 | External Medical Summary | Summary of Care ---
Author Name Unknown Organization [facility] Address [address] [place] [address] Phone [phone] Care Team Providers Care Green Chainer Name Role Phone Wolfgang Messer MD Primary Care Provider + Reason for Visit * Reason Onset Date Comments Medication Refill 09/10/2024 Encounter Details Date Type Department Care Team (Late st Contact Info) Description 09/10/2024 Refill General Internal Medicine [facility] [address] [facility] [place] [address] Wolfgang Messer MD [address] [place] [address] Neck pain; Chronic bilateral low back pain with bilateral sciatica; Chronic neck pain Allergies No known active allergiesdocumented as of this encounter (statuses as of 09/11/2024) Medications sildenafil (REVATIO) 20 MG Tablet Take [...] for 2 weeks at the [facility] at [facility] 4 Active Gabapentin 800 MG Oral Tablet [...] mouth at bedtime. 30 Tablet 1 4 09/10/19 25 Discontinu ed(Refill) traMADol HCl 50 MG Oral TabletIndication s:Chronic bilateral low back pain with bilateral sciatica,Chronic neck pain Take 1 Tablet by mouth every 4 hours as needed for Pain, Severe. 56 Tablet 5 09/10/19 25 Discontinu ed(Refill) documented as of this encounter (statuses as of 09/11/2024) Active Problems Problem Noted Date Diagnosed Date [...] as of this encounter (statuses as of 09/11/2024) Resolved Problems Problem Noted Date Diagnosed Date Resolved Date ADVANCE DIRECTIVE INFORMATION 05/24/2005 07/06/2024 Overview (05/24/2005): No, Advance Directive brochure offered , patient declined. documented as of this encounter (statuses as of 09/11/2024) Immunizations Name Administration Dates Next Due COVID-19, [...] Telephone Encounter - Wolfgang Messer MD - 09/11/2024 8:39 AM ESTSigned Prescriptions: Disp Refills tiZANidine HCl 4 MG Oral Tablet (Zanaflex) 30 Tab*1 Sig: Take 1 Tablet by mouth at bedtime. Authorizing Provider: WOLFGANG MESSER traMADol HCl 50 MG Oral Tablet 56 Tab*0 Sig: Take 1 Tablet by mouth every 4 hours as needed for Pain, Severe. Authorizing Provider: WOLFGANG MESSER * Telephone Encounter - Jannette Varghese [facility] - 09/10/2024 4:08 PM ESTPending Prescriptions: Disp Refills tiZANidine HCl 4 MG Oral Tablet (Zanaflex) 30 Tab*1 Sig: Take 1 Tablet by mouth at bedtime. traMADol HCl 50 MG Oral Tablet 56 Tab*0 Sig: Take 1 Tablet by mouth every 4 hours as needed for Pain, Severe. * Telephone Encounter - Jannette Varghese [facility] - 09/10/2024 4:07 PM EST I have reviewed the patients controlled substance dispensing history in the Prescription Drug Monitoring Program in compliance with the [facility] regulations before prescribing a controlled substance. PDMP checked on 09/10/2024. Pending Prescriptions: Disp Refills tiZANidine HCl 4 MG Oral Tablet (Zanaflex)30 Tab*1 Sig: Take 1 Tablet by mouth at bedtime. traMADol HCl 50 MG Oral Tablet 56 Tab*0 Sig: Take 1 Tablet by mouth every 4 hours as needed for Pain, Severe. Last Visit: 08/06/2024 (in office), Visit date not found (telemedicine) Next Visit: Visit date not found Date medication was last filled: 09/04/24 Date medication is due for refill: 09/12/24 Pharmacy: [id number] Is this request for a controlled [...] available upon request. Please approve if appropriate. Jannette Reyes PharmD Clinical Pharmacist [facility] [phone] 09/10/2024, 4:07 PM documented in this encounter Plan of Treatment Upcoming Encounters Date Type Department Care Team (Late st Contact Info) Description 09/14/2024 3:00 PM EST Office Visit Pharmacy, [place] [address] [facility] [place] [address] [place] [address] [facility] [place] [address] 11/06/2024 8:25 AM EST Hospital Encounter OR [facility], Operating Room [facility] [address] [place] [phone] Ramiro Woodward, [address] [place] [address] 11/06/2024 8:25 AM EST - 11/06/2024 8:50 AM EST Surgery OR [facility], Operating Room [facility] [address] [phone] Ramiro Woodward, [address] [place] [address] L-/S-SPINE PARAVERTEBRAL FACET INJ, 1 LEVEL 11/20/2024 8:50 AM EDT Hospital Encounter OR [facility], Operating Room [facility] [address] [place] [address] Ramiro Woodward, DO [address] [place], [place] [address] 11/20/2024 8:50 AM EDT - 11/20/2024 9:15 AM EDT Surgery OR [facility], Operating Room [facility] [address] [place] [address] Ramiro Woodward, DO [address] [place] [address] L-/S-SPINE PARAVERTEBRAL FACET INJ, 1 LEVEL 12/04/2024 7:35 AM EDT Hospital Encounter OR [facility], Operating Room [facility] [address] [place] [address] Ramiro Woodward, DO [address] [place] [address] 12/04/2024 7:35 AM EDT - 12/04/2024 8:25 AM EDT Surgery OR [facility], Operating Room [facility] [address] [place] [address] Ramiro Woodward, DO [address] [place] [address] DESTROY LUMBAR SACRAL NERVE IMAGING SINGLE Scheduled [...] myelopathy documented in this encounter Care Teams Green Chainer Relationship Specialty Start Date End Date Wolfgang Messer MD [address] [place] [address] PCP - General Internal Medicine 11/10/21 documented as of this encounter
--- OUTSIDE RECORDS SUMMARY | 2024-11-11 09:32 | External Medical Summary ---
Author Name Unknown Address Unknown Organization K01:[facility] [place] [address] [place] [address] Laboratory Report Ordering Provider Test Date Status GUI HAZEL 10/13/2024 13:51:44 Final Observation Date Value Abnormality Reference (Units ) Status Erythrocyte sedimentation rate by Photometric method 10/13/2024 13:51:44 2 <15 (mm/hour) Final Performing Location [facility] [place] [address] [place] [address]
--- OUTSIDE RECORDS SUMMARY | 2024-11-11 09:32 | External Medical Summary | Summary of Care ---
Author Name Unknown Organization [facility] Address [address] [facility] [place] [address] Phone [phone] Care Team Providers Care Hood Maker Name Role Phone Wolfgang Sellers MD Primary Care Provider + Reason for Visit * Reason Comments Dosage Adjustment In Person (Anticoag Cl inic) Pain Encounter Details Date Type Department Care Team (Late st Contact Info) Description 10/12/2024 8:30 AM EST Office Visit Pharmacy, [place] [address] [place] [address] [facility] [address] [place] [address] Chronic neck pain*; Chronic midline thoracic back pain Allergies No known active allergiesdocumented as of this encounter (statuses as of 10/12/2024) Medications sildenafil (REVATIO) 20 MG Tablet Take [...] for 2 weeks at the [facility] at [facility] 4 Active tiZANidine HCl 4 MG Oral Tablet (Zanaflex)Indicat ions:Neck pain Take 1 Tablet by mouth at bedtime. 30 Tablet 1 5 Active Pregabalin 150 MG Oral Capsule (Lyrica)Indicatio ns:Chronic midline thoracic back pain,Chronic neck pain Take 1 Capsule by mouth in the morning and 1 Capsule at noon and 1 Capsule before bedtime. Rotate from Gabapentin per [facility] instructions. 90 Capsule 1 5 Active [...] as of this encounter (statuses as of 10/12/2024) Active Problems Problem Noted Date Diagnosed Date [...] as of this encounter (statuses as of 10/12/2024) Resolved Problems Problem Noted Date Diagnosed Date Resolved Date ADVANCE DIRECTIVE INFORMATION 05/24/2005 07/06/2024 Overview (05/24/2005): No, Advance Directive brochure offered , patient declined. documented as of this encounter (statuses as of 10/12/2024) Immunizations Name Administration Dates Next Due COVID-19, [...] this encounter Progress Notes * Christina Concepcion, [facility] - 10/12/2024 8:18 AM EST Images from the original note were not included. Medication Therapy Disease Management - Chronic Pain History of Presenting Illness This visit occurred in person. Héctor Carrera, identified by name and date of , is a 44 year old male presents [facility] for return [facility]. Chief Complaint Patient presents with Dosage Adjustment In Person (Antico Clinic) Pain History Past Medications SA Opioids: Tramadol NSAIDs: Ibuprofen Anti-Depressants: Cymbalta, Effexor Anti-Convulsants: Gabapentin, Topamax Current Pain Medications Tramadol 50mg Q4H Tizanidine 4mg Q8H Lyrica 150 mg three times daily Interval History Patient tolerating rotation to Lyrica, but symptoms continue to progress. Noted to have restarted use of cane to assist ambulation Noted to have new review with ID due to restart and progression of symptoms that he presented with Lyme disease, which were previously decreased with IV antibiotics Patient reported newer onset SOB/chest pain. PCP team is following with EKG today and follow up PCPappointment tomorrow. 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 History of Presenting Illness & [...] 50 U/L Assessment & Plan Patient aware [facility] is a clinical pharmacist visit, with focus on medication options for current diagnoses referred by Primary Care Provider for review and optimization. The focus of this visit is: Medication optimization. Current regimen reviewed, patient is: Adherent to regimen. Treatment Options Patient presents to [facility] today for a recheck, noted to be a transfer from [facility] which is no longer seeing pain patients. Noted to have chronic cervical issues and chronic pain from lumbar radiculopathy Patient had symptom relief in the past with IV treatment for CABLE TELEVISION TECHNICIAN Lyme disease. He had progressed towalking without a cane since antibiotic treatment, but now pain levels have increased with numbnessradiating to hand and leg. This is similar to prior to antibiotic treatment, although has progressed to right leg at this time Noted to have some time with little pain post initial treatment, but pain levels have increased. Unclear if related to continue CABLE TELEVISION TECHNICIAN Lyme (monitoring with PCP/ ID) or if due to spinal nerve irritationpost infection Unclear what part Lyme Disease may be playing today, but noting radicular spike in pain Patient tolerating rotation to Lyrica, but symptoms continue to progress Noted to have new review with ID due to restart and progression of symptoms that he presented with Lyme disease, which were previously decreased with IV antibiotics Patient reported newer onset SOB/chest pain. PCP team is following with EKG today and follow up PCPappointment tomorrow. Patient aware if worsens would seek ED treatment Treatment Concerns Patient is having newer onset of SOB/ chest pain, following with PCP team for diagnostics today No edema noted. Incidence of Chest pain (2%) reported with Lyrica, Respiratory apnea is < 1% Education Provided Patient educated on mechanism, time to efficacy and potential adverse effects of medication regimen Recommendations Discussed medication options. NO changes made today due to new onset chest pain/ SOB and diagnostics scheduled for today ( EKG). Discussed if negative, could consider the following for future: 1. Maximize Lyrica dose, if pain thought to be nerve pain post CABLE TELEVISION TECHNICIAN Lyme 2. Add Namenda as NMDA antagonist for adjunct pain relief with Lyrica, if pain thought to be nerve pain post CABLE TELEVISION TECHNICIAN Lyme 3. Rotation of opioid, Tramadol is providing little effect and is using at least 6 per day = 50 mg x 6 = 300 mg Tramadol = 60 MME. Could consider rotation to Percocet, with wean in MME due to cross tolerance 4. Could consider layering low dose Topamax, if pain thought to be nerve pain post CABLE TELEVISION TECHNICIAN Lyme Will await review with PCP team tomorrow Lyrica 150 mg three times daily Tramadol 50mg Q4H Tizanidine 4mg Q8H: uses at bedtime due to fatigue Héctor verbalized understanding of the plan. Contact clinic with any issues. 10/13/2024 I spent a total of 30-39 minutes (exact time 35 mins) on the date of service in preparation, delivery, and documentation of the care provided to Héctor Nury Carrera excluding any time spent in the performance of separately billed services or time spent by another provider/QHP. Christina Concepcion [facility] Clinical Pharmacist - Auto Clutch Rebuilder [facility] 10/12/2024 - 8:18 AM Electronically signed by Christina Concepcion [facility] at 10/12/2024 2:47 PM EST documented in this encounter Plan of Treatment Upcoming Encounters Date Type Department Care Team (Late st Contact Info) Description 10/13/2024 1:40 PM EST Office Visit General Internal Medicine [facility] [place] [place] [address] [facility] [place] [address] Wolfgang Sellers MD [address] [facility] [place] [address] 10/13/2024 3:30 PM EST Telemedicine Pharmacy, [place] [address] [place] [address] [facility] [address] [place] [address] 11/09/2024 8:30 AM EDT Office Visit Pharmacy, [address] [place] [address] [facility] [address] [facility] [place] [address] Scheduled Procedures Name Priority Associated Diagnoses Date/Ti [...] pain documented in this encounter Care Teams Hood Maker Relationship Specialty Start Date End Date Wolfgang Sellers MD [address] [facility] [place] [address] PCP - General Internal Medicine 11/10/21 documented as of this encounter
--- OUTSIDE RECORDS SUMMARY | 2024-11-11 09:32 | External Medical Summary | Summary of Care ---
Author Name Unknown Organization [facility] Address [address] [place] [address] Phone [phone] Care Team Providers Care Echocardiograph Tech Name Role Phone Wolfgang Sellers MD Primary Care Provider + Reason for Visit * Reason Onset Date Comments medication change 09/14/2024 Encounter Details Date Type Department Care Team (Late st Contact Info) Description 09/14/2024 Telephone Pharmacy, [place] [address] [place], [place] [id number] [facility] [address] [place] [address] medication change Allergies No known active allergiesdocumented as of this encounter (statuses as of 09/15/2024) Medications sildenafil (REVATIO) 20 MG Tablet Take [...] 2 weeks at the [facility] 4 Active Gabapentin 800 MG Oral Tablet [...] for Pain, Severe. 56 Tablet 5 Active Pregabalin 150 MG Oral Capsule (Lyrica)Indicatio ns:Chronic midline thoracic back pain,Chronic neck pain Take 1 Capsule by mouth in the morning and 1 Capsule at noon and 1 Capsule before bedtime. Rotate from Gabapentin per [facility] instructions. 90 Capsule 1 5 Active documented as of this encounter (statuses as of 09/15/2024) Active Problems Problem Noted Date Diagnosed Date [...] as of this encounter (statuses as of 09/15/2024) Resolved Problems Problem Noted Date Diagnosed Date Resolved Date ADVANCE DIRECTIVE INFORMATION 05/24/2005 07/06/2024 Overview (05/24/2005): No, Advance Directive brochure offered , patient declined. 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 Unclear if related to continued GRINDER SET UP OPERATOR THREAD Lyme or if due to spinal nerve irritation post infection Unclear what part Lyme Disease may be playing today, but noting radicular spike in pain Recommend rotation to Lyrica with slight increase in coverage with Lyrica due to high levels of pain reported today. Noted to use Tramadol at rate of 6 per day and is only taking the edge off Week 1: Gabapentin 800 mg/ Gabapentin 800 mg / Lyrica 150 mg Week 2: Lyrica 150 mg/ Gabapentin 800 mg / Lyrica 150 mg Week 3 and until seen again: Lyrica 150 mg TID Rotation written out for patient Rx for Lyrica pended Thank you, Christina Concepcion [facility] Clinical Pharmacist [facility] documented in this encounter Plan of Treatment Upcoming Encounters Date Type Department Care Team (Late st Contact Info) Description 10/12/2024 8:30 AM EST Office Visit Pharmacy, [place] [address] [facility] [place] [address] [place] [facility] [place] [address] Scheduled Procedures Name Priority Associated Diagnoses Date/Ti [...] back pain- Primary Chronic neck pain Cervicalgia documented in this encounter Care Teams Echocardiograph Tech Relationship Specialty Start Date End Date Wolfgang Sellers MD [address] [place] [address], [place] [address] PCP - General Internal Medicine 11/10/21 documented as of this encounter
--- OUTSIDE RECORDS SUMMARY | 2024-11-11 09:32 | External Medical Summary | Summary of Care ---
Author Name Unknown Organization [facility] Address [address] [place] [address] Phone [phone] Care Team Providers Care Manager Product Management Name Role Phone Wolfgang Messer MD Primary Care Provider + Reason for Visit * Reason Onset Date Comments Medication Refill 09/25/2024 Encounter Details Date Type Department Care Team (Late st Contact Info) Description 09/25/2024 Refill General Internal Medicine [facility] [address] [place] [address] Wolfgang Messer MD [address] [place] [address] Chronic bilateral low back pain with bilateral sciatica; Chronic neck pain Allergies No known active allergiesdocumented as of this encounter (statuses as of 09/25/2024) Medications sildenafil (REVATIO) 20 MG Tablet Take [...] for 2 weeks at the [facility] at [facility] 4 Active tiZANidine HCl 4 MG Oral Tablet (Zanaflex)Indica tions:Neck pain Take 1 Tablet by mouth at bedtime. 30 Tablet 1 5 Active Pregabalin 150 MG Oral Capsule (Lyrica)Indicati ons:Chronic midline thoracic back pain,Chronic neck pain Take 1 Capsule by mouth in the morning and 1 Capsule at noon and 1 Capsule before bedtime. Rotate from Gabapentin per [facility] instructions. 90 Capsule 1 5 Active [...] as of this encounter (statuses as of 09/25/2024) Active Problems Problem Noted Date Diagnosed Date [...] as of this encounter (statuses as of 09/25/2024) Resolved Problems Problem Noted Date Diagnosed Date Resolved Date ADVANCE DIRECTIVE INFORMATION 05/24/2005 07/06/2024 Overview (05/24/2005): No, Advance Directive brochure offered , patient declined. documented as of this encounter (statuses as of 09/25/2024) Immunizations Name Administration Dates Next Due COVID-19, [...] Telephone Encounter - Wolfgang Messer MD - 09/25/2024 5:23 PM ESTSigned Prescriptions: Disp Refills traMADol HCl 50 MG Oral Tablet 56 Tab*0 Sig: Take 1 Tablet by mouth every 4 hours as needed for Pain, Severe. Authorizing Provider: WOLFGANG MESSER * Telephone Encounter - Dominic Zapata [facility] - 09/25/2024 10:52 AM EST Pending Prescriptions: Disp Refills traMADol HCl 50 MG Oral Tablet 56 Tab*0 Sig: Take 1 Tablet by mouth every 4 hours as needed for Pain, Severe. * Telephone Encounter - Dominic Zapata [facility] - 09/25/2024 10:51 AM EST Please see pts note about possible increase in quantity I have reviewed the patients controlled substance dispensing history in the Prescription Drug Monitoring Program in compliance with the [facility] regulations before prescribing a controlled substance. PDMP checked on 09/25/2024. Pending Prescriptions: Disp Refills traMADol HCl 50 MG Oral Tablet 56 Tab*0 Sig: Take 1 Tablet by mouth every 4 hours as needed for Pain, Severe. Last Visit: 08/06/2024 (in office), Visit date not found (telemedicine) Next Visit: Visit date not found Date medication was last filled: 09/19/2024 Date medication is due for refill: 09/27/2024 Pharmacy: [facility] [address] Is this request for a controlled [...] available upon request. Please approve if appropriate. Thanks, Dominic Zapata Pharm.D. Clinical Pharmacist [facility] ([facility]) [phone] 09/25/2024, 10:51 AM documented in this encounter Plan of Treatment Upcoming Encounters Date Type Department Care Team (Late st Contact Info) Description 10/12/2024 8:30 AM EST Office Visit Pharmacy, [place] [address] [facility] [place] [address] [facility] [address] [facility] [place] [address] Scheduled Procedures Name Priority Associated Diagnoses Date/Ti [...] Cervicalgia documented in this encounter Care Teams Manager Product Management Relationship Specialty Start Date End Date Wolfgang Messer MD [address] [place] [address] PCP - General Internal Medicine 11/10/21 documented as of this encounter
--- OUTSIDE RECORDS SUMMARY | 2024-11-11 09:32 | External Medical Summary | Summary of Care ---
Author Name Unknown Organization [facility] Address [address] [place] [address] Phone [phone] Care Team Providers Care Manufacturing Operator Name Role Phone Wolfgang Sellers MD Primary Care Provider + Reason for Visit * Reason Onset Date Comments Medication Refill 08/25/2024 Encounter Details Date Type Department Care Team (Late st Contact Info) Description 08/25/2024 Refill General Internal Medicine [facility] [address] [place] [address] Wolfgang Sellers MD [address] [place] [address] Essential hypertension with goal blood pressure less than 130/80*; Chronic bilateral low back pain with bilateral sciatica; Chronic neck pain Allergies No known active allergiesdocumented as of this encounter (statuses as of 08/27/2024) Medications sildenafil (REVATIO) 20 MG Tablet Take [...] for [facility] [address] [facility] 4 Active Gabapentin 800 MG Oral [...] for Pain, Severe. 56 Tablet 4 Active traMADol HCl 50 MG Oral TabletIndication s:Chronic bilateral low back pain with bilateral sciatica,Chronic neck pain Take 1 Tablet by mouth every 4 hours as needed for Pain, Severe. 56 Tablet 4 08/25/20 24 Discontinu ed(Refill) documented as of this encounter (statuses as of 08/27/2024) Active Problems Problem Noted Date Diagnosed Date [...] as of this encounter (statuses as of 08/27/2024) Resolved Problems Problem Noted Date Diagnosed Date Resolved Date ADVANCE DIRECTIVE INFORMATION 05/24/2005 07/06/2024 Overview (05/24/2005): No, Advance Directive brochure offered , patient declined. documented as of this encounter (statuses as of 08/27/2024) Immunizations Name Administration Dates Next Due COVID-19, [...] encounter Miscellaneous Notes * Telephone Encounter - Amadou Dunn MD - 08/27/2024 2:08 PM ESTSigned Prescriptions: Disp Refills traMADol HCl 50 MG Oral Tablet 56 Tab*0 Sig: Take 1 Tablet by mouth every 4 hours as needed for Pain, Severe. Authorizing Provider: AMADOU DUNN * Telephone Encounter - Jannette Varghese [facility] - 08/27/2024 1:20 PM ESTPending Prescriptions: Disp Refills traMADol HCl 50 MG Oral Tablet 56 Tab*0 Sig: Take 1 Tablet by mouth every 4 hours as needed for Pain, Severe. * Telephone Encounter - Jannette Varghese RPh - 08/27/2024 1:19 PM EST I have reviewed the patients controlled substance dispensing history in the Prescription Drug Monitoring Program in compliance with the [facility] regulations before prescribing a controlled substance. PDMP checked on 08/27/2024. Pending Prescriptions: Disp Refills traMADol HCl 50 MG Oral Tablet 56 Tab*0 Sig: Take 1 Tablet by mouth every 4 hours as needed for Pain, Severe. Last Visit: 08/06/2024 (in office), Visit date not found (telemedicine) Next Visit: Visit date not found Date medication was last filled: 08/17/24 Date medication is due for refill: 08/25/24 Pharmacy: [facility] [address] Is this request for a controlled [...] upon request. Please approve if appropriate. Thanks, Jannette Varghese PharmD Clinical Pharmacist [facility] ([facility]) [phone] 08/27/2024, 1:19 PM documented in this encounter Plan of Treatment Upcoming Encounters Date Type Department Care Team (Latest Contact Info) Description 11/06/2024 8:25 AM EST Hospital Encounter [facility], Operating Room [facility] [address] [place] [id number] Ramiro Woodward, DO [address] [place] [address] 11/06/2024 8:25 AM EST - 11/06/2024 8:50 AM EST Surgery OR [facility], Operating Room [facility] [address] [place] [address] Ramiro Woodward DO [address] [place] [address] L-/S-SPINE PARAVERTEBRAL FACET INJ, 1 LEVEL 11/20/2024 8:50 AM EDT Hospital Encounter OR [facility], Operating Room [facility] [address] [place] [address] Ramiro Woodward, [address] [place] [address] 11/20/2024 8:50 AM EDT - 11/20/2024 9:15 AM EDT Surgery OR [facility], Operating Room [facility] [address] [place] [address] Ramiro Woodward DO [address] [place] [address] L-/S-SPINE PARAVERTEBRAL FACET INJ, 1 LEVEL 12/04/2024 7:35 AM EDT Hospital Encounter OR [facility], Operating Room [facility] [address] [place] [address] Ramiro Woodward, DO [address] [place] [id number] 12/04/2024 7:35 AM EDT - 12/04/2024 8:25 AM EDT Surgery OR [facility], Operating Room [facility] [address] [place] [id number] Ramiro Woodward, DO [address] [place] [address] DESTROY LUMBAR SACRAL NERVE IMAGING SINGLE Scheduled Orders Name Type Priority Associated Diagnoses Orde r Schedule ALBUMIN / CREATININE RATIO, URINE Lab Routine Essential hypertension with goal blood pressure less than 130/80 Expected: 08/27/2024, Expires: 08/27/2025 Scheduled Procedures Name Priority Associated Diagnoses Date/Ti [...] hypertension with goal blood pressure less than 130/80- Primary Chronic bilateral low back pain with bilateral sciatica Chronic neck pain Cervicalgia Spondylosis of lumbar region without myelopathy or radiculopathy Lumbosacral spondylosis without myelopathy Spondylosis of lumbar region without myelopathy or radiculopathy Lumbosacral spondylosis without myelopathy Spondylosis of lumbar region without myelopathy or radiculopathy Lumbosacral spondylosis without myelopathy documented in this encounter Care Teams Manufacturing Operator Relationship Specialty Start Date End Date Wolfgang Sellers MD [address] [facility] [place], [place] [address] PCP - General Internal Medicine 11/10/21 documented as of this encounter
--- OUTSIDE RECORDS SUMMARY | 2024-11-11 09:32 | External Medical Summary | Summary of Care ---
Author Name Unknown Organization [facility] Address [address] [place] [address] Phone [phone] Care Team Providers Care Compressed Air Pile Driver Operator Name Role Phone Wolfgang Messer MD Primary Care Provider + Reason for Visit * Reason Onset Date Comments Medication Refill 09/17/2024 Encounter Details Date Type Department Care Team (Late st Contact Info) Description 09/17/2024 Refill General Internal Medicine [facility] [address] [place] [place] [address] Wolfgang Messer MD 200 [place] [address] Chronic bilateral low back pain with bilateral sciatica; Chronic neck pain Allergies No known active allergiesdocumented as of this encounter (statuses as of 09/18/2024) Medications sildenafil (REVATIO) 20 MG Tablet Take [...] for 2 weeks at the MTU at [facility] 4 Active tiZANidine HCl 4 MG Oral Tablet (Zanaflex)Indica tions:Neck pain Take 1 Tablet by mouth at bedtime. 30 Tablet 1 5 Active Pregabalin 150 MG Oral Capsule (Lyrica)Indicati ons:Chronic midline thoracic back pain,Chronic neck pain Take 1 Capsule by mouth in the morning and 1 Capsule at noon and 1 Capsule before bedtime. Rotate from Gabapentin per [facility] instructions. 90 Capsule 1 5 Active Gabapentin [...] as of this encounter (statuses as of 09/18/2024) Active Problems Problem Noted Date Diagnosed Date [...] as of this encounter (statuses as of 09/18/2024) Resolved Problems Problem Noted Date Diagnosed Date Resolved Date ADVANCE DIRECTIVE INFORMATION 05/24/2005 07/06/2024 Overview (05/24/2005): No, Advance Directive brochure offered , patient declined. documented as of this encounter (statuses as of 09/18/2024) Immunizations Name Administration Dates Next Due COVID-19, [...] Telephone Encounter - Wolfgang Messer MD - 09/18/2024 8:57 AM ESTSigned Prescriptions: Disp Refills traMADol HCl 50 MG Oral Tablet 56 Tab*0 Sig: Take 1 Tablet by mouth every 4 hours as needed for Pain, Severe. Authorizing Provider: WOLFGANG MESSER * Telephone Encounter - Shantell Banegas [facility] - 09/17/2024 12:00 PM EST Pending Prescriptions: Disp Refills traMADol HCl 50 MG Oral Tablet 56 Tab*0 Sig: Take 1 Tablet by mouth every 4 hours as needed for Pain, Severe. Electronically signed by Shantell Banegas [facility] at 09/17/2024 12:00 PM EST * Telephone Encounter - Shantell Banegas [facility] - 09/17/2024 11:57 AM EST I have reviewed the patients controlled substance dispensing history in the Prescription Drug Monitoring Program in compliance with the [facility] regulations before prescribing a controlled substance. PDMP checked on 09/17/2024. Pending Prescriptions: Disp Refills traMADol HCl 50 MG Oral Tablet 56 Tab*0 Sig: Take 1 Tablet by mouth every 4 hours as needed for Pain, Severe. Last Visit: 08/06/2024 (in office), Visit date not found (telemedicine) Next Visit: Visit date not found Date medication was last filled: 09/12/24 Date medication is due for refill: 09/20/24 Pharmacy: [facility] [address] Is this request for a controlled [...] request. Please approve if appropriate. Thank you, Shantell Banegas, PharmD Clinical Pharmacist [facility] ([facility]) [phone] 09/17/2024, 11:58 AM Electronically signed by Shantell Banegas [facility] at 09/17/2024 12:00 PM EST documented in this encounter Plan of Treatment Upcoming Encounters Date Type Department Care Team (Late st Contact Info) Description 10/12/2024 8:30 AM EST Office Visit Pharmacy, [address] [place] [address] [facility] [address] [facility] [place] [address] Scheduled Procedures Name Priority Associated Diagnoses Date/Ti [...] Cervicalgia documented in this encounter Care Teams Compressed Air Pile Driver Operator Relationship Specialty Start Date End Date Wolfgang Messer MD [address] [facility] [place] [address] PCP - General Internal Medicine 11/10/21 documented as of this encounter
--- OUTSIDE RECORDS SUMMARY | 2024-11-11 09:32 | External Medical Summary | Summary of Care ---
Author Name Unknown Organization [facility] Address [address] [place] [address] Phone [phone] Care Team Providers Care Diamond Sizer And Sorter Name Role Phone Wolfgang Sellers MD Primary Care Provider + Reason for Visit * Reason Comments Follow Up Encounter Details Date Type Department Care Team (Late st Contact Info) Description 10/08/2024 9:40 AM EST Telemedicine Infectious Disease, [address] [phone] Yoni Gonzalez II, DO [address] [place] [address] Lyme disease* Allergies No known active allergiesdocumented as of [...] 2 weeks at the MT[facility] at [facility] 4 Active tiZANidine HCl 4 MG Oral Tablet (Zanaflex)Indicat ions:Neck pain Take 1 Tablet by mouth at bedtime. 30 Tablet 1 5 Active Pregabalin 150 MG Oral Capsule (Lyrica)Indicatio ns:Chronic midline thoracic back pain,Chronic neck pain Take 1 Capsule by mouth in the morning and 1 Capsule at noon and 1 Capsule before bedtime. Rotate from Gabapentin per [facility] instructions. 90 Capsule 1 [...] as of this encounter Progress Notes * Yoni Gonzalez II, - 10/08/2024 9:26 AM EST INFECTIOUS DISEASE, [facility]: No chief complaint on file. HPI: Héctor Carrera is a 44 year old male with PMHx of HTN and IBS who is presenting to our clinic today for the first time after a recent diagnosis of lyme disease. Pt was treated for Lyme disease in March 2024, pt was diagnosed with lyme disease, treated with amoxicillin PO for 4 weeks and then complicated with Lt paresis and lyme meningitis which was appropriately treated with IV 2 weeks of ceftriaxone. Pt says since 08/2024, he has had another tick bite while being treated for CSF lyme disease. Today, pt says that he has had worsening numbness and n Patient Active Problem List Diagnosis History of [...] BY MOUTH EVERY MORNING 90 Tablet 3 cefTRIAXone IVPB SOLN Infusion daily for 2 weeks at the MTU at [facility] tiZANidine HCl 4 MG Oral Tablet (Zanaflex) Take 1 Tablet by mouth at bedtime. 30 Tablet 1 Pregabalin 150 MG Oral Capsule (Lyrica) Take 1 Capsule by mouth in the morning and 1 Capsule at noon and 1 Capsule before bedtime. Rotate from Gabapentin per [facility] instructions. 90 Capsule 1 Gabapentin 800 MG Oral Tablet (Neurontin) Take 1 Tablet by mouth in the morning and 1 Tablet at noon and 1 Tablet before bedtime. 270 Tablet 1 traMADol HCl 50 MG Oral [...] performed by Ramiro Woodward DO at OR [facility] C-/T-SPINE PARAVERTEBRAL FACET INJ, 1 LEVEL 06/14/2022 C-/T-SPINE PARAVERTEBRAL FACET INJ, 1 LEVEL performed by Ramiro Woodward DO at OR [facility] COLONOSCOPY COLONOSCOPY, DIAGNOSTIC (RECTUM) N/A 02/26/2024 diverticulosis/hemorrhoids/recall 5 years/COLONOSCOPY FLEXIBLE PROXIMAL DIAGNOSTIC performed by Sadiq Anglin MD at ENDOSCOPY [facility] DESTROY CERV/THORACIC NERVE IMAGING, SINGLE 07/19/2022 DESTROY CERV/THORACIC NERVE IMAGING, SINGLE performed by Ramiro Woodward DO at OR [facility] EGD, FLEXIBLE, DIAGNOSTIC 01/31/2024 biopsies normal/ESOPHAGOGASTRODUODENOSCOPY (EGD), FLEXIBLE, TRANSORAL, DIAGNOSTIC performed by Ev Perry MD at ENDOSCOPY [facility] INFORMATION 12/31,01/01 removal osteoid osteoma INJECT DX/THER SUBSTANCE INTERLAMINAR CERVICAL/THORACIC W IMAGE GUIDE 03/08/2022 INJECTION SPINE LUMBAR CERVICAL OR THORACIC performed by Ramiro Woodward DO at [facility] INJECT DX/THER SUBSTANCE INTERLAMINAR CERVICAL/THORACIC W IMAGE GUIDE 03/11/2023 INJECTION SPINE LUMBAR CERVICAL OR THORACIC performed by Ramiro Woodward DO at OR [facility] MISCELLANEOUS ORDER ([facility] ONLY) knee - left OTHER 2018 spinal fussion of c4 and c5 Review [...] Stability: Not on file Review of Systems: Constitutional ROS: No change in weight, No weakness, No fatigue, and No fevers, sweats, or chills Eye ROS: No recent significant change in vision, No eye pain, redness, discharge, No diplopia, No h/o cataracts, and No h/o glaucoma Ear ROS: No ear pain, No drainage, No tinnitus or vertigo, and No recent change in hearing Nose ROS: No history of frequent colds or sinusitis, No nasal stuffiness, No history of Hay Fever, and No significant epistaxis Mouth/Throat ROS: No bleeding gums, No thrush, or No sore throat Neck ROS: No lumps or masses, No swollen glands, No recent swelling in thyroid area, No significantpain in neck, and No h/o goiter or thyroid disease Pulmonary ROS: SOB Cardiovascular ROS: No chest pain, No shortness of breath, No dyspnea on exertion, No orthopnea, Noparoxysmal nocturnal dyspnea, No edema, No palpitations, and No syncope Gastrointestinal ROS: No abdominal pain, No change in bowel habits, No significant heartburn, No significant change in appetite, No nausea, vomiting, diarrhea, or constipation, No hematemesis, No blood in stools or black tarry stools, No abdominal bloating or early satiety, and No dysphagia Musculoskeletal/Extremities ROS: No pain, redness or swelling on the joints Hematologic/Lymphatic ROS: No coagulation disorder, No anemia, No abnormal bleeding, No chills, No bruising, No HIV risk factors, No night sweats, No swollen nodes, No weight loss, and No history of transfusion Skin/Integumentary ROS: No edema, No rash, and No itching Neurologic ROS: Normal balance, No headaches, No seizures, No weakness, and (+) Right leg numbness and tingling Endocrine ROS: No heat intolerance, No cold intolerance, No thyroid trouble, and No excessive thirst or urination Psychiatric ROS: No depression, No anxiety, and No psychosis PHYSICAL EXAM: There were no vitals taken for this visit. General: alert, healthy, and no distress Head: Normocephalic, No masses, lesions, tenderness or abnormalities Eye Exam: PERRLA, extraocular movements intact, conjunctiva are pink and non- injected, sclera clear LABS: Labs reviewed personally MICROBIOLOGY DATA: personally reviewed all micro data IMAGING: personally reviewed all imaging data ASSESSMENT: Héctor Carrera is a 44 year [...] the ED for evaluation if symptoms persistent. Follow up as needed. I spent a total of 40-54 minutes (exact time 50 mins) on the date of service in preparation, delivery, and documentation of the care provided to Héctor Carrera excluding any time spent in the performance of separately billed services or time spent by another provider/QHP. Yoni Gonzalez II, DO Infectious Disease, [address] [place] [address] documented in this encounter Plan of Treatment Upcoming Encounters Date Type Department Care Team (Late st Contact Info) Description 10/12/2024 8:30 AM EST [facility] [place] [facility] [address] [facility] [address] 10/12/2024 1:15 PM EST Cardiac Studies Cardiac Studies, [facility] [address] [facility] [place] [address] Scheduled Orders Name Type Priority Associated Diagnoses Orde r Schedule EKG EKG Routine Lyme disease Expected: 10/08/2024, Expires: Scheduled Procedures Name Priority Associated Diagnoses Date/Ti [...] of this encounter Visit Diagnoses Diagnosis Lyme disease- Primary documented in this encounter Care Teams Diamond Sizer And Sorter Relationship Specialty Start Date End Date Wolfgang Sellers MD [address] [place] [address] PCP - General Internal Medicine 11/10/21 documented as of this encounter
--- OUTSIDE RECORDS SUMMARY | 2024-11-11 09:32 | External Medical Summary | Summary of Care ---
Author Name Unknown Organization [facility] Address [address] [place] [address] Phone [phone] Care Team Providers Care Lithographic General Worker Name Role Phone Wolfgang Messer MD Primary Care Provider + Reason for Visit * Reason Onset Date Comments Medication Refill 09/15/2024 Encounter Details Date Type Department Care Team (Late st Contact Info) Description 09/15/2024 Refill General Internal Medicine [facility] 200 [place] [address] Wolfgang Messer MD 200 [place] [address] Allergies No known active allergiesdocumented as of this encounter (statuses as of 09/16/2024) Medications sildenafil (REVATIO) 20 MG Tablet Take [...] for 2 weeks at the [facility] at [facility] 4 Active tiZANidine HCl 4 MG Oral [...] [facility] instructions. 90 Capsule 1 5 Active Gabapentin 800 MG Oral Tablet (Neurontin) Take 1 Tablet by mouth in the morning and 1 Tablet at noon and 1 Tablet before bedtime. 270 Tablet 1 5 Active Gabapentin 800 MG Oral Tablet (Neurontin) Take 1 Tablet by mouth in the morning and 1 Tablet at noon and 1 Tablet before bedtime. 270 Tablet 1 4 025 Discontin ued(Refil l) documented as of this encounter (statuses as of 09/16/2024) Active Problems Problem Noted Date Diagnosed Date [...] as of this encounter (statuses as of 09/16/2024) Resolved Problems Problem Noted Date Diagnosed Date Resolved Date ADVANCE DIRECTIVE INFORMATION 05/24/2005 07/06/2024 Overview (05/24/2005): No, Advance Directive brochure offered , patient declined. documented as of this encounter (statuses as of 09/16/2024) Immunizations Name Administration Dates Next Due COVID-19, [...] Telephone Encounter - Wolfgang Messer MD - 09/16/2024 2:34 PM ESTSigned Prescriptions: Disp Refills Gabapentin 800 MG Oral Tablet (Neurontin) 270 Ta*1 Sig: Take 1 Tablet by mouth in the morning and 1 Tablet at noon and 1 Tablet before bedtime. Authorizing Provider: WOLFGANG MESSER * Telephone Encounter - Jessy Matt LPN - 09/16/2024 8:58 AM ESTPending Prescriptions: Disp Refills Gabapentin 800 MG Oral Tablet (Neurontin) 270 Ta*1 Sig: Take 1 Tablet by mouth in the morning and 1 Tablet at noon and 1 Tablet before bedtime. * Telephone Encounter - Jessy Matt LPN - 09/16/2024 8:58 AM EST Pending Prescriptions: Disp Refills Gabapentin 800 MG Oral Tablet (Neurontin) 270 Ta*1 Sig: Take 1 Tablet by mouth in the morning and 1 Tablet at noon and 1 Tablet before bedtime. 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 PATHOLOGICAL FRACTURE OF TIBIA OR FIBULA Other male erectile dysfunction Irritable bowel syndrome with constipation Essential hypertension with goal blood pressure less than 130/80 Chronic neck pain Labs: Lab Results Component Value Date/Time CREATININE - [facility] 1.3 (H) 03/02/2024 03:25 PM CREATININE - [facility] 1.0 08/21/2000 11:04 AM CREATININE SHRUTHI - [facility] 39 02/07/2024 09:57 AM CREATININE, RANDOM URINE - [facility] 239 11/24/2021 08:28 AM Lab Results Component Value Date/Time POTASSIUM - [facility] 4.1 03/02/2024 03:25 PM Lab Results Component Value Date/Time TSH - [facility] 1.14 01/16/2024 09:14 AM Lab Results Component Value Date/Time LDL (CALCULATED)-[facility] LAB 137 11/14/2018 07:18 AM LDL CHOLESTEROL (CALCULATED) - [facility] 169 (H) 01/16/2024 09:14 AM LDL CHOLESTEROL (CALCULATED) - [facility] 134 (H) 01/09/2023 01:03 PM Lab Results Component Value Date/Time ALT - [facility] Gill 03/02/2024 03:25 PM Hemoglobin AIC Results: No results found for: "HEMOGLOBIN A1C" * Telephone Encounter - Barb Holland - 09/15/2024 1:53 PM ESTPending Prescriptions: Disp Refills Gabapentin 800 MG Oral Tablet (Neurontin) 270 Ta*1 Sig: Take 1 Tablet by mouth in the morning and 1 Tablet at noon and 1 Tablet before bedtime. documented in this encounter Plan of Treatment Upcoming Encounters Date Type Department Care Team (Late st Contact Info) Description 10/12/2024 8:30 AM EST Office Visit Pharmacy, [place] 21 [facility] [place] [address] [facility] [place] [address] Scheduled Procedures Name Priority Associated Diagnoses Date/Ti [...] filedocumented as of this encounter Care Teams Lithographic General Worker Relationship Specialty Start Date End Date Wolfgang Messer MD [address] [place] [address] PCP - General Internal Medicine 11/10/21 documented as of this encounter
--- OUTSIDE RECORDS SUMMARY | 2024-11-11 09:33 | External Medical Summary | Summary of Care ---
Author Name Unknown Organization [facility] Address [address] [place] [address] Phone [phone] Care Team Providers Care Multimedia Teacher Name Role Phone Wolfgang Sellers MD Primary Care Provider + Reason for Referral * Evaluate & Treat - Unlimited Visits (Within 3 days (urgent)) - Authorized Specialty Diagnoses / Procedures Referred By Contjacky t Referred To Contact Infectious Diseases / Infectious Disease Diagnoses Lyme disease Wolfgang Sellers MD [address] [facility] [place] [address] Phone: tel: fax: Referral ID Status Reason Start Date Expiration Date Visits Requested Visits Authorized [id number] Authorized Specialty Services Required 08/04/[phone] Question Answer Referral Priority Within 3 days (urgent) Where should this appointment be scheduled? [facility] What condition is the patient being seen for? Lyme Disease, Parasites / Bugs / Worms Comments Lyme with spinal involvement Reason for Visit * Reason Onset Date Comments Order Request 08/04/2024 Infectious disea se Encounter Details Date Type Department Care Team (Late st Contact Info) Description 08/04/2024 Telephone General Internal Medicine [place] [facility] [address] [place] [address] Wolfgang Sellers MD [address] [place] [address] [address] Order Request (Infectious disease ) Allergies No known active allergiesdocumented as of this encounter (statuses as of 08/07/2024) Medications sildenafil (REVATIO) 20 MG Tablet Take [...] before bedtime. 90 Tablet 1 4 Active traMADol HCl 50 MG Oral TabletIndications :Chronic bilateral low back pain with bilateral sciatica,Chronic neck pain Take 1 Tablet by mouth every 4 hours as needed for Pain, Severe. 56 Tablet 4 Active cefTRIAXone IVPB SOLN Infusion daily for 2 weeks at the [facility] at [facility] 4 Active oxyCODONE HCl 5 MG Oral Tablet (Oxy IR) 4 Active documented as of this encounter (statuses as of 08/07/2024) Active Problems Problem Noted Date Diagnosed Date [...] as of this encounter (statuses as of 08/07/2024) Resolved Problems Problem Noted Date Diagnosed Date Resolved Date ADVANCE DIRECTIVE INFORMATION 05/24/2005 07/06/2024 Overview (05/24/2005): No, Advance Directive brochure offered , patient declined. documented as of this encounter (statuses as of 08/07/2024) Immunizations Name Administration Dates Next Due COVID-19, [...] encounter Miscellaneous Notes * Telephone Encounter - Jena Zavaleta MD - 08/06/2024 7:02 PM EST Noted Thanks * Telephone Encounter - Wolfgang Sellers MD - 08/06/2024 4:04 PM EST Called patient after hospital f/u today. He is getting better, not using cane +CSF IGG positive forLyme from 07/31/24, he is aware. He will finish ceftriaxone at [facility], he will await call from ID (see other encounter about consult) * Telephone Encounter - Sandy Avina RN - 08/04/2024 3:54 PM EST Scheduling team please assist with setting up infectious disease consult. Thank you Provider to address: Reason for Call: Order Request (Infectious disease ) Contact: Telephone Call Contact Type: Referral(s) Placed Provider In-Basket: Yes Outcome: referral placed Face to face time spent with Patient (minutes): 0 Total Time including non face to face (minutes): 10 * Telephone Encounter - Wolfgang Sellers MD - 08/04/2024 2:12 PM EST ok * Telephone Encounter - Sandy Avina RN - 08/04/2024 12:12 PM EST Patient was discharged from [facility] for Bilateral leg weakness and paresthesias. CSF studies were obtained, still pending for LYME and MS studies. Noted that presentation from neurology Dr. Hussein notes likely Lyme with spinal involvement. He was discharged on IV Ceftriaxone whichhe is doing daily at the medical treatment unit at [facility]. It was recommended that he have an infectious disease consult: Pended referral to ID, if agreeable to place this Dr. Sellers? Patient states he would be willing to drive to [place] if needed. Thank you! documented in this encounter Plan of Treatment Upcoming Encounters Date Type Department Care Team (Late st Contact Info) Description 08/10/2024 10:10 AM EST Office Visit Pharmacy, [place] [address] [place] [address] [place] [address] [facility] [address] [place] [address] 11/06/2024 8:25 AM EST Hospital Encounter [facility], [facility] [address] [place] [phone] Ramiro Woodward, DO [address] [place] [phone] 11/06/2024 8:25 AM EST - 11/06/2024 8:50 AM EST Surgery [facility], [facility] [address] [place] [phone] Ramiro Woodward, DO [address] [place] [address] L-/S-SPINE PARAVERTEBRAL FACET INJ, 1 LEVEL 11/20/2024 8:50 AM EDT Hospital Encounter [facility], [facility] [address] [place] [address] Ramiro Woodward, DO [address] [place] [phone] 11/20/2024 8:50 AM EDT - 11/20/2024 9:15 AM EDT Surgery [facility] [address] [place] [phone] Ramiro Woodward, DO [address] [place] [address] L-/S-SPINE PARAVERTEBRAL FACET INJ, 1 LEVEL 12/04/2024 7:35 AM EDT Hospital Encounter [facility] [address] [place] [phone] Ramiro Woodward, DO [address] [place] [address] 12/04/2024 7:35 AM EDT - 12/04/2024 8:25 AM EDT Surgery [facility], Operating [facility] [address] [place] [address] Ramiro Woodward, DO [address] [place] [address] DESTROY LUMBAR SACRAL NERVE IMAGING SINGLE Scheduled [...] encounter Visit Diagnoses Diagnosis Lyme disease- Primary 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
--- OUTSIDE RECORDS SUMMARY | 2024-11-11 09:33 | External Medical Summary | Summary of Care ---
Author Name Unknown Organization [facility] Address [address] [place] [address] Phone [phone] Care Team Providers Care Second Watch Sergeant Name Role Phone Wolfgang Messer MD Primary Care Provider + Reason for Visit * Reason Comments eRx-Medication Refill Encounter Details Date Type Department Care Team (Late st Contact Info) Description 08/24/2024 Refill Pharmacy, [address] [phone] Wolfgang Messer MD [address] [place] [address] Allergies No known active allergiesdocumented as of this encounter (statuses as of 08/25/2024) Medications sildenafil (REVATIO) 20 MG Tablet Take 2 Tabs by mouth daily as needed for Erectile Dysfunction. 90 Tab 3 07/02/20 19 Active Acetaminophen [...] Infusion daily for 2 weeks at the [facility] 08/03/20 Active traMADol HCl 50 MG Oral TabletIndication s:Chronic bilateral low back pain with bilateral sciatica,Chronic neck pain Take 1 Tablet by mouth every 4 hours as needed for Pain, Severe. 56 Tablet 08/17/20 Active Gabapentin 800 MG Oral Tablet (Neurontin) Take 1 Tablet by mouth in the morning and 1 Tablet at noon and 1 Tablet before bedtime. 270 Tablet 1 08/25/20 Active Gabapentin 800 MG Oral Tablet (Neurontin) Take 1 Tablet by mouth in the morning and 1 Tablet at noon and 1 Tablet before bedtime. 90 Tablet 1 07/27/20 24 024 Discontinued documented as of this encounter (statuses as of 08/25/2024) Active Problems Problem Noted Date Diagnosed Date [...] as of this encounter (statuses as of 08/25/2024) Resolved Problems Problem Noted Date Diagnosed Date Resolved Date ADVANCE DIRECTIVE INFORMATION 05/24/2005 07/06/2024 Overview (05/24/2005): No, Advance Directive brochure offered , patient declined. documented as of this encounter (statuses as of 08/25/2024) Immunizations Name Administration Dates Next Due COVID-19, [...] Telephone Encounter - Wolfgang Messer MD - 08/25/2024 8:26 AM ESTSigned Prescriptions: Disp Refills Gabapentin 800 MG Oral Tablet (Neurontin) 270 Ta*1 Sig: Take 1 Tablet by mouth in the morning and 1 Tablet at noon and 1 Tablet before bedtime. Authorizing Provider: WOLFGANG MESSER * Telephone Encounter - Brittany Winter LPN - 08/25/2024 7:21 AM ESTPending Prescriptions: Disp Refills Gabapentin 800 MG Oral Tablet (Neurontin) 270 Ta*1 Sig: Take 1 Tablet by mouth in the morning and 1 Tablet at noon and 1 Tablet before bedtime. * Telephone Encounter - Brittany Winter LPN - 08/25/2024 7:20 AM EST Did you pend patient's preferred pharmacy and medication before forwarding?yes Pharmacy: [facility] Pending Prescriptions: Disp Refills Gabapentin 800 MG Oral Tablet (Neurontin)*90 Tab*1 Sig: Take 1 Tablet by mouth in the morning and 1 Tablet at noon and 1 Tablet before bedtime. Last Visit: 07/27/2024 (in office), Visit date not found (telemedicine) Next Visit: Visit date not found If no future appointments scheduled, and last appointment is greater than a year ago, please schedule patient for a follow-up appointment Last date the medication was ordered: 07/27/24 Is this request for a controlled substance? Urine Drug Screen: Results for orders placed [...] is available upon request. Patient Phone Numbers mobile [phone] Labs: Lab Results Component Value Date/Time CREAT 1.3 (H) 03/02/2024 03:25 PM CREAT 1.0 08/21/2000 11:04 AM POTASSIUM 4.1 03/02/2024 03:25 PM TSH 1.14 01/16/2024 09:14 AM LDL 169 (H) 01/16/2024 09:14 AM LDLCALC 137 11/14/2018 07:18 AM ALT 34 03/02/2024 03:25 PM * Telephone Encounter - Barb Holland - 08/24/2024 1:40 PM ESTPending Prescriptions: Disp Refills Gabapentin 800 MG Oral Tablet [Pharmacy Me*90 Tab*1 Sig: Take 1Tablet by mouth in the morning and 1 Tablet at noon and 1 Tablet before bedtime. documented in this encounter Plan of Treatment Upcoming Encounters Date Type Department Care Team (Latest Contact Info) Description 11/06/2024 8:25 AM EST Hospital Encounter [facility] Operating Room [facility] [address] [place] [address] Ramiro Woodward, [address] [place] [address] 11/06/2024 8:25 AM EST - 11/06/2024 8:50 AM EST Surgery OR [facility], Operating Room [facility] [address] [place] [phone] Ramiro Woodward DO [address] [place] [address] L-/S-SPINE PARAVERTEBRAL FACET INJ, 1 LEVEL 11/20/2024 8:50 AM EDT Hospital Encounter OR [facility], Operating Room [facility] [address] [place] [address] Ramiro Woodward, DO [address] [place] [address] 11/20/2024 8:50 AM EDT - 11/20/2024 9:15 AM EDT Surgery OR [facility], Operating Room [facility] [address] [place] [phone] Ramiro Woodward, DO [address] [place] [address] L-/S-SPINE PARAVERTEBRAL FACET INJ, 1 LEVEL 12/04/2024 7:35 AM EDT Hospital Encounter OR [facility], Operating Room [facility] [address] [place] [address] Ramiro Woodward, DO [address] [place] [address] 12/04/2024 7:35 AM EDT - 12/04/2024 8:25 AM EDT Surgery OR [facility], Operating Room [facility] [address] [place] [address] Ramiro Woodward, DO [address] [place] [address] DESTROY LUMBAR SACRAL NERVE IMAGING SINGLE Scheduled [...] filedocumented as of this encounter Care Teams Second Watch Sergeant Relationship Specialty Start Date End Date Wolfgang Messer MD 200 [facility] [place] [address] PCP - General Internal Medicine 11/10/21 documented as of this encounter
--- OUTSIDE RECORDS SUMMARY | 2024-11-11 09:33 | External Medical Summary | Summary of Care ---
Author Name Unknown Organization [facility] Address [address] [place] [address] Phone [phone] Care Team Providers Care Straightener Hand Name Role Phone Wolfgang Sellers MD Primary Care Provider + Reason for Visit * Reason Onset Date Comments Status Check 08/13/2024 Encounter Details Date Type Department Care Team (Late st Contact Info) Description 08/13/2024 Telephone General Internal Medicine [facility] 200 [facility] [place] [address] Wolfgang Sellers MD [address] [place] [address] Status Check (/) Allergies No known active allergiesdocumented as of this encounter (statuses as of 08/14/2024) Medications sildenafil (REVATIO) 20 MG Tablet Take [...] for 2 weeks at the [facility] 4 Active oxyCODONE HCl 5 MG Oral Tablet (Oxy IR) 4 Active documented as of this encounter (statuses as of 08/14/2024) Active Problems Problem Noted Date Diagnosed Date [...] as of this encounter (statuses as of 08/14/2024) Resolved Problems Problem Noted Date Diagnosed Date Resolved Date ADVANCE DIRECTIVE INFORMATION 05/24/2005 07/06/2024 Overview (05/24/2005): No, Advance Directive brochure offered , patient declined. documented as of this encounter (statuses as of 08/14/2024) Immunizations Name Administration Dates Next Due COVID-19, [...] encounter Miscellaneous Notes * Telephone Encounter - Bethany Beaulieu MED ASSIST - 08/14/2024 8:35 AM EST FYI to provider. * Telephone Encounter - Wolfgang Sellers MD - 08/13/2024 4:56 PM EST myg documented in this encounter Plan of Treatment Upcoming Encounters Date Type Department Care Team (Latest Contact Info) Description 08/18/2024 9:40 AM EST Office Visit Infectious Disease, [address] [address] [facility] [address] [facility] [place] [address] 11/06/2024 8:25 AM EST Hospital Encounter OR [facility], Operating Room [facility] [address] [place] [address] Trace, Max Wilner, DO [address] [place] [address] 11/06/2024 8:25 AM EST - 11/06/2024 8:50 AM EST Surgery OR [facility], Operating Room [facility] [address] [place], [place] [address] Ramiro Woodward, DO [address] [place], [place] [address] L-/S-SPINE PARAVERTEBRAL FACET INJ, 1 LEVEL 11/20/2024 8:50 AM EDT Hospital Encounter OR [facility], Operating Room [facility] [address] [place] [address] Ramiro Woodward, DO [address] [place] [address] 11/20/2024 8:50 AM EDT - 11/20/2024 9:15 AM EDT Surgery OR [facility], Operating Room [facility] [address] [place] [address] Ramiro Woodward, DO [address] [place], [place] [address] L-/S-SPINE PARAVERTEBRAL FACET INJ, 1 LEVEL 12/04/2024 7:35 AM EDT Hospital Encounter OR [facility], Operating Room [facility] [address] [place] [address] Ramiro Woodward, DO [address] [place] [address] 12/04/2024 7:35 AM EDT - 12/04/2024 8:25 AM EDT Surgery OR [facility], Operating Room [facility] [address] [place] [address] Ramiro Woodward, DO [address] [place] [address] DESTROY LUMBAR SACRAL NERVE IMAGING SINGLE Scheduled [...] filedocumented as of this encounter Care Teams Straightener Hand Relationship Specialty Start Date End Date Wolfgang Sellers MD 200 [facility] [place] [address] PCP - General Internal Medicine 11/10/21 documented as of this encounter
--- OUTSIDE RECORDS SUMMARY | 2024-11-11 09:33 | External Medical Summary | Summary of Care ---
Author Name Unknown Organization [facility] Address [address] [place] [address] Phone [phone] Care Team Providers Care Director Of Land Acquisition Name Role Phone Wolfgang Sellers MD Primary Care Provider + Reason for Visit * Reason Onset Date Comments Appointment 08/06/2024 Encounter Details Date Type Department Care Team (Late st Contact Info) Description 08/06/2024 Telephone Infectious Disease, [facility] [address] [place] [address] Emanuel Chang MD [address] [place] [address] Appointment Allergies No known active allergiesdocumented as of this encounter (statuses as of 08/06/2024) Medications sildenafil (REVATIO) 20 MG Tablet Take [...] weeks at the [facility] 4 Active oxyCODONE HCl 5 MG Oral Tablet (Oxy IR) 4 Active documented as of this encounter (statuses as of 08/06/2024) Active Problems Problem Noted Date Diagnosed Date [...] as of this encounter (statuses as of 08/06/2024) Resolved Problems Problem Noted Date Diagnosed Date Resolved Date ADVANCE DIRECTIVE INFORMATION 05/24/2005 07/06/2024 Overview (05/24/2005): No, Advance Directive brochure offered , patient declined. documented as of this encounter (statuses as of 08/06/2024) Immunizations Name Administration Dates Next Due COVID-19, [...] encounter Miscellaneous Notes * Telephone Encounter - Raine Patiño OSA - 08/06/2024 10:21 AM EST Swathi, Patient has been referred to Infectious Disease for Lyme Disease. Please review/triage. Thank you documented in this encounter Plan of Treatment Upcoming Encounters Date Type Department Care Team (Late st Contact Info) Description 08/06/2024 2:20 PM EST Office Visit General Internal Medicine [facility] [address] [place] [address] Jena Zavaleta MD 200 [facility] [place] [address] 08/10/2024 10:10 AM EST Office Visit [facility] [address] [place] [address] [facility] [address] [place] [address] 11/06/2024 8:25 AM EST Hospital Encounter OR [facility], Operating Room [facility] [address] [place] [phone] Trace, Max Wilner, DO [address] [place], [place] [address] 11/06/2024 8:25 AM EST - 11/06/2024 8:50 AM EST Surgery OR [facility], Operating Room [facility] [address] [place], [place] [address] Ramiro Woodward, DO [address] [place], [place] [address] L-/S-SPINE PARAVERTEBRAL FACET INJ, 1 LEVEL 11/20/2024 8:50 AM EDT Hospital Encounter OR [facility], Operating Room [facility] [address] [place], [place] [address] Ramiro Woodward, DO [address] [place], [place] [address] 11/20/2024 8:50 AM EDT - 11/20/2024 9:15 AM EDT Surgery OR [facility], Operating Room [facility] [address] [place], [place] [address] Ramiro Woodward, DO [address] [place], [place] [address] L-/S-SPINE PARAVERTEBRAL FACET INJ, 1 LEVEL 12/04/2024 7:35 AM EDT Hospital Encounter OR [facility], Operating Room [facility] [address] [place], [place] [address] Ramiro Woodward, DO [address] [place], [place] [address] 12/04/2024 7:35 AM EDT - 12/04/2024 8:25 AM EDT Surgery OR [facility], Operating Room [facility] [address] [place] [address] Ramiro Woodward, DO [address] [place] [address] DESTROY LUMBAR SACRAL NERVE IMAGING SINGLE Scheduled [...] filedocumented as of this encounter Care Teams Director Of Land Acquisition Relationship Specialty Start Date End Date Wolfgang Sellers MD [address] [place] [address] PCP - General Internal Medicine 11/10/21 documented as of this encounter
--- OUTSIDE RECORDS SUMMARY | 2024-11-11 09:33 | External Medical Summary | Summary of Care ---
Author Name Unknown Organization [facility] Address [address] [place] [address] Phone [phone] Care Team Providers Care Healthcare Science Specialist Name Role Phone Wolfgang Sellers MD Primary Care Provider + Reason for Visit * Reason Onset Date Comments Medication Refill 07/17/2024 Encounter Details Date Type Department Care Team (Late st Contact Info) Description 07/17/2024 Telephone Pharmacy, [facility] 200 [facility] [place] [address] Wolfgang Sellers MD [address] [place] [address] Medication Refill Allergies No known active allergiesdocumented as of this encounter (statuses as of 08/05/2024) Medications sildenafil (REVATIO) 20 MG Tablet Take [...] at bedtime. 30 Tablet 1 4 Active Doxycycline Hyclate 100 MG Oral CapsuleIndicatio ns:Lyme disease Take 1 Capsule by mouth in the morning and 1 Capsule before bedtime. For 28 days. 56 Capsule 4 07/29/20 24 Discontinu ed(Medicat ion List Clean Up) Gabapentin 600 MG Oral Tablet (Neurontin)Indic ations:Chronic neck pain Take 1 Tablet by mouth in the morning and 1 Tablet at noon and 1 Tablet before bedtime. 90 Tablet 5 4 07/27/20 24 Discontinu ed(Medicat ion/Dose Changed) traMADol HCl 50 MG Oral TabletIndication s:Chronic neck pain,Chronic midline thoracic back pain Take 1 Tablet by mouth every 6 hours as needed for Pain, Severe. 56 Tablet 4 07/21/20 24 Discontinu ed(Refill) predniSONE 20 MG Oral Tablet (Deltasone) Take [...] as of this encounter (statuses as of 08/05/2024) Active Problems Problem Noted Date Diagnosed Date [...] as of this encounter (statuses as of 08/05/2024) Resolved Problems Problem Noted Date Diagnosed Date Resolved Date ADVANCE DIRECTIVE INFORMATION 05/24/2005 07/06/2024 Overview (05/24/2005): No, Advance Directive brochure offered , patient declined. documented as of this encounter (statuses as of 08/05/2024) Immunizations Name Administration Dates Next Due COVID-19, [...] encounter Miscellaneous Notes * Telephone Encounter - Maya Rodriguez OSA - 08/05/2024 10:40 AM EST Pt seen Dr. Sellers 07/29. * Telephone Encounter - Christina Concepcion [facility] - 07/21/2024 1:43 PM ESTSigned Prescriptions: Disp Refills predniSONE 20 MG Oral Tablet (Deltasone) 20 Tab*0 Sig: Take 3 tabs for 3 days, 2 tabs for 3 days, 1 tab for 3 days, 1/2 tab for 3 days Authorizing Provider: WOLFGANG SELLERS traMADol HCl 50 MG Oral Tablet 56 Tab*0 Sig: Take 1 Tablet by mouth every 4 hours as needed for Pain, Severe. Authorizing Provide r: WOLFGANG SELLERS * Telephone Encounter - Wolfgang Sellers MD - 07/21/2024 10:02 AM EST I have reviewed the patients controlled substance dispensing history in the Prescription Drug Monitoring Program in compliance with the [facility] regulations before prescribing a controlled substance. Last Tox Screen Results: Results for orders placed or performed [...] purposes. Confirmatory testing is available upon request. * Telephone Encounter - Doc Wilson [facility] - 07/21/2024 9:20 AM ESTSigned Prescriptions: Disp Refills predniSONE 20 MG Oral Tablet (Deltasone) 20 Tab*0 Sig: Take 3 tabs for 3 days, 2 tabs for 3 days, 1 tab for 3 days, 1/2 tab for 3 days Authorizing Provider: WOLFGANG SELLERS * Telephone Encounter - Digna Son [facility] - 07/20/2024 8:54 AM EST Signed Prescriptions: Disp Refills predniSONE 20 MG Oral Tablet (Deltasone) 20 Tab*0 Sig: Take 3 tabs for 3 days, 2 tabs for 3 days, 1 tab for 3 days, 1/2 tab for 3 days Authorizing Provider: WOLFGANG SELLERS * Telephone Encounter - Wolfgang Sellers MD - 07/19/2024 10:54 AM EST Signed Prescriptions: Disp Refills predniSONE 20 MG Oral Tablet (Deltasone) 20 Tab*0 Sig: Take 3 tabs for 3 days, 2 tabs for 3 days, 1 tab for 3 days, 1/2 tab for 3 days Authorizing Provider: WOLFGANG SELLERS * Telephone Encounter - Wolfgang Sellers MD - 07/17/2024 5:09 PM ESTSigned Prescriptions: Disp Refills predniSONE 20 MG Oral Tablet (Deltasone) 20 Tab*0 Sig: Take 3 tabs for 3 days, 2 tabs for 3 days, 1 tab for 3 days, 1/2 tab for 3 days Authorizing Provider: WOLFGANG SELLERS * Telephone Encounter - Wolfgang Sellers MD - 07/17/2024 2:25 PM EST Ok, for q4 hours as needed for another week, but looks like he has enough until Saturday? Can send then if that is ture. In mean time, try to schedule with me Saturday or partner for acute worsening of pain * Telephone Encounter - Bernie Aguila RPh - 07/17/2024 12:49 PM ESTPending Prescriptions: Disp Refills traMADol HCl 50 MG Oral Tablet 56 Tab*0 Sig: Take 1 Tablet by mouth every 6 hours as needed for Pain, Severe. documented in this encounter Plan of Treatment Upcoming Encounters Date Type Department Care Team (Late st Contact Info) Description 08/06/2024 11:00 AM EST Office Visit General Internal Medicine [facility] [place] [address] [place] [address] Jena Zavaleta MD 200 [facility] [place] [address] 08/10/2024 10:10 AM EST Office Visit Pharmacy, [place] [address] [place] [address] [place], [facility] [address] [place] [address] 11/06/2024 8:25 AM EST Hospital Encounter OR [facility], Operating Room [facility] [address] [place] [address] Ramiro Woodward DO [address] [place] [address] 11/06/2024 8:25 AM EST - 11/06/2024 8:50 AM EST Surgery OR [facility], Operating Room [facility] [address] [place] [address] Ramiro Woodward DO [address] [place] [address] L-/S-SPINE PARAVERTEBRAL FACET INJ, 1 LEVEL 11/20/2024 8:50 AM EDT Hospital Encounter OR [facility], Operating Room [facility] [address] [place] [address] Ramiro Woodward DO [address] [place] [address] 11/20/2024 8:50 AM EDT - 11/20/2024 9:15 AM EDT Surgery OR [facility], Operating Room [facility] [address] [place] [address] Ramiro Woodward DO [address] [place] [address] L-/S-SPINE PARAVERTEBRAL FACET INJ, 1 LEVEL 12/04/2024 7:35 AM EDT Hospital Encounter OR [facility], Operating Room [facility] [address] [place] [address] Ramiro Woodward, DO [address] [place] [address] 12/04/2024 7:35 AM EDT - 12/04/2024 8:25 AM EDT Surgery OR [facility], Operating Room [facility] [address] [place] [address] Ramiro Woodward, DO [address] [place] [address] DESTROY LUMBAR SACRAL NERVE IMAGING SINGLE Scheduled [...] myelopathy documented in this encounter Care Teams Healthcare Science Specialist Relationship Specialty Start Date End Date Wolfgang Sellers MD [address] [place] [address], [place] [address] PCP - General Internal Medicine 11/10/21 documented as of this encounter
--- OUTSIDE RECORDS SUMMARY | 2024-11-11 09:33 | External Medical Summary | Summary of Care ---
Author Name Unknown Organization [facility] Address [address] [place] [address] Phone [phone] Care Team Providers Care Director Of Strategic Alliances Name Role Phone Wolfgang Messer MD Primary Care Provider + Reason for Visit * Reason Onset Date Comments Medication Refill 08/16/2024 Encounter Details Date Type Department Care Team (Late st Contact Info) Description 08/16/2024 Refill General Internal Medicine [facility] 200 [place] [address] Wolfgang Messer MD 200 [facility] [place] [address] Chronic bilateral low back pain with bilateral sciatica; Chronic neck pain Allergies No known active allergiesdocumented as of this encounter (statuses as of 08/17/2024) Medications sildenafil (REVATIO) 20 MG Tablet Take [...] before bedtime. 90 Tablet 1 4 Active cefTRIAXone IVPB SOLN Infusion daily for 2 weeks at the [facility] 4 Active oxyCODONE HCl 5 MG Oral Tablet (Oxy IR) 4 Active traMADol HCl 50 MG Oral [...] needed for Pain, Severe. 56 Tablet 4 08/16/20 24 Discontinu ed(Refill) documented as of this encounter (statuses as of 08/17/2024) Active Problems Problem Noted Date Diagnosed Date [...] as of this encounter (statuses as of 08/17/2024) Resolved Problems Problem Noted Date Diagnosed Date Resolved Date ADVANCE DIRECTIVE INFORMATION 05/24/2005 07/06/2024 Overview (05/24/2005): No, Advance Directive brochure offered , patient declined. documented as of this encounter (statuses as of 08/17/2024) Immunizations Name Administration Dates Next Due COVID-19, [...] Telephone Encounter - Wolfgang Messer MD - 08/17/2024 2:48 PM ESTSigned Prescriptions: Disp Refills traMADol HCl 50 MG Oral Tablet 56 Tab*0 Sig: Take 1 Tablet by mouth every 4 hours as needed for Pain, Severe. Authorizing Provider: WOLFGANG MESSER * Telephone Encounter - Chelo Ayon [facility] - 08/17/2024 2:47 PM ESTPending Prescriptions: Disp Refills traMADol HCl 50 MG Oral Tablet 56 Tab*0 Sig: Take 1 Tablet by mouth every 4 hours as needed for Pain, Severe. * Telephone Encounter - Chelo Ayon [facility] - 08/17/2024 2:43 PM EST I have reviewed the patients controlled substance dispensing history in the Prescription Drug Monitoring Program in compliance with the [facility] regulations before prescribing a controlled substance. PDMP checked on 08/17/2024. Pending Prescriptions: Disp Refills traMADol HCl 50 MG Oral Tablet 56 Tab*0 Sig: Take 1 Tablet by mouth every 4 hours as needed for Pain, Severe. Last Visit: 08/06/2024 (in office), Visit date not found (telemedicine) Next Visit: Visit date not found Date medication was last filled: 08/03/2024 Date medication is due for refill: 08/13/2024 Pharmacy: [address] Is this request for a controlled substance? Yes and Urine Drug Screen Not completed Toxicology results: Results for orders placed [...] approve if appropriate. Thank you, Chelo Ayon [facility] Clinical Pharmacist [facility] ([facility]) 08/17/24 2:44 PM [phone] documented in this encounter Plan of Treatment Upcoming Encounters Date Type Department Care Team (Latest Contact Info) Description 08/18/2024 9:40 AM EST Office Visit Infectious Disease, [address] [place] [address] [facility] [address] 11/06/2024 8:25 AM EST Hospital Encounter OR [facility], Operating Room [facility] [address] [place] [phone] Ramiro Woodward, [address] [place] [address] 11/06/2024 8:25 AM EST - 11/06/2024 8:50 AM EST Surgery OR [facility], Operating Room [facility] [address] [place] [phone] Ramiro Woodward DO [address] [place] [phone] L-/S-SPINE PARAVERTEBRAL FACET INJ, 1 LEVEL 11/20/2024 8:50 AM EDT Hospital Encounter OR [facility], Operating Room [facility] [address] [place] [phone] Ramiro Woodward DO [address] [place] [address] 11/20/2024 8:50 AM EDT - 11/20/2024 9:15 AM EDT Surgery OR [facility], Operating Room [facility] [address] [place] [address] Ramiro Woodward, DO [address] [place] [address] L-/S-SPINE PARAVERTEBRAL FACET INJ, 1 LEVEL 12/04/2024 7:35 AM EDT Hospital Encounter OR [facility], Operating Room [facility] [address] [place] [address] Ramiro Woodward, DO [address] [place] [address] 12/04/2024 7:35 AM EDT - 12/04/2024 8:25 AM EDT Surgery OR [facility], Operating Room [facility] [address] [place] [address] Ramiro Woodward, DO [address] [place] [address] DESTROY LUMBAR SACRAL NERVE IMAGING SINGLE Scheduled [...] myelopathy documented in this encounter Care Teams Director Of Strategic Alliances Relationship Specialty Start Date End Date Wolfgang Messer MD [address] [place] [address] PCP - General Internal Medicine 11/10/21 documented as of this encounter
--- OUTSIDE RECORDS SUMMARY | 2024-11-11 09:33 | External Medical Summary | Summary of Care ---
Author Name Unknown Organization [facility] Address [address] [place] [address] Phone [phone] Care Team Providers Care Server Manager Name Role Phone Wolfgang Sellers MD Primary Care Provider + Reason for Visit * Reason Onset Date Comments Hospital Follow-Up Patient admit meri to [facility] 07/31 and discharged on 08/03 following a visit for paresthesia. Patient is still having numbness mostly in his waist and slightly in his thighs. Is getting daily antibiotic injections until next Saturday. Patient would also like to discuss infectious disease referral for lymes. States this was briefly discussed at the hospital but was not carried through. 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; Screening for depression; Irritable bowel syndrome with constipation; Chronic neck pain; Hospital discharge follow-up Allergies No known active allergiesdocumented as of this encounter (statuses as of 08/16/2024) Medications sildenafil (REVATIO) 20 MG Tablet Take [...] 2 weeks at the [facility] at [facility] 4 Active oxyCODONE HCl 5 MG Oral Tablet (Oxy IR) 4 Active documented as of this encounter (statuses as of 08/16/2024) Active Problems Problem Noted Date Diagnosed Date [...] as of this encounter (statuses as of 08/16/2024) Resolved Problems Problem Noted Date Diagnosed Date Resolved Date ADVANCE DIRECTIVE INFORMATION 05/24/2005 07/06/2024 Overview (05/24/2005): No, Advance Directive brochure offered , patient declined. documented as of this encounter (statuses as of 08/16/2024) Immunizations Name Administration Dates Next Due COVID-19, LNP-s, No Preserve , Ion-sucrose, Ages 12+ ([employer]) 01/26/2022 Covid-19 Ad26, Single Dose ([employer]) 021 [...] Sign Reading Time Taken Comments Blood Pressure 116/86 08/06/2024 2:31 PM EST Pulse 84 08/06/2024 2:31 PM EST Temperature 35.7 C (96.2 F) 08/06/2024 2:31 PM ES T Respiratory Rate - - Oxygen Saturation - - Inhaled Oxygen Concentration - - Weight 80.8 kg (178 lb 3.2 oz) 08/06/2024 2:31 P M EST Height - - Body Mass Index 25.57 03/11/2024 10:04 AM EDT documented in this encounter Progress Notes * Jena Zavaleta MD - 08/06/2024 3:07 PM EST SUBJECTIVE: Héctor Carrera is a 44 year old male. Chief Complaint Patient presents with Hospital Follow-Up Patient admitted to [facility] 07/31 and discharged on 08/03 following a visit for paresthesia. Patient isstill having numbness mostly in his waist and slightly in his thighs. Is getting daily antibiotic injections until next Saturday. Patient would also like to discuss infectious disease referral for lymes. States this was briefly discussed at the hospital but was not carried through. HPI: 44 year old YOmale with PMH as listed below presents here for hospital follow up. Pt was having low back pain and neck pain and fatigue some for few months along with numbness and tingling in left upper ext and LL , was tested +ve for chronic lyme and given doxy for 4 weeks but hedidn't tolerate that due to GI s/e and was switched to amoxicillin for 2 weeks which improved his symptoms then gradually things started with increased back pain , fatigue and numbness and weakness of legs and numbness of buttock area which progressed quickly that he had to use walker or cane to get around . He was seen by Dr Genao in clinic where he was sent to Er for further Management . Presented to hospital on 07/31/24 . He was suspected to have [employer] lyme . He was then admitted and treated with IV ceftriaxone. Labs were overall normal except elevated WBC count and high protein in CSF with negative viral and bacteria count and Lyme Ig G was pending. Imaging MRI brain and spine with showed disc disease and post op changes but not bad to cause symptoms . He was seen by neuro and ID and recommended to continue ceftriaxone 2 gm IV daily for total 14 days . Rest of the hospital course unremarkable . He was sent home on 08/03/24 on IM ceftraixone . Since discharge feeling much better . Hospital records reviewed and updated. The patient's medication list was reviewed and updated as needed. Current issues now- -Patient is still having numbness mostly in his waist and slightly in his thighs. Is getting daily antibiotic injections until next Saturday. Patient would also like to discuss infectious disease referral for lymes. States this was briefly discussed at the hospital but was not carried through. Patient Active Problem List Diagnosis History of [...] 2 weeks at the [facility] at [facility] oxyCODONE HCl 5 MG Oral Tablet (Oxy IR) No current facility-administered medications for this visit. Review of patient's allergies indicates: No Known Allergies Past Medical History: Diagnosis Date INFORMATION Osteoid Osteoma Irritable bowel syndrome with constipation 07/28/2019 Osteoid osteoma right tibia Other male erectile dysfunction 07/28/2019 Seasonal allergies Past Surgical History: Procedure Laterality Date C-/T-SPINE PARAVERTEBRAL FACET INJ, 1 LEVEL 05/17/2022 C-/T-SPINE PARAVERTEBRAL FACET INJ, 1 LEVEL performed by Ramiro Woodward DO at [facility] C-/T-SPINE PARAVERTEBRAL FACET INJ, 1 LEVEL 06/14/2022 C-/T-SPINE PARAVERTEBRAL FACET INJ, 1 LEVEL performed by Ramiro Woodward DO at OR [facility] COLONOSCOPY COLONOSCOPY, DIAGNOSTIC (RECTUM) N/A 02/26/2024 diverticulosis/hemorrhoids/recall 5 years/COLONOSCOPY FLEXIBLE PROXIMAL DIAGNOSTIC performed by Sadiq Anglin MD at ENDOSCOPY [facility] DESTROY CERV/THORACIC NERVE IMAGING, SINGLE 07/19/2022 DESTROY CERV/THORACIC NERVE IMAGING, SINGLE performed by Ramiro Woodward DO at [facility] EGD, FLEXIBLE, DIAGNOSTIC 01/31/2024 biopsies normal/ESOPHAGOGASTRODUODENOSCOPY (EGD), FLEXIBLE, TRANSORAL, DIAGNOSTIC performed by Ev Perry MD at ENDOSCOPY [facility] INFORMATION 12/31,01/01 removal osteoid osteoma INJECT DX/THER SUBSTANCE INTERLAMINAR CERVICAL/THORACIC W IMAGE GUIDE 03/08/2022 INJECTION SPINE LUMBAR CERVICAL OR THORACIC performed by Ramiro Woodward DO at OR [facility] INJECT DX/THER SUBSTANCE INTERLAMINAR CERVICAL/THORACIC W IMAGE GUIDE 03/11/2023 INJECTION SPINE LUMBAR CERVICAL OR THORACIC performed by Ramiro Woodward DO at OR [facility] MISCELLANEOUS ORDER ([facility] ONLY) knee - left OTHER 2017 spinal fussion of c4 and c5 Family History Problem Relation Name Age of Onset Breast Cancer Mother No Known Problems Father No Known Problems Sister No Known Problems Brother No Known Problems Grandmother (Maternal) No Known Problems Grandfather (Maternal) No Known Problems Grandmother (Paternal) Other (pancreatic cancer) Grandfather (Paternal) Social History Socioeconomic History Marital status: Tobacco [...] Grandmother (Paternal) Other (pancreatic cancer) Grandfather (Paternal) REVIEW OF SYSTEMS: All 10 systems reviewed and negative except mentioned in HPI OBJECTIVE: BP 116/86 | Pulse 84 | Temp 96.2 F (35.7 C) (Tympanic) | Wt 178 lb 3.2 oz (80.8 kg) | BMI 25.57kg/m | BSA 2 m PHYSICAL EXAM: General: alert, healthy, and no distress Head: Normocephalic, No masses, lesions, tenderness or abnormalities Oropharynx: no exudate, no erythema, lips, buccal mucosa, and tongue normal, and mucous membranes are moist Neck: supple, no adenopathy, no bruits, thyroid normal size, non-tender, without nodularity Heart: regular rate & rhythm, no murmur, and no gallops Lungs: chest symmetric with normal AP diameter, no chest deformities noted, no chest wall tenderness, lungs clear to auscultation Abdomen: abdomen soft, non-tender, normal bowel sounds, and no masses or organomegaly Back: back symmetric, no curvature, no costovertebral angle tenderness Extremities: less than 2 second capillary refill, no edema, surgical joni and asymmetry in Rt leg Neuro Exam: alert & oriented x 3 with fluent speech, no focal motor deficits, only slightly less sensation in buttock area gait normal, walking without support ASSESSMENT AND PLAN [employer] Lyme disease (Primary) Cont ceftriaxone 2 gm IV for total 2 weeks F/u with ID to determine future plan Essential hypertension with goal blood pressure less than 130/80 Stable Continue current treatment as directed 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 Patient verbalizing understanding. This note was prepared with the help of fluency and if there is any mis-spelled words , sentences or something which doesn't represent the content of the subject that could be technical error and please refer to the author for clarification. Jena Zavaleta MD 3:07 PM 08/06/2024 documented in this encounter Nursing Notes * Bethany Beaulieu MED ASSIST - 08/06/2024 2:36 PM EST Chief Complaint Patient presents with Hospital Follow-Up Patient admitted to [facility] 07/31 and discharged on 08/03 following a visit for paresthesia. Patient isstill having numbness mostly in his waist and slightly in his thighs. Is getting daily antibiotic injections until next Saturday. Patient would also like to discuss infectious disease referral for lymes. States this was briefly discussed at the hospital but was not carried through. Patient has been verbally educated on the need or importance of Flu Vaccine and has declined topic(s). documented in this encounter Plan of Treatment Upcoming Encounters Date Type Department Care Team (Latest Contact Info) Description 08/18/2024 9:40 AM EST [facility] [address] [address] MD [facility] [place], [place] [phone] 11/06/2024 8:25 AM EST Hospital Encounter [facility] [address] [place] [phone] Ramiro Woodward, DO [address] [place] [address] 11/06/2024 8:25 AM EST - 11/06/2024 8:50 AM EST Surgery [facility] [address] [place] [address] Ramiro Woodward DO [address] [place] [address] L-/S-SPINE PARAVERTEBRAL FACET INJ, 1 LEVEL 11/20/2024 8:50 AM EDT Hospital Encounter [facility] [address] [place] [address] Ramiro Woodward DO [address] [place] [address] 11/20/2024 8:50 AM EDT - 11/20/2024 9:15 AM EDT Surgery [facility] [address] [place] [address] Ramiro Woodward DO [address] [place] [address] L-/S-SPINE PARAVERTEBRAL FACET INJ, 1 LEVEL 12/04/2024 7:35 AM EDT Hospital Encounter [facility] [address] [place] [address] Ramiro Woodward, DO [address] [place] [address] 12/04/2024 7:35 AM EDT - 12/04/2024 8:25 AM EDT Surgery [facility] [address] [place] [address] Ramiro Woodward, DO [address] [place] [address] DESTROY LUMBAR SACRAL NERVE IMAGING SINGLE Scheduled [...] as of this encounter Visit Diagnoses Diagnosis [employer] Lyme disease- Primary Lyme disease Essential hypertension with goal blood pressure less than 130/80 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 Personal history of other musculoskeletal disorders Screening for depression Irritable bowel syndrome with constipation Irritable bowel syndrome Chronic neck pain Cervicalgia Hospital discharge follow-up Other follow-up examination 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
--- OUTSIDE RECORDS SUMMARY | 2024-11-11 09:33 | External Medical Summary | Summary of Care ---
Author Name Unknown Organization [facility] Address [address] [place] [address] Phone [phone] Care Team Providers Care Mortgage Loan Officer Name Role Phone Wolfgang Sellers MD Primary Care Provider + Reason for Visit * Reason Onset Date Comments Appointment 08/06/2024 Encounter Details Date Type Department Care Team (Late st Contact Info) Description 08/06/2024 Telephone Infectious Disease, [place] [address] [place] [address] Emanuel Chang MD [address] [place] [address] Appointment Allergies No known active [...] for 2 weeks at the [facility] at [facility] 4 Active oxyCODONE HCl 5 MG Oral [...] encounter Miscellaneous Notes * Telephone Encounter - Krystal Griffin OSA - 08/06/2024 3:[address] Yang ok to schedule * Telephone Encounter - Raine Patiño OSA - 08/06/2024 10:21 AM EST Swathi, Patient has been referred to Infectious Disease for Lyme Disease. Please review/triage. Thank you documented in this encounter Plan of Treatment Upcoming Encounters Date Type Department Care Team (Late st Contact Info) Description 08/10/2024 10:10 AM EST Office Visit Pharmacy, [place] [address] [place] [address] [facility] [place] [address] 11/06/2024 8:25 AM EST Hospital Encounter [facility] [address] [place] [address] Trace, Max Wilner, DO [address] [place] [address] 11/06/2024 8:25 AM EST - 11/06/2024 8:50 AM EST Surgery [facility] [address] [place], [place] [address] Ramiro Woodward, DO [address] [place], [place] [address] L-/S-SPINE PARAVERTEBRAL FACET INJ, 1 LEVEL 11/20/2024 8:50 AM EDT Hospital Encounter [facility] [address] [place] [address] Ramiro Woodward, DO [address] [place] [address] 11/20/2024 8:50 AM EDT - 11/20/2024 9:15 AM EDT Surgery [facility] [address] [place] [address] Ramiro Woodward, DO [address] [place], [place] [address] L-/S-SPINE PARAVERTEBRAL FACET INJ, 1 LEVEL 12/04/2024 7:35 AM EDT Hospital Encounter [facility] [address] [place] [address] Ramiro Woodward, DO [address] [place] [address] 12/04/2024 7:35 AM EDT - 12/04/2024 8:25 AM EDT Surgery [facility] [address] [place] [address] Ramiro Woodward, DO [address] [place] [address] DESTROY LUMBAR SACRAL NERVE IMAGING SINGLE Scheduled [...] filedocumented as of this encounter Care Teams Mortgage Loan Officer Relationship Specialty Start Date End Date Wolfgang Sellers MD [address] [place] [address] PCP - General Internal Medicine 11/10/21 documented as of this encounter
--- OUTSIDE RECORDS SUMMARY | 2024-11-11 09:33 | External Medical Summary | Summary of Care ---
Author Name Unknown Organization [facility] Address [address] [place] [address] Phone [phone] Care Team Providers Care Landscape Specialist Name Role Phone Wolfgang Sellers MD Primary Care Provider + Reason for Visit * Reason Onset Date Comments Appointment 08/06/2024 Encounter Details Date Type Department Care Team (Late st Contact Info) Description 08/06/2024 Telephone Infectious Disease, [place] [address] [place] [address] Emanuel Chang MD [address] [place] [address] Appointment Allergies No known active [...] 2 weeks at the [facility] at [facility] 4 Active oxyCODONE HCl 5 MG [...] Office Visit Pharmacy, [place] [address] [place] [address] [facility] [place] [address] 11/06/2024 8:25 AM EST Hospital Encounter [facility] [address] [place] [address] Trace, Max Wilner, DO [address] [place] [address] 11/06/2024 8:25 AM EST - 11/06/2024 8:50 AM EST Surgery [facility] [address] [place], [place] [address] Ramiro Woodward, DO [address] [place], [place] [address] L-/S-SPINE PARAVERTEBRAL FACET INJ, 1 LEVEL 11/20/2024 8:50 AM EDT Hospital Encounter [facility] [address] [place] [address] Ramiro Woodward, DO [address] [place] [address] 11/20/2024 8:50 AM EDT - 11/20/2024 9:15 AM EDT Surgery [facility] [address] [place] [address] Ramiro Woodward, DO [address] [place], [place] [address] L-/S-SPINE PARAVERTEBRAL FACET INJ, 1 LEVEL 12/04/2024 7:35 AM EDT Hospital Encounter [facility] [address] [place] [address] Ramiro Woodward, DO [address] [place] [address] 12/04/2024 7:35 AM EDT - 12/04/2024 8:25 AM EDT Surgery [facility] [address] [place] [address] Ramiro Woodward, DO [address] [place] [address] DESTROY LUMBAR SACRAL NERVE IMAGING SINGLE Scheduled [...] 01/09/2023, Additional history exists Depression Screening 08/06/2025 08/06/2024, 07/17/20 23 Diabetes Screening 03/02/2027 03/02/2024, 0 01/16/2024, 01/09/2023, [...] filedocumented as of this encounter Care Teams Landscape Specialist Relationship Specialty Start Date End Date Wolfgang Sellers MD [address] [place] [address] PCP - General Internal Medicine 11/10/21 documented as of this encounter
--- OUTSIDE RECORDS SUMMARY | 2024-11-11 09:33 | External Medical Summary | Summary of Care ---
Author Name Unknown Organization [facility] Address [address] [place] [address] Phone [phone] Care Team Providers Care Recording Engineer Name Role Phone Wolfgang Sellers MD Primary Care Provider + Reason for Visit * Reason Comments eRx-Medication Refill Encounter Details Date Type Department Care Team (Late st Contact Info) Description 08/07/2024 Refill General Internal Medicine [facility] [address] [facility] [place] [address] Wolfgang Sellers MD [address] [place] [address] Neck pain Allergies No known active allergiesdocumented as of this encounter (statuses as of 08/08/2024) Medications sildenafil (REVATIO) 20 MG Tablet Take [...] at [facility] 4 Active oxyCODONE HCl 5 MG Oral Tablet (Oxy IR) 4 Active documented as of this encounter (statuses as of 08/08/2024) Active Problems Problem Noted Date Diagnosed Date [...] as of this encounter (statuses as of 08/08/2024) Resolved Problems Problem Noted Date Diagnosed Date Resolved Date ADVANCE DIRECTIVE INFORMATION 05/24/2005 07/06/2024 Overview (05/24/2005): No, Advance Directive brochure offered , patient declined. documented as of this encounter (statuses as of 08/08/2024) Immunizations Name Administration Dates Next Due COVID-19, [...] encounter Miscellaneous Notes * Telephone Encounter - Dana Jurado RPh - 08/08/2024 2:57 PM ESTRefused Prescriptions: Disp Refills tiZANidine HCl 4 MG Oral Tablet (Zanaflex) 30 Tab*1 Sig: Take 1Tablet by mouth at bedtime.Refused By: DANA JURADO for Refusal: Too soon documented in this encounter Plan of Treatment Upcoming Encounters Date Type Department Care Team (Late st Contact Info) Description 08/10/2024 10:10 AM EST Office Visit Pharmacy, [place] [address] [facility] [place] [address] 08/18/2024 9:40 AM EST Office Visit Infectious Disease, [email or web address] [place] [phone] Joyce Conway MD [address] [facility], [place] [address] 11/06/2024 8:25 AM EST Hospital Encounter [facility] [address] [place] [address] Ramiro Woodward, DO [address] [place] [address] 11/06/2024 8:25 AM EST - 11/06/2024 8:50 AM EST Surgery [facility] [address] [place] [address] Ramiro Woodward DO [address] [place] [address] L-/S-SPINE PARAVERTEBRAL FACET INJ, 1 LEVEL 11/20/2024 8:50 AM EDT Hospital Encounter [facility] [address] [place] [phone] Ramiro Woodward DO [address] [place] [address] 11/20/2024 8:50 AM EDT - 11/20/2024 9:15 AM EDT Surgery [facility] [address] [place] [address] Ramiro Woodward, DO [address] [place] [address] L-/S-SPINE PARAVERTEBRAL FACET INJ, 1 LEVEL 12/04/2024 7:35 AM EDT Hospital Encounter [facility] [address] [place] [address] Trace, Max Wilner, DO [address] [place] [address] 12/04/2024 7:35 AM EDT - 12/04/2024 8:25 AM EDT Surgery [facility] [address] [place] [address] Ramiro Woodward, DO [address] [place] [address] DESTROY LUMBAR SACRAL NERVE IMAGING SINGLE Scheduled [...] myelopathy documented in this encounter Care Teams Recording Engineer Relationship Specialty Start Date End Date Wolfgang Sellers MD [address] [place] [address] PCP - General Internal Medicine 11/10/21 documented as of this encounter
--- OUTSIDE RECORDS SUMMARY | 2024-11-11 09:34 | External Medical Summary | Summary of Care ---
Author Name Unknown Organization [facility] Address [address] [place] [address] Phone [phone] Care Team Providers Care Kitman Name Role Phone Wolfgang Sellers MD Primary Care Provider + Reason for Visit * Reason Onset Date Comments Appointment 07/15/2024 Encounter Details Date Type Department Care Team (Late st Contact Info) Description 07/15/2024 Telephone General Internal Medicine [facility] [address] [place] [address] Wolfgang Sellers MD 200 [place] [address] Appointment Allergies No known active allergiesdocumented as of this encounter (statuses as of 08/03/2024) Medications sildenafil (REVATIO) 20 MG Tablet Take [...] 24 Discontinu ed(Medicat ion List Clean Up) documented as of this encounter (statuses as of 08/03/2024) Active Problems Problem Noted Date Diagnosed Date [...] as of this encounter (statuses as of 08/03/2024) Resolved Problems Problem Noted Date Diagnosed Date Resolved Date ADVANCE DIRECTIVE INFORMATION 05/24/2005 07/06/2024 Overview (05/24/2005): No, Advance Directive brochure offered , patient declined. documented as of this encounter (statuses as of 08/03/2024) Immunizations Name Administration Dates Next Due COVID-19, [...] encounter Miscellaneous Notes * Telephone Encounter - Parth Jo RN - 08/03/2024 11:23 AM EST Please see phone encounter from today re: pre cert/prior auth for more information. * Telephone Encounter - Venecia Chaparro OSA - 08/03/2024 10:13 AM EST Spoke to pt and he said he had his hep b 3 already done. He did mention that there was an order fortramadol placed but it needs a new authorization the last one has run out * Telephone Encounter - Parth Jo RN - 07/27/2024 12:49 PM EST Scheduling: Patient never rescheduled for third Hep B vaccine. Please schedule patient for third Hep B vaccine soon. * Telephone Encounter - Parth Jo RN - 07/15/2024 8:26 AM EST Attempted to call patient, there was no answer, left voicemail. When patient returns call, ok for GIANFRANCO to relay message, please refer to below documentation. If needed, can transfer to dedicated nurse line. Patient is scheduled today for nurse clinic visit for 3rd Hep B vaccine. Patient received first dose of Hep B vaccine on 01/16/2024. Discussed with Dr. Sellers, and per Dr. Sellers it is too soon for third Hep B vaccine. Please reschedule patient's nurse clinic appointment for third Hep vaccine after 07/18/2024. Thank you. documented in this encounter Plan of Treatment Upcoming Encounters Date Type Department Care Team (Late st Contact Info) Description 08/10/2024 10:10 AM EST Office Visit Pharmacy, [place] [address] [facility] [place] [address] [place], [facility] [address] [facility] [place] [address] 11/06/2024 8:25 AM EST Hospital Encounter OR [facility], Operating Room [facility] [address] [place] [address] Ramiro Woodward DO [address] [place] [address] 11/06/2024 8:25 AM EST - 11/06/2024 8:50 AM EST Surgery OR [facility], Operating Room [facility] [address] [place] [address] Ramiro Woodward DO [address] [place] [address] L-/S-SPINE PARAVERTEBRAL FACET INJ, 1 LEVEL 11/20/2024 8:50 AM EDT Hospital Encounter OR [facility], Operating Room [facility] [address] [place] [address] Ramiro Woodward DO [address] [place] [address] 11/20/2024 8:50 AM EDT - 11/20/2024 9:15 AM EDT Surgery OR [facility], Operating Room [facility] [address] [place] [address] Ramiro Woodward, DO [address] [place] [address] L-/S-SPINE PARAVERTEBRAL FACET INJ, 1 LEVEL 12/04/2024 7:35 AM EDT Hospital Encounter OR [facility], Operating Room [facility] [address] [place] [address] Ramiro Woodward, DO [address] [place] [address] 12/04/2024 7:35 AM EDT - 12/04/2024 8:25 AM EDT Surgery OR [facility], Operating Room [facility] [address] [place] [address] Ramiro Woodward, DO [address] [place] [address] DESTROY LUMBAR SACRAL NERVE IMAGING SINGLE Scheduled [...] filedocumented as of this encounter Care Teams Kitman Relationship Specialty Start Date End Date Wolfgang Sellers MD 200 [place] [address] PCP - General Internal Medicine 11/10/21 documented as of this encounter
--- OUTSIDE RECORDS SUMMARY | 2024-11-11 09:34 | External Medical Summary | Summary of Care ---
Author Name Unknown Organization [facility] Address [address] [place] [address] Phone [phone] Care Team Providers Care Avionics Systems Repairer Name Role Phone Wolfgang Sellers MD Primary Care Provider + Reason for Visit * Reason Onset Date Comments Appointment 07/15/2024 Encounter Details Date Type Department Care Team (Late st Contact Info) Description 07/15/2024 Telephone General Internal Medicine [facility] 200 [facility] [place] [address] Wolfgang Sellers MD 200 [place] [address] Appointment Allergies No known active allergiesdocumented as [...] encounter Miscellaneous Notes * Telephone Encounter - Venecia Chaparro OSA [...] 08/10/2024 10:10 AM EST Office Visit Pharmacy, [place] [address] [place] [address] [facility] [address] [place] [address] 11/06/2024 8:25 AM EST Hospital Encounter OR [facility], Operating Room [facility] [address] [place] [address] Ramiro Woodward, DO [address] [place] [address] 11/06/2024 8:25 AM EST - 11/06/2024 8:50 AM EST Surgery OR [facility], Operating Room [facility] [address] [place] [address] Ramiro Woodward, [address] [place] [address] L-/S-SPINE PARAVERTEBRAL FACET INJ, 1 LEVEL 11/20/2024 8:50 AM EDT Hospital Encounter OR [facility], Operating Room [facility] [address] [place] [address] Ramiro Woodward DO [address] [place] [address] 11/20/2024 8:50 AM EDT - 11/20/2024 9:15 AM EDT Surgery OR [facility], Operating Room [facility] [address] [place] [address] Ramiro Woodward DO [address] [place] [address] L-/S-SPINE PARAVERTEBRAL FACET INJ, 1 LEVEL 12/04/2024 7:35 AM EDT Hospital Encounter OR [facility], Operating Room [facility] [address] [place] [address] Ramiro Woodward, DO [address] [place] [address] 12/04/2024 7:35 AM EDT - 12/04/2024 8:25 AM EDT Surgery OR [facility], Operating Room [facility] [address] [place] [address] Ramiro Woodward, DO [address] [place] [address] DESTROY LUMBAR SACRAL NERVE IMAGING SINGLE Scheduled [...] filedocumented as of this encounter Care Teams Avionics Systems Repairer Relationship Specialty Start Date End Date Wolfgang Sellers MD [address] [place] [address] PCP - General Internal Medicine 11/10/21 documented as of this encounter
--- OUTSIDE RECORDS SUMMARY | 2024-11-11 09:34 | External Medical Summary | Summary of Care ---
Author Name Unknown Organization [facility] Address [address] [facility] [address] Phone [phone] Care Team Providers Care Mail Service Coordinator Name Role Phone Wolfgang Sellers MD Primary Care Provider + Reason for Visit * Reason Onset Date Comments Hospital Follow-Up 08/04/2024 [facility] d/c 08/03 Encounter Details Date Type Department Care Team (Late st Contact Info) Description 08/04/2024 Telephone General Internal Medicine [facility] [place] [address] [place] [address] [place], [facility] Follow-Up ([facility] d/c 08/03) Allergies No known active allergiesdocumented as of this encounter (statuses as of 08/04/2024) Medications sildenafil (REVATIO) 20 MG Tablet Take [...] for 2 weeks at the [facility] at [facility] 4 Active oxyCODONE HCl 5 MG Oral Tablet (Oxy IR) 4 Active Amoxicillin 500 MG Oral Capsule (Amoxil)Indicati ons:Chronic bilateral low back pain with bilateral sciatica,History of Lyme disease Take 1 Capsule by mouth in the morning and 1 Capsule at noon and 1 Capsule before bedtime. Do all this for 21 days. 63 Capsule 4 08/04/20 24 Discontinu ed(Medicat ion List Clean Up) documented as of this encounter (statuses as of 08/04/2024) Active Problems Problem Noted Date Diagnosed Date [...] as of this encounter (statuses as of 08/04/2024) Resolved Problems Problem Noted Date Diagnosed Date Resolved Date ADVANCE DIRECTIVE INFORMATION 05/24/2005 07/06/2024 Overview (05/24/2005): No, Advance Directive brochure offered , patient declined. documented as of this encounter (statuses as of 08/04/2024) Immunizations Name Administration Dates Next Due COVID-19, [...] encounter Miscellaneous Notes * Telephone Encounter - [place] Avina RN - 08/04/2024 8:56 AM EST Images from the original note were not included. Transitions of Care Note Reason for Referral:Recent Admission Phone visit for follow up: SHIRLEY Admitted to: [facility], Date: 07/31 Discharged to: home, Date: 08/03 Diagnosis driving hospitalization: paresthesia Source/Contact: Patient SUBJECTIVE Consent: Verbal consent for review of hospital discharge: Yes REVIEW OF SYSTEMS Patient/Other Reports: Current patient/caregiver problems or concerns: patient with ongoing headache, neck pain dizziness.Ongoing knee and hip numbness. Would like infectious disease referral placed. This was not done at [facility] although they had noted it in the discharge summary. CV: Denies problems Pulmonary: Denies problems Chills/Sweats/Fever:Denies chills/sweats Denies fever Appetite:Denies problems such as nausea, vomiting, burning, decreased appetite Current diet: regular Bowel: has some ongoing straining Bladder: denies problems Wound (If applicable): N/A Pain:Location- see above Sleep:Denies problems FUNCTIONAL STATUS: ADL'S: Needs Assistance With:N/A as pt is independent IADL'S: Needs Assistance With:N/A as pt is independent Cognitive and Mental Health: denies problems, alert and oriented x 3, and able to communicate, understand instructions, process information. MEDICATION RECONCILIATION Medications: Discharge med list reviewed with patient or caregiver New medication(s) filled since hospitalization- ceftriaxone, IV to be infused daily x 2 weeks at the [facility] OBJECTIVE ASSESSMENT Medication Risk Assessment: No risks identified Did patient fail outpatient treatment? No Discharge instructions available for review? Yes PLAN Symptom Monitoring Interventions:Member/caregiver education - signs and symptoms to contact PrimaryCare (DO NOT DELETE-Three ivan symptoms patient is to report to PCP) 1. Worsening pain 2. Falls/injury 3. Worsening paresthesias Field CounselSecurity Orderly of Care interventions/Action Plan: Medication reconciliation and 5 - 7 day follow-up with PCP in place - Date: 08/06/24 Educated on role of SHIRLEY completed with patient/caregiver. Educated patient/caregiver on patient right to have input on SHIRLEY plan of care. Verification of Home Health/DME if indicated: NO n/a Identified Care Gaps: Yes Care Gaps closed this call: Appointment made or confirmed, Medication optimization, and Transition of Care follow-up communication Re-evaluation of Plan of Care and progress towards goals achievement: Patient education this visit: Verbal, as above Plan to instructed to call Primary Care Provider with change in symptoms or as needed before next follow-up, discharge needs met, verbalizes understanding and agrees with plan. [place] Avina RN documented in this encounter Plan of Treatment Upcoming Encounters Date Type Department Care Team (Late st Contact Info) Description 08/06/2024 11:00 AM EST Office Visit General Internal Medicine [facility] [address] [place] [address] Jena Zavaleta MD [address] [place] [address] 08/10/2024 10:10 AM EST Office Visit [place] [address] [place] [address] [place] [phone] [facility] [address] [place] [address] 11/06/2024 8:25 AM EST Hospital Encounter OR [facility], Operating Room [facility] [address] [place] [address] Ramiro Woodward, DO [address] [place] [address] 11/06/2024 8:25 AM EST - 11/06/2024 8:50 AM EST Surgery OR [facility], Operating Room [facility] [address] [place] [address] Ramiro Woodward, DO [address] [place] [address] L-/S-SPINE PARAVERTEBRAL FACET INJ, 1 LEVEL 11/20/2024 8:50 AM EDT Hospital Encounter OR [facility], Operating Room [facility] [address] [place] [address] Ramiro Woodward, DO [address] [place] [address] 11/20/2024 8:50 AM EDT - 11/20/2024 9:15 AM EDT Surgery OR [facility], Operating Room [facility] [address] [place] [address] Ramiro Woodward, DO [address] [place] [address] L-/S-SPINE PARAVERTEBRAL FACET INJ, 1 LEVEL 12/04/2024 7:35 AM EDT Hospital Encounter OR [facility], Operating Room [facility] [address] [place] [address] Ramiro Woodward, DO [address] [place] [address] 12/04/2024 7:35 AM EDT - 12/04/2024 8:25 AM EDT Surgery OR [facility], Operating Room [facility] [address] [place] [address] Ramiro Woodward, DO [address] [place] [phone] DESTROY LUMBAR SACRAL NERVE IMAGING SINGLE Scheduled [...] filedocumented as of this encounter Care Teams Mail Service Coordinator Relationship Specialty Start Date End Date Wolfgang Sellers MD [address] [place] [address] PCP - General Internal Medicine 11/10/21 documented as of this encounter
--- OUTSIDE RECORDS SUMMARY | 2024-11-11 09:34 | External Medical Summary | Summary of Care ---
Author Name Unknown Organization [facility] Address [address] [place] [address] Phone [phone] Care Team Providers Care Construction Or Leak Gang Laborer Name Role Phone Wolfgang Sellers MD Primary Care Provider + Reason for Visit * Reason Onset Date Comments Pre Cert/Prior Auth 08/03/2024 Tramadol Encounter Details Date Type Department Care Team (Late st Contact Info) Description 08/03/2024 Telephone General Internal Medicine [facility] [address] [place] [address] Wolfgang Sellers MD 200 [place] [address] Pre Cert/Prior Auth (Tramadol) Allergies No known active allergiesdocumented as of [...] 4 Active Amoxicillin 500 MG Oral Capsule (Amoxil)Indicatio ns:Chronic bilateral low back pain with bilateral sciatica,History of Lyme disease Take 1 Capsule by mouth in the morning and 1 Capsule at noon and 1 Capsule before bedtime. Do all this for 21 days. 63 Capsule 4 08/19/20 24 Active traMADol HCl 50 MG Oral TabletIndications [...] Encounter - Parth Jo RN - 08/03/2024 3:41 PM EST Received response from patient's insurance that prior-authorization for Tramadol is not needed. Called and spoke with Kelly at [facility] and informed her of message above. She verbalized understanding. She said the ran the prescription through the insurance again and it went through successfully. Called patient and informed him of message above. He verbalized understanding. FYI. * Telephone Encounter - Parth Jo RN - 08/03/2024 11:59 AM EST Prior-authorization for traMADol HCl 50 MG Oral Tablet submitted via [facility]. Awaiting response from patient's insurance. * Telephone Encounter - Zenia Jo LPN - 08/03/2024 11:00 AM EST Fax received from cover my meds stating Tramadol requires a prior authorization. Rojas: [id number] documented in this encounter Plan of Treatment Upcoming Encounters Date Type Department Care Team (Late st Contact Info) Description 08/06/2024 11:00 AM EST Office Visit General Internal Medicine [facility] [place] [address] [facility] [address] Jena Zavaleta MD 200 [facility] [place] [address] 08/10/2024 10:10 AM EST Office Visit Pharmacy, [place] [facility] [place] [address] [facility] [address] [facility] [place] [address] 11/06/2024 8:25 AM EST Hospital Encounter OR [facility], Operating Room [facility] [address] [place] [address] Ramiro Woodward, [address] [place] [address] 11/06/2024 8:25 AM EST - 11/06/2024 8:50 AM EST Surgery OR [facility], Operating Room [facility] [address] [place] [address] Ramiro Woodward, [address] [place] [address] L-/S-SPINE PARAVERTEBRAL FACET INJ, 1 LEVEL 11/20/2024 8:50 AM EDT Hospital Encounter OR [facility], Operating Room [facility] [address] [place] [address] Ramiro Woodward, [address] [place] [address] 11/20/2024 8:50 AM EDT - 11/20/2024 9:15 AM EDT Surgery OR [facility], Operating Room [facility] [address] [place] [address] Ramiro Woodward, DO [address] [place] [address] L-/S-SPINE PARAVERTEBRAL FACET INJ, 1 LEVEL 12/04/2024 7:35 AM EDT Hospital Encounter OR [facility], Operating Room [facility] [address] [place] [address] Ramiro Woodward, DO [address] [place] [address] 12/04/2024 7:35 AM EDT - 12/04/2024 8:25 AM EDT Surgery OR [facility], Operating Room [facility] [address] [place] [address] Ramiro Woodward, DO [address] [place] [address] DESTROY LUMBAR SACRAL NERVE IMAGING SINGLE Scheduled [...] filedocumented as of this encounter Care Teams Construction Or Leak Gang Laborer Relationship Specialty Start Date End Date Wolfgang Sellers MD [address] [place] [address] PCP - General Internal Medicine 11/10/21 documented as of this encounter
--- OUTSIDE RECORDS SUMMARY | 2024-11-11 09:34 | External Medical Summary | Summary of Care ---
Author Name Unknown Organization [facility] Address [address] [place] [address] Phone [phone] Care Team Providers Care Community Health Representative Name Role Phone Wolfgang Sellers MD Primary Care Provider + Reason for Visit * Reason Onset Date Comments Appointment 07/15/2024 Encounter Details Date Type Department Care Team (Late st Contact Info) Description 07/15/2024 Telephone General Internal Medicine [facility] 200 [facility] [place] [address] Wolfgang Sellers MD 200 [place] [address] Appointment Allergies No known active allergiesdocumented as [...] 08/10/2024 10:10 AM EST Office Visit Pharmacy, [place] [address] [place] [address] [facility] [facility] [address] [place] [address] 11/06/2024 8:25 AM EST Hospital Encounter OR [facility], Operating Room [facility] [address] [place] [address] Ramiro Woodward, DO [address] [place] [address] 11/06/2024 8:25 AM EST - 11/06/2024 8:50 AM EST Surgery OR [facility], Operating Room [facility] [address] [place] [address] Ramiro Woodward, [address] [place] [address] L-/S-SPINE PARAVERTEBRAL FACET INJ, 1 LEVEL 11/20/2024 8:50 AM EDT Hospital Encounter OR [facility], Operating Room [facility] [address] [place] [address] Ramiro Woodward DO [address] [place] [address] 11/20/2024 8:50 AM EDT - 11/20/2024 9:15 AM EDT Surgery OR [facility], Operating Room [facility] [address] [place] [address] Ramiro Woodward DO [address] [place] [address] L-/S-SPINE PARAVERTEBRAL FACET INJ, 1 LEVEL 12/04/2024 7:35 AM EDT Hospital Encounter OR [facility], Operating Room [facility] [address] [place] [address] Ramiro Woodward, DO [address] [place] [address] 12/04/2024 7:35 AM EDT - 12/04/2024 8:25 AM EDT Surgery OR [facility], Operating Room [facility] [address] [place] [address] Ramiro Woodward, DO [address] [place] [address] DESTROY LUMBAR SACRAL NERVE IMAGING SINGLE Scheduled [...] filedocumented as of this encounter Care Teams Community Health Representative Relationship Specialty Start Date End Date Wolfgang Sellers MD [address] [place] [address] PCP - General Internal Medicine 11/10/21 documented as of this encounter
--- NOTE | 2024-11-11 09:43 | Emergency Department Note ---
Impression & Plan Bilateral leg weakness Admission ED Provider Note HPI: History obtained from patient. 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 Patient states that the symptoms have been progressive over the past several months. Patient states he is getting to the point where he is having difficulty walking if he does not use a walking cane. Patient was seen in the outpatient setting by [facility] neurology (Dr. Tang) and had MRI imaging of the brain, cervical spine, and thoracic spine performed on 11/04/24 that were generally unremarkable. MRI brain showed no acute intracranial abnormality, MRI of the cervical spine showed some proximal junctional degeneration at C4/C5 with mild to moderate thecal sac stenosis and worsening mild flattening/indentation of the cervical cord, MRI imaging of the thoracic spine did not show any evidence of canal stenosis or evidence of cord signal abnormality. He states that Dr. Tang wanted an LP to be performed for repeat analysis of CSF and therefore he was advised to come to the emergency department to be assessed. ROS: - Per HPI Differential Diagnosis: CARETAKER infection to include Lyme meningitis, cauda equina syndrome, myelitis, bacterial CARETAKER infection/meningitis, Guillain-Briggs syndrome, amongst other potential pathologies. *Outpatient medications and allergy history reviewed. PE: General: Alert HEENT: Normocephalic, trachea midline Eyes: Extraocular eye movement is intact, no scleral erythema Pulmonary: Clear to auscultation bilaterally, no wheezing Cardio: Regular rate and rhythm GI: Abdomen is soft to palpation : No suprapubic tenderness MSK: No evidence of trauma or malformation of the extremities, no edema Skin: No evidence of rash Neuro: Alert, no focal deficits, 2+ patellar reflex bilaterally, 3 out of 5 strength with dorsiflexion and plantarflexion bilaterally Psychiatric: Cooperative INDEPENDENT INTERPRETATIONS: nutrition representative: (As interpreted by myself): - An order was placed for continuous cardiac monitoring - Patient was noted to be in sinus rhythm with a rate of 70 EKG: (As interpreted by myself): Rate: 71 Rhythm: Normal sinus rhythm Intervals: Within normal limits ST changes: No ST elevation Time: 0954 Interventions provided in ED: -IV morphine, IV Zofran, IV ceftriaxone Medical Decision Making: IV was established and lab work obtained, patient was placed on dynamite packing machine feeder. Lab work shows no leukocytosis, hemoglobin is normal, platelet count is normal, CMP shows no critical findings, procalcitonin is noted to be low. Urinalysis does not show any evidence of infection. Blood test Lyme screen is positive. CT imaging of the lumbar spine was obtained to assure no contraindication for lumbar puncture, this does not show any critical findings. I did touch base with interventional radiology, Vince Avina PA-C, and he was available to perform lumbar puncture as was the recommendation upon chart review of the patient's neurologist, Dr. Tang, therefore orders were placed. Patient had a lumbar puncture performed, formal CSF analysis was ordered and is pending at the time of admission. I discussed the patient's presentation and plan with on-call neurology for [facility], Dr. Lei, he is in agreement for routine consultation. Case was then discussed with the [facility] hospital[facility] service and the patient was placed for admission to the service of Dr. Ronquillo for further management. Patient was in agreement to this plan. Consultants/Discussions held with other healthcare providers: -Neurology, Dr. Lei -Hospitalist, Dr. Ronquillo Disposition discussion held by myself with: -Patient Diagnosis: 1. Bilateral lower extremity paresthesias, acute, nonspecific 2. History of Lyme CARETAKER infection 3. Right upper extremity paresthesias, acute, nonspecific 4. Radicular pain in the right upper extremity, acute 5. Entero-/rhinovirus positive PCR testing, acute Disposition: Admission Angel Morton DO Emergency Medicine Past Med/Surg History Problem List (Updated 11/11/24 @ 15:28 by Angel Morton DO) Paresthesia of buttock (Acute) Bilateral leg paresthesia (Acute) Bilateral leg weakness (Acute) Medical History IBS (irritable bowel syndrome) HTN (hypertension) Cervical disc disease Surgical History History of esophagogastroduodenoscopy (EGD) History of colonoscopy 02/26/24: diverticulosis in sigmoid colon. internal hemorrhoids H/O cervical spine surgery Family History Other Cancer Social History Smoking Status: Never smoker Hx Alcohol Use: No Hx Substance Use: No Preferred Language: Setswana Communication Ability: Effective Riding Teacher Required: No Beliefs That Will Affect Care: None Current Living Situation: Family Feels Safe at Home: Yes Assistive Devices: Cane Allergies Allergies Allergy/AdvReac Type Severity Reaction Status Date / Time doxycycline AdvReac Severe HALLUCINATIONS/BLURRED Verified 08/13/24 07:18 & DOUBLE VISION Home Meds Home Medications Medication Instructions Recorded Confirmed amlodipine 10 mg tablet 10 mg PO QAM 03/13/24 11/11/24 tizanidine 4 mg tablet 4 mg PO HS MUSCLE SPASMS 03/13/24 11/11/24 acetaminophen 500 mg tablet 500 mg PO Q6H PRN Pain/Fever 07/31/24 11/11/24 memantine 5 mg tablet 5 mg PO BID 11/11/24 11/11/24 oxycodone-acetaminophen 5 mg-325 1 tab PO Q4H PRN Pain 11/11/24 11/11/24 mg tablet pregabalin 150 mg capsule 150 mg PO TID 11/11/24 11/11/24 Results & Data (ED) Vital Signs Vital Signs - 24 hr 11/11/24 09:06 11/11/24 09:17 11/11/24 09:31 Temperature 36.9 C Temperature Source Temporal Artery Scan Pulse Rate 97 H Pulse Rate [Apical] Respiratory Rate 18 Respiratory Effort / Characteristics Non-Labored Spontaneous Respiratory Depth Normal Blood Pressure 134/91 Blood Pressure [Right Arm] Blood Pressure Mean 105 Blood Pressure Mean [Right Arm] Blood Pressure Position Sitting Blood Pressure Position [Right Arm] Pulse Oximetry 100 98 97 Oxygen Delivery Method Room Air Room Air Room Air Sepsis Recent Fever Within 48 Hours No Sepsis New/Unexplained Change in Mental Status No Sepsis Action Taken by Nursing No Action Required 11/11/24 10:19 11/11/24 11:00 11/11/24 12:00 Temperature Temperature Source Pulse Rate 75 Pulse Rate [Apical] 64 63 Respiratory Rate 16 13 Respiratory Effort / Characteristics Non-Labored Spontaneous Respiratory Depth Normal Blood Pressure Blood Pressure [Right Arm] 132/90 116/84 Blood Pressure Mean Blood Pressure Mean [Right Arm] 104 94 Blood Pressure Position Blood Pressure Position [Right Arm] Semi-fowlers Semi-fowlers Pulse Oximetry 96 98 Oxygen Delivery Method Room Air Room Air Sepsis Recent Fever Within 48 Hours Sepsis New/Unexplained Change in Mental Status Sepsis Action Taken by Nursing 11/11/24 14:31 11/11/24 15:00 11/11/24 15:15 Temperature Temperature Source Pulse Rate Pulse Rate [Apical] 64 62 61 Respiratory Rate 16 16 12 Respiratory Effort / Characteristics Non-Labored Spontaneous Non-Labored Spontaneous Respiratory Depth Normal Normal Blood Pressure Blood Pressure [Right Arm] 105/57 L 123/84 117/80 Blood Pressure Mean Blood Pressure Mean [Right Arm] 73 97 92 Blood Pressure Position Blood Pressure Position [Right Arm] Semi-fowlers Semi-fowlers Pulse Oximetry 96 97 98 Oxygen Delivery Method Room Air Room Air Room Air Sepsis Recent Fever Within 48 Hours Sepsis New/Unexplained Change in Mental Status Sepsis Action Taken by Nursing Laboratory Data 11/11/24 09:28 11/11/24 09:28 Lab Results 11/11/24 11/11/24 11/11/24 Range/Units 09:28 09:30 11:40 WBC 5.66 (4.8-10.8) K/ul RBC 4.95 (4.70-6.10) M/uL Hgb 14.4 (14.0-18.0) g/dl Hct 42.8 (42.0-52.0) % MCV 86.5 (80.0-100.0) fL MCH 29.1 (25.0-34.0) pg MCHC 33.6 (32.0-36.0) g/dL RDW Std Deviation 43.9 (36.4-46.3) fL RDW Coeff of [place] 13.8 (11.5-14.5) % Plt Count 222 (130-400) K/uL MPV 10.2 (9.4-12.4) fL Immature Gran % (Auto) 0.2 % Neut % (Auto) 63.3 % Lymph % (Auto) 26.5 % Stephen[place] % (Auto) 7.1 % Eos % (Auto) 1.8 % Baso % (Auto) 1.1 % Neut # (Auto) 3.59 (1.40-6.50) K/uL Lymph # (Auto) 1.50 (1.20-3.40) K/uL Stephenson # (Auto) 0.40 (0.11-0.59) K/uL Eos # (Auto) 0.10 (0.00-0.50) K/uL Baso # (Auto) 0.06 (0.00-0.20) K/uL Immature Gran # (Auto) 0.01 (0.01-0.20) K/uL Sodium 136 (136-145) mmol/L Potassium 3.8 (3.5-5.1) mmol/L Chloride 104 (98-107) mmol/L Carbon Dioxide 27 (21-32) mmol/L Anion Gap 5 (3-11) BUN 12 (6-23) mg/dl Creatinine 1.00 (0.6-1.4) mg/dl Est Cr Clr Drug Dosing 107.5 ml/min eGFR 96.37 BUN/Creatinine Ratio 12.0 (10-20) Glucose 108 H (70-99(Fasting)) mg/dl Calcium 9.9 (8.6-10.3) mg/dl Total Bilirubin 1.3 H (0.2-1.0) mg/dl AST 19 (13-39) U/L ALT 16 (7-52) U/L Alkaline Phosphatase 50 (34-104) U/L Troponin I High Sens < 2.3 (0-20) pg/ml Total Protein 7.2 (6.0-8.3) gm/dl Albumin 5.0 (3.4-5.0) gm/dl Globulin 2.2 L (2.5-4.0) gm/dl Albumin/Globulin Ratio 2.3 H (0.9-2) Lipase 14 (11-82) U/L Procalcitonin < 0.02 (0-0.5) ng/ml Urine Color Yellow Urine Appearance Clear (Clear) Urine pH 7.0 (4.5-7.5) Ur Specific [place] 1.009 (1.000-1.030) Urine Protein Negative (Negative) Urine Glucose (UA) Negative (Negative) Urine Ketones Negative (Negative) Urine Blood Negative (Negative) Urine Nitrite Negative (Negative) Urine Bilirubin Negative (Negative) Urine Urobilinogen Negative (Negative) Ur Leukocyte Esterase Negative (Negative) Fluid Comment CSF Appearance CSF Color Xanthrochromic CSF WBC (0-5) CSF RBC (0) CSF Cell Count Tube # CSF Chemistry Tube # CSF Glucose (40-70) mg/dl CSF Total Protein (15-45) mg/dl Adenovirus (PCR) Not Detected (NotDetected) B. pertussis DNA (PCR) Not Detected (NotDetected) B.parapertussis DNA PCR Not Detected (NotDetected) Lyme Disease Screen Positive H (Negative) Lyme Tier 2 IgG Confirm Positive H (Negative) Lyme Tier 2 IgM Confirm Negative (Negative) C. pneumoniae DNA (PCR) Not Detected (NotDetected) Coronavirus OC43 (PCR) Not Detected (NotDetected) Coronavirus HKU1 (PCR) Not Detected (NotDetected) Coronavirus 229E (PCR) Not Detected (NotDetected) SARS-CoV-2 (PCR) Not Detected (NotDetected) Coronavirus NL63 (PCR) Not Detected (NotDetected) Human Metapneumovir PCR Not Detected (NotDetected) Influenza Type A (PCR) Not Detected (NotDetected) Influenza Type B (PCR) Not Detected (NotDetected) M. pneumoniae (PCR) Not Detected (NotDetected) Parainfluenza 1 (PCR) Not Detected (NotDetected) Parainfluenza 2 (PCR) Not Detected (NotDetected) Parainfluenza 3 (PCR) Not Detected (NotDetected) Parainfluenza 4 (PCR) Not Detected (NotDetected) RSV (PCR) Not Detected (NotDetected) Entero/Rhino (PCR) DETECTED A (NotDetected) 11/11/24 Range/Units Unknown WBC (4.8-10.8) K/ul RBC (4.70-6.10) M/uL Hgb (14.0-18.0) g/dl Hct (42.0-52.0) % MCV (80.0-100.0) fL MCH (25.0-34.0) pg MCHC (32.0-36.0) g/dL RDW Std Deviation (36.4-46.3) fL RDW Coeff of [place] (11.5-14.5) % Plt Count (130-400) K/uL MPV (9.4-12.4) fL Immature Gran % (Auto) % Neut % (Auto) % Lymph % (Auto) % Stephenson % (Auto) % Eos % (Auto) % Baso % (Auto) % Neut # (Auto) (1.40-6.50) K/uL Lymph # (Auto) (1.20-3.40) K/uL Stephen[place] # (Auto) (0.11-0.59) K/uL Eos # (Auto) (0.00-0.50) K/uL Baso # (Auto) (0.00-0.20) K/uL Immature Gran # (Auto) (0.01-0.20) K/uL Sodium (136-145) mmol/L Potassium (3.5-5.1) mmol/L Chloride (98-107) mmol/L Carbon Dioxide (21-32) mmol/L Anion Gap (3-11) BUN (6-23) mg/dl Creatinine (0.6-1.4) mg/dl Est Cr Clr Drug Dosing ml/min eGFR BUN/Creatinine Ratio (10-20) Glucose (70-99(Fasting)) mg/dl Calcium (8.6-10.3) mg/dl Total Bilirubin (0.2-1.0) mg/dl AST (13-39) U/L ALT (7-52) U/L Alkaline Phosphatase (34-104) U/L Troponin I High Sens (0-20) pg/ml Total Protein (6.0-8.3) gm/dl Albumin (3.4-5.0) gm/dl Globulin (2.5-4.0) gm/dl Albumin/Globulin Ratio (0.9-2) Lipase (11-82) U/L Procalcitonin (0-0.5) ng/ml Urine Color Urine Appearance (Clear) Urine pH (4.5-7.5) Ur Specific [place] (1.000-1.030) Urine Protein (Negative) Urine Glucose (UA) (Negative) Urine Ketones (Negative) Urine Blood (Negative) Urine Nitrite (Negative) Urine Bilirubin (Negative) Urine Urobilinogen (Negative) Ur Leukocyte Esterase (Negative) Fluid Comment CSF Appearance Clear CSF Color Colorless Xanthrochromic No xanthochromia CSF WBC 0 (0-5) CSF RBC 117 (0) CSF Cell Count Tube # 3 CSF Chemistry Tube # 1 CSF Glucose 59 (40-70) mg/dl CSF Total Protein 45.6 H (15-45) mg/dl Adenovirus (PCR) (NotDetected) B. pertussis DNA (PCR) (NotDetected) B.parapertussis DNA PCR (NotDetected) Lyme Disease Screen (Negative) Lyme Tier 2 IgG Confirm (Negative) Lyme Tier 2 IgM Confirm (Negative) C. pneumoniae DNA (PCR) (NotDetected) Coronavirus OC43 (PCR) (NotDetected) Coronavirus HKU1 (PCR) (NotDetected) Coronavirus 229E (PCR) (NotDetected) SARS-CoV-2 (PCR) (NotDetected) Coronavirus NL63 (PCR) (NotDetected) Human Metapneumovir PCR (NotDetected) Influenza Type A (PCR) (NotDetected) Influenza Type B (PCR) (NotDetected) M. pneumoniae (PCR) (NotDetected) Parainfluenza 1 (PCR) (NotDetected) Parainfluenza 2 (PCR) (NotDetected) Parainfluenza 3 (PCR) (NotDetected) Parainfluenza 4 (PCR) (NotDetected) RSV (PCR) (NotDetected) Entero/Rhino (PCR) (NotDetected) Administered Medications Discontinued Medications Sodium Chloride (Nss) 500 mls @ 999 mls/hr IV .Q31M ONE Stop: 11/11/24 10:08 Last Infusion: 11/11/24 10:44 Dose: Infused Documented By: Admin: 11/11/24 10:13 Dose: 999 mls/hr Documented By: MMF Morphine Sulfate (Morphine Sulfate 4 Mg/Ml 1 Ml Carp\\Vial) 4 mg IV NOW STA Stop: 11/11/24 09:52 Last Admin: 11/11/24 10:13 Dose: 4 mg Documented By: MMF Morphine Sulfate (Morphine Sulfate 4 Mg/Ml 1 Ml Carp\\Vial) 4 mg IV NOW STA Stop: 11/11/24 12:26 Last Admin: 11/11/24 12:53 Dose: 4 mg Documented By: MMF Ondansetron HCl (Ondansetron Inj 2 Mg/Ml 2 Ml Vial) 4 mg IV NOW STA Stop: 11/11/24 09:52 Last Admin: 11/11/24 10:13 Dose: 4 mg Documented By: [facility] Imaging Data Radiologist's Impression: Lumbar Puncture 11/11/24 09:43 LUMBAR PUNCTURE UNDER FLUOROSCOPY CLINICAL HISTORY: Right upper and lower extremity paresthesias/weakness history of lyme disease PROCEDURE: Procedure and risks were explained. Informed consent was obtained. A final timeout was completed. The patient was placed prone on the fluoroscopic exam table. The lower lumbar region was prepped and draped in sterile fashion. 1% lidocaine was utilized for skin anesthesia. Utilizing fluoroscopic guidance, a 22-gauge Sprotte spinal needle was advanced into the intrathecal space at the L3-4 disc space level. Fluoroscopic spot images were obtained. Approximately 8 mL of clear CSF fluid was removed and sent to lab for analysis. The needle was removed and Band-Aid applied. The patient tolerated the procedure well. Vital signs will be monitored postprocedure. Fluoroscopy time 20 seconds. Study dosed 18.14 mGy. IMPRESSION: Lumbar puncture as above. Performed, dictated, and signed by Omid Avina PA-C; to be co-signed by Dr. Garrett Melendez. Electronically signed by: Garrett Melendez M.D. 11/11/2024 2:[address] 11/11/24 09:[address] WITHOUT CONTRAST CLINICAL HISTORY: Back pain. Right leg numbness. COMPARISON STUDY: Lumbar spine MRI July 31, 2024. TECHNIQUE: Axial images of the lumbar spine were obtained without IV contrast. Sagittal and coronal reformats were viewed. Automated exposure control was utilized for the study. A dose lowering technique was utilized adhering to the principles of ALARA. FINDINGS: Alignment of the lumbar spine is anatomic. There are no fractures within the lumbar spine. There are no osseous lesions. Paravertebral soft tissues are unremarkable. Bilateral renal calculi measure up to 6 mm. Mild multilevel facet arthrosis is present. There is minimal disc bulge at the L4-L5 level with osteophytosis. Central canal and neural foramen are suboptimally assessed given CT technique. No evidence for severe central canal or neural foraminal stenosis. IMPRESSION: 1. No lumbar spine fractures. 2. Mild degenerative disc disease and facet arthrosis within the lumbar spine. Suboptimal evaluation of central canal and neural foramen given CT technique. 3. Bilateral nephrolithiasis. ACT 112: Negative or not required by law. Electronically signed by: Garrett Melendez M.D. 11/11/2024 10:22 AM Discharge Plan Visit Data Chief Complaint: Neuro Symptoms/Deficit Stated Complaint: NUMBNESS FROM NECK DOWN, SPINAL FLUID/LYMES ED Provider: Angel Morton Discharge Problem: Bilateral leg weakness Forms Stand Alone Forms: [facility] Prescriptions Prescriptions: No Action tizanidine 4 mg tablet 4 mg PO HS Rx Instructions: PER PT "USUALLY TAKE AT HS". amlodipine 10 mg tablet 10 mg PO QAM oxycodone-acetaminophen 5-325 mg tablet 1 tab PO Q4H PRN (Reason: Pain) memantine 5 mg tablet 5 mg PO BID pregabalin 150 mg capsule 150 mg PO TID acetaminophen 500 mg Tablet 500 mg PO Q6H PRN (Reason: Pain/Fever) Referrals Referrals: Wolfgang Sellers MD [Primary Care Provider] -
[2024-11-11 09:52] LABS: Basophils # (auto) 0.06 K/uL (0.00-0.20); Basophils % (auto) 1.1 %; Eosinophils % (auto) 1.8 %; Hematocrit (blood only) 42.8 % (42.0-52.0); Hemoglobin 14.4 g/dl (14.0-18.0); Immature Granulocytes # (auto) 0.01 K/uL (0.01-0.20); Immature Granulocytes % (auto) 0.2 %; Lymphocytes % (auto) 26.5 %; Mean Corpuscular Hemoglobin 29.1 pg (25.0-34.0); Mean Corpuscular Hgb Conc 33.6 g/dL (32.0-36.0); Mean Corpuscular Volume 86.5 fL (80.0-100.0); Mean Platelet Volume 10.2 fL (9.4-12.4); Monocytes % (auto) 7.1 %; Neutrophils # (auto) 3.59 K/uL (1.40-6.50); Neutrophils % (auto) 63.3 %; Platelet Count 222 K/uL (130-400); RDW Coefficient of Variation 13.8 % (11.5-14.5); RDW Standard Deviation 43.9 fL (36.4-46.3); Red Blood Count 4.95 M/uL (4.70-6.10); White Blood Count 5.66 K/ul (4.8-10.8)
[2024-11-11 10:13] LABS: Alanine Aminotransferase 16 U/L (7-52); Albumin Globulin Ratio 2.3 (0.9-2); Alkaline Phosphatase 50 U/L (34-104); Anion Gap 5 (3-11); Aspartate Aminotransferase 19 U/L (13-39); Bilirubin,Total 1.3 mg/dl (0.2-1.0); Blood Urea Nitrogen 12 mg/dl (6-23); Calcium 9.9 mg/dl (8.6-10.3); Carbon Dioxide 27 mmol/L (21-32); Chloride 104 mmol/L (98-107); Creatinine Clr Calc Pharmacy 107.5 ml/min; Globulin 2.2 gm/dl (2.5-4.0); Glucose 108 mg/dl (70-99(Fasting)); Lipase 14 U/L (11-82); Potassium 3.8 mmol/L (3.5-5.1); Sodium 136 mmol/L (136-145); Total Protein 7.2 gm/dl (6.0-8.3)
[2024-11-11] MEDS: SODIUM CHLORIDE 0.9% 500 ML IV ONE (10:13)
[2024-11-11] MEDS: MoRPHine SULFATE 4 MG/ML 1 ML CARP\\VIAL IV STA ×2 (10:13→12:53)
[2024-11-11] MEDS: ONDANSETRON INJ 2 MG/ML 2 ML VIAL IV STA (10:13)
--- NOTE | 2024-11-11 10:23 | CT Scan Report ---
LUMBAR SPINE CT WITHOUT CONTRAST CLINICAL HISTORY: Back pain. Right leg numbness. COMPARISON STUDY: Lumbar spine MRI July 31, 2024. TECHNIQUE: Axial images of the lumbar spine were obtained without IV contrast. Sagittal and coronal r eformats were viewed. Automated exposure control was utilized for the study. A dose lowering techniq ue was utilized adhering to the principles of ALARA. FINDINGS: Alignment of the lumbar spine is anatomic. There are no fractures within the lumbar spine. There are no osseous lesions. Paravertebral soft tissues are unremarkable. Bilateral renal calculi me asure up to 6 mm. Mild multilevel facet arthrosis is present. There is minimal disc bulge at the L4-L 5 level with osteophytosis. Central canal and neural foramen are suboptimally assessed given CT techn ique. No evidence for severe central canal or neural foraminal stenosis. IMPRESSION: 1. No lumbar spine fractures. 2. Mild degenerative disc disease and facet arthrosis within the lumbar spine. Suboptimal evaluation of central canal and neural foramen given CT technique. 3. Bilateral nephrolithiasis. ACT 112: Negative or not required by law. Electronically signed by: Garrett Melendez M.D. 11/11/2024 10:22 AM
[2024-11-11 10:45] LABS: Adenovirus PCR Not Detected (NotDetected); Bordetella parapertussis PCR Not Detected (NotDetected); Bordetella pertussis PCR Not Detected (NotDetected); Chlamydia pneumoniae PCR Not Detected (NotDetected); Coronavirus 229E PCR Not Detected (NotDetected); Coronavirus CoV-2 (COVID19)PCR Not Detected (NotDetected); Coronavirus HKU1 PCR Not Detected (NotDetected); Coronavirus NL63 PCR Not Detected (NotDetected); Coronavirus OC43PCR Not Detected (NotDetected); Human Metapneumovirus PCR Not Detected (NotDetected); Influenza A PCR Not Detected (NotDetected); Influenza B PCR Not Detected (NotDetected); Mycoplasma pneumoniae PCR Not Detected (NotDetected); Parainfluenza Virus 1 PCR Not Detected (NotDetected); Parainfluenza Virus 2 PCR Not Detected (NotDetected); Parainfluenza Virus 3 PCR Not Detected (NotDetected); Parainfluenza Virus 4 PCR Not Detected (NotDetected); Respiratory Syncytial VirusPCR Not Detected (NotDetected); Rhinovirus/Enterovirus PCR DETECTED (NotDetected)
[2024-11-11 10:48] LABS: Procalcitonin < 0.02 ng/ml (0-0.5)
[2024-11-11 10:51] LABS: Troponin I High Sensitivity < 2.3 pg/ml (0-20)
[2024-11-11 11:14] LABS: Lyme Screen Rflx Confirmation Positive (Negative)
[2024-11-11 11:48] LABS: Lyme Ab IgG 2nd Tier Confirm Positive (Negative); Lyme Ab IgM 2nd Tier Confirm Negative (Negative)
[2024-11-11 12:13] LABS: Appearance Urine Clear (Clear); Bilirubin Urine Negative (Negative); Blood Urine Negative (Negative); Color Urine Yellow; Glucose Urine UA Negative (Negative); Ketones Urine Negative (Negative); Leukocyte Esterase Urine Negative (Negative); Nitrite Urine Negative (Negative); Protein Urine Negative (Negative); Specific Gravity Urine 1.009 (1.000-1.030); Urobilinogen Urine Negative (Negative)
[2024-11-11 14:37] LABS: Total Protein CSF 45.6 mg/dl (15-45)
[2024-11-11 14:43] LABS: Appearance CSF Clear; CSF Count Tube # 3; CSF Xanthrochromic No xanthochromia; Color CSF Colorless; Red Blood Cell CSF Manual 117 (0); White Blood Cell CSF Manual 0 (0-5)
--- NOTE | 2024-11-11 14:50 | Fluoroscopy Report ---
LUMBAR PUNCTURE UNDER FLUOROSCOPY CLINICAL HISTORY: Right upper and lower extremity paresthesias/weakness history of lyme disease PROCEDURE: Procedure and risks were explained. Informed consent was obtained. A final timeout was com pleted. The patient was placed prone on the fluoroscopic exam table. The lower lumbar region was prep ped and draped in sterile fashion. 1% lidocaine was utilized for skin anesthesia. Utilizing fluoroscopic guidance, a 22-gauge Sprotte spinal needle was advanced into the intrathecal s pace at the L3-4 disc space level. Fluoroscopic spot images were obtained. Approximately 8 mL of duyen r CSF fluid was removed and sent to lab for analysis. The needle was removed and Band-Aid applied. Th e patient tolerated the procedure well. Vital signs will be monitored postprocedure. Fluoroscopy time 20 seconds. Study dosed 18.14 mGy. IMPRESSION: Lumbar puncture as above. Performed, dictated, and signed by Omid Avina PA-C; to be co-signed by Dr. Garrett Melendez. Electronically signed by: Garrett Melendez M.D. 11/11/2024 2:51 PM
[2024-11-11] MEDS: cefTRIAXone SODIUM 2,000 MG/50 ML BAG IV STA (15:23)
--- NOTE | 2024-11-11 15:23 | History & Physical Report ---
Date of Service November 11, 2024 Assessment & Plan (1) Paresthesia of buttock: (2) Bilateral leg paresthesia: (3) Bilateral leg weakness: (4) HTN (hypertension): Plan Patient is 44 year old male with PMH HTN, IBS, s/p anterior cervical fusion of C5-6, RLE osteoid osteoma surgery, and L meniscal surgery who presents with complaints of worsening bilateral lower extremity weakness/numbness.. History of LUE and LLE paresthesias and weakness and +Lyme in March treated with amoxicillin with improvement. 2.5 months ago started with buttock numbness that radiates to bilateral posterior legs with progressive bilateral leg weakness. Hospitalized in 08/2024 with similar symptoms. Treated with IV ceftriaxone x 2 weeks for suspected recurrent Lyme disease. Assessment and plan: Worsening bilateral leg weakness/paresthesia Hx Lyme disease Ongoing symptoms since originally being diagnosed with Lyme disease in March 2024 Most recently discharged and treated in August 2024 with IV ceftriaxone Had follow-up outpatient with neurology for worsening weakness 11/04/24: MRI of the brain/thoracic spine negative, MRI cervical spine with proximal junctional degeneration at C4/C5 Neurology directed the patient to the ER for repeat LP, Lyme IgM negative, IgG positive consistent with old infection Repeat CSF fluid analysis pending, incidentally found to be positive for rhinovirus Hx HTN: Continue home amlodipine A total of 60 minutes was spent on chart review/facilitating plan of care/reviewing diagnostic data/discussion with consultants Full code DVT prophylaxis: SCDs History of Present Illness Chief Complaint: Progressive bilateral lower extremity numbness Primary Care Provider: Wolfgang Sellers MD Patient is 44 year old male with PMH HTN, IBS, s/p anterior cervical fusion of C5-6, RLE osteoid osteoma surgery, and L meniscal surgery who presents to the ED on 11/11/2024 with worsening bilateral lower extremity numbness/weakness. Patient reports in January started with paresthesias to radial aspect of right middle finger which was then followed by numbness and weakness of right arm and r leg. Reports had followed up with neurology in March 2024 and had positive Lyme test and was started on doxycycline. Patient reports took doxycycline for 2 days and he had hallucinations in which he came to [facility] ER on 03/13/2024 and per chart review was given a dose of Rocephin and sent home on amoxicillin. Patient reports after couple days of amoxicillin his left upper and lower extremity numbness and weakness was resolving. States he was doing well until beginning of May 2024 when he started with numbness sensation to gluteal cleft that radiated down posterior legs to his knee. Reports numbness has continued and has progressed to leg weakness and is having difficulty ambulating and needing to use a cane. Seen by ID on 10/18 with concerns for worsening sx, at this time, no further antibiotics were recommended. Patient reports ongoing and worsening issues with erectile dysfunction. Reports he is able to get erect but cannot feel anything while having intercourse. Also reports issues with feeling like he is retaining urine and he is unable to void unless he is sitting down. This has worsened over the past 2 months. The patient was recently hospitalized on 08/03/2024 with similar symptoms and discharged on IV ceftriaxone 2 g daily x 11 days to complete a 2-week course on discharge. Patient had a recent brain/cervical/thoracic MRI last week outpatient that was unremarkable. He was directed to return to the ED for repeat LP with concern of recurrent Lyme disease. Lyme IgG positive, consistent with chronic infection, IgM negative. Patient also positive for rhinovirus On arrival to the ED today, labs are fairly unremarkable Urinalysis negative Lumbar spine CT with mild degenerative disc disease Lumbar puncture was complete in ED and pending. The patient will be admitted for further workup Allergies Allergy/AdvReac Type Severity Reaction Status Date / Time doxycycline AdvReac Severe HALLUCINATIONS/BLURRED Verified 08/13/24 07:18 & DOUBLE VISION Home Medications Medication Instructions Recorded Confirmed Type amlodipine 10 mg tablet 10 mg PO QAM 03/13/24 11/11/24 History tizanidine 4 mg tablet 4 mg PO HS MUSCLE SPASMS 03/13/24 11/11/24 History acetaminophen 500 mg tablet 500 mg PO Q6H PRN Pain/Fever 07/31/24 11/11/24 History memantine 5 mg tablet 5 mg PO BID 11/11/24 11/11/24 History oxycodone-acetaminophen 5 mg-325 1 tab PO Q4H PRN Pain 11/11/24 11/11/24 History mg tablet pregabalin 150 mg capsule 150 mg PO TID 11/11/24 11/11/24 History Past Med/Surg History Problem List (Updated 11/11/24 @ 17:26 by Kwan Lei MD) Radicular pain of right lower extremity Paresthesia of buttock (Acute) Bilateral leg paresthesia (Acute) Bilateral leg weakness (Acute) Medical History IBS (irritable bowel syndrome) HTN (hypertension) Cervical disc disease Surgical History History of esophagogastroduodenoscopy (EGD) History of colonoscopy 02/26/24: diverticulosis in sigmoid colon. internal hemorrhoids H/O cervical spine surgery Family History Other Cancer Social History Smoking Status: Never smoker Hx Alcohol Use: No Hx Substance Use: No Preferred Language: Puerto Rican Communication Ability: Effective Salvage Worker Required: No Beliefs That Will Affect Care: None Current Living Situation: Spouse Other Information That Helps Us Care for You: No Feels Safe at Home: Yes Safety Concerns: Feels Safe At This Time Assistive Devices: Cane Review of Systems Review of Systems: All systems reviewed & are unremarkable except as noted in HPI & below Physical Exam Constitutional: WD/WN, vitals as above Eyes: PERRL, conjunctivae normal, anicteric sclerae ENMT: external ear and nose normal, oropharynx normal Neck: trachea midline, no thyromegaly Cardiovascular: RRR, no murmur, no edema Gastrointestinal (Abdomen): normal bowel sounds, soft, nontender, no hepatosplenomegaly Musculoskeletal: no cyanosis or clubbing, extremities motor strength 5/5 (Bilateral lower extremity weakness, worse in the right) Skin: no rashes, warm and dry Neurologic: patellar DTR's 2+ bilat, sensation intact (Hyperreflexia right lower leg, decreased sensation, right arm weakness) and PERRL, EOMI, accommodation nl, no face palsy, no dysarthria Psychiatric: A+Ox3, euthymic affect Lymphatic: no cervical or axillary lymphadenopathy Results & Data Results & Data Vital Signs (Past 12 Hours) Vital Signs Temp Pulse Pulse Resp BP BP Pulse Ox 11/11/24 15:00 62 16 123/84 97 11/11/24 14:31 64 16 105/57 L 96 11/11/24 12:00 63 13 116/84 98 11/11/24 11:00 64 16 132/90 96 11/11/24 10:19 75 11/11/24 09:31 97 11/11/24 09:17 98 11/11/24 09:06 36.9 C 97 H 18 134/91 100 O2 Del Method 11/11/24 15:00 Room Air 11/11/24 14:31 Room Air 11/11/24 12:00 Room Air 11/11/24 11:00 Room Air 11/11/24 10:19 11/11/24 09:31 Room Air 11/11/24 09:17 Room Air 11/11/24 09:06 Room Air Diagnostic Findings Laboratory Results WBC 5.66 K/ul (4.8-10.8) 11/11/24 09:28 RBC 4.95 M/uL (4.70-6.10) 11/11/24 09:28 Hgb 14.4 g/dl (14.0-18.0) 11/11/24 09:28 Hct 42.8 % (42.0-52.0) 11/11/24 09:28 MCV 86.5 fL (80.0-100.0) 11/11/24 09:28 MCH 29.1 pg (25.0-34.0) 11/11/24 09:28 MCHC 33.6 g/dL (32.0-36.0) 11/11/24 09:28 RDW Std Deviation 43.9 fL (36.4-46.3) 11/11/24 09: RDW Coeff of Mercedez 13.8 % (11.5-14.5) 11/11/24 09:28 Plt Count 222 K/uL (130-400) 11/11/24 09:28 MPV 10.2 fL (9.4-12.4) 11/11/24 09:28 Immature Gran % (Auto) 0.2 % 11/11/24 09:28 Neut % (Auto) 63.3 % 11/11/24 09:28 Lymph % (Auto) 26.5 % 11/11/24 09:28 Menard % (Auto) 7.1 % 11/11/24 09:28 Eos % (Auto) 1.8 % 11/11/24 09:28 Baso % (Auto) 1.1 % 11/11/24 09: Neut # (Auto) 3.59 K/uL (1.40-6.50) 11/11/24: Lymph # (Auto) 1.50 K/uL (1.20-3.40) 11/11/24 09: Menard # (Auto) 0.40 K/uL (0.11-0.59) 11/11/24: Eos # (Auto) 0.10 K/uL (0.00-0.50) 11/11/24 09: Baso # (Auto) 0.06 K/uL (0.00-0.20) 11/11/24: Immature Gran # (Auto) 0.01 K/uL (0.01-0.20) 11/11/24 09: Sodium 136 mmol/L (136-145) 11/11/24: Potassium 3.8 mmol/L (3.5-5.1) 11/11/24 09: Chloride 104 mmol/L (98-107) 11/11/24 09: Carbon Dioxide 27 mmol/L (21-32) 11/11/24 09: Anion Gap 5 (3-11) 11/11/24: BUN 12 mg/dl (6-23) 11/11/24 09: Creatinine 1.00 mg/dl (0.6-1.4) 11/11/24 09: Est Cr Clr Drug Dosing 107.5 ml/min 11/11/24 09: eGFR 96.37 11/11/24 09: BUN/Creatinine Ratio 12.0 (10-20) 11/11/24 09: Glucose 108 mg/dl (70-99(Fasting)) H 11/11/24 09: Calcium 9.9 mg/dl (8.6-10.3) 11/11/24 09: Total Bilirubin 1.3 mg/dl (0.2-1.0) H 11/11/24 09: AST 19 U/L (13-39) 11/11/24: ALT 16 U/L (7-52) 11/11/24 09: Alkaline Phosphatase 50 U/L (34-104) 11/11/24 09: Troponin I High Sens < 2.3 pg/ml (0-20) 11/11/24 09:28 Total Protein 7.2 gm/dl (6.0-8.3) 11/11/24 09: Albumin 5.0 gm/dl (3.4-5.0) 11/11/24 09: Globulin 2.2 gm/dl (2.5-4.0) L 11/11/24 09: Albumin/Globulin Ratio 2.3 (0.9-2) H 11/11/24 09: Lipase 14 U/L (11-82) 11/11/24 09: Procalcitonin < 0.02 ng/ml (0-0.5) 11/11/24 09:28 Urine Color Yellow 11/11/24 11:40 Urine Appearance Clear (Clear) 11/11/24 11:40 Urine pH 7.0 (4.5-7.5) 11/11/24 11:40 Ur Specific [place] 1.009 (1.000-1.030) 11/11/24 11:40 Urine Protein Negative (Negative) 11/11/24 11:40 Urine Glucose (UA) Negative (Negative) 11/11/24 11:40 Urine Ketones Negative (Negative) 11/11/24 11:40 Urine Blood Negative (Negative) 11/11/24 11:40 Urine Nitrite Negative (Negative) 11/11/24 11:40 Urine Bilirubin Negative (Negative) 11/11/24 11:40 Urine Urobilinogen Negative (Negative) 11/11/24 11:40 Ur Leukocyte Esterase Negative (Negative) 11/11/24 11:40 Fluid Comment 11/11/24 Unknown CSF Appearance Clear 11/11/24 Unknown CSF Color Colorless 11/11/24 Unknown Xanthrochromic No xanthochromia 11/11/24 Unknown CSF WBC 0 (0-5) 11/11/24 Unknown CSF RBC 117 (0) 11/11/24 Unknown CSF Cell Count Tube # 3 11/11/24 Unknown CSF Chemistry Tube # 1 11/11/24 Unknown CSF Glucose 59 mg/dl (40-70) 11/11/24 Unknown CSF Total Protein 45.6 mg/dl (15-45) H 11/11/24 Unknown Adenovirus (PCR) Not Detected (NotDetected) 11/11/24 09:30 B. pertussis DNA (PCR) Not Detected (NotDetected) 11/11/24 09:30 B.parapertussis DNA PCR Not Detected (NotDetected) 11/11/24 09:30 Lyme Disease Screen Positive (Negative) H 11/11/24 09:28 Lyme Tier 2 IgG Confirm Positive (Negative) H 11/11/24 09:28 Lyme Tier 2 IgM Confirm Negative (Negative) 11/11/24 09:28 C. pneumoniae DNA (PCR) Not Detected (NotDetected) 11/11/24 09:30 Coronavirus OC43 (PCR) Not Detected (NotDetected) 11/11/24 09:30 Coronavirus HKU1 (PCR) Not Detected (NotDetected) 11/11/24 09:30 Coronavirus 229E (PCR) Not Detected (NotDetected) 11/11/24 09:30 SARS-CoV-2 (PCR) Not Detected (NotDetected) 11/11/24 09:30 Coronavirus NL63 (PCR) Not Detected (NotDetected) 11/11/24 09:30 Human Metapneumovir PCR Not Detected (NotDetected) 11/11/24 09:30 Influenza Type A (PCR) Not Detected (NotDetected) 11/11/24 09:30 Influenza Type B (PCR) Not Detected (NotDetected) 11/11/24 09:30 M. pneumoniae (PCR) Not Detected (NotDetected) 11/11/24 09:30 Parainfluenza 1 (PCR) Not Detected (NotDetected) 11/11/24 09:30 Parainfluenza 2 (PCR) Not Detected (NotDetected) 11/11/24 09:30 Parainfluenza 3 (PCR) Not Detected (NotDetected) 11/11/24 09:30 Parainfluenza 4 (PCR) Not Detected (NotDetected) 11/11/24 09:30 RSV (PCR) Not Detected (NotDetected) 11/11/24 09:30 Entero/Rhino (PCR) DETECTED (NotDetected) A 11/11/24 09:30 Impressions Lumbar Puncture 11/11/24 09:43 LUMBAR PUNCTURE UNDER FLUOROSCOPY CLINICAL HISTORY: Right upper and lower extremity paresthesias/weakness history of lyme disease PROCEDURE: Procedure and risks were explained. Informed consent was obtained. A final timeout was completed. The patient was placed prone on the fluoroscopic exam table. The lower lumbar region was prepped and draped in sterile fashion. 1% lidocaine was utilized for skin anesthesia. Utilizing fluoroscopic guidance, a 22-gauge Sprotte spinal needle was advanced into the intrathecal space at the L3-4 disc space level. Fluoroscopic spot images were obtained. Approximately 8 mL of clear CSF fluid was removed and sent to lab for analysis. The needle was removed and Band-Aid applied. The patient tolerated the procedure well. Vital signs will be monitored postprocedure. Fluoroscopy time 20 seconds. Study dosed 18.14 mGy. IMPRESSION: Lumbar puncture as above. Performed, dictated, and signed by Omid Avina PA-C; to be co-signed by Birgit Melendez. Electronically signed by: Garrett Melendez M.D. 11/11/2024 2:[address] 11/11/24 09:[address] WITHOUT CONTRAST CLINICAL HISTORY: Back pain. Right leg numbness. COMPARISON STUDY: Lumbar spine MRI July 31, 2024. TECHNIQUE: Axial images of the lumbar spine were obtained without IV contrast. Sagittal and coronal reformats were viewed. Automated exposure control was utilized for the study. A dose lowering technique was utilized adhering to the principles of ALARA. FINDINGS: Alignment of the lumbar spine is anatomic. There are no fractures within the lumbar spine. There are no osseous lesions. Paravertebral soft tissues are unremarkable. Bilateral renal calculi measure up to 6 mm. Mild multilevel facet arthrosis is present. There is minimal disc bulge at the L4-L5 level with osteophytosis. Central canal and neural foramen are suboptimally assessed given CT technique. No evidence for severe central canal or neural foraminal stenosis. IMPRESSION: 1. No lumbar spine fractures. 2. Mild degenerative disc disease and facet arthrosis within the lumbar spine. Suboptimal evaluation of central canal and neural foramen given CT technique. 3. Bilateral nephrolithiasis. ACT 112: Negative or not required by law. Electronically signed by: Garrett Melendez M.D. 11/11/2024 10:22 AM Supervising Physician Co-Signing Physician Notes Patient seen and evaluated at bedside. Long discussion with and patient. Symptoms include: tingling of right hand, radiation of pain from right shoulder to right elbow, tingling in right foot. Also noted per patient paresthesias around groin, radiating from center of back. Also states he has been having chest pain and SOB. Personally reviewed MRI imaging of cervical, thoracic, and lumbar spines. Noted degenerative changes and prior fusion in cervical spine. Neurology consulted, suggest etiology is not central in nature, also unlikely to be Lyme disease. Lyme disease has been treated 3 times, and IgG lyme is not suggestive of active disease. LP performed, unremarkable except for very mildly elevated protein, no WBC noted. Patient has had extensive infectious and central neurologic workup, and symptoms do not seem to have clear central correlate. Given changes in sensation in right hand and right foot, with prior surgeries in right leg and cervical spine, concern for neuroinflammatory/dysautonomic disorder such as complex regional pain syndrome. Other consideration would be a concominant fatigue syndrome vs. peripheral nerve disease. Next steps, as discussed with patient, would be to discuss symptoms with neuromuscular specialist for consideration of peripheral nerve diseases, a PM&R doctor/marine painter who specializes in neuroinflammatory conditions such as complex regional pain syndrome. Other consideration could be for a repeat MRI of cervical spine, although likely to be lower yield given 2021 showed no significant stenosis or targetable regions. Discussed need for opioid safety and pursuit of further options for pain control. I will complete an autoimmune/vasculitis workup here to complete the metabolic workup. Discussed recommendations and next steps with patient/, who are agreeable and appreciative of the plan. I have seen and discussed the case with the collaborating advanced practitioner. I agree with the above H&P. I have reviewed and confirmed the patients medical history, the findings on physical examination, and the patients diagnosis and treatment plan with Natalie Taylor NP and agree with the information documented. I spent a total of 40 minutes coordinating, documenting, and providing care for this patient excluding time spent in the performance of separately billed services. All of the aforementioned completed outside of collaborating with the assigned advanced practitioner for a full treatment plan. I have reviewed the advanced practitioner's documentation, and I agree with, and take responsibility for the plan of care
[2024-11-11 15:32] VITALS: RESP 14
[2024-11-11 15:52] LABS: Cryptococcus neoformans/ga PCR Not Detected (NotDetected); Cytomegalovirus PCR Not Detected (NotDetected); Enterovirus PCR Not Detected (NotDetected); Escherichia coli K1 PCR Not Detected (NotDetected); Haemophilius influenzae PCR Not Detected (NotDetected); Herpes Simplex Virus 1 PCR Not Detected (NotDetected); Herpes Simplex Virus 2 PCR Not Detected (NotDetected); Human Herpes Virus 6 PCR Not Detected (NotDetected); Human Parechovirus PCR Not Detected (NotDetected); Listeria monocytogenes PCR Not Detected (NotDetected); Neisseria meningitidis PCR Not Detected (NotDetected); Streptococcus agalactiae PCR Not Detected (NotDetected); Streptococcus pneumoniae PCR Not Detected (NotDetected); Varicella Zoster Virus PCR Not Detected (NotDetected)
[2024-11-11 16:02] VITALS: BP 134/81; PULSE 65; O2SAT 99
[2024-11-11] MEDS: oxyCODONE/ACETAMINOPHEN 5mg/325mg TAB PO PRN (16:50)
--- NOTE | 2024-11-11 17:32 | Neurology Consultation ---
Date of Consultation November 11, 2024 Assessment & Plan (1) Radicular pain of right lower extremity: Héctor Carrera is a 44 yo M presenting with a year of RLE and RUE pain and parasthesias with associated mild leg weakness that has been intermittent. During this time he has had an extensive workup including multiple MRIs of the neuroaxis, seen 3 neurologists, 2 LPs and had a LUE EMG. Testing has been unremarkable, igg does not indicate active lyme and his current LP shows 0 WBCs. This does not appear to be a central process which would also be very unlikely to present with pain. There is no further inpatient testing to recommend. I suggest he follow-up with neuromuscular [place] [facility] [place] and NCV of the affected extremities. Without physical evidence on these tests of a structural cause, we are left with treating symptoms alone. He can otherwise be discharged from our perspective. -- Recommend outpatient referral for EMG at [facility] [place] with neuromuscular follow-up there. -- No further inpatient workup, can be discharged from our perspective. Telehealth Consultation Telehealth Information Telehealth Information: I performed this visit using a real-time [facility] and the patients location ([facility] [address]). After connecting through interactive tele-video, patient was identified by name and date of and/or wristband check.Patient (or authorized healthcare healthcare representative) was informed that this was a telemedicine visit and it was being conducted confidentially over secure lines. My office door was closed and no one else was present in the room with me.Patient (or authorized healthcare healthcare representative) provided consent to proceed with the visit, expressed an understanding of privacy and security of the telemedicine visit, and gave permission to have a hospital healthcare representative in the room in order to assist with the visit and to conduct portions of the visit, as needed. I informed the patient (or authorized healthcare healthcare representative) that I reviewed their record and presented the opportunity for them to ask any questions regarding the visit today. The patient agreed to participate. History of Present Illness Reason for Consultation: R sided pain and weakness Requesting Physician: Dr. Ronquillo Attending Physician: Andre Ronquillo MD History of Present Illness Héctor Carrera is a 44 yo M presenting with relapsing remitting pain and parasthesias of the R arm and leg over the past year. Mild improvement after receiving CTX but symptoms have returned. He reports some weakness of the R LUE that affects his walking but is most affected by the pain through his arm and leg. We reviewed together the summary of his extensive prior testing. Please see documentation from Dr. Hussein who saw him in Jul 2024. [facility] records also reviewed. Patient presented to the hospital at the direction of neurology and his PCP for a repeat LP. Allergies Allergy/AdvReac Type Severity Reaction Status Date / Time doxycycline AdvReac Severe HALLUCINATIONS/BLURRED Verified 08/13/24 07:18 & DOUBLE VISION Home Medications Medication Instructions Recorded Confirmed Type amlodipine 10 mg tablet 10 mg PO QAM 03/13/24 11/11/24 History tizanidine 4 mg tablet 4 mg PO HS MUSCLE SPASMS 03/13/24 11/11/24 History acetaminophen 500 mg tablet 500 mg PO Q6H PRN Pain/Fever 07/31/24 11/11/24 History memantine 5 mg tablet 5 mg PO BID 11/11/24 11/11/24 History oxycodone-acetaminophen 5 mg-325 1 tab PO Q4H PRN Pain 11/11/24 11/11/24 History mg tablet pregabalin 150 mg capsule 150 mg PO TID 11/11/24 11/11/24 History Patient History Medical History IBS (irritable bowel syndrome) HTN (hypertension) Cervical disc disease Surgical History History of esophagogastroduodenoscopy (EGD) History of colonoscopy 02/26/24: diverticulosis in sigmoid colon. internal hemorrhoids H/O cervical spine surgery Family History Other Cancer Social History Smoking Status: Never smoker Hx Alcohol Use: No Hx Substance Use: No Preferred Language: Qatari Communication Ability: Effective Sheep Rancher Required: No Beliefs That Will Affect Care: None Current Living Situation: Family Feels Safe at Home: Yes Assistive Devices: Cane Review of Systems +R sided pain and parasthesias Physical Exam Awake and alert, speech is clear and fluent, no facial asymmetry. Intact EOM. Upper extremity strength is symmetric without drift or tremor. Results & Data Vital Signs (Past 12 Hours) Vital Signs Temp Pulse Pulse Resp BP BP Pulse Ox 11/11/24 16:00 65 14 134/81 99 11/11/24 15:30 68 14 133/83 98 11/11/24 15:15 61 12 117/80 98 11/11/24 15:00 62 16 123/84 97 11/11/24 14:31 64 16 105/57 L 96 11/11/24 12:00 63 13 116/84 98 11/11/24 11:00 64 16 132/90 96 11/11/24 10:19 75 11/11/24 09:31 97 11/11/24 09:17 98 11/11/24 09:06 36.9 C 97 H 18 134/91 100 O2 Del Method 11/11/24 16:00 Room Air 11/11/24 15:30 Room Air 11/11/24 15:15 Room Air 11/11/24 15:00 Room Air 11/11/24 14:31 Room Air 11/11/24 12:00 Room Air 11/11/24 11:00 Room Air 11/11/24 10:19 11/11/24 09:31 Room Air 11/11/24 09:17 Room Air 11/11/24 09:06 Room Air Laboratory Results LP - 0 WBCs, continued Igg+ for lyme.
[2024-11-11] MEDS: ACETAMINOPHEN 500 MG TAB PO PRN (18:37)
[2024-11-11 19:12] VITALS: TEMP 97.7
[2024-11-11] MEDS: tiZANidine HCL 4 MG TABLET PO SCH (20:43)
[2024-11-11] MEDS: PREGABALIN 150 MG CAP PO SCH (20:43)
[2024-11-11] MEDS: MEMANTINE HCL 5 MG TAB PO SCH (20:43)
--- NOTE | 2024-11-11 21:23 | Discharge Summary ---
Discharge Summary Date of Service November 11, 2024 Principal Dx & Hospital Course #1 = Principal Diagnosis (1) Paresthesia of buttock: (2) Bilateral leg paresthesia: (3) Bilateral leg weakness: (4) HTN (hypertension): Plan Patient is 44 year old male with PMH HTN, IBS, s/p anterior cervical fusion of C5-6, RLE osteoid osteoma surgery, and L meniscal surgery who presents with complaints of worsening bilateral lower extremity weakness/numbness.. History of LUE and LLE paresthesias and weakness and +Lyme in March treated with amoxicillin with improvement. 2.5 months ago started with buttock numbness that radiates to bilateral posterior legs with progressive bilateral leg weakness. Hospitalized in 08/2024 with similar symptoms. Treated with IV ceftriaxone x 2 weeks for suspected recurrent Lyme disease. Assessment and plan: Worsening bilateral leg weakness/paresthesia Hx Lyme disease Ongoing symptoms since originally being diagnosed with Lyme disease in March 2024 Most recently discharged and treated in August 2024 with IV ceftriaxone Had follow-up outpatient with neurology for worsening weakness 11/04/24: MRI of the brain/thoracic spine negative, MRI cervical spine with proximal junctional degeneration at C4/C5 Neurology directed the patient to the ER for repeat LP, Lyme IgM negative, IgG positive consistent with old infection Repeat CSF fluid analysis pending, incidentally found to be positive for rhinovirus Hx HTN: Continue home amlodipine A total of 60 minutes was spent on chart review/facilitating plan of care/reviewing diagnostic data/discussion with consultants Full code DVT prophylaxis: SCDs Notes For Next Care Provider Patient is 44 year old male with PMH HTN, IBS, s/p anterior cervical fusion of C5-6, RLE osteoid osteoma surgery, and L meniscal surgery who presents with complaints of worsening bilateral lower extremity weakness/numbness.. History of LUE and LLE paresthesias and weakness and +Lyme in March treated with amoxicillin with improvement. 2.5 months ago started with buttock numbness that radiates to bilateral posterior legs with progressive bilateral leg weakness. Hospitalized in 08/2024 with similar symptoms. On medicine, neurology consulted, recommended f/u outpatient and ok to discharge, unlikely central in origin or lyme disease. Consideration for complex regional pain syndrome vs. other neuroinflammatory diseases vs. peripheral nerve disease. Patient medically stable for discharge home. Ordered autoimmune workup. Recommend referrals outpatient to neuromuscular medicine, PM&R and/or pain management. Medication Changes From Visit -none Admission HPI Per Admitting Provider Patient is 44 year old male with PMH HTN, IBS, s/p anterior cervical fusion of C5-6, RLE osteoid osteoma surgery, and L meniscal surgery who presents to the ED on 11/11/2024 with worsening bilateral lower extremity numbness/weakness. Patient reports in January started with paresthesias to radial aspect of right middle finger which was then followed by numbness and weakness of right arm and r leg. Reports had followed up with neurology in March 2024 and had positive Lyme test and was started on doxycycline. Patient reports took doxycycline for 2 days and he had hallucinations in which he came to [facility] ER on 03/13/2024 and per chart review was given a dose of Rocephin and sent home on amoxicillin. Patient reports after couple days of amoxicillin his left upper and lower extremity numbness and weakness was resolving. States he was doing well until beginning of May 2024 when he started with numbness sensation to gluteal cleft that radiated down posterior legs to his knee. Reports numbness has continued and has progressed to leg weakness and is having difficulty ambulating and needing to use a cane. Seen by ID on 10/18 with concerns for worsening sx, at this time, no further antibiotics were recommended. Patient reports ongoing and worsening issues with erectile dysfunction. Reports he is able to get erect but cannot feel anything while having intercourse. Also reports issues with feeling like he is retaining urine and he is unable to void unless he is sitting down. This has worsened over the past 2 months. The patient was recently hospitalized on 08/03/2024 with similar symptoms and discharged on IV ceftriaxone 2 g daily x 11 days to complete a 2-week course on discharge. Patient had a recent brain/cervical/thoracic MRI last week outpatient that was unremarkable. He was directed to return to the ED for repeat LP with concern of recurrent Lyme disease. Lyme IgG positive, consistent with chronic infection, IgM negative. Patient also positive for rhinovirus On arrival to the ED today, labs are fairly unremarkable Urinalysis negative Lumbar spine CT with mild degenerative disc disease Lumbar puncture was complete in ED and pending. The patient will be admitted for further workup Discharge Exam Gen: A&O 3 NAD HEENT: NCAT, EOMI, not icteric. External ears normal. No rhinorrhea. Moist mucous membranes. Neck: Supple, full range of motion, no observable masses, No meningeal sign. Lungs: No Respiratory distress. CV: RRR, no edema. Abdomen: Soft, nondistended, No rebound tenderness. MSK: No joint swelling, no redness. Skin: No rashes, petechiae, lesions. Normal color per patient. Neuro: weakness in right leg noted, change in sensation of right leg/right arm noted (all chronic findings) Psych: Appropriate for situation. Updated Medication List Medication Instructions Recorded Confirmed Type amlodipine 10 mg tablet 10 mg PO QAM 03/13/24 11/11/24 History tizanidine 4 mg tablet 4 mg PO HS MUSCLE SPASMS 03/13/24 11/11/24 History acetaminophen 500 mg tablet 500 mg PO Q6H PRN Pain/Fever 07/31/24 11/11/24 History memantine 5 mg tablet 5 mg PO BID 11/11/24 11/11/24 History oxycodone-acetaminophen 5 mg-325 1 tab PO Q4H PRN Pain 11/11/24 11/11/24 History mg tablet pregabalin 150 mg capsule 150 mg PO TID 11/11/24 11/11/24 History Hospital Stay Data Consultations 11/11/24 13:04 Consult Neurology Routine 11/11/24 15:26 Consult Neurology Routine 11/11/24 15:28 ED Decision to Admit Stat Diagnostic Imagining Performed 11/11/24 09:43 IR lumbar puncture diagnostic Routine 11/11/24 09:51 CT lumbar spine wo con Stat Pending Results Patient Have Any Pending Studies at Discharge: No Discharge Instructions Given to Patient (Per Discharging Provider) 1. Please follow up with PCP, and get referrals to neuromuscular medicine, PM&R for further workup. 2. Review autoimmune workup with PCP. 3. Be cautious with opioid use. Total Time Total Time Spent Total Time Spent (In Minutes): I spent a total of 35 minutes in direct patient care, including [id number] time with the patient and/or family, reviewing medical records, ordering and reviewing diagnostic tests, and coordinating care with other healthcare providers. This time includes: history taking, physical examination, medical decision making, counseling, ECG interpretation, imaging interpretation, lab interpretation, orders, and education, excluding time spent in the performance of separately billed services. Supervising Physician Co-Signing Physician Notes Patient seen and evaluated at bedside. Long discussion with and patient. Symptoms include: tingling of right hand, radiation of pain from right shoulder to right elbow, tingling in right foot. Also noted per patient paresthesias around groin, radiating from center of back. Also states he has been having chest pain and SOB. Personally reviewed MRI imaging of cervical, thoracic, and lumbar spines. Noted degenerative changes and prior fusion in cervical spine. Neurology consulted, suggest etiology is not central in nature, also unlikely to be Lyme disease. Lyme disease has been treated 3 times, and IgG lyme is not suggestive of active disease. LP performed, unremarkable except for very mildly elevated protein, no WBC noted. Patient has had extensive infectious and central neurologic workup, and symptoms do not seem to have clear central correlate. Given changes in sensation in right hand and right foot, with prior surgeries in right leg and cervical spine, concern for neuroinflammatory/dysautonomic disorder such as complex regional pain syndrome. Other consideration would be a concomitant fatigue syndrome vs. peripheral nerve disease. Next steps, as discussed with patient, would be to discuss symptoms with neuromuscular specialist for consideration of peripheral nerve diseases, a PM&R doctor/shipyard painter apprentice who specializes in neuroinflammatory conditions such as complex regional pain syndrome. Other consideration could be for a repeat MRI of cervical spine, although likely to be lower yield given 2021 showed no significant stenosis or targetable regions. Discussed need for opioid safety and pursuit of further options for pain control. I will complete an autoimmune/vasculitis workup here to complete the metabolic workup. Discussed recommendations and next steps with patient/, who are agreeable and appreciative of the plan.
[2024-11-12 00:59] LABS: C Reactive Protein < 0.50 mg/dl (0-0.5)
--- OUTSIDE RECORDS SUMMARY | 2024-11-12 03:25 | External Medical Summary | Summary of Care ---
Author Name Unknown Organization [facility] Address [address] [place] [address] Phone [phone] Care Team Providers Care Hat Body Inspector Name Role Phone Wolfgang Sellers MD Primary Care Provider + Reason for Visit * Reason Onset Date Comments Scheduling 11/11/2024 Encounter Details Date Type Department Care Team (Late st Contact Info) Description 11/11/2024 Telephone General Internal Medicine [facility] [address] [facility] [place] [address] Wolfgang Sellers MD [address] [place] [address] Scheduling Allergies No known active allergiesdocumented as of this encounter (statuses as of 11/11/2024) Medications sildenafil (REVATIO) 20 MG Tablet Take [...] at bedtime. 30 Tablet 1 5 Active oxyCODONE-Acetami nophen 5-325 MG Oral Tablet (Percocet) Take 1 Tablet by mouth every 4 hours as needed for Pain, Severe. Stop Tramadol. Do not drive. Space from Tizanidine 42 Tablet 5 Active documented as of this encounter (statuses as of 11/11/2024) Active Problems Problem Noted Date Diagnosed Date [...] as of this encounter (statuses as of 11/11/2024) Resolved Problems Problem Noted Date Diagnosed Date Resolved Date ADVANCE DIRECTIVE INFORMATION 05/24/2005 07/06/2024 Overview (05/24/2005): No, Advance Directive brochure offered , patient declined. documented as of this encounter (statuses as of 11/11/2024) Immunizations Name Administration Dates Next Due COVID-19, [...] encounter Miscellaneous Notes * Telephone Encounter - Dahiana Rajan OSA - 11/11/2024 11:38 AM EDT Called patient to schedule Lumbar puncture. No answer. Left message for patient to return call. OurIR doctor was out on 11/09 and he just reviewed the order on 11/10 late yesterday and that's why we are calling the patient now. documented in this encounter Plan of Treatment Upcoming Encounters Date Type Department Care Team (Late st Contact Info) Description 12/04/2024 9:20 AM EDT Office Visit Neurology [facility] [address] [place] [id number] Radha Tang MD [address] [place] [address] [id number] 12/07/2024 8:30 AM EDT Office Visit Pharmacy, [place] [address] [facility] [address] [address] [address] [facility] [address] [address] 12/10/2024 8:15 AM EDT Imaging Radiology [address] [facility] [place] [phone] 01/01/2025 11:30 AM EDT Office Visit Pharmacy, [facility] [address] [id number] [facility] [place] [id number] Scheduled Procedures Name Priority Associated Diagnoses Date/Ti [...] filedocumented as of this encounter Care Teams Hat Body Inspector Relationship Specialty Start Date End Date Wolfgang Sellers MD [address] [facility] [place] [address] PCP - General Internal Medicine 11/10/21 documented as of this encounter
--- NOTE | 2024-11-12 05:53 | Electrocardiogram Report ---
Test Reason : Blood Pressure : */* mmHG Vent. Rate : 71 BPM Atrial Rate : 71 BPM P-R Int : 152 ms QRS Dur : 84 ms QT Int : 378 ms P-R-T Axes : 58 34 15 degrees QTcB Int : 410 ms Normal sinus rhythm Normal ECG When compared with ECG of 13-Mar-2024 14:56, No significant change was found Confirmed by Al Rosario ([id number]) on 11/12/2024 5:52:57 AM Referred By: Wolfgang Sellers Confirmed By: Al Rosario
[2024-11-12] MEDS ORDERED: amLODIPine BESYLATE 5 MG TAB PO SCH (09:00)
[2024-11-12] MEDS ORDERED: cefTRIAXone SODIUM 2,000 MG/50 ML BAG IV SCH (15:30)
== END 2024-11-11 22:49 | disposition home or self-care (01) | DRG 93 ==
LOC: ED 08:59 → 3E 15:27